=== PATIENT | male | born 1935 | race Caucasian/White ===

== ENCOUNTER 2016-11-11 18:49 | Emergency (ER) | payer MEDICARE ==
[~2016-11-11] VITALS: Ht 175.3 cm; Wt 97.0 kg
[~2016-11-11 18:49] MED LIST: CHOL100010 PO; CREON6 PO; CYAN100017 PO; DEXA4TAB PO; GABA300C3 PO; LEVO175T19; LORA-392 PO; OMEG600C2 PO; PROT40TA; RIVA15 PO
[2016-11-11 18:55] VITALS: BP 121/69; PULSE 97; RESP 16; TEMP 97.6; O2SAT 87
--- NOTE | 2016-11-11 19:42 | PD ---
HPI Chief Complaint: Respiratory Symptoms Time Seen by Provider: 19:20 Travel History International Travel<30 days: No Contact w/Intl Traveler<30days: No Traveled to known affect area: No History of Present Illness HPI 81-year-old male complains of shortness of breath. Patient started having shortness of breath when he had pneumonia in September 2016. Patient was treated for pneumonia however had persistent shortness of breath especially with exertion. Patient was seen by personal physician locally, Dr. Escoto and physician in [place]. Patient had CT scan of the chest and abdomen pelvis 4 days ago and was normal. Patient was advised to be on home O2. Patient was seen by personal physician today and was advised that home health agency will deliver home oxygen for the patient. Patient however has not received any home O2 and the O2 tank he has is empty. Patient is here requesting home O2. Patient does not want any blood work or x-ray done today. Patient has an appointment with Dr. Carlisle, compound specialist next week. 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, BONEMARROW TRANSPLANT, ESOPHAGEAL CX ) Cardiovascular Problems: Yes (XARELTO) Chemotherapy: Yes (11/08/16) Diabetes: No Diminished Hearing: Yes (HEARING AIDS) Diverticulitis: Yes Endocrine: No Genitourinary: No Hepatitis: No Hiatal Hernia: Yes Immune Disorder: No Musculoskeletal: No Neurologic: No Psychiatric: No Reproductive: No Respiratory: No Thyroid Disease: No Past Surgical History Abdominal Surgery: Yes (HERNIA SURGERY) AICD: No Cardiac Surgery: No Ear Surgery: No Eye Surgery: No Genitourinary Surgery: No Gynecologic Surgery: No Joint Replacement: No Oral Surgery: No Pacemaker: No Other Surgery: Yes (HERNIA REPAIR) Social History Alcohol Use: Yes (RARELY) Tobacco Use: No (QUIT 1977) Substance Use: No Allergies-Medications (Allergen,Severity, Reaction): Coded Allergies: No Known Allergies (Unverified , 11/11/16) VANCO ALLERGY WAS REMOVED PER DR. CHAMBERS ORDER, PT STATES, VANCO INFILTRATED, NO ALLERGIC REACTION. Reported Meds & Prescriptions Reported Meds & Active Scripts Active Reported Trazodone (Trazodone HCl) 50 Mg Tab 50 Mg PO HS Spiriva Handihaler (Tiotropium Inh) 18 Mcg Cap 18 Mcg INH HS 1 capsule = 18 mcg Fish Oil + D3 (Fish Oil-Cholecalciferol) 1,200-1,000 Mg-Unit Cap 1 Cap PO DAILY Multivitamin Adults (Multiple Vitamins W/ Minerals) 1 Tab 1 Tab PO DAILY Dexamethasone 4 Mg Tab 40 Mg PO DIRECTED Creon (Amylase/Lipase/Protease) 6,000-19,000-30,000 Units Cap 1 Cap PO DAILY Xarelto (Rivaroxaban) 15 Mg Tab 15 Mg PO HS Pantoprazole (Pantoprazole Sodium) 40 Mg Tab 40 Mg PO DAILY Lorazepam 1 Mg Tab 1 Mg PO HS PRN Levothyroxine (Levothyroxine Sodium) 200 Mcg Tab 200 Mcg PO DAILY B12 (Cyanocobalamin) 1,000 Mcg Tab 1,000 Mcg PO DAILY Gabapentin 300 Mg Cap 300 Mg PO TID D3 (Cholecalciferol) 1,000 Unit Tab 5,000 Units PO DAILY Review of Systems General / Constitutional: No: Fever Eyes: No: Visual changes HENT: No: Headaches Cardiovascular: No: Chest Pain or Discomfort Respiratory: Positive: Shortness of Breath Gastrointestinal: No: Abdominal Pain Genitourinary: No: Dysuria Musculoskeletal: No: Pain Skin: No Rash Neurologic: No: Weakness Psychiatric: No: Depression Endocrine: No: Polydipsia Hematologic/Lymphatic: No: Easy Bruising Physical Exam Narrative GENERAL: Well-nourished, well-developed patient. SKIN: Warm and dry. HEAD: Normocephalic. EYES: No scleral icterus. No injection or drainage. NECK: Supple, trachea midline. No JVD or lymphadenopathy. CARDIOVASCULAR: Regular rate and rhythm without murmurs, gallops, or rubs. RESPIRATORY: Breath sounds equal bilaterally. No accessory muscle use. Few rhonchi at the bases. No wheezes. GASTROINTESTINAL: Abdomen soft, non-tender, nondistended. MUSCULOSKELETAL: No cyanosis, or edema. BACK: Nontender without obvious deformity. No CVA tenderness. Neurologic exam normal. Data Data Last Documented VS Vital Signs Date Time Temp Pulse Resp B/P Pulse Ox O2 Delivery O2 Flow Rate FiO2 11/11/16 19:25 95 Nasal Cannula 3 11/11/16 18:55 97.6 97 16 121/69 MDM Medical Decision Making Medical Screen Exam Complete: Yes Emergency Medical Condition: Yes Differential Diagnosis Differential diagnosis including hypoxemia unknown etiology. Narrative Course 81-year-old male with shortness of breath. Patient's O2 dependent. Patient ran out of oxygen. I spoke with Dr. Escoto, unable to tell me which home health company that his office contact with the home O2 for the patient. Patient does not have any information on the home health company. We finally contacted [facility] health service. They will provide oxygen for the patient tonight. Diagnosis Primary Impression: Hypoxemia Patient Instructions: General Instructions Additional Instructions: backpackers manager will be consulted and home O2 be arranged tonight. Patient will follow-up with his personal physician for further home O2 supplement. Med/Other Pt SpecificInfo: No Change to Meds Disposition: 01 DISCHARGE HOME Condition: Stable Jermaine Ch MD Nov 11, 2016 19:42
[2016-11-11] MEDS ORDERED: SPIRCAP INH (20:15)
[2016-11-11] MEDS ORDERED: D31000TA PO (20:15)
[2016-11-11] MEDS ORDERED: LORA1TAB12 PO (20:15)
[2016-11-11] MEDS ORDERED: DEXA4TAB PO (20:15)
[2016-11-11] MEDS ORDERED: GABA300C5 PO (20:15)
[2016-11-11] MEDS ORDERED: XARE15TA PO (20:15)
[2016-11-11] MEDS ORDERED: CREON6 PO (20:15)
[2016-11-11] MEDS ORDERED: CYAN1TAB24 PO (20:15)
[2016-11-11] MEDS ORDERED: TRAZ50TA12 PO (20:15)
[2016-11-11] MEDS ORDERED: PANT40TA3 PO (20:15)
[2016-11-11] MEDS ORDERED: LEVO200T4 PO (20:15)
[2016-11-11] MEDS ORDERED: MULT1TAB84 PO (20:15)
[2016-11-11] MEDS ORDERED: FISHCAP4 PO (20:15)
[2016-11-11 21:51] VITALS: BP 140/71; PULSE 86; RESP 18; O2SAT 94
== END 2016-11-11 22:06 | disposition home or self-care (01) ==
LOC: PHED 18:49
DX: R09.02 Hypoxemia (principal); Z99.81 Dependence on supplemental oxygen
CPT/HCPCS: 99283

== ENCOUNTER → 2016-11-21 | Outpatient (CLI) | payer MEDICARE ==
[~2016-11-21] MED LIST changes: -CHOL100010 PO; -CYAN100017 PO; +CYAN1TAB24 PO; +D31000TA PO; +FISHCAP4 PO; -GABA300C3 PO; +GABA300C5 PO; -LEVO175T19; +LEVO200T4 PO; -LORA-392 PO; +LORA1TAB12 PO; +MULT1TAB84 PO; -OMEG600C2 PO; +PANT40TA3 PO; -PROT40TA; -RIVA15 PO; +SPIRCAP INH; +TRAZ50TA12 PO; +XARE15TA PO
== END ==
LOC: HRSP 13:09
PROVIDERS: ATTEND Internal Medicine Sleep Medicine
DX: J44.9 Chronic obstructive pulmonary disease, unspecified (principal)
CPT/HCPCS: 94620

== ENCOUNTER → 2016-11-23 | Day surgery (SDC) | payer MEDICARE ==
[~2016-11-23] VITALS: Ht 175.3 cm; Wt 94.4 kg
[~2016-11-23] MED LIST changes: +*RESP: ALBUTEROL 2.5 MG/3 ML NEB (PRN) PERIprocedural Use ONLY NEB ONE; +EPINEPHrine HCL (1:1000) 1 MG/ML VIAL ONE; +FAMOTIDINE 20 MG/2 ML VIAL ONE; +INSULIN HUMAN REGULAR 1,000 UNITS/10 ML VIAL SQ PRN; +LACTATED RINGER'S 1000 ML IV SCH; +LIDOCAINE HCL 2% PF SOLN 10 ML VIAL ONE; +METOPROLOL TARTRATE 25 MG TAB PO PRN; +MIDAZOLAM HCL 2 MG/2 ML VIAL ONE; +ONDANSETRON HCL 4 MG/2 ML VIAL IV PUSH ONE; +PROPOFOL 200 MG/20 ML AMP IV ONE; +SODIUM CHLORID 0.9% 500 ML IV SCH; +SODIUM CHLORIDE 0.9% 20 ML VIAL ONE
[2016-11-23 06:41] VITALS: BP 137/72; PULSE 88; RESP 18; TEMP 97; O2SAT 94
[2016-11-23 06:45] LABS: AUTOMATED NEUTROPHIL # 1.8 TH/MM3 (1.8-7.7); BASOPHIL % 1.1 % (0.0-2.0); EOSINOPHIL % 0.7 % (0.0-4.0); HEMATOCRIT 30.2 % (39.0-51.0); LYMPHOCYTE # 0.9 TH/MM3 (1.0-4.8); MEAN CELL VOLUME 96.9 FL (80.0-100.0); MEAN CORPUSCULAR HEMOGLOBIN 32.9 PG (27.0-34.0); MONO % 26.5 % (0.0-8.0); NEUT % 47.7 % (16.0-70.0); PLATELET COUNT 94 TH/MM3 (150-450); RED BLOOD COUNT 3.12 MIL/MM3 (4.50-5.90); RED CELL DISTRIBUTION WIDTH 18.9 % (11.6-17.2); WHITE BLOOD COUNT 3.9 TH/MM3 (4.0-11.0)
[2016-11-23 06:46] LABS: HEMO FLAGS AUTO DIFF
[2016-11-23 06:57] LABS: APTT (PATIENT) 29.8 SEC (24.3-30.1); PROTHROMBIN TIME - PATIENT 11.4 SEC (9.8-11.6)
[2016-11-23 07:43] LABS: PLATELET ESTIMATE SMEAR LOW (NORMAL); PLATELET MORPHOLOGY NORMAL (NORMAL); SCAN/DIFF AUTO DIFF CONFIRMED
[2016-11-23 07:44] LABS: KERATOCYTES OCC (NORMAL)
[2016-11-23 09:00] LABS: BLOOD GAS BASE EXCESS -1.3 mmol/L (-2-2); BLOOD GAS CARBOXYHEMOGLOBIN 1.9 % (0-4); BLOOD GAS HCO3 23 mmol/L (22-26); BLOOD GAS METHEMOGLOBIN 0.9 % (0-2); BLOOD GAS O2 HGB SATURATION 84 % (90-100); BLOOD GAS OXYGEN CONTENT 16.6 Vol % (12.0-20.0); BLOOD GAS PCO2 35 mmHg (38-42); BLOOD GAS PO2 58 mmHg (61-120); BLOOD GAS TOTAL HGB 14.1 G/DL (12.0-16.0); CRITICAL VALUE YES; DRAW SITE RT RADIAL; LITER FLOW 4 L/M; NUMBER OF ARTERIAL PUNCTURES 1; OXYGEN DEVICE NASAL CANNULA; STAT YES; TEMP CORR TO 98.6; ULNAR PULSE PRESENT
--- NOTE | 2016-11-23 09:06 | MR ---
cc: VIRGINIA COLEMAN M.D. DATE OF PROCEDURE 11/23/2016 PROCEDURE Fiberoptic bronchoscopy, flexible. REASON FOR BRONCHOSCOPY Left upper lobe lung density, rule out underlying malignancy, rule out chronic inflammatory process. PROCEDURE NOTE Fiberoptic bronchoscopy performed via LMA. Vocal cords intact. Trachea mildly hyperemic. Tiny sharp. Right mainstem bronchus, right upper, middle and lower lobe, left main bronchus, left upper and lower lobe inspected. No obstructive pathology or mass lesion seen. Washings obtained from both sides of the tracheobronchial tree for routine TB, fungal cultures as well as cytological exam. Cytological brushings left upper lobe obtained as well for cytological exam. The procedure well tolerated. The patient transferred to Recovery in stable condition. IMPRESSION 1. Mild moderate tracheobronchitis. 2. Excess mucoid secretion. 3. No endobronchial obstruction or mass lesion. 4. Samples obtained as above. 5. Procedure well tolerated. Patient transferred to Recovery in stable condition. MD IVAN Shepherd/MARIYA /8:54 AM /8:58 AM
[2016-11-23 09:42] VITALS: BP 107/68; PULSE 82; RESP 16; TEMP 97.5; O2SAT 98
--- NOTE | 2016-11-23 18:37 | EKG ---
Date Performed: 11/23/2016 Time Performed: 06:48:41 PTAGE: 81 years EKG: ATRIAL FIBRILLATION MODERATE INTRAVENTRICULAR CONDUCTION DELAY MINIMAL ST DEPRESSION ABNORM AL RHYTHM ECG NO PREVIOUS TRACING DOCTOR: Don Perez Interpretating Date/Time 11/23/2016 18:35:56
== END | disposition home or self-care (01) ==
LOC: HSDC 05:48
PROVIDERS: ATTEND Internal Medicine Sleep Medicine
DX: J18.9 Pneumonia, unspecified organism (principal); J40 Bronchitis, not specified as acute or chronic; C15.9 Malignant neoplasm of esophagus, unspecified; I48.91 Unspecified atrial fibrillation; Z79.01 Long term (current) use of anticoagulants
CPT/HCPCS: 00520; 31623; 36600; 82805; 85025; 85610; 85730; 86403; 87015; 87070; 87102; 87116; 87205; 87206; 88112; 88305; 93005; 94664; J2250; J2405; J7613; J0171

== ENCOUNTER 2017-09-28 09:53 | Emergency (ER) | payer MEDICARE ==
[~2017-09-28] VITALS: Ht 175.3 cm; Wt 93.9 kg
[~2017-09-28 09:53] MED LIST changes: -*RESP: ALBUTEROL 2.5 MG/3 ML NEB (PRN) PERIprocedural Use ONLY NEB ONE; -EPINEPHrine HCL (1:1000) 1 MG/ML VIAL ONE; -FAMOTIDINE 20 MG/2 ML VIAL ONE; -INSULIN HUMAN REGULAR 1,000 UNITS/10 ML VIAL SQ PRN; -LACTATED RINGER'S 1000 ML IV SCH; -LIDOCAINE HCL 2% PF SOLN 10 ML VIAL ONE; -METOPROLOL TARTRATE 25 MG TAB PO PRN; -MIDAZOLAM HCL 2 MG/2 ML VIAL ONE; -ONDANSETRON HCL 4 MG/2 ML VIAL IV PUSH ONE; -PROPOFOL 200 MG/20 ML AMP IV ONE; -SODIUM CHLORID 0.9% 500 ML IV SCH; -SODIUM CHLORIDE 0.9% 20 ML VIAL ONE
[2017-09-28 09:54] VITALS: BP 115/58; PULSE 87; RESP 20; TEMP 97.5; O2SAT 94
[2017-09-28] MEDS ORDERED: MULTCAP3 PO (10:19)
[2017-09-28] MEDS ORDERED: UMEC1AER INH (10:19)
[2017-09-28] MEDS ORDERED: FURO1TAB62 PO (10:20)
[2017-09-28] MEDS ORDERED: ACETAMINOPHEN 500 MG CPLT PO ONE (10:45)
[2017-09-28] MEDS ORDERED: CLINDAMYCIN 600 MG/DEX PREMIX 50 ML IV ONE (10:45)
--- NOTE | 2017-09-28 10:48 | PD ---
HPI Chief Complaint: Edema Time Seen by Provider: 10:18 Travel History International Travel<30 days: No Contact w/Intl Traveler<30days: No Traveled to known affect area: No History of Present Illness HPI 82yo M with PMH of AML s/p bone marrow transplant, esophageal CA on chemotherapy presents to the ED with c/o left leg pain and swelling. Pt said he has swelling in both legs but worst in the left leg for a while now. Said the redness is new for a few days. Pt trips on his oxygen and has frequent falls and last fell on his left knee 09/16 and had a negative xray in [place]. Pt 's oncologist is from [facility] and follows up every 3 weeks. Last chemo was in August. Denies any fever, chest pain, sob, n/v, abdominal pain, focal weakness or numbness. Pt is also on xarelto for what sounds like history of afib. He picked at his skin 2 days ago in left need and has a bandage over it because it was bleeding. 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, BONEMARROW TRANSPLANT, ESOPHAGEAL CX ) Cardiovascular Problems: Yes (AFIB) Chemotherapy: Yes (08/30/17) Diabetes: No Diminished Hearing: Yes (HEARING AIDS) Diverticulitis: Yes Endocrine: No Genitourinary: No Hepatitis: No Hiatal Hernia: Yes Hypertension: Yes (BOARDERLINE HIGH BLOOD PRESSURE) Immune Disorder: No Musculoskeletal: Yes (OSTEOPOROSIS) Neurologic: No Psychiatric: No Reproductive: No Respiratory: No Immunizations Current: Yes Thyroid Disease: No Past Surgical History Abdominal Surgery: Yes (HERNIA SURGERY X2) AICD: No Body Medical Devices: RIGHT CHEST PORT Cardiac Surgery: No Ear Surgery: No Eye Surgery: Yes (CATARACTS REMOVED BILATERALLY) Genitourinary Surgery: No Gynecologic Surgery: No Joint Replacement: No Oral Surgery: No Pacemaker: No Other Surgery: Yes (HERNIA REPAIR, GONSALEZ, PORT PLACEMENT) Social History Alcohol Use: Yes (RARELY) Tobacco Use: No (QUIT 1977) Substance Use: No Allergies-Medications (Allergen,Severity, Reaction): Coded Allergies: No Known Allergies (Unverified Adverse Reaction, Unknown, 09/28/17) VANCO ALLERGY WAS REMOVED PER DR. TRISH ORDER, PT STATES, VANCO INFILTRATED, NO ALLERGIC REACTION. Reported Meds & Prescriptions Reported Meds & Active Scripts Active Reported Lasix (Furosemide) 20 Mg Tab 20-40 Mg PO DAILY Anoro Ellipta Inh (Umeclidinium/Vilanterol) 62.5-25 Mcg/Act Aero 1 Puff INH DAILY Multivitamins (Multiple Vitamin) 1 Cap Cap 1 Cap PO DAILY Fish Oil + D3 (Fish Oil-Cholecalciferol) 1,200-1,000 Mg-Unit Cap 2 Cap PO HS Dexamethasone 4 Mg Tab 40 Mg PO DIRECTED Creon (Amylase/Lipase/Protease) 6,000-19,000-30,000 Units Cap 1 Cap PO DAILY Xarelto (Rivaroxaban) 15 Mg Tab 15 Mg PO HS Pantoprazole (Pantoprazole Sodium) 40 Mg Tab 40 Mg PO DAILY Lorazepam 1 Mg Tab 1 Mg PO HS PRN Levothyroxine (Levothyroxine Sodium) 200 Mcg Tab 200 Mcg PO DAILY B12 (Cyanocobalamin) 1,000 Mcg Tab 1,000 Mcg PO DAILY Gabapentin 300 Mg Cap 300 Mg PO TID PRN D3 (Cholecalciferol) 1,000 Unit Tab 2,000 Units PO DAILY Review of Systems Except as stated in HPI: all other systems reviewed are Neg Physical Exam Narrative GENERAL: 82yo M not in distress. SKIN: Focused skin assessment warm/dry. HEAD: Atraumatic. Normocephalic. EYES: Pupils equal and round. No scleral icterus. No injection or drainage. ENT: No nasal bleeding or discharge. Mucous membranes pink and moist. NECK: Trachea midline. No JVD. CARDIOVASCULAR: Regular rate and rhythm. No murmur appreciated. RESPIRATORY: No accessory muscle use. Clear to auscultation. Breath sounds equal bilaterally. On 2L NC which is his baseline. GASTROINTESTINAL: Abdomen soft, non-tender, nondistended. MUSCULOSKELETAL: LLE: + edema from left foot to knee. Mild erythema below left knee. FROM in left hip and knee. Sensation intact. DP 1+. There is a 0.2cm circular area under left knee where he picked at the skin, not actively bleeding now. NEUROLOGICAL: Awake and alert. No obvious cranial nerve deficits. Motor grossly within normal limits. Normal speech. PSYCHIATRIC: Appropriate mood and affect; insight and judgment normal. Data Data Last Documented VS Vital Signs Date Time Temp Pulse Resp B/P (MAP) Pulse Ox O2 Delivery O2 Flow Rate FiO2 09/28/17 11:20 78 17 116/62 (80) 97 Room Air 09/28/17 09:54 97.5 Orders Orders Complete Blood Count With Diff (09/28/17 10:38) Basic Metabolic Panel (Bmp) (09/28/17 10:38) Clindamycin 600 Mg/Dex Premix (Cleocin 6 (09/28/17 10:45) Us Leg Venous Doppler (09/28/17 ) Acetaminophen (Tylenol) (09/28/17 10:45) Potassium Chloride (Kcl) (09/28/17 12:00) Furosemide (Lasix) (09/28/17 12:00) Labs Laboratory Tests Test 09/28/17 10:50 White Blood Count 6.3 TH/MM3 Red Blood Count 2.90 MIL/MM3 Hemoglobin 9.1 GM/DL Hematocrit 28.6 % Mean Corpuscular Volume 98.9 FL Mean Corpuscular Hemoglobin 31.4 PG Mean Corpuscular Hemoglobin Concent 31.8 % Red Cell Distribution Width 20.8 % Platelet Count 145 TH/MM3 Mean Platelet Volume 6.7 FL Neutrophils (%) (Auto) 66.5 % Lymphocytes (%) (Auto) 12.5 % Monocytes (%) (Auto) 19.8 % Eosinophils (%) (Auto) 1.0 % Basophils (%) (Auto) 0.2 % Neutrophils # (Auto) 4.2 TH/MM3 Lymphocytes # (Auto) 0.8 TH/MM3 Monocytes # (Auto) 1.2 TH/MM3 Eosinophils # (Auto) 0.1 TH/MM3 Basophils # (Auto) 0.0 TH/MM3 CBC Comment DIFF FINAL Differential Comment Blood Urea Nitrogen 32 MG/DL Creatinine 1.40 MG/DL Random Glucose 97 MG/DL Calcium Level 8.3 MG/DL Sodium Level 140 MEQ/L Potassium Level 3.4 MEQ/L Chloride Level 103 MEQ/L Carbon Dioxide Level 26.9 MEQ/L Anion Gap 10 MEQ/L Estimat Glomerular Filtration Rate 49 ML/MIN [facility] Medical Decision Making Medical Screen Exam Complete: Yes Emergency Medical Condition: Yes Differential Diagnosis Cellulitis vs. DVT vs. Peripheral edema Narrative Course 82yo M here with left lower extremity edema and pain. Pt has bilateral lower extremity edema but left side is markedly more edematous. There are streaks of erythema in left tib/fib and is warm to touch. Good range of motion in left knee and hip. Pt has not taken his lasix 20mg PO today. Labs reviewed, no leukocytosis. H/H low at 9.1/28.6 which is pt's baseline. Thrombocytopenic at 145 which is better than baseline. Creatinine mildly elevated at 1.40. K: 3.4. Pt has not taken his normal dose of lasix 20mg PO today so gave pt his medication as well as 40mEq of KCl. Pt given acetaminophen with improvement of pain. Pt given 1 dose of clindamycin 600mg IV here. He is very well appearing and has not try outpatient antibiotic yet so will prescribe that. US left lower extremity showed no DVT. Return precautions given. Diagnosis Primary Impression: Cellulitis Qualified Codes: L03.116 - Cellulitis of left lower limb Patient Instructions: General Instructions Departure Forms: Tests/Procedures Additional Instructions: Please return to the ED if symptoms worsen. Please follow up with your primary care physician in 3-7 days. Med/Other Pt SpecificInfo: Prescription(s) given Scripts Acetaminophen (Tylenol) 325 Mg Tab 325 MG PO Q4H Y for PAIN SCALE 1 TO 4, #20 TAB 0 Refills Prov: Rozina Bone DO 09/28/17 Clindamycin (Clindamycin) 150 Mg Cap 300 MG PO Q6H for Infection for 7 Days, #56 CAP 0 Refills Prov: Rozina Bone DO 09/28/17 Disposition: 01 DISCHARGE HOME Condition: Stable Rozina Bone DO Sep 28, 2017 10:48
[2017-09-28 11:02] LABS: AUTOMATED NEUTROPHIL # 4.2 TH/MM3 (1.8-7.7); BASOPHIL % 0.2 % (0.0-2.0); EOSINOPHIL # 0.1 TH/MM3 (0-0.4); HEMATOCRIT 28.6 % (39.0-51.0); HEMO FLAGS DIFF FINAL; LYMPH % 12.5 % (9.0-44.0); LYMPHOCYTE # 0.8 TH/MM3 (1.0-4.8); MEAN CELL VOLUME 98.9 FL (80.0-100.0); MEAN CORPUSCULAR HEMOGLOBIN 31.4 PG (27.0-34.0); MEAN CORPUSCULAR HGB CONC 31.8 % (32.0-36.0); MONO % 19.8 % (0.0-8.0); NEUT % 66.5 % (16.0-70.0); PLATELET COUNT 145 TH/MM3 (150-450); RED CELL DISTRIBUTION WIDTH 20.8 % (11.6-17.2); WHITE BLOOD COUNT 6.3 TH/MM3 (4.0-11.0)
[2017-09-28 11:11] LABS: POTASSIUM 3.4 MEQ/L (3.5-5.1)
[2017-09-28 11:15] LABS: BICARBONATE 26.9 MEQ/L (21.0-32.0)
[2017-09-28 11:20] VITALS: BP 116/62; PULSE 78; RESP 17; O2SAT 97
--- NOTE | 2017-09-28 11:55 | RADRPT ---
EXAM DATE/TIME: 09/28/2017 11:17 [facility] COMPARISON: No previous studies available for comparison. INDICATIONS : Left leg pain and swelling. Patient fell on knee 09/16/2017. MEDICAL HISTORY : A.FIB. Anticoagulant therapy. Hypertesion. Diverticulitis. Hiatal hernia. Renal diesase. Arthritis. A ML. Chemotherapy. Esophageal cancer. SURGICAL HISTORY : Cataracts. Hernia surgery. Bone marrow transplant. Post placement. ENCOUNTER: Initial ACUITY: 1 week PAIN SCORE: 1/10 LOCATION: Left leg. TECHNIQUE: Venous ultrasound of the leg was performed from the inguinal ligament to the proximal calf. Real-manuel e, color Doppler and spectral tracing, compression and augmentation techniques were used. FINDINGS: There is normal compressibility of the deep venous system from the inguinal region to the proximal ca lf. No echogenic clot is seen in the lumen of the common femoral, femoral, popliteal, and posterior tibial veins. There is a normal response of the venous system to proximal and distal augmentation an d respiration. CONCLUSION: No evidence of DVT. Joshua Garcia MD on September 28, 2017 at 11:52 Board Certified Radiologist. This report was verified electronically.
[2017-09-28] MEDS ORDERED: FUROSEMIDE 20 MG TAB PO ONE (12:00)
[2017-09-28] MEDS ORDERED: POTASSIUM CHLORIDE 20 MEQ CONTROLLED RELEASE TAB PO ONE (12:00)
[2017-09-28] MEDS ORDERED: CLIN150C14 PO (12:12)
[2017-09-28] MEDS ORDERED: TYLE325T PO (12:12)
[2017-09-28 12:22] VITALS: BP 119/74
== END 2017-09-28 12:28 | disposition home or self-care (01) ==
LOC: PHED 09:53
DX: L03.116 Cellulitis of left lower limb (principal); C15.9 Malignant neoplasm of esophagus, unspecified; I48.91 Unspecified atrial fibrillation; Z94.81 Bone marrow transplant status; Z79.01 Long term (current) use of anticoagulants
CPT/HCPCS: 80048; 85025; 93971; 96365

== ENCOUNTER 2017-10-06 13:45 | Emergency (ER) | payer MEDICARE ==
[~2017-10-06] VITALS: Ht 175.3 cm; Wt 93.0 kg
[~2017-10-06 13:45] MED LIST changes: +CLIN150C14 PO; +FURO1TAB62 PO; -MULT1TAB84 PO; +MULTCAP3 PO; -SPIRCAP INH; -TRAZ50TA12 PO; +TYLE325T PO; +UMEC1AER INH
[2017-10-06 13:56] VITALS: BP 102/58; PULSE 90; RESP 20; TEMP 97.4
--- NOTE | 2017-10-06 14:12 | PD ---
HPI Chief Complaint: Skin Problem Time Seen by Provider: 14:01 Travel History International Travel<30 days: No Contact w/Intl Traveler<30days: No Traveled to known affect area: No History of Present Illness HPI 82 y/o male presents with the redness to his left leg improving but the swelling is still there and still worst the left versus the right. He states that he's not having any other concurrent complaints. He denies any other change since recently here. He states he is still taking his antibiotic. Quality is swollen. Severity is moderate. She denies specific modifying factors. 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, BONEMARROW TRANSPLANT, ESOPHAGEAL CX ) Cardiovascular Problems: Yes (AFIB) Chemotherapy: Yes (08/30/17) Diabetes: No Diminished Hearing: Yes (HEARING AIDS) Diverticulitis: Yes Endocrine: No Genitourinary: No Hepatitis: No Hiatal Hernia: Yes Hypertension: Yes (BOARDERLINE HIGH BLOOD PRESSURE) Immune Disorder: No Musculoskeletal: Yes (OSTEOPOROSIS) Neurologic: No Psychiatric: No Reproductive: No Respiratory: No Immunizations Current: Yes Thyroid Disease: No Past Surgical History Abdominal Surgery: Yes (HERNIA SURGERY X2) AICD: No Body Medical Devices: RIGHT CHEST PORT Cardiac Surgery: No Ear Surgery: No Eye Surgery: Yes (CATARACTS REMOVED BILATERALLY) Genitourinary Surgery: No Gynecologic Surgery: No Joint Replacement: No Oral Surgery: No Pacemaker: No Other Surgery: Yes (HERNIA REPAIR, GONSALEZ, PORT PLACEMENT) Social History Alcohol Use: Yes (RARELY) Tobacco Use: No (QUIT 1977) Substance Use: No Allergies-Medications (Allergen,Severity, Reaction): Coded Allergies: No Known Allergies (Unverified Adverse Reaction, Unknown, 10/06/17) VANCO ALLERGY WAS REMOVED PER DR. CHAMBERS ORDER, PT STATES, VANCO INFILTRATED, NO ALLERGIC REACTION. Reported Meds & Prescriptions Reported Meds & Active Scripts Active Tylenol (Acetaminophen) 325 Mg Tab 325 Mg PO Q4H PRN Clindamycin (Clindamycin HCl) 150 Mg Cap 300 Mg PO Q6H 7 Days Reported Lasix (Furosemide) 20 Mg Tab 20-40 Mg PO DAILY Anoro Ellipta Inh (Umeclidinium/Vilanterol) 62.5-25 Mcg/Act Aero 1 Puff INH DAILY Multivitamins (Multiple Vitamin) 1 Cap Cap 1 Cap PO DAILY Fish Oil + D3 (Fish Oil-Cholecalciferol) 1,200-1,000 Mg-Unit Cap 2 Cap PO HS Dexamethasone 4 Mg Tab 40 Mg PO DIRECTED Creon (Amylase/Lipase/Protease) 6,000-19,000-30,000 Units Cap 1 Cap PO DAILY Xarelto (Rivaroxaban) 15 Mg Tab 15 Mg PO HS Pantoprazole (Pantoprazole Sodium) 40 Mg Tab 40 Mg PO DAILY Lorazepam 1 Mg Tab 1 Mg PO HS PRN Levothyroxine (Levothyroxine Sodium) 200 Mcg Tab 200 Mcg PO DAILY B12 (Cyanocobalamin) 1,000 Mcg Tab 1,000 Mcg PO DAILY Gabapentin 300 Mg Cap 300 Mg PO TID PRN D3 (Cholecalciferol) 1,000 Unit Tab 2,000 Units PO DAILY Review of Systems Except as stated in HPI: all other systems reviewed are Neg Physical Exam Narrative GENERAL: Well-nourished, well-developed patient. SKIN: There is no warmth to left lower leg. There is a small area of maroon- colored skin noted to left mid lower leg which appears to be resolving cellulitis, no crepitus, no abscess HEAD: Normocephalic and atraumatic. EYES: No injection or drainage. ENT: No nasal drainage noted. NECK: Supple, trachea midline. CARDIOVASCULAR: Regular rate and rhythm RESPIRATORY: No increased effort. No accessory muscle use. EXTREMITIES: Patient has edema to bilateral lower extremities with left more than right, neurovascularly intact, no specific joint pain NEUROLOGICAL: Awake and alert. Moves all extremities and sensory grossly within normal limits. Normal speech. Data Data Last Documented VS Vital Signs Date Time Temp Pulse Resp B/P (MAP) Pulse Ox O2 Delivery O2 Flow Rate FiO2 10/06/17 15:47 81 16 121/68 (85) 95 Nasal Cannula 2.00 10/06/17 13:56 97.4 Orders Orders Us Leg Venous Doppler Bilat (10/06/17 14:05) Complete Blood Count With Diff (10/06/17 14:05) Basic Metabolic Panel (Bmp) (10/06/17 14:05) Act Partial Throm Time (Ptt) (10/06/17 14:05) Prothrombin Time / Inr (Pt) (10/06/17 14:05) Iv Access Insert/Monitor (10/06/17 14:05) Ed Discharge Order (10/06/17 16:06) Labs Laboratory Tests Test 10/06/17 14:40 10/06/17 15:20 White Blood Count 6.1 TH/MM3 Red Blood Count 2.83 MIL/MM3 Hemoglobin 8.9 GM/DL Hematocrit 28.2 % Mean Corpuscular Volume 99.7 FL Mean Corpuscular Hemoglobin 31.4 PG Mean Corpuscular Hemoglobin Concent 31.5 % Red Cell Distribution Width 20.4 % Platelet Count 145 TH/MM3 Mean Platelet Volume 7.3 FL Neutrophils (%) (Auto) 64.2 % Lymphocytes (%) (Auto) 16.2 % Monocytes (%) (Auto) 16.4 % Eosinophils (%) (Auto) 2.0 % Basophils (%) (Auto) 1.2 % Neutrophils # (Auto) 3.9 TH/MM3 Lymphocytes # (Auto) 1.0 TH/MM3 Monocytes # (Auto) 1.0 TH/MM3 Eosinophils # (Auto) 0.1 TH/MM3 Basophils # (Auto) 0.1 TH/MM3 CBC Comment AUTO DIFF Differential Comment AUTO DIFF CONFIRMED Blood Urea Nitrogen 28 MG/DL Creatinine 1.50 MG/DL Random Glucose 109 MG/DL Calcium Level 8.6 MG/DL Sodium Level 137 MEQ/L Potassium Level 3.3 MEQ/L Chloride Level 101 MEQ/L Carbon Dioxide Level 27.0 MEQ/L Anion Gap 9 MEQ/L Estimat Glomerular Filtration Rate 45 ML/MIN Prothrombin Time 14.3 SEC Prothromb Time International Ratio 1.4 RATIO Activated Partial Thromboplast Time 36.4 [facility] Medical Decision Making Medical Screen Exam Complete: Yes Emergency Medical Condition: Yes Medical Record Reviewed: Yes (past history confirmed) Interpretation(s) CBC & BMP Diagram 10/06/17 14:40 Calcium Level 8.6 Last 24 hours Impressions Lower Extremity Ultrasound 10/06/17 [id number] Signed Impressions: Service Date/Time: Friday, October 06, 2017 14:57 - CONCLUSION: 1. No sonographic evidence for lower extremity DVT. Alvaro Hidalgo MD Differential Diagnosis Cellulitis, DVT, venous stasis Narrative Course Recent records reviewed, patient has persistent edema Will repeat ultrasound to rule out DVT, recheck blood work to make sure patient has no significant change , on exam cellulitis appears to be improving. Labs at baseline, patient has no fever or leukocytosis, erythema is improving on exam. Vitals are stable. Patient agrees to continuing antibiotic and following closely with primary, given return instructions Diagnosis Primary Impression: Leg swelling Patient Instructions: General Instructions Additional Instructions: continue antibiotic, return as needed, elevate leg at rest, follow with primary monday Med/Other Pt SpecificInfo: No Change to Meds Disposition: 01 DISCHARGE HOME Condition: Stable Veronica Mora MD Oct 06, 2017 14:12
[2017-10-06 14:50] LABS: AUTOMATED NEUTROPHIL # 3.9 TH/MM3 (1.8-7.7); BASOPHIL # 0.1 TH/MM3 (0-0.2); BASOPHIL % 1.2 % (0.0-2.0); EOSINOPHIL # 0.1 TH/MM3 (0-0.4); HEMATOCRIT 28.2 % (39.0-51.0); HEMOGLOBIN 8.9 GM/DL (13.0-17.0); LYMPH % 16.2 % (9.0-44.0); MEAN CELL VOLUME 99.7 FL (80.0-100.0); MEAN CORPUSCULAR HEMOGLOBIN 31.4 PG (27.0-34.0); MEAN CORPUSCULAR HGB CONC 31.5 % (32.0-36.0); MEAN PLATELET VOLUME 7.3 FL (7.0-11.0); MONO % 16.4 % (0.0-8.0); NEUT % 64.2 % (16.0-70.0); PLATELET COUNT 145 TH/MM3 (150-450); RED BLOOD COUNT 2.83 MIL/MM3 (4.50-5.90); RED CELL DISTRIBUTION WIDTH 20.4 % (11.6-17.2); WHITE BLOOD COUNT 6.1 TH/MM3 (4.0-11.0)
[2017-10-06 15:03] LABS: CALCIUM 8.6 MG/DL (8.5-10.1)
[2017-10-06 15:07] LABS: CREATININE 1.5 MG/DL (0.60-1.30)
--- NOTE | 2017-10-06 15:40 | RADRPT ---
EXAM DATE/TIME: 10/06/2017 14:57 [facility] COMPARISON: No previous studies available for comparison. INDICATIONS : Bilateral leg swelling. MEDICAL HISTORY : Hypertension. Arthritis. Diverticulitis. A-fib. Hiatal hernia. Chemotherapy. Osteoporosis. SURGICAL HISTORY : Hiatal hernia repair. Bone marrow transplant. Port placement. ENCOUNTER: Initial ACUITY: 1 day PAIN SCORE: 0/10 LOCATION: Bilateral legs. TECHNIQUE: Venous ultrasound of the left and right leg was performed from the inguinal ligament to the proximal calf. Real-time, color Doppler and spectral tracing, compression and augmentation techniques were us ed. FINDINGS: RIGHT LEG: There is normal compressibility of the deep venous system from the inguinal region to the proximal ca lf. No echogenic clot is seen in the lumen of the common femoral, femoral, popliteal, and posterior tibial veins. There is a normal response of the venous system to proximal and distal augmentation an d respiration. LEFT LEG: There is normal compressibility of the deep venous system from the inguinal region to the proximal ca lf. No echogenic clot is seen in the lumen of the common femoral, femoral, popliteal, and posterior tibial veins. There is a normal response of the venous system to proximal and distal augmentation an d respiration. CONCLUSION: 1. No sonographic evidence for lower extremity DVT. Alvaro Hidalgo MD on October 06, 2017 at 15:37 Board Certified Radiologist. This report was verified electronically.
[2017-10-06 15:47] VITALS: BP 121/68; PULSE 81; RESP 16; O2SAT 95
[2017-10-06 15:47] LABS: INTERNATIONAL NORMALIZED RATIO 1.4 RATIO; PROTHROMBIN TIME - PATIENT 14.3 SEC (9.8-11.6)
== END 2017-10-06 16:30 | disposition home or self-care (01) ==
LOC: PHED 13:45
DX: M79.89 Other specified soft tissue disorders (principal); I48.91 Unspecified atrial fibrillation; I10 Essential (primary) hypertension; M81.0 Age-related osteoporosis without current pathological fracture; Z85.6 Personal history of leukemia; Z79.899 Other long term (current) drug therapy
CPT/HCPCS: 80048; 85025; 85610; 85730; 93970

== ENCOUNTER 2017-12-23 21:49 | Inpatient (IN) | payer MEDICARE ==
[~2017-12-23] VITALS: Ht 175.3 cm; Wt 92.8 kg
[2017-12-23 21:52] VITALS: BP 117/68; PULSE 103; RESP 22; TEMP 97.3; O2SAT 86
[2017-12-23 23:13] VITALS: BP 110/74; PULSE 90; RESP 18; TEMP 98.1; O2SAT 90
[2017-12-24] VITALS (27 sets, daily range): BP systolic 94–139; BP diastolic 49–116; PULSE 84–111; RESP 15–37; TEMP 98.6–98.8; O2SAT 86–100
[2017-12-24] MEDS ORDERED: TETANUS/DIPHTHERIA TOXOID ADULT 0.5 ML VIAL IM ONE
[2017-12-24] MEDS ORDERED: VANCOMYCIN INJ 1,000 MG in SODIUM CHLOR 0.9% 250 ML INJ 250 ML IV ONE ×2
[2017-12-24] MEDS ORDERED: CEFEPIME INJ 2,000 MG in SODIUM CHLORIDE 0.9% INJ 100 ML IV ONE ×2
--- NOTE | 2017-12-24 00:17 | RADRPT ---
EXAM DATE/TIME: 12/23/2017 23:52 [facility] COMPARISON: CHEST PA & LAT, November 02, 2014, 9:57. INDICATIONS : Shortness of breath. MEDICAL HISTORY : Osteoporosis. Hypertension. Arthritis. Diverticulitis. A-fib. Hiatal hernia. Chemotherapy SURGICAL HISTORY : Hiatal hernia repair. Bone marrow transplant. Port placement ENCOUNTER: Initial ACUITY: 1 day PAIN SCORE: 0/10 LOCATION: Bilateral chest FINDINGS: No acute infiltrate demonstrated. Mild, chronic basilar predominant interstitial opacities are again noted. No pleural effusion. No pneumothorax. Heart size stable, upper limits of normal. Right internal jugular Ysxmva-[id number]-Voya catheter with tip at the atriocaval junction again seen. CONCLUSION: No acute cardiopulmonary disease demonstrated. Kristian Caceres MD on December 24, 2017 at 0:14 Board Certified Radiologist. This report was verified electronically.
--- NOTE | 2017-12-24 00:28 | PD ---
HPI Chief Complaint: Fall Time Seen by Provider: 22:38 Travel History International Travel<30 days: No Contact w/Intl Traveler<30days: No Traveled to known affect area: No History of Present Illness HPI 82-year-old male presents to the emergency department by private transportation in the care of his family for complaint of increasing falls and weakness. According to the he is 10 days post chemotherapy which he receives 3 weeks for esophageal cancer which she has had monitored and managed to oncologist and Nora. Patient is seen every 3 weeks for chemotherapy. Patient's had no pleuritic chest pain no complain of shortness of breath no complaint of hemoptysis no new lower extremity pain or swelling. No prior history of DVT. Patient does take Xarelto for atrial fibrillation. Patient has had no known head injury and no identified abrasions soft tissue swelling ecchymosis or scalp laceration. reports just prior to arrival to the emergency department while using his walker he lost his balance and fell forward sustaining a skin tear to the dorsal aspect of the right hand. Because of the skin tear the patient was brought to the emergency room for evaluation of the skin tear. Family members put a dressing on the skin tear proximal to hours prior to arrival to the emergency department and noticed some swelling subsequently. Patient denies any hand pain or bone pain states nothing is broken but he does have a skin tear to his right hand. also reports that he fell 3 prior times earlier today so for false today which is atypical for him. also states that yesterday he had a fever of 101.3 days degrees Fahrenheit but she decided not to bring him to the emergency room as he responded to acetaminophen and evaporative cooling measures. also states he was wearing a heating pad at the time that he had a fever so she decided his temperature was not actually elevated due to fever but secondary to the heating pad. Patient also has history of COPD and is on continuous supplemental oxygen 2 L/min nasal cannula and also uses CPAP at night. also shares that she thinks that his mentation is a little bit worse than normal as he typically becomes weak and a little bit confused 10 days after his regular chemotherapy but she states that it seems worse today. The patient denies any pain denies any confusion denies shortness of breath. Patient is wearing supplemental oxygen. Patient was noted in triage to have O2 saturation of 87%. Family reports sometimes his O2 saturation is low the not sure if it is that low. Patient himself states that oftentimes his O2 saturation is 90-91%. Patient and family report if he had not sustained a large skin tear to his right hand they would have not brought him in for these complaints that they are now sharing as far as his generalized weakness is concerned and his increased frequency of falling. also reports that he has been seen here in the past for generalized weakness. Patient does report urinary frequency but states that is due to taking Lasix. PFSH Past Medical History Narrative Medical Atrial fibrillation arthritis esophageal cancer with chemotherapy COPD diminished hearing diverticulitis hypotension hypothyroidism sleep apnea inguinal herniorrhaphy [id number] occasional alcohol use; nursing notes reviewed Hx Anticoagulant Therapy: Yes Arthritis: Yes Atrial Fibrillation: Yes Autoimmune Disease: No Cancer: Yes (AML 03/1993 CHEMO, BONEMARROW TRANSPLANT, ESOPHAGEAL CX ) Cardiovascular Problems: Yes Chemotherapy: Yes (LAST DOSE: DEC 12, 2017) COPD: Yes Diabetes: No Diminished Hearing: Yes (HEARING AIDS) Diverticulitis: Yes Endocrine: No Genitourinary: No Hepatitis: No Hiatal Hernia: Yes Hypertension: Yes Immune Disorder: No Musculoskeletal: Yes (OSTEOPOROSIS) Neurologic: No Psychiatric: No Reproductive: No Respiratory: Yes (2L NC) Immunizations Current: Yes Pneumonia: Yes Thyroid Disease: Yes (HYPOTHYROIDISM) Tetanus Vaccination: Unknown Influenza Vaccination: Yes Past Surgical History Abdominal Surgery: Yes (INGUINAL HERNIA SURGERY X2) AICD: No Body Medical Devices: RIGHT CHEST PORT Cardiac Surgery: No Ear Surgery: No Eye Surgery: Yes (CATARACTS REMOVED BILATERALLY) Genitourinary Surgery: No Gynecologic Surgery: No Joint Replacement: No Oral Surgery: Yes (DENTAL IMPLANTS) Pacemaker: No Other Surgery: Yes (HERNIA REPAIR, GONSALEZ, PORT PLACEMENT) Social History Alcohol Use: Yes (RARELY) Tobacco Use: No (QUIT 1978) Substance Use: No Allergies-Medications (Allergen,Severity, Reaction): Coded Allergies: No Known Allergies (Unverified Adverse Reaction, Unknown, 12/23/17) VANCO ALLERGY WAS REMOVED PER DR. CHAMBERS ORDER, PT STATES, VANCO INFILTRATED, NO ALLERGIC REACTION. Reported Meds & Prescriptions Reported Meds & Active Scripts Active Tylenol (Acetaminophen) 325 Mg Tab 325 Mg PO Q4H PRN Reported Lasix (Furosemide) 20 Mg Tab 20-40 Mg PO DAILY Anoro Ellipta Inh (Umeclidinium/Vilanterol) 62.5-25 Mcg/Act Aero 1 Puff INH DAILY Multivitamins (Multiple Vitamin) 1 Cap Cap 1 Cap PO DAILY Fish Oil + D3 (Fish Oil-Cholecalciferol) 1,200-1,000 Mg-Unit Cap 2 Cap PO HS Dexamethasone 4 Mg Tab 40 Mg PO DIRECTED Creon (Amylase/Lipase/Protease) 6,000-19,000-30,000 Units Cap 1 Cap PO DAILY Xarelto (Rivaroxaban) 15 Mg Tab 15 Mg PO HS Pantoprazole (Pantoprazole Sodium) 40 Mg Tab 40 Mg PO DAILY Lorazepam 1 Mg Tab 1 Mg PO HS PRN Levothyroxine (Levothyroxine Sodium) 200 Mcg Tab 200 Mcg PO DAILY B12 (Cyanocobalamin) 1,000 Mcg Tab 1,000 Mcg PO DAILY Gabapentin 300 Mg Cap 300 Mg PO TID PRN D3 (Cholecalciferol) 1,000 Unit Tab 2,000 Units PO DAILY Review of Systems Except as stated in HPI: all other systems reviewed are Neg General / Constitutional: Positive: Fever, Chills HENT: Positive: Congestion Cardiovascular: No: Chest Pain or Discomfort Respiratory: No: Shortness of Breath Gastrointestinal: No: Nausea, Vomiting, Diarrhea, Abdominal Pain Genitourinary: Positive: Frequency, No: Urgency, Dysuria, Hematuria, Flank Pain Musculoskeletal: No: Myalgias, Arthralgias Skin: Positive Other (right hand skin tear) Neurologic: Positive: Weakness Psychiatric: No: Anxiety Hematologic/Lymphatic: No: Lymph Node Enlargement Physical Exam Narrative GENERAL: Well-developed well-nourished elderly male in no acute distress no respiratory distress; GCS 15 SKIN: Warm and dry. Large skin tear to the right hand 7 cm bleeding controlled HEAD: Atraumatic. Normocephalic. No scalp soft tissue swelling hematoma abrasion ecchymosis laceration or bony abnormality nontender to direct palpation. EYES: Pupils equal and round. Extraocular muscles intact no scleral icterus. No injection or drainage. No periorbital rim bony step-off or tenderness to palpation. ENT: No nasal bleeding or discharge. Mucous membranes pink and moist. Airway is patent. No hemotympanum. NECK: Trachea midline. No JVD. No midline tenderness to direct palpation along the cervical spine no bony step-off. CARDIOVASCULAR: Regular rate and rhythm. RESPIRATORY: No accessory muscle use. Clear to auscultation. Breath sounds equal bilaterally. GASTROINTESTINAL: Abdomen soft, non-tender, nondistended. Hepatic and splenic margins not palpable. MUSCULOSKELETAL: Extremities without clubbing, cyanosis, or edema. No obvious deformities. NEUROLOGICAL: Awake and alert. GCS 15 no obvious cranial nerve deficits. Motor grossly within normal limits. Five out of 5 muscle strength in the arms and legs. Normal speech. PSYCHIATRIC: Appropriate mood and affect; insight and judgment normal. Data Data Last Documented VS Vital Signs Date Time Temp Pulse Resp B/P (MAP) Pulse Ox O2 Delivery O2 Flow Rate FiO2 12/24/17 04:02 94 Non-Rebreather 14.00 12/24/17 03:56 110 94/49 (64) 12/24/17 01:40 22 12/23/17 23:13 98.1 Orders Orders Wound Care (12/23/17 22:59) Ice/Cold Pack (12/23/17 22:59) Sepsis Workup Initiated (12/23/17 ) Complete Blood Count With Diff (12/23/17 23:49) Comprehensive Metabolic Panel (12/23/17 23:49) Prothrombin Time / Inr (Pt) (12/23/17 23:49) Act Partial Throm Time (Ptt) (12/23/17 23:49) Lactic Acid Sepsis Protocol (12/23/17 23:49) Magnesium (Mg) (12/23/17 23:49) Lipase (12/23/17 23:49) Ckmb (Isoenzyme) Profile (12/23/17 23:49) Troponin I (12/23/17 23:49) Urinalysis - C+S If Indicated (12/23/17 23:49) Blood Culture (12/23/17 23:49) Chest, Single Ap (12/23/17 23:49) Ecg Monitoring (12/23/17 23:49) Iv Access Insert/Monitor (12/23/17 23:49) Oximetry (12/23/17 23:49) Oxygen Administration (12/23/17 23:49) Ct Brain W/O Iv Contrast(Rout) (12/23/17 23:49) Cefepime Inj (Maxipime Inj) (12/24/17 00:00) Ammonia (12/23/17 23:49) Vancomycin Inj (Vancomycin Inj) (12/24/17 00:00) Arterial Blood Gas (Abg) (12/23/17 ) Albuterol-Ipratropium Neb (Duoneb Neb) (12/24/17 00:00) Tetanus/Diphtheria Tox Adult (Tetanus/Di (12/24/17 00:00) Ct Pulmonary Angiogram (12/24/17 ) Resp Oxygen Venturi Mask (12/24/17 ) Arterial Blood Gas (Abg) (12/24/17 ) Albuterol-Ipratropium Neb (Duoneb Neb) (12/24/17 01:30) Iohexol 350 Inj (Omnipaque 350 Inj) (12/24/17 03:13) Electrocardiogram (12/24/17 ) Methylprednisolone So Succ Inj (Solumedr (12/24/17 04:15) Resp Bipap / Cpap Non Invas Vt (12/24/17 ) Albuterol-Ipratropium Neb (Duoneb Neb) (12/24/17 04:15) Sodium Chlorid 0.9% 500 Ml Inj (Ns 500 M (12/24/17 04:15) Sodium Chlor 0.9% 1000 Ml Inj (Ns 1000 M (12/24/17 04:15) Admit Order (Ed Use Only) (12/24/17 ) Hotel Room Attendant / Telemetry [id number] (12/24/17 04:11) Activity Bed Rest (12/24/17 04:11) Notify Dr: Other (12/24/17 04:11) Sodium Chlorid 0.9% 500 Ml Inj (Ns 500 M (12/24/17 04:15) Labs Laboratory Tests Test 12/23/17 00:25 12/23/17 00:30 12/24/17 00:38 12/24/17 03:45 Lactic Acid Level 1.8 mmol/L Ammonia 16 MCMOL/L White Blood Count 2.7 TH/MM3 Red Blood Count 3.25 MIL/MM3 Hemoglobin 10.2 GM/DL Hematocrit 30.2 % Mean Corpuscular Volume 92.7 FL Mean Corpuscular Hemoglobin 31.4 PG Mean Corpuscular Hemoglobin Concent 33.9 % Red Cell Distribution Width 18.7 % Platelet Count 76 TH/MM3 Mean Platelet Volume 8.0 FL CBC Comment AUTO DIFF Differential Total Cells Counted 100 Neutrophils % (Manual) 30 % Band Neutrophils % 3 % Lymphocytes % 41 % Monocytes % 26 % Neutrophils # (Manual) 0.9 TH/MM3 Differential Comment FINAL DIFF MANUAL Platelet Estimate LOW Platelet Morphology Comment NORMAL Red Cell Morphology Comment NORMAL Prothrombin Time 15.7 SEC Prothromb Time International Ratio 1.6 RATIO Activated Partial Thromboplast Time 46.7 SEC Blood Urea Nitrogen 25 MG/DL Creatinine 1.30 MG/DL Random Glucose 108 MG/DL Total Protein 6.1 GM/DL Albumin 2.6 GM/DL Calcium Level 8.2 MG/DL Magnesium Level 1.3 MG/DL Alkaline Phosphatase 98 U/L Aspartate Amino Transf (AST/SGOT) 27 U/L Alanine Aminotransferase (ALT/SGPT) 28 U/L Total Bilirubin 0.7 MG/DL Sodium Level 137 MEQ/L Potassium Level 3.6 MEQ/L Chloride Level 102 MEQ/L Carbon Dioxide Level 25.7 MEQ/L Anion Gap 9 MEQ/L Estimat Glomerular Filtration Rate 53 ML/MIN Total Creatine Kinase 53 U/L Troponin I 0.05 NG/ML Lipase 73 U/L Blood Gas Puncture Site RT BRACHIAL RT BRACHIAL Blood Gas Patient Temperature 98.6 98.6 Blood Gas HCO3 22 mmol/L 23 mmol/L Blood Gas Base Excess -0.4 mmol/L -0.2 mmol/L Blood Gas Oxygen Saturation 81 % 86 % Arterial Blood pH 7.51 7.49 Arterial Blood Partial Pressure CO2 28 mmHG 30 mmHG Arterial Blood Partial Pressure O2 49 mmHG 56 mmHG Arterial Blood Oxygen Content 13.0 Vol % 11.3 Vol % Arterial Blood Carboxyhemoglobin 2.2 % 2.3 % Arterial Blood Methemoglobin 1.2 % 1.0 % Blood Gas Hemoglobin 11.4 G/DL 9.3 G/DL Oxygen Delivery Device NASAL CANNULA VENTI MASK Blood Gas Liter Flow 3 L/M 6 L/M Blood Gas Inspired Oxygen 50 % MDM Medical Decision Making Medical Screen Exam Complete: Yes Emergency Medical Condition: Yes Medical Record Reviewed: Yes Interpretation(s) CBC & BMP Diagram 12/23/17 00:30 Total Protein 6.1 L, Albumin 2.6 L, Calcium Level 8.2 L, Magnesium Level 1.3 L, Alkaline Phosphatase 98, Aspartate Amino Transf (AST/SGOT) 27, Alanine Aminotransferase (ALT/SGPT) 28, Total Bilirubin 0.7 Vital Signs Date Time Temp Pulse Resp B/P (MAP) Pulse Ox O2 Delivery O2 Flow Rate FiO2 12/24/17 03:55 91 Venturi Mask 6.00 12/24/17 01:40 100 22 106/76 (86) 87 Nasal Cannula 2.00 12/24/17 00:24 92 Nasal Cannula 3.00 12/23/17 23:13 98.1 90 18 110/74 (86) 90 Nasal Cannula 3.00 12/23/17 21:52 97.3 103 22 117/68 (84) 86 EKG: Atrial fibrillation with RVR rate [address] elevation Differential Diagnosis Generalized weakness, sepsis, UTI, bacteremia, pneumonia, PE, exacerbation COPD Narrative Course Patient noted in triage to have room air O2 saturation of 87% on 3 L/min nasal cannula 90% Discussed in detail with patient recommendation for evaluation with blood work imaging studies and possible observation admission; family and patient states that this is really not necessary that the only brought him in because of his hand injury associated with the skin tear secondary to his fall. Upon observation and planning for discharge with plan for discharge AGAINST MEDICAL ADVICE is identified that his saturation actually dropped to 82% on 2 L/ min nasal cannula which is typically what he is on and will not go above 87% on 2 L/min nasal cannula and only goes up to 89-90% on 3 L/min nasal cannula. Therefore patient now is agreeable to evaluation in the emergency department and observation stay for exacerbation of COPD and further investigation as may need to have CT pulmonary angiogram to rule out PE due to his frequent flying up [place] for management of his esophageal cancer; fortunately patient is on Xarelto therapy for atrial fibrillation. Patient's case discussed with linecasting machine keyboard operator. Patient identified by CT pulmonary angiogram to have no PE but left lower lobe infiltrate and small effusion. Patient remains hypoxemic. Patient placed on nonrebreather mask with plan to transition to BiPAP upon chief technician arrival. Dr. Bosch graciously accepts patient for admission to his service. Physician Communication Physician Communication call placed to linecasting machine keyboard operator Dr Bosch Diagnosis Primary Impression: COPD (chronic obstructive pulmonary disease) Qualified Codes: J44.0 - Chronic obstructive pulmonary disease with acute lower respiratory infection Additional Impressions: Pneumonia Qualified Codes: J18.1 - Lobar pneumonia, unspecified organism Hypoxemia Esophageal cancer Qualified Codes: C15.9 - Malignant neoplasm of esophagus, unspecified Pleural effusion, left CAD (coronary artery disease) Pancytopenia Admitting Information Admitting Physician Requests: Admit Tootie Barrios MD Dec 24, 2017 00:28
--- NOTE | 2017-12-24 00:33 | RADRPT ---
EXAM DATE/TIME: 12/24/2017 00:03 [facility] COMPARISON: No previous studies available for comparison. INDICATIONS : Trauma, fall. RADIATION DOSE: 60.65 CTDIvol (mGy) MEDICAL HISTORY : Hypertension. Carcinoma, esophageal. SURGICAL HISTORY : None. ENCOUNTER: Initial ACUITY: 1 day PAIN SCALE: 2/10 LOCATION: cranial TECHNIQUE: Multiple contiguous axial images were obtained of the head. Using automated exposure control and adj ustment of the mA and/or kV according to patient size, radiation dose was kept as low as reasonably a chievable to obtain optimal diagnostic quality images. DICOM format image data is available electro nically for review and comparison. FINDINGS: CEREBRUM: The ventricles are normal for age. No evidence of midline shift, mass lesion, hemorrhage or acute in farction. No extra-axial fluid collections are seen. POSTERIOR FOSSA: The cerebellum and brainstem are intact. The 4th ventricle is midline. The cerebellopontine angle i s unremarkable. EXTRACRANIAL: The visualized portion of the orbits is intact. SKULL: The calvaria is intact. No evidence of skull fracture. CONCLUSION: No acute intracranial abnormality. Kristian Caceres MD on December 24, 2017 at 0:31 Board Certified Radiologist. This report was verified electronically.
[2017-12-24 00:46] LABS: HEMATOCRIT 30.2 % (39.0-51.0); HEMOGLOBIN 10.2 GM/DL (13.0-17.0); MEAN CELL VOLUME 92.7 FL (80.0-100.0); MEAN CORPUSCULAR HEMOGLOBIN 31.4 PG (27.0-34.0); MEAN CORPUSCULAR HGB CONC 33.9 % (32.0-36.0); PLATELET COUNT 76 TH/MM3 (150-450); RED BLOOD COUNT 3.25 MIL/MM3 (4.50-5.90); RED CELL DISTRIBUTION WIDTH 18.7 % (11.6-17.2); WHITE BLOOD COUNT 2.7 TH/MM3 (4.0-11.0)
[2017-12-24 00:56] LABS: CHLORIDE 102 MEQ/L (98-107); SODIUM (NA) 137 MEQ/L (136-145)
[2017-12-24 00:59] LABS: ALBUMIN 2.6 GM/DL (3.4-5.0); BICARBONATE 25.7 MEQ/L (21.0-32.0); CALCIUM 8.2 MG/DL (8.5-10.1); GLUCOSE,RANDOM 108 MG/DL (74-106); MAGNESIUM 1.3 MG/DL (1.5-2.5)
[2017-12-24 01:00] LABS: BLOOD UREA NITROGEN 25 MG/DL (7-18); INTERNATIONAL NORMALIZED RATIO 1.6 RATIO; PROTHROMBIN TIME - PATIENT 15.7 SEC (9.8-11.6)
[2017-12-24 01:02] LABS: ALT (GPT) 28 U/L (12-78); AST (GOT) 27 U/L (15-37); GLOMERULAR FILTRATION RATE 53 ML/MIN (>89)
[2017-12-24 01:04] LABS: TOTAL BILIRUBIN ADULT 0.7 MG/DL (0.2-1.0); TOTAL PROTEIN 6.1 GM/DL (6.4-8.2)
[2017-12-24 01:05] LABS: ALKALINE PHOSPHATASE 98 U/L (45-117)
[2017-12-24 01:08] LABS: TROPONIN I 0.05 NG/ML (0.02-0.05)
[2017-12-24 01:42] LABS: BANDS 3 % (0-6); LYMPHOCYTES 41 % (9-44); MONOCYTES 26 % (0-8); NEUTROPHIL # MANUAL DIFF 0.9 TH/MM3 (1.8-7.7); POLYS (SEG NEUTROPHILS) 30 % (16-70)
[2017-12-24] MEDS: RESP: ALBUTEROL 2.5 MG/IPRATROPIUM 0.5 MG NEB (SCH) INH ×6 (03:12→20:09)
[2017-12-24] MEDS ORDERED: IOHEXOL 350 MG/ML 10 ML VIAL (for RAD DIAG) IVCONTRAST ONE (03:13)
--- NOTE | 2017-12-24 03:24 | RADRPT ---
EXAM DATE/TIME: 12/24/2017 03:00 [facility] COMPARISON: No previous studies available for comparison. INDICATIONS : Hypoxemia. IV CONTRAST: 65 cc Omnipaque 350 (iohexol) IV RADIATION DOSE: 20.67 CTDIvol (mGy) MEDICAL HISTORY : Hypertension. Chronic obstructive pulmonary disease. Carcinoma, esophageal. SURGICAL HISTORY : None. ENCOUNTER: Initial ACUITY: 1 day PAIN SCALE: 0/10 LOCATION: chest TECHNIQUE: Volumetric scanning of the chest was performed using a pulmonary embolism protocol MIP images were re constructed. Using automated exposure control and adjustment of the mA and/or kV according to patien t size, radiation dose was kept as low as reasonably achievable to obtain optimal diagnostic quality images. DICOM format image data is available electronically for review and comparison. Follow-up recommendations for detected pulmonary nodules are based at a minimum on nodule size and pa tient risk factors according to Fleischner Society Guidelines. FINDINGS: There is no pulmonary embolus. Mild bibasilar atelectasis. Potential early or mild pneumonia in the left lower lobe.. There is an 8m m vague nodular opacity at the base of the lingular division of the left upper lobe, series 3 image 5 4. A small left pleural effusion is present. Mild panchamber enlargement of the heart. Focal coronary artery calcification seen near the junction of the left main/left anterior descending. There is also patchy right coronary artery calcification. No lymphadenopathy. CONCLUSION: 1. No pulmonary embolus. 2. Mild bibasilar atelectasis. Possible early/mild pneumonia left lower lobe. 3. Small left pleural effusion. 4. 8mm nodular opacity laterally at the left lung base and a followup noncontrast chest CT is recomme nded in approximately 3 months. 5. Mild cardiac enlargement. Coronary artery calcification. Kristian Caceres MD on December 24, 2017 at 3:19 Board Certified Radiologist. This report was verified electronically.
[2017-12-24] MEDS ORDERED: SODIUM CHLOR 0.9% 1000 ML INJ 1,000 ML IV SCH (04:15)
[2017-12-24] MEDS ORDERED: methylPREDNISolone SOD SUCC 125 MG/2 ML VIAL IV PUSH ONE (04:15)
[2017-12-24] MEDS ORDERED: SODIUM CHLORID 0.9% 500 ML INJ 500 ML IV ONE ×2 (04:15)
[2017-12-24] MEDS ORDERED: RESP: ALBUTEROL 2.5 MG/IPRATROPIUM 0.5 MG NEB (SCH) NEB ONE ×2 (04:15)
[2017-12-24 06:34] LABS: BILIRUBIN, URINE NEG (NEG); BLOOD, URINE NEG (NEG); GLUCOSE,URINE NEG (NEG); KETONE, URINE NEG (NEG); NITRITE,URINE NEG (NEG); PH, URINE 5.5 (5.0-8.5); URINE COLOR YELLOW (YELLW/STRAW); URINE LEUKOCYTE ESTERASE NEG (NEG)
[2017-12-24 06:58] LABS: AMORPHOUS SEDIMENT, URINE FEW; SQUAMOUS EPITHELIAL CELL URINE 0-5 /hpf (0-5)
[2017-12-24] MEDS: SODIUM CHLOR 0.9% 1000 ML INJ 1,000 ML IV SCH ×2 (07:39→17:38)
[2017-12-24] MEDS ORDERED: POTASSIUM PHOSPHATE MONOBASIC 500 MG TAB PO PRN (07:45)
[2017-12-24] MEDS ORDERED: SENNOSIDES 8.6 MG TAB PO PRN (07:45)
[2017-12-24] MEDS ORDERED: GLUCAGON 1 MG/ML VIAL OTHER PRN (07:45)
[2017-12-24] MEDS ORDERED: POTASSIUM CHLOR 20 MEQ PREMIX 100 ML IV PRN ×2 (07:45)
[2017-12-24] MEDS ORDERED: SODIUM PHOSPHATE INJ 30 MMOL in SODIUM CHLOR 0.9% 250 ML INJ 240 ML IV PRN (07:45)
[2017-12-24] MEDS ORDERED: BISACODYL 10 MG SUPP RECTAL PRN (07:45)
[2017-12-24] MEDS ORDERED: ACETAMINOPHEN 325 MG TAB PO PRN (07:45)
[2017-12-24] MEDS ORDERED: MISCELLANEOUS NURSING INFORMATION XX SCH (07:45)
[2017-12-24] MEDS ORDERED: MORPHINE SULFATE 4 MG/ML INJ IV PUSH PRN (07:45)
[2017-12-24] MEDS ORDERED: LACTULOSE SYRUP 20 GM/30 ML CUP PO PRN (07:45)
[2017-12-24] MEDS ORDERED: DEXTROSE 50% IN WATER 50 ML VIAL(D50) IV PUSH PRN (07:45)
[2017-12-24] MEDS ORDERED: MAGNESIUM OXIDE 400 MG TAB PO PRN (07:45)
[2017-12-24] MEDS ORDERED: SODIUM CHLORIDE 0.9% FLUSH 10 ML FLUSH IV FLUSH PRN (07:45)
[2017-12-24] MEDS ORDERED: CHLORHEXIDINE GLUCONATE 2 % 1 PACK (2 CLOTHS) TOP PRN (07:45)
[2017-12-24] MEDS ORDERED: POTASSIUM CHLORIDE 25 MEQ EFFERVESCENT TAB PO PRN (07:45)
[2017-12-24] MEDS ORDERED: ACETAMINOPHEN/HYDROcodone 325 MG/5 MG TAB PO PRN (07:45)
[2017-12-24] MEDS ORDERED: MAGNESIUM SULFATE INJ 2 GM in SODIUM CHLORIDE 0.9% INJ 96 ML IV PRN (07:45)
[2017-12-24] MEDS ORDERED: POTASSIUM CHLOR 40 MEQ PREMIX 100 ML IV PRN (07:45)
[2017-12-24] MEDS ORDERED: MAGNESIUM SULFATE INJ 4 GM in SODIUM CHLORIDE 0.9% INJ 92 ML IV PRN (07:45)
[2017-12-24] MEDS ORDERED: POTASSIUM PHOSPHATE MONOBASIC 500 MG TAB PO/TUBE PRN (07:45)
[2017-12-24] MEDS ORDERED: RESP: ALBUTEROL 2.5 MG/3 ML NEB (PRN) INH (07:45)
[2017-12-24] MEDS ORDERED: ONDANSETRON HCL 4 MG/2 ML VIAL IV PUSH PRN (07:45)
[2017-12-24] MEDS ORDERED: POTASSIUM PHOSPHATE INJ 30 MMOL in SODIUM CHLOR 0.9% 250 ML INJ 250 ML IV PRN (07:45)
[2017-12-24] MEDS ORDERED: MAGNESIUM HYDROXIDE SUSP 30 ML CUP PO PRN (07:45)
[2017-12-24] MEDS ORDERED: AZITHROMYCIN INJ 500 MG in SODIUM CHLOR 0.9% 250 ML INJ 250 ML IV SCH (08:00)
[2017-12-24] MEDS ORDERED: NOREPINEPHRINE INJ 4 MG in SODIUM CHLOR 0.9% 250 ML INJ 246 ML IV PRN (08:00)
[2017-12-24] MEDS ORDERED: LORazepam 1 MG TAB PO PRN (08:00)
[2017-12-24] MEDS ORDERED: TERBUTALINE INJ 1 MG/ML AMP SQ PRN (08:00)
[2017-12-24] MEDS ORDERED: CEFEPIME INJ 2,000 MG in SODIUM CHLORIDE 0.9% INJ 100 ML IV SCH (08:00)
--- NOTE | 2017-12-24 08:20 | HHI.HP ---
[facility] Service Critical Care Medicine Primary Care Physician Sasha Escoto MD Admission Diagnosis Pneumonia w/ hypoemia; copd pancytopenia; esophageal ca Diagnosis: (1) Frequent falls Diagnosis: Principal (2) Cataract Diagnosis: Secondary (3) Hypoalbuminemia Diagnosis: Secondary (4) Hypokalemia Diagnosis: Secondary (5) Hypomagnesemia Diagnosis: Principal (6) Elevated partial thromboplastin time (PTT) Diagnosis: Principal (7) Elevated INR Diagnosis: Principal (8) Gastroesophageal reflux disease Diagnosis: Secondary (9) Pancreatic insufficiency Diagnosis: Principal (10) Peripheral neuropathy Diagnosis: Secondary (11) Chronic prescription benzodiazepine use Diagnosis: Principal (12) Chronic anticoagulation Diagnosis: Secondary (13) COPD (chronic obstructive pulmonary disease) Diagnosis: Principal (14) CAD (coronary artery disease) Diagnosis: Secondary (15) Pancytopenia Diagnosis: Principal (16) Esophageal cancer Diagnosis: Secondary (17) Pleural effusion, left Diagnosis: Secondary (18) Pneumonia Diagnosis: Secondary (19) Chronic kidney disease, stage III (moderate) Diagnosis: Principal (20) Hypertension Diagnosis: Secondary (21) Hypothyroidism Diagnosis: Secondary (22) Hypoxemia Diagnosis: Secondary (23) Severe sepsis Diagnosis: Principal Travel History International Travel<30 Days: No Contact w/Intl Traveler <30 Da: No Traveled to Known Affected Are: No Sepsis Criteria SIRS Criteria (2 or more): RR > 20 or PaCO2 < 32, WBC > 72476, < 4000 or > 10 % bands Sepsis Criteria (SIRS+source): Infect source susp/known Severe Sepsis (+one): Hypotension History of Present Illness This is an 82-year-old male. Date of admission 12/24/2017. 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 History of AML treated in 1992. Patient has a right-sided Fowynv-v-Wxyx. Patient is a history of tobaccoism quit [id number] history in 1977. Patient presents to [facility] with a recent history of frequent falls. Patient has fallen 4 times in the past 24 hours. Denies head trauma. Usually around "10 days" after chemotherapy that he receives in [place] patient becomes increasingly weak. Patient is normally on 2 L nasal cannula which is bumped to 3 L. Patient came desaturated with CO2 retention. Patient was eventually transferred to the BiPAP currently satting 100%. CT brain revealed no acute intracranial findings. Chest x-ray revealed no acute cardiopulmonary findings. CT pulmonary revealed left lower lobe infiltrate/atelectasis, small pleural effusion with a coronary calcification of the left main/LAD area. Laboratories revealed pancytopenia, elevated INR PTT. Patient received 1 L normal saline, vancomycin, cefepime and methylprednisolone succinate 125 mg 1 in the ED. Review of Systems ROS Limitations: Clinical Condition, Altered Mental Status Past Family Social History Allergies: Coded Allergies: No Known Allergies (Unverified Adverse Reaction, Unknown, 12/23/17) VANCO ALLERGY WAS REMOVED PER DR. CHAMBERS ORDER, PT STATES, VANCO INFILTRATED, NO ALLERGIC REACTION. Past Medical History Chronic atrial fibrillation rate controlled Hypertension Dyslipidemia Hypothyroidism Diverticulosis Cataract COPD History of AML 1992 Chronic narcotic use Chronic rivaroxaban use Gastroesophageal reflux disease Peripheral neuropathy Chronic pancreatic insufficiency History of esophageal cancer T2 N2 M1 -adenocarcinoma treated by Dr. Gonzalez Past Surgical History Right Znralv-f-Xiqj Cataract Bone marrow transplant Vasectomy Lumpectomy Hernia repair EGD/colonoscopy Reported Medications Uniclidium/Vilanterol 62.5/25 1 inhalation daily Rivaroxaban 15 mg at night Fish oil/cholecalciferol 1200 mg/1000 units 2 tablets at night Gabapentin 300 mg p.o. 3 times daily Lorazepam 1 mg nightly Furosemide 20-40 mg as needed Pancreas 6000/70014/3000 units 1 tablet daily Pantoprazole 40 mg p.o. daily Dexamethasone 40 mg as needed Levothyroxine 200 units p.o. daily Cyanocobalamin 1000 units p.o. daily Cholecalciferol 2000 units p.o. daily Active Ordered Medications Reviewed in EMR Family History Father from prostate cancer age 95. Social History 40 year tobacco use. Quit 1977. One beer per month. Denies illicit drug use. Physical Exam Vital Signs Vital Signs Date Time Temp Pulse Resp B/P (MAP) Pulse Ox O2 Delivery O2 Flow Rate FiO2 12/24/17 07:48 99 80 12/24/17 07:46 90 17 139/73 (95) 100 BiPAP 12/24/17 07:21 100 BiPAP 12/24/17 07:15 100 17 95/55 (68) 100 BiPAP 12/24/17 05:39 111 18 111/61 (78) 100 BiPAP 100 12/24/17 04:40 100 100 12/24/17 04:02 94 Non-Rebreather 14.00 12/24/17 03:56 110 94/49 (64) 100 12/24/17 03:55 91 Venturi Mask 6.00 12/24/17 01:40 100 22 106/76 (86) 87 Nasal Cannula 2.00 12/24/17 00:24 92 Nasal Cannula 3.00 12/23/17 23:13 98.1 90 18 110/74 (86) 90 Nasal Cannula 3.00 12/23/17 22:25 Nasal Cannula 3.00 12/23/17 21:52 97.3 103 22 117/68 (84) 86 Physical Exam GENERAL: 82-year-old male currently on BiPAP in moderate respiratory distress SKIN: Warm and dry. No rash HEAD: Atraumatic. Normocephalic. EYES: Pupils equal and round around 3 mm bilaterally and reactive. No scleral icterus. No injection or drainage. ENT: No nasal bleeding or discharge. Mucous membranes pink and moist. NECK: Trachea midline. No JVD. CARDIOVASCULAR: IRR. S1, S2 no S4. Without murmur RESPIRATORY: Few positive crackles appreciated left lower lobe. No active wheezing. GASTROINTESTINAL: Abdomen soft, slightly protuberant. Hypoactive bowel sounds appreciated in all 4 quadrants. MUSCULOSKELETAL: Extremities without significant peripheral r edema. No obvious deformities. NEUROLOGICAL: Awake and alert. No obvious cranial nerve deficits. Motor grossly within normal limits. Five out of 5 muscle strength in the arms and legs. Normal speech. Laboratory Laboratory Tests Test 12/24/17 00:38 12/24/17 03:45 12/24/17 05:55 Blood Gas Puncture Site RT BRACHIAL RT BRACHIAL Blood Gas Patient Temperature 98.6 98.6 Blood Gas HCO3 22 23 Blood Gas Base Excess -0.4 -0.2 Blood Gas Oxygen Saturation 81 86 Arterial Blood pH 7.51 7.49 Arterial Blood Partial Pressure CO2 28 30 Arterial Blood Partial Pressure O2 49 56 Arterial Blood Oxygen Content 13.0 11.3 Arterial Blood Carboxyhemoglobin 2.2 2.3 Arterial Blood Methemoglobin 1.2 1.0 Blood Gas Hemoglobin 11.4 9.3 Oxygen Delivery Device NASAL CANNULA VENTI MASK Blood Gas Liter Flow 3 6 Blood Gas Inspired Oxygen 50 Urine Collection Type CLEAN CATCH Urine Color YELLOW Urine Turbidity CLEAR Urine pH 5.5 Urine Specific Ross LESS/EQUAL 1.005 Urine Protein NEG Urine Glucose (UA) NEG Urine Ketones NEG Urine Occult Blood NEG Urine Nitrite NEG Urine Bilirubin NEG Urine Urobilinogen 0.2 Urine Leukocyte Esterase NEG Urine Squamous Epithelial Cells 0-5 Urine Amorphous Sediment FEW Microscopic Urinalysis Comment CULT NOT INDICATED Urine Collection Time 0555 Date/Time Source Procedure Growth Status 12/23/17 00:30 Blood Peripheral Aerobic Blood Culture Pending Received 12/23/17 00:30 Blood Peripheral Anaerobic Blood Culture Pending Received Result Diagram: 12/23/172912/23/17 [address] Angiography 12/24/17 0000 Signed Impressions: Service Date/Time: Sunday, December 24, 2017 03:00 - CONCLUSION: 1. No pulmonary embolus. 2. Mild bibasilar atelectasis. Possible early/mild pneumonia left lower lobe. 3. Small left pleural effusion. 4. 8mm nodular opacity laterally at the left lung base and a followup noncontrast chest CT is recommended in approximately 3 months. 5. Mild cardiac enlargement. Coronary artery calcification. Kristian Caceres MD Head CT [id number]/[id number] Signed Impressions: Service Date/Time: Sunday, December 24, 2017 00:03 - CONCLUSION: No acute intracranial abnormality. Kristian Caceres MD Chest X-Ray [id number]/[id number] Signed Impressions: Service Date/Time: Saturday, December 23, 2017 23:52 - CONCLUSION: No acute cardiopulmonary disease demonstrated. Kristian Caceres MD Septic Shock Reassessment Septic shock perfusion: reassessment completed Caprini VTE Risk Assessment Caprini VTE Risk Assessment: Mod/High Risk (score >= 2) Caprini Risk Assessment Model Point Value = 1 Point Value = 2 Point Value = 3 Point Value = 5 Age 41-60 Minor surgery BMI > 25 kg/m2 Swollen legs Varicose veins or History of unexplained or recurrent spontaneous Oral contraceptives or hormone replacement Sepsis (< 1 month) Serious lung disease, including pneumonia (< 1 month) Abnormal pulmonary function Acute myocardial infarction Congestive heart failure (< 1 month) History of inflammatory bowel disease Medical patient at bed rest Age 61-74 Arthroscopic surgery Major open surgery (> 45 min) Laparoscopic surgery (> 45 min) Malignancy Confined to bed (> 72 hours) Immobilizing plaster cast Central venous access Age >= 75 History of VTE Family history of VTE Factor V Leiden Prothrombin [id number] Lupus anticoagulant Anticardiolipin antibodies Elevated serum homocysteine Heparin-induced thrombocytopenia Other congenital or acquired thrombophilia Stroke (< 1 month) Elective arthroplasty Hip, pelvis, or leg fracture Acute spinal cord injury (< 1 month) Prophylaxis Regimen Total Risk Factor Score Risk Level Prophylaxis Regimen 0-1 Low Early ambulation 2 Moderate Order ONE of the following: *Sequential Compression Device (SCD) *Heparin 5000 units SQ BID 3-4 Higher Order ONE of the following medications: *Heparin 5000 units SQ TID *Enoxaparin/Lovenox 40 mg SQ daily (WT < 150 kg, CrCl > 30 mL/min) *Enoxaparin/Lovenox 30 mg SQ daily (WT < 150 kg, CrCl > 10-29 mL/min) *Enoxaparin/Lovenox 30 mg SQ BID (WT < 150 kg, CrCl > 30 mL/min) AND/OR *Sequential Compression Device (SCD) 5 or more Highest Order ONE of the following medications: *Heparin 5000 units SQ TID (Preferred with Epidurals) *Enoxaparin/Lovenox 40 mg SQ daily (WT < 150 kg, CrCl > 30 mL/min) *Enoxaparin/Lovenox 30 mg SQ daily (WT < 150 kg, CrCl > 10-29 mL/min) *Enoxaparin/Lovenox 30 mg SQ BID (WT < 150 kg, CrCl > 30 mL/min) AND *Sequential Compression Device (SCD) Assessment and Plan Assessment and Plan Neuro/Psych: Chronic benzodiazepine use KALTAG Bilateral cataracts Peripheral neuropathy Frequent falls We will check MRI brain, carotid Dopplers ultrasound and 2D echocardiogram Neurochecks CT brain 12/24 revealed no acute intracranial findings Continue lorazepam 1 mg nightly/home medication Continue gabapentin 300 mg p.o. 3 times daily for peripheral neuropathy CV: Atrial fibrillation/rate controlled Hypertension by history Heart rate is currently rate controlled not requiring antihypertensives and/or vasopressors Received 1.5 L normal saline in ED Lactates within normal limits on admission EKG revealed a heart rate of 107. Moderate ST depression. No ST elevation. T fish oil/cholecalciferol 1200 mg/1000 units 2 tablets at bedtime Currently holding as needed furosemide 20-40 mg p.o. daily On normal saline at 84 cc an hour Resp: Acute respiratory failure History of COPD/past tobaccoism 8 mm left upper lobe pulmonary nodule -follow-up imaging 3 months versus PET scan outpatient BiPAP 10/5 at 100%. Wean FiO2 per protocol maintain saturations greater than equal to 92% Albuterol/ipratropium aerosols every 4 hours with albuterol aerosols every 2 hours as needed dyspnea Umeclidinium/Vilanterol 62.5/25 1 inhalation daily Methylprednisolone succinate 40 mg IV every [address] pulmonary revealed left lower lobe infiltrate versus atelectasis. 8 mm left upper lobe nodule follow-up CT scan in 6 months. Coronary calcifications left main/LAD GI: Hypoalbuminemia Chronic pancreatic insufficiency Sigmoid diverticulosis Heart healthy diet Continue Pancrease 6000/02569/11679 1 tablet daily Pantoprazole 40 mg p.o. daily/home medication Docusate sodium/senna 1 tablet twice daily for bowel regimen : Awad catheter if indicated for accurate I's and O's in a critically ill patient Endo: Hypothyroidism Sliding scale insulin with Novulin R moderate protocol to maintain euglycemia Continue levothyroxine 200 mcg p.o. daily. Check TSH in a.m. 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 Monitor CBC daily. Follow trends Continue rivaroxaban 15 mg p.o. daily ID: Pneumonia/severe sepsis Received vancomycin, cefepime and ED. Currently on cefepime and azithromycin Infectious disease consultation Blood cultures 2, UA, sputum all ordered. Results pending Urine Legionella pneumococcal antigens pending Influenza pending MSK: Osteoporosis/osteoarthritis Continue cholecalciferol 2000 units p.o. daily and cyanocobalamin 1000 mcg p.o. daily PT/OT evaluate and treat FEN: Hypomagnesia Hypopotassemia Replace electrolytes as clinically indicated per ICU likely protocol Access: -Utilize right [id number]. Have vascular access placed peripheral IV Prophylaxis -GI -pantoprazole -DVT -SCD/rivaroxaban will provide pharmacological prophylaxis Critical Care: The total critical care time was 35 minutes. Time to perform other separately billable procedures was not included in the critical care time. Code Status Full code Discussed Condition With Dr. Salter/ED physician. No family available. Care plan discussed and all questions answered. Problem Qualifiers (1) Cataract: Qualified Codes: H26.9 - Unspecified cataract (2) Gastroesophageal reflux disease: Qualified Codes: K21.9 - Gastro-esophageal reflux disease without esophagitis (3) Peripheral neuropathy: Qualified Codes: G62.9 - Polyneuropathy, unspecified (4) COPD (chronic obstructive pulmonary disease): Qualified Codes: J44.0 - Chronic obstructive pulmonary disease with acute lower respiratory infection (5) CAD (coronary artery disease): (6) Esophageal cancer: Qualified Codes: C15.9 - Malignant neoplasm of esophagus, unspecified (7) Pneumonia: Qualified Codes: J18.1 - Lobar pneumonia, unspecified organism (8) Hypertension: Qualified Codes: I10 - Essential (primary) hypertension (9) Hypothyroidism: Qualified Codes: E03.9 - Hypothyroidism, unspecified Madi Reardon MD Dec 24, 2017 08:20
[2017-12-24] MEDS: VALPROIC ACID SYRUP 250 MG/5 ML UDC PO SCH ×2 (09:00→11:17)
[2017-12-24] MEDS: ARTIFICIAL TEARS OPTH SOLN 15 ML BTL EACH EYE SCH ×3 (09:00→17:37)
[2017-12-24] MEDS ORDERED: NON-FORMULARY DRUG (Cyanocobalamin (B12) 1,000 MCG) PO SCH (09:00)
--- NOTE | 2017-12-24 10:02 | EKG ---
Date Performed: 12/24/2017 Time Performed: 04:10:51 PTAGE: 82 years EKG: Baseline artifact present ATRIAL FIBRILLATION WITH RAPID VENTRICULAR RESPONSE MODERATE ST D EPRESSION ABNORMAL ECG Compared to prior electrocardiogram, rate has increased PREVIOUS TRACING : 11/23/2016 06.48 DOCTOR: Tirso Cruz Interpretating Date/Time 12/24/2017 10:01:37
[2017-12-24] MEDS: CHOLECALCIFEROL (VIT D3) 1000 UNIT TAB PO SCH (11:16)
[2017-12-24] MEDS: DOCUSATE SODIUM 50 MG/SENNA 8.6 MG TAB PO SCH ×2 (11:16→21:02)
[2017-12-24] MEDS: MULTIVITAMIN TAB PO SCH (11:16)
[2017-12-24] MEDS: MAGNESIUM SULFATE 1 GM PREMIX 100 ML IV SCH ×2 (11:16→12:28)
[2017-12-24] MEDS: PANTOPRAZOLE SOD 40 MG DELAYED RELEASE TAB PO SCH (11:17)
[2017-12-24] MEDS: SODIUM CHLORIDE 0.9% FLUSH 10 ML FLUSH IV FLUSH SCH ×2 (11:17→21:03)
[2017-12-24] MEDS: CYANOCOBALAMIN 1,000 MCG TAB PO SCH (11:17)
[2017-12-24] MEDS: POTASSIUM CHLOR 10 MEQ PREMIX 100 ML IV SCH ×2 (11:18→12:44)
[2017-12-24] MEDS: INSULIN NovoLIN REGULAR SUPPLEMENTAL SCALE SQ SCH ×3 (11:22→23:34)
[2017-12-24] MEDS: LIPASE/PROTEASE/AMYLASE (6,000/19,000/30,000) CAP PO SCH (12:28)
[2017-12-24] MEDS: UMECLIDINIUM 62.5 MCG/VILANTEROL 25 MCG INHALER INH SCH (12:28)
[2017-12-24] MEDS: CEFEPIME INJ 2,000 MG in SODIUM CHLORIDE 0.9% INJ 100 ML IV SCH ×2 (12:39→21:03)
[2017-12-24] MEDS: AZITHROMYCIN INJ 500 MG in SODIUM CHLOR 0.9% 250 ML INJ 250 ML IV SCH (13:00)
--- NOTE | 2017-12-24 13:31 | RADRPT ---
EXAM DATE/TIME: 12/24/2017 12:40 [facility] COMPARISON: No previous studies available for comparison. INDICATIONS : Syncope. MEDICAL HISTORY : Hypothyroidism. Chronic obstructive pulmonary disease. Diverticulitis. Hypertension. A-fib. Pneumonia . Hiatal hernia. Arthritis. Osteoporosis. Esophageal cancer. SURGICAL HISTORY : Bone marrow transplant. Chemotherapy. ENCOUNTER: Initial ACUITY: 1 day PAIN SCORE: 1/10 LOCATION: Bilateral neck PEAK SYSTOLIC VELOCITIES (cm/sec): ICA/CCA RATIO: Right: 0.9 Left: 0.8 ICA: Right: 81 Left: 77 CCA: Right: 89 Left: 90 ECA: Right: 49 Left: 69 VERTEBRAL: Right: 59 antegrade Left: 56 antegrade Elevated flow velocities and ICA/CCA ratios have been found to correlate with increased degrees of vessel stenosis, calculated as percentage of diameter relative to a normal segment of distal ICA/CCA FINDINGS: Mild heterogeneous plaque is identified in both carotid bifurcations. RIGHT CAROTID: No significant stenosis is visualized. The waveforms are within normal limits. LEFT CAROTID: No significant stenosis is visualized. The waveforms are within normal limits. VERTEBRAL ARTERIES: Antegrade flow is seen in both vertebral arteries. MISCELLANEOUS: None. CONCLUSION: 1. Minimal bilateral carotid plaque. 2. No evidence of hemodynamically significant stenosis. 3. Antegrade flow in both vertebral arteries. Joshua Garcia MD on December 24, 2017 at 13:27 Board Certified Radiologist. This report was verified electronically.
[2017-12-24] MEDS: methylPREDNISolone SOD SUCC 40 MG/1 ML VIAL IV PUSH SCH ×2 (15:25→23:33)
[2017-12-24] MEDS ORDERED: GADODIAMIDE PF 287 MG/ML 20 ML VIAL (for RAD MRI) IVCONTRAST ONE (16:32)
--- NOTE | 2017-12-24 17:26 | RADRPT ---
EXAM DATE/TIME: 12/24/2017 16:22 [facility] COMPARISON: CT BRAIN W/O CONTRAST, December 24, 2017, 0:03. INDICATIONS : Frequent falls. CONTRAST: 18 cc Omniscan (gadodiamide) IV MEDICAL HISTORY : Diabetes mellitus type 2. Carcinoma, esophageal. Chronic obstructive pulmonary disease. SURGICAL HISTORY : None. ENCOUNTER: Initial ACUITY: 1 day PAIN SCORE: 0/10 LOCATION: cranial TECHNIQUE: Multiplanar, multisequence MRI of the brain was performed both prior to and following the administrat ion of paramagnetic contrast. FINDINGS: CEREBRUM: The ventricles, sulci, and basal cisterns are prominent characteristic of moderate severity central a nd cortical atrophy. There is a focal area of encephalomalacia involving the medial lobe convexity o ccipital lobe without restricted diffusion and without abnormal enhancement, of an old right BRAKE ADJUSTER infa rction. Susceptibility weighted images, there is a focal field distortion, punctate in appearance, l ocated in the white matter of the right parietal-occipital region; on T2, there is decreased signal m easuring 2 mm; the appearance is characteristic of old blood products. No evidence of acute hemorrha ge. No evidence of mass effect. The pituitary is normal in appearance. WHITE MATTER: No significant signal abnormalities are seen in the white matter. POSTERIOR FOSSA: The cerebellum and brainstem are intact. The 4th ventricle is midline. The cerebellopontine angle is unremarkable. The cerebellar tonsils are normal in position. DIFFUSION IMAGING: No focal areas of restricted diffusion are seen. No evidence of acute infarction. EXTRACRANIAL: The visualized portions of the orbits and paranasal sinuses are unremarkable. POST-CONTRAST: No abnormal areas of parenchymal or dural enhancement. No evidence of blood-brain barrier breakdown. CONCLUSION: 1. Moderate central and cortical atrophy and old right BRAKE ADJUSTER infarction. 2. 2 mm area of altered susceptibility in the right mid convexity parietal-occipital white matter, ch aracteristic of an old punctate hemorrhage. 3. No evidence of acute infarction. No enhancing mass is seen. Riki Trent MD on December 24, 2017 at 17:17 Board Certified Radiologist. This report was verified electronically.
[2017-12-24] MEDS ORDERED: FISH OIL CHOLECALCIFEROL PO SCH (21:00)
[2017-12-24] MEDS: RIVAROXABAN 15 MG TAB PO SCH (21:02)
[2017-12-25] VITALS (17 sets, daily range): BP systolic 108–151; BP diastolic 55–85; PULSE 87–112; RESP 16–47; TEMP 97.6–98.3; O2SAT 81–100
[2017-12-25] MEDS: SODIUM CHLOR 0.9% 1000 ML INJ 1,000 ML IV SCH ×2 (00:36→19:24)
[2017-12-25] MEDS: RESP: ALBUTEROL 2.5 MG/IPRATROPIUM 0.5 MG NEB (SCH) INH ×7 (04:00→23:58)
[2017-12-25] MEDS: CHLORHEXIDINE GLUCONATE 2 % 1 PACK (2 CLOTHS) TOP SCH (04:00)
[2017-12-25] MEDS: methylPREDNISolone SOD SUCC 40 MG/1 ML VIAL IV PUSH SCH ×3 (04:40→22:11)
[2017-12-25] MEDS: CEFEPIME INJ 2,000 MG in SODIUM CHLORIDE 0.9% INJ 100 ML IV SCH ×3 (04:40→22:19)
[2017-12-25 04:52] LABS: AUTOMATED NEUTROPHIL # 1.3 TH/MM3 (1.8-7.7); BASOPHIL % 0.3 % (0.0-2.0); HEMATOCRIT 25.8 % (39.0-51.0); HEMOGLOBIN 8.8 GM/DL (13.0-17.0); LYMPH % 11.7 % (9.0-44.0); LYMPHOCYTE # 0.3 TH/MM3 (1.0-4.8); MEAN CELL VOLUME 92.4 FL (80.0-100.0); MEAN CORPUSCULAR HEMOGLOBIN 31.7 PG (27.0-34.0); MEAN CORPUSCULAR HGB CONC 34.3 % (32.0-36.0); MEAN PLATELET VOLUME 8.2 FL (7.0-11.0); MONO % 31.6 % (0.0-8.0); MONOCYTE # 0.7 TH/MM3 (0-0.9); NEUT % 56.4 % (16.0-70.0); PLATELET COUNT 69 TH/MM3 (150-450); RED BLOOD COUNT 2.79 MIL/MM3 (4.50-5.90); WHITE BLOOD COUNT 2.4 TH/MM3 (4.0-11.0)
[2017-12-25 05:02] LABS: INTERNATIONAL NORMALIZED RATIO 1.5 RATIO; PROTHROMBIN TIME - PATIENT 14.7 SEC (9.8-11.6)
[2017-12-25 05:10] LABS: ALBUMIN 2.4 GM/DL (3.4-5.0); AST (GOT) 28 U/L (15-37); BICARBONATE 22.5 MEQ/L (21.0-32.0); BLOOD UREA NITROGEN 25 MG/DL (7-18); CHLORIDE 106 MEQ/L (98-107); CREATININE 1.25 MG/DL (0.60-1.30); GLOMERULAR FILTRATION RATE 55 ML/MIN (>89); GLUCOSE,RANDOM 133 MG/DL (74-106); MAGNESIUM 1.5 MG/DL (1.5-2.5); SODIUM (NA) 139 MEQ/L (136-145)
[2017-12-25 05:11] LABS: ALT (GPT) 30 U/L (12-78); PHOSPHORUS 1.5 MG/DL (2.5-4.9)
--- NOTE | 2017-12-25 05:17 | RADRPT ---
EXAM DATE/TIME: 12/25/2017 03:17 [facility] COMPARISON: CHEST SINGLE AP, December 23, 2017, 23:52. INDICATIONS : Shortness of breath, possible pulmonary disease. MEDICAL HISTORY : Osteoporosis. Hypertension Arthritis. Diverticulitis A-Fib SURGICAL HISTORY : Hernia repair Port placement ENCOUNTER: Subsequent ACUITY: 3 days PAIN SCORE: 0/10 LOCATION: Bilateral chest FINDINGS: A single portable frontal view of the chest shows cardiomegaly the pulmonary vasculature or trauma. N o infiltrates or effusions. Port-A-Cath overlies the right chest. CONCLUSION: Cardiomegaly with pulmonary vascular engorgement. Riki Pablo Jr., MD on December 25, 2017 at 5:15 Board Certified Radiologist. This report was verified electronically.
[2017-12-25 05:21] LABS: ALKALINE PHOSPHATASE 94 U/L (45-117); TOTAL BILIRUBIN ADULT 0.4 MG/DL (0.2-1.0); TOTAL PROTEIN 5.7 GM/DL (6.4-8.2); TROPONIN I 0.04 NG/ML (0.02-0.05)
[2017-12-25] MEDS: INSULIN NovoLIN REGULAR SUPPLEMENTAL SCALE SQ SCH (06:00)
[2017-12-25] MEDS: GABAPENTIN 300 MG CAP PO PRN ×2 (06:44→22:26)
--- NOTE | 2017-12-25 07:19 | HHI.PR ---
Subjective Remarks Pt care transferred to hospitalist. EMR reviewed. Pt is an 82 YOWM with O2 dependent COPD, esophageal adenocarcinoma undergoing chemo, HTN, and AFIB admitted on 12/24 for acute respiratory failure requiring BiPAP, severe sepsis, and PNA. Pt reports he is feeling much better and his breathing has improved. In good spirits. Denies CP, abdominal pain, nausea, vomiting, or palpitations. Appetite is good. States he was hospitalized for PNA four times last year. Lives in a condo with his . Objective Vital Signs Date Time Temp Pulse Resp B/P (MAP) Pulse Ox O2 Delivery O2 Flow Rate FiO2 12/25/17 05:00 96 16 130/60 (83) 90 12/25/17 04:00 98.3 92 22 124/61 (82) 88 12/25/17 04:00 92 12/25/17 03:00 95 21 122/66 (84) 89 12/25/17 02:00 93 22 116/58 (77) 89 12/25/17 01:00 93 23 127/65 (85) 91 12/25/17 00:00 97.8 105 31 126/67 (86) 87 12/25/17 00:00 105 12/24/17 23:00 100 32 129/60 (83) 88 12/24/17 22:00 101 12/24/17 22:00 101 23 122/61 (81) 86 12/24/17 21:00 105 37 121/61 (81) 92 12/24/17 20:09 94 Nasal Cannula 3.00 12/24/17 20:00 98.8 94 26 131/68 (89) 93 12/24/17 20:00 94 12/24/17 19:00 96 36 118/60 (79) 91 12/24/17 18:00 103 24 134/116 (122) 91 12/24/17 18:00 103 12/24/17 17:03 102 21 133/68 (89) 89 12/24/17 16:00 98.6 91 28 133/80 (97) 100 12/24/17 16:00 93 12/24/17 15:00 87 20 117/65 (82) 94 12/24/17 14:00 93 12/24/17 14:00 104 30 110/77 (88) 87 12/24/17 13:00 98 31 115/65 (82) 88 12/24/17 12:00 93 12/24/17 12:00 98.8 89 15 118/60 (79) 91 12/24/17 11:00 84 16 108/53 (71) 90 12/24/17 10:41 95 Venturi Mask 50 12/24/17 10:00 93 12/24/17 10:00 93 16 122/69 (86) 100 12/24/17 09:00 98.7 98 24 124/65 (84) 100 12/24/17 09:00 97 100 12/24/17 08:30 12/24/17 08:10 101 17 116/83 (94) 99 BiPAP 100 12/24/17 07:48 99 80 12/24/17 07:46 90 17 139/73 (95) 100 BiPAP 12/24/17 07:21 100 BiPAP 12/24/17 07:15 100 17 95/55 (68) 100 BiPAP I/O 12/24/17 12/24/17 12/24/17 12/25/17 12/25/17 12/25/17 07:00 15:00 23:00 07:00 15:00 23:00 Intake Total 850 ml 0 ml 1813 ml 487 ml Output Total 400 ml 0 ml 750 ml Balance 450 ml 0 ml 1063 ml 487 ml Intake Oral 0 ml 350 ml IV Total 850 ml 1463 ml 487 ml Output Urine Total 400 ml 0 ml 750 ml # Voids 1 # Bowel Movements 0 Result Diagram: 12/25/1743212/25/17432 Objective Remarks GENERAL: Pleasant WN, WD elderly male sitting up comfortably in bed in [facility]. SKIN: Warm and dry. HEENT: Pupils equal and round. MMM. NECK: Supple no tender LAD or JVD. HEART: IRR no m/r/g. LUNGS: Bibasilar crackles, L>R and scattered expiratory wheezes. ABDOMEN: Soft, NT, ND. EXTREMITIES: No LE edema or calf tenderness. NEURO: Awake and alert. PSYCH: Appropriate mood and affect. A/P Problem List: (1) Sepsis ICD Code: A41.9 - Sepsis, unspecified organism Status: Acute (2) Pneumonia ICD Code: J18.9 - Pneumonia, unspecified organism Status: Acute (3) Hypoxemia ICD Code: R09.02 - Hypoxemia Status: Acute (4) Respiratory failure ICD Code: J96.90 - Respiratory failure, unspecified, unspecified whether with hypoxia or hypercapnia Status: Resolved (5) Atrial fibrillation ICD Code: I48.91 - Unspecified atrial fibrillation Status: Chronic (6) Frequent falls ICD Code: R29.6 - Repeated falls Status: Chronic (7) Hypertension ICD Code: I10 - Hypertension Status: Chronic (8) Hypothyroidism ICD Code: E03.9 - Hypothyroidism Status: Chronic (9) Neutropenic ICD Code: D70.9 - Neutropenia, unspecified Status: Chronic Assessment and Plan 82 year old male with esophageal adenocarcinoma currently undergoing chemotherapy, COPD, atrial fibrillation, hypothyroidism, and HTN admitted for acute respiratory failure, severe sepsis, and pneumonia. Patient initially admitted to the ICU but now hospitalist service consulted to manage. 1. Pneumonia with severe sepsis and respiratory failure - Off of BiPAP and now on nasal cannula (on 2L continuous O2 at home) - Continue IV cefepime and Azithromycin - SoluMedrol 40 mg IV Q8H - Urine Legionella and strep Ag negative - Negative influenza - Blood cultures pending - ID consulted, will follow reccs 2. Frequent falls and weakness - MRI brain with no acute infarct or mass. 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 Pancytopenia - Secondary to chemotherapy from esophageal carcinoma - Monitor CBC daily 4. CHF - CXR with cardiomegaly and pulmonary vascular congestion - Check echo (none in EMR) - Check BNP - Lasix 40 meq daily with potassium supplement 5. COPD - DuoNeb - Supplemental O2 6. Atrial fibrillation - IRR with borderline tachycardia - I don't see any rate control medication on his home list - Will start Cardizem and see how his BP tolerates - Continue Xarelto but wonder if this is idea for him given his weakness and falls 7. Hypothyroidism - Continue home Levothyroxine DVT prophylaxis - On Xarelto Problem Qualifiers (1) Pneumonia: Qualified Codes: J18.1 - Lobar pneumonia, unspecified organism (2) Hypertension: Qualified Codes: I10 - Essential (primary) hypertension (3) Hypothyroidism: Qualified Codes: E03.9 - Hypothyroidism, unspecified Cara Ruiz MD Dec 25, 2017 07:19
[2017-12-25] MEDS: VALPROIC ACID SYRUP 250 MG/5 ML UDC PO SCH (09:00)
[2017-12-25] MEDS: DOCUSATE SODIUM 50 MG/SENNA 8.6 MG TAB PO SCH ×2 (09:00→22:11)
[2017-12-25] MEDS: ARTIFICIAL TEARS OPTH SOLN 15 ML BTL EACH EYE SCH ×3 (09:00→17:15)
[2017-12-25 09:07] LABS: BANDS 18 % (0-6); LYMPHOCYTES 12 % (9-44); MONOCYTES 24 % (0-8); MYELOCYTES 1 % (0-0); NEUTROPHIL # MANUAL DIFF 1.5 TH/MM3 (1.8-7.7); POLYS (SEG NEUTROPHILS) 45 % (16-70)
[2017-12-25] MEDS: UMECLIDINIUM 62.5 MCG/VILANTEROL 25 MCG INHALER INH SCH (09:30)
[2017-12-25] MEDS: SODIUM CHLORIDE 0.9% FLUSH 10 ML FLUSH IV FLUSH SCH ×2 (09:31→21:00)
[2017-12-25] MEDS: PANTOPRAZOLE SOD 40 MG DELAYED RELEASE TAB PO SCH (09:31)
[2017-12-25] MEDS: CHOLECALCIFEROL (VIT D3) 1000 UNIT TAB PO SCH (09:32)
[2017-12-25] MEDS: MULTIVITAMIN TAB PO SCH (09:32)
[2017-12-25] MEDS: CYANOCOBALAMIN 1,000 MCG TAB PO SCH (09:32)
[2017-12-25] MEDS: LIPASE/PROTEASE/AMYLASE (6,000/19,000/30,000) CAP PO SCH (09:32)
[2017-12-25] MEDS: POTASSIUM CHLORIDE 20 MEQ CONTROLLED RELEASE TAB PO SCH (11:24)
[2017-12-25] MEDS: FUROSEMIDE 40 MG TAB PO SCH (11:24)
[2017-12-25] MEDS: DILTIAZEM HCL 30 MG TAB PO SCH ×2 (11:36→22:11)
[2017-12-25] MEDS: AZITHROMYCIN INJ 500 MG in SODIUM CHLOR 0.9% 250 ML INJ 250 ML IV SCH (13:53)
--- NOTE | 2017-12-25 17:27 | ECHRPT ---
Indication: CHF CONCLUSIONS Normal left ventricular size and wall thickness. The left ventricular systolic function is normal wi th an estimated ejection fraction in the range of 60-65%. Left ventricular diastolic function parameters a re normal. BP: / HR: Rhythm: MEASUREMENTS (Male / Female) Normal Values Technical Quality:Good 2D ECHO LV Diastolic Diameter PLAX 4.4 cm 4.2 - 5.9 / 3.9 - 5.3 cm LV Systolic Diameter PLAX 3.0 cm IVS Diastolic Thickness 1.2 cm 0.6 - 1.0 / 0.6 - 0.9 cm LVPW Diastolic Thickness 1.1 cm 0.6 - 1.0 / 0.6 - 0.9 cm LV Relative Wall Thickness 0.5 RV Internal Dim ED PLAX 2.8 cm M-MODE Aortic Root Diameter MM 3.3 cm LA Systolic Diameter MM 5.3 cm LA Ao Ratio MM 1.6 AV Cusp Separation MM 2.0 cm FINDINGS LEFT VENTRICLE Normal left ventricular size and wall thickness. The left ventricular systolic function is normal wi th an estimated ejection fraction in the range of 60-65%. Left ventricular diastolic function parameters a re normal. RIGHT VENTRICLE Normal right ventricular size and systolic function. LEFT ATRIUM The left atrial size is moderately dilated. RIGHT ATRIUM The right atrial size is normal. ATRIAL SEPTUM Normal atrial septal thickness without atrial level shunting by limited color doppler interrogation. AORTA The aortic root and proximal ascending aorta are not well visualized. MITRAL VALVE Structurally normal mitral valve. Trace mitral valve regurgitation. AORTIC VALVE Trileaflet aortic valve. No aortic valve stenosis or regurgitation. Jose F Salvador MD, FACC (Electronically Signed) Final Date:25 December 2017 17:26
[2017-12-25 21:48] LABS: PHOSPHORUS 2.6 MG/DL (2.5-4.9)
[2017-12-25] MEDS: RIVAROXABAN 15 MG TAB PO SCH (22:12)
[2017-12-25] MEDS: POTASSIUM CHLOR 40 MEQ PREMIX 100 ML IV PRN (22:20)
[2017-12-26] VITALS (10 sets, daily range): BP systolic 106–149; BP diastolic 50–72; PULSE 82–112; RESP 16–44; TEMP 97.4–97.8; O2SAT 86–100
[2017-12-26] MEDS: RESP: ALBUTEROL 2.5 MG/IPRATROPIUM 0.5 MG NEB (SCH) INH ×6 (03:50→23:20)
[2017-12-26] MEDS: CEFEPIME INJ 2,000 MG in SODIUM CHLORIDE 0.9% INJ 100 ML IV SCH ×3 (04:00→20:04)
[2017-12-26] MEDS: CHLORHEXIDINE GLUCONATE 2 % 1 PACK (2 CLOTHS) TOP SCH (04:00)
[2017-12-26] MEDS: methylPREDNISolone SOD SUCC 40 MG/1 ML VIAL IV PUSH SCH ×3 (06:00→22:03)
[2017-12-26 07:21] LABS: AUTOMATED NEUTROPHIL # 4.8 TH/MM3 (1.8-7.7); BASOPHIL % 0.2 % (0.0-2.0); HEMATOCRIT 28.5 % (39.0-51.0); HEMOGLOBIN 9.7 GM/DL (13.0-17.0); LYMPHOCYTE # 0.3 TH/MM3 (1.0-4.8); MEAN CELL VOLUME 93.3 FL (80.0-100.0); MEAN CORPUSCULAR HEMOGLOBIN 31.6 PG (27.0-34.0); MEAN CORPUSCULAR HGB CONC 33.9 % (32.0-36.0); MEAN PLATELET VOLUME 8.1 FL (7.0-11.0); MONO % 21.4 % (0.0-8.0); MONOCYTE # 1.4 TH/MM3 (0-0.9); NEUT % 74.4 % (16.0-70.0); PLATELET COUNT 89 TH/MM3 (150-450); RED BLOOD COUNT 3.06 MIL/MM3 (4.50-5.90); RED CELL DISTRIBUTION WIDTH 19.6 % (11.6-17.2); WHITE BLOOD COUNT 6.5 TH/MM3 (4.0-11.0)
[2017-12-26 07:37] LABS: BICARBONATE 23.3 MEQ/L (21.0-32.0); CALCIUM 8.5 MG/DL (8.5-10.1); CREATININE 1.3 MG/DL (0.60-1.30)
[2017-12-26] MEDS: SODIUM CHLOR 0.9% 1000 ML INJ 1,000 ML IV SCH (07:49)
[2017-12-26] MEDS: GABAPENTIN 300 MG CAP PO PRN ×2 (07:51→22:12)
[2017-12-26] MEDS: MULTIVITAMIN TAB PO SCH (07:53)
[2017-12-26] MEDS: POTASSIUM CHLORIDE 20 MEQ CONTROLLED RELEASE TAB PO SCH (07:53)
[2017-12-26] MEDS: FUROSEMIDE 40 MG TAB PO SCH (07:53)
[2017-12-26] MEDS: CHOLECALCIFEROL (VIT D3) 1000 UNIT TAB PO SCH (07:53)
[2017-12-26] MEDS: CYANOCOBALAMIN 1,000 MCG TAB PO SCH (07:53)
[2017-12-26] MEDS: LIPASE/PROTEASE/AMYLASE (6,000/19,000/30,000) CAP PO SCH (07:59)
[2017-12-26] MEDS: DILTIAZEM HCL 30 MG TAB PO SCH ×2 (07:59→20:09)
[2017-12-26] MEDS: SODIUM CHLORIDE 0.9% FLUSH 10 ML FLUSH IV FLUSH SCH ×2 (08:00→20:04)
[2017-12-26] MEDS: ARTIFICIAL TEARS OPTH SOLN 15 ML BTL EACH EYE SCH ×3 (08:00→17:07)
[2017-12-26] MEDS: UMECLIDINIUM 62.5 MCG/VILANTEROL 25 MCG INHALER INH SCH (08:00)
[2017-12-26] MEDS: PANTOPRAZOLE SOD 40 MG DELAYED RELEASE TAB PO SCH (08:03)
[2017-12-26] MEDS: DOCUSATE SODIUM 50 MG/SENNA 8.6 MG TAB PO SCH ×2 (08:03→20:09)
[2017-12-26] MEDS: VALPROIC ACID SYRUP 250 MG/5 ML UDC PO SCH (08:04)
[2017-12-26 09:04] LABS: BANDS 22 % (0-6); CORRECTED NUCLEATED RBC 3 /100 WBC (0-0); LYMPHOCYTES 5 % (9-44); METAMYELOCYTES 1 % (0-1); MONOCYTES 15 % (0-8); NEUTROPHIL # MANUAL DIFF 5.2 TH/MM3 (1.8-7.7); NUCLEATED RED BLOOD CELL 3 (0-0); OVALOCYTES 1+ (NORMAL); POLYS (SEG NEUTROPHILS) 57 % (16-70); TOXIC GRANULATION 2+ (NORMAL)
[2017-12-26] MEDS: AZITHROMYCIN INJ 500 MG in SODIUM CHLOR 0.9% 250 ML INJ 250 ML IV SCH (12:14)
--- NOTE | 2017-12-26 14:32 | HHI.PR ---
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 Date of admission 12/24/2017. Past medical history includes esophageal carcinoma T2 N2 M1 receiving chemotherapy in [place], COPD, atrial fibrillation on chronic anticoagulation, hypertension, hypothyroidism, coronary artery disease, diverticulosis. History of AML treated in 1992. Patient has a right-sided [id number]. Patient is a history of tobaccoism quit [id number] history in 1977. Patient presents to [facility] with a recent history of frequent falls. Patient has fallen 4 times in the past 24 hours. Denies head trauma. Usually around "10 days" after chemotherapy that he receives in [place] patient becomes increasingly weak. Patient is normally on 2 L nasal cannula which is bumped to 3 L. Patient came desaturated with CO2 retention. Patient was eventually transferred to the [facility]. CT brain revealed no acute intracranial findings. Chest x-ray revealed no acute cardiopulmonary findings. CT pulmonary revealed left lower lobe infiltrate/atelectasis, small pleural effusion with a coronary calcification of the left main/LAD area. Laboratories revealed pancytopenia, elevated INR PTT. Patient received 1 L normal saline, vancomycin, cefepime and methylprednisolone succinate 125 mg 1 in the ED. Hospitalist Notes: 12/26: as we know he has Chronic Atrial Fibrillation, Hypertension, Hyperlipidemia, Hypothyroidism, Diverticulosis, Cataract surgery, COPD, History of AML 1992, Chronic Narcotic use, chronic Rivaroxaban use, GERD, Peripheral neuropathy, chronic pancreatic insufficiency, History of Esophageal cancer T2N2M1, Seen in his bedroom in the presence of nurse and his Mrs. Prudence, no complaint but continue with Edema 3+, continue diuresis, antibiotics, okay to transfer to medical floor. No nausea, vomit or diarrhea. Objective Vital Signs Date Time Temp Pulse Resp B/P (MAP) Pulse Ox O2 Delivery O2 Flow Rate FiO2 12/26/17 12:00 95 12/26/17 08:00 82 12/26/17 08:00 97.7 82 31 135/63 (87) 86 12/26/17 04:00 95 12/26/17 04:00 97.8 95 16 149/66 (93) 99 12/26/17 04:00 86 12/26/17 04:00 97.8 86 16 139/72 (94) 100 12/26/17 03:50 100 40 12/26/17 00:00 97.7 86 16 139/72 (94) 100 12/26/17 00:00 86 12/25/17 23:59 100 50 12/25/17 20:39 91 Nasal Cannula 2.00 12/25/17 20:00 87 12/25/17 20:00 97.8 87 23 151/69 (96) 87 12/25/17 19:00 89 23 133/63 (86) 88 12/25/17 16:00 89 12/25/17 15:00 97.6 104 35 124/61 (82) 87 I/O 12/25/17 12/25/17 12/25/17 12/26/17 12/26/17 12/26/17 07:00 15:00 23:00 07:00 15:00 23:00 Intake Total 1087 ml 610 ml 888 ml Output Total 630 ml 850 ml 750 ml Balance 457 ml 610 ml 38 ml -750 ml Intake Oral 500 ml 240 ml IV Total 587 ml 610 ml 648 ml Output Urine Total 630 ml 850 ml 750 ml # Bowel Movements 0 1 0 Result Diagram: 12/26/17 0635 12/26/17 0635 Imaging Last Impressions Chest X-Ray 12/25/17 0000 Signed Impressions: Service Date/Time: Monday, December 25, 2017 03:17 - CONCLUSION: Cardiomegaly with pulmonary vascular engorgement. Riki Pablo Jr., MD Brain MRI 12/24/17 1624 Signed Impressions: Service Date/Time: Sunday, December 24, 2017 16:22 - CONCLUSION: 1. Moderate central and cortical atrophy and old right [employer]IST infarction. 2. 2 mm area of altered susceptibility in the right mid convexity parietal-occipital white matter, characteristic of an old punctate hemorrhage. 3. No evidence of acute infarction. No enhancing mass is seen. Riki Trent MD Carotid Artery Ultrasound 12/24/17 0000 Signed Impressions: Service Date/Time: Sunday, December 24, 2017 12:40 - CONCLUSION: 1. Minimal bilateral carotid plaque. 2. No evidence of hemodynamically significant stenosis. 3. Antegrade flow in both vertebral arteries. Joshua Garcia MD CT Angiography 12/24/17 0000 Signed Impressions: Service Date/Time: Sunday, December 24, 2017 03:00 - CONCLUSION: 1. No pulmonary embolus. 2. Mild bibasilar atelectasis. Possible early/mild pneumonia left lower lobe. 3. Small left pleural effusion. 4. 8mm nodular opacity laterally at the left lung base and a followup noncontrast chest CT is recommended in approximately 3 months. 5. Mild cardiac enlargement. Coronary artery calcification. Kristian Caceres MD Head CT 12/23/17 4529 Signed Impressions: Service Date/Time: Sunday, December 24, 2017 00:03 - CONCLUSION: No acute intracranial abnormality. Kristian Caceres MD Procedures None Other Results Laboratory Tests Test 12/23/17 00:25 12/23/17 00:30 12/24/17 03:45 12/24/17 05:55 Ammonia 16 MCMOL/L Red Cell Morphology Comment NORMAL Lipase 73 U/L Blood Gas Puncture Site RT BRACHIAL Blood Gas Patient Temperature 98.6 Blood Gas HCO3 23 mmol/L Blood Gas Base Excess -0.2 mmol/L Blood Gas Oxygen Saturation 86 % Arterial Blood pH 7.49 Arterial Blood Partial Pressure CO2 30 mmHG Arterial Blood Partial Pressure O2 56 mmHG Arterial Blood Oxygen Content 11.3 Vol % Arterial Blood Carboxyhemoglobin 2.3 % Arterial Blood Methemoglobin 1.0 % Blood Gas Hemoglobin 9.3 G/DL Oxygen Delivery Device VENTI MASK Blood Gas Liter Flow 6 L/M Blood Gas Inspired Oxygen 50 % Urine Collection Type CLEAN CATCH Urine Color YELLOW Urine Turbidity CLEAR Urine pH 5.5 Urine Specific Thompson LESS/EQUAL 1.005 Urine Protein NEG mg/dL Urine Glucose (UA) NEG mg/dL Urine Ketones NEG mg/dL Urine Occult Blood NEG Urine Nitrite NEG Urine Bilirubin NEG Urine Urobilinogen 0.2 MG/DL Urine Leukocyte Esterase NEG Urine Squamous Epithelial Cells 0-5 /hpf Urine Amorphous Sediment FEW Microscopic Urinalysis Comment CULT NOT INDICATED Urine Collection Time 0555 Test 12/24/17 11:57 12/25/17 04:33 12/25/17 04:35 12/25/17 18:40 Nasal Screen MRSA (PCR) MRSA NOT DETECTED Myelocytes 1 % Prothrombin Time 14.7 SEC Prothromb Time International Ratio 1.5 RATIO Activated Partial Thromboplast Time 41.5 SEC Blood Urea Nitrogen 25 MG/DL Creatinine 1.25 MG/DL Random Glucose 133 MG/DL Total Protein 5.7 GM/DL Albumin 2.4 GM/DL Calcium Level 8.0 MG/DL Phosphorus Level 1.5 MG/DL 2.6 MG/DL Magnesium Level 1.5 MG/DL Alkaline Phosphatase 94 U/L Aspartate Amino Transf (AST/SGOT) 28 U/L Alanine Aminotransferase (ALT/SGPT) 30 U/L Total Bilirubin 0.4 MG/DL Sodium Level 139 MEQ/L Potassium Level 3.3 MEQ/L Chloride Level 106 MEQ/L Carbon Dioxide Level 22.5 MEQ/L Total Creatine Kinase 42 U/L Troponin I 0.04 NG/ML B-Type Natriuretic Peptide 757 PG/ML Thyroid Stimulating Hormone 3rd Gen 1.530 uIU/ML Lactic Acid Level 1.6 mmol/L Test 12/26/17 06:35 White Blood Count 6.5 TH/MM3 Red Blood Count 3.06 MIL/MM3 Hemoglobin 9.7 GM/DL Hematocrit 28.5 % Mean Corpuscular Volume 93.3 FL Mean Corpuscular Hemoglobin 31.6 PG Mean Corpuscular Hemoglobin Concent 33.9 % Red Cell Distribution Width 19.6 % Platelet Count 89 TH/MM3 Mean Platelet Volume 8.1 FL Neutrophils (%) (Auto) 74.4 % Lymphocytes (%) (Auto) 4.0 % Monocytes (%) (Auto) 21.4 % Eosinophils (%) (Auto) 0.0 % Basophils (%) (Auto) 0.2 % Neutrophils # (Auto) 4.8 TH/MM3 Lymphocytes # (Auto) 0.3 TH/MM3 Monocytes # (Auto) 1.4 TH/MM3 Eosinophils # (Auto) 0.0 TH/MM3 Basophils # (Auto) 0.0 TH/MM3 CBC Comment AUTO DIFF Differential Total Cells Counted 100 Neutrophils % (Manual) 57 % Band Neutrophils % 22 % Lymphocytes % 5 % Monocytes % 15 % Neutrophils # (Manual) 5.2 TH/MM3 Metamyelocytes 1 % Nucleated Red Blood Cells 3 /100 WBC Differential Comment FINAL DIFF MANUAL Toxic Granulation 2+ Platelet Estimate LOW Platelet Morphology Comment ENLARGED Ovalocytes 1+ Blood Urea Nitrogen 26 MG/DL Creatinine 1.30 MG/DL Random Glucose 146 MG/DL Calcium Level 8.5 MG/DL Sodium Level 141 MEQ/L Potassium Level 3.5 MEQ/L Chloride Level 105 MEQ/L Carbon Dioxide Level 23.3 MEQ/L Anion Gap 13 MEQ/L Estimat Glomerular Filtration Rate 53 ML/MIN Objective Remarks GENERAL: Well developed, in no acute distress. SKIN: Warm and dry. No rash HEAD: Atraumatic. Normocephalic. EYES: Pupils equal and round around 3 mm bilaterally and reactive. ENT: No nasal bleeding or discharge. Mucous membranes pink and moist. NECK: Trachea midline. No JVD. CARDIOVASCULAR: IRR. S1, S2 no S4. Without murmur RESPIRATORY: Decreased breath sounds bilateral, no wheezing or crackles. GASTROINTESTINAL: Abdomen soft, slightly protuberant. Hypoactive bowel sounds appreciated in all 4 quadrants. MUSCULOSKELETAL: No clubbing, cyanosis has Edema 3+ NEUROLOGICAL: Awake and alert. No obvious cranial nerve deficits. Medications and IVs Current Medications Medications (Trade) Dose Ordered Sig/William Route Start Time Stop Time Status Last Admin Sodium Chloride 1,000 ml @ 84 mls/hr [id number] IV 12/24/17 07:39 12/26/17 07:49 (NS Flush) 2 ml UNSCH PRN IV FLUSH 12/24/17 07:45 (NS Flush) 2 ml BID IV FLUSH 12/24/17 09:00 12/25/17 09:31 (Tylenol) 650 mg Q6H PRN PO 12/24/17 07:45 ([place] 5-325 Mg) 1 tab Q4H PRN PO 12/24/17 07:45 (Morphine Inj) 2 mg Q2H PRN IV PUSH 12/24/17 07:45 (Protonix) 40 mg DAILY PO 12/24/17 09:00 12/26/17 08:03 (Tears Naturale Opth Soln) 1 drop TID EACH EYE 12/24/17 09:00 (Zofran Inj) 4 mg Q6H PRN IV PUSH 12/24/17 07:45 (Duoneb Neb) 1 ampule Q4HR NEB INH 12/24/17 08:00 12/26/17 11:42 (Albuterol Neb) 2.5 mg Q2HR NEB PRN INH 12/24/17 07:45 Miscellaneous Information 1 Q361D XX 12/24/17 07:45 12/24/17 07:45 (Chlorhexidine 2% Cloth) 3 pack Taper DAILY@04 TOP 12/25/17 04:00 12/21/18 03:59 12/26/17 04:00 (Chlorhexidine 2% Cloth) 3 pack UNSCH PRN TOP 12/24/17 07:45 (Annie-Colace) 1 tab BID PO 12/24/17 09:00 12/25/17 22:11 (Milk Of Magnesia Liq) 30 ml Q12H PRN PO 12/24/17 07:45 (Senokot) 17.2 mg Q12H PRN PO 12/24/17 07:45 (Dulcolax Supp) 10 mg DAILY PRN RECTAL 12/24/17 07:45 (Lactulose Liq) 30 ml DAILY PRN PO 12/24/17 07:45 Potassium Chloride 100 ml @ 50 mls/hr Q2H PRN IV 12/24/17 07:45 12/25/17 22:20 Potassium Chloride 100 ml @ 50 mls/hr Q2H PRN IV 12/24/17 07:45 (K-Lyte Cl Eff) 50 meq UNSCH PRN PO 12/24/17 07:45 Potassium Chloride 100 ml @ 25 mls/hr UNSCH PRN IV 12/24/17 07:45 Potassium Chloride 100 ml @ 50 mls/hr Q2H PRN IV 12/24/17 07:45 Magnesium Sulfate 4 gm/Sodium Chloride 100 ml @ 50 mls/hr UNSCH PRN IV 12/24/17 07:45 (Mag-Ox) 800 mg UNSCH PRN PO 12/24/17 07:45 Magnesium Sulfate 2 gm/Sodium Chloride 100 ml @ 50 mls/hr UNSCH PRN IV 12/24/17 07:45 (K-Phos) 2,000 mg Q4H PRN PO 12/24/17 07:45 Sodium Phosphate 30 mmol/Sodium Chloride 250 ml @ 42 mls/hr UNSCH PRN IV 12/24/17 07:45 (K-Phos) 2,000 mg UNSCH PRN PO/TUBE 12/24/17 07:45 Potassium Phosphate 30 mmol/ Sodium Chloride 260 ml @ 42 mls/hr UNSCH PRN IV 12/24/17 07:45 12/25/17 07:49 (D50w (Vial) Inj) 50 ml UNSCH PRN IV PUSH 12/24/17 07:45 (Glucagon Inj) 1 mg UNSCH PRN OTHER 12/24/17 07:45 (SoluMEDROL INJ) 40 mg Q8HR IV PUSH 12/24/17 14:00 12/26/17 06:00 (Vitamin D3) 2,000 units DAILY PO 12/24/17 09:00 12/26/17 07:53 (Neurontin) 300 mg TID PRN PO 12/24/17 08:00 12/26/17 07:51 (Depakene Liq) 200 mg DAILY PO 12/24/17 09:00 (Ativan) 1 mg HS PRN PO 12/24/17 08:00 (Creon 6-19-30) 1 cap DAILY PO 12/24/17 09:00 12/26/17 07:59 (Xarelto) 15 mg HS PO 12/24/17 21:00 12/25/17 22:12 (Theragran) 1 tab DAILY PO 12/24/17 09:00 12/26/17 07:53 Norepinephrine Bitartrate 4 mg/ Sodium Chloride 250 ml @ 7.5 mls/hr TITRATE PRN IV 12/24/17 08:00 (Brethine Inj) 1 mg UNSCH PRN SQ 12/24/17 08:00 (Vitamin B12) 1,000 mcg DAILY PO 12/24/17 09:00 12/26/17 07:53 Cefepime HCl 2000 mg/Sodium Chloride 100 ml @ 200 mls/hr Q8H IV 12/24/17 12:00 12/26/17 12:14 Azithromycin 500 mg/Sodium Chloride 250 ml @ 250 mls/hr Q24H IV 12/24/17 13:00 12/26/17 12:14 (Lasix) 40 mg DAILY PO 12/25/17 09:45 12/26/17 07:53 (KCl) 20 meq DAILY PO 12/25/17 09:45 12/26/17 07:53 (Cardizem) 30 mg Q12HR PO 12/25/17 10:00 12/26/17 07:59 A/P Assessment and Plan 1. Chronic Benzodiazepine use/Peripheral Neuropathy/frequent falls, CT brain revealed no acute intracranial findings Continue lorazepam 1 mg nightly/home medication Continue gabapentin 300 mg p.o. 3 times daily for peripheral neuropathy, as per Physical Therapy okay to go home with [facility] for PT and skilled nurse. 2. Atrial Fibrillation/rate control/Hypertension rate controlled. lactate within normal limits on admission, EKG moderate ST depression Non ST elevation. continue Xarelto. 3. Acute respiratory failure/COPD/Tobacco dependence history/8 mm Left upper lobe pulmonary nodule follow up in three months needed versus PET scan outpatient, BiPAP as needed, Bronchodilator, Mucolytic, Incentive spirometry, BiPAP 10/5 at 100%. Wean FiO2 per protocol maintain saturations greater than equal to 92% Umeclidinium/Vilanterol 62.5/25 1 inhalation daily Methylprednisolone succinate 40 mg IV every [address] pulmonary revealed left lower lobe infiltrate versus atelectasis. 8 mm left upper lobe nodule follow-up CT scan in 6 months. Coronary calcifications left main/LAD 4. Chronic pancreatic insufficiency continue pancreatic enzymes, PPIs. 5. Hypothyroidism to continue Hormonal replacement 6. 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 chronic rivaroxaban use. 7. Pneumonia/Severe Sepsis to continue Cefepime and Azithromycin, ID specialist following. 8. Electrolyte derangement replaced and following. Access: -Utilize right [id number]. Have vascular access placed peripheral IV Prophylaxis -GI -pantoprazole -DVT -SCD/rivaroxaban will provide pharmacological prophylaxis Transfer to Medical floor Hussein Limon MD Dec 26, 2017 14:32
[2017-12-26] MEDS ORDERED: POTASSIUM CHLORIDE 20 MEQ CONTROLLED RELEASE TAB PO ONE (16:30)
[2017-12-26] MEDS: LEVOTHYROXINE SODIUM 200 MCG TAB PO SCH (17:18)
[2017-12-26] MEDS: RIVAROXABAN 15 MG TAB PO SCH (20:09)
[2017-12-27] VITALS (12 sets, daily range): BP systolic 133–145; BP diastolic 65–87; PULSE 76–99; RESP 19–20; TEMP 97.1–97.9; O2SAT 77–98
[2017-12-27] MEDS: RESP: ALBUTEROL 2.5 MG/IPRATROPIUM 0.5 MG NEB (SCH) INH ×5 (03:27→20:00)
[2017-12-27] MEDS: CHLORHEXIDINE GLUCONATE 2 % 1 PACK (2 CLOTHS) TOP SCH (03:28)
[2017-12-27] MEDS: CEFEPIME INJ 2,000 MG in SODIUM CHLORIDE 0.9% INJ 100 ML IV SCH (03:35)
[2017-12-27 05:13] LABS: AUTOMATED NEUTROPHIL # 7.8 TH/MM3 (1.8-7.7); BASOPHIL % 0.1 % (0.0-2.0); HEMATOCRIT 27.4 % (39.0-51.0); HEMOGLOBIN 9.3 GM/DL (13.0-17.0); LYMPH % 3.5 % (9.0-44.0); LYMPHOCYTE # 0.3 TH/MM3 (1.0-4.8); MEAN CELL VOLUME 92.2 FL (80.0-100.0); MEAN CORPUSCULAR HEMOGLOBIN 31.2 PG (27.0-34.0); MEAN CORPUSCULAR HGB CONC 33.8 % (32.0-36.0); MONO % 8.7 % (0.0-8.0); MONOCYTE # 0.8 TH/MM3 (0-0.9); NEUT % 87.7 % (16.0-70.0); PLATELET COUNT 86 TH/MM3 (150-450); RED BLOOD COUNT 2.97 MIL/MM3 (4.50-5.90); RED CELL DISTRIBUTION WIDTH 19.7 % (11.6-17.2); WHITE BLOOD COUNT 8.9 TH/MM3 (4.0-11.0)
[2017-12-27 05:17] LABS: BICARBONATE 23.6 MEQ/L (21.0-32.0); CALCIUM 8.4 MG/DL (8.5-10.1); CREATININE 1.3 MG/DL (0.60-1.30); MAGNESIUM 1.3 MG/DL (1.5-2.5); PHOSPHORUS 2.8 MG/DL (2.5-4.9)
[2017-12-27] MEDS: LEVOTHYROXINE SODIUM 200 MCG TAB PO SCH (06:01)
[2017-12-27] MEDS: methylPREDNISolone SOD SUCC 40 MG/1 ML VIAL IV PUSH SCH ×3 (06:01→21:55)
[2017-12-27 08:09] LABS: BANDS 31 % (0-6); CORRECTED NUCLEATED RBC 3 /100 WBC (0-0); METAMYELOCYTES 2 % (0-1); MONOCYTES 10 % (0-8); MYELOCYTES 1 % (0-0); NUCLEATED RED BLOOD CELL 3 (0-0); OVALOCYTES 1+ (NORMAL); POLYS (SEG NEUTROPHILS) 55 % (16-70); PROMYELOCYTES 1 % (0-0)
[2017-12-27] MEDS: UMECLIDINIUM 62.5 MCG/VILANTEROL 25 MCG INHALER INH SCH (08:28)
[2017-12-27] MEDS: ARTIFICIAL TEARS OPTH SOLN 15 ML BTL EACH EYE SCH ×3 (08:28→17:38)
[2017-12-27] MEDS: CHOLECALCIFEROL (VIT D3) 1000 UNIT TAB PO SCH (08:29)
[2017-12-27] MEDS: POTASSIUM CHLORIDE 20 MEQ CONTROLLED RELEASE TAB PO SCH (08:29)
[2017-12-27] MEDS: CYANOCOBALAMIN 1,000 MCG TAB PO SCH (08:29)
[2017-12-27] MEDS: LIPASE/PROTEASE/AMYLASE (6,000/19,000/30,000) CAP PO SCH (08:29)
[2017-12-27] MEDS: PANTOPRAZOLE SOD 40 MG DELAYED RELEASE TAB PO SCH (08:29)
[2017-12-27] MEDS: FUROSEMIDE 40 MG TAB PO SCH (08:29)
[2017-12-27] MEDS: VALPROIC ACID SYRUP 250 MG/5 ML UDC PO SCH (08:30)
[2017-12-27] MEDS: DILTIAZEM HCL 30 MG TAB PO SCH ×2 (08:30→21:54)
[2017-12-27] MEDS: DOCUSATE SODIUM 50 MG/SENNA 8.6 MG TAB PO SCH ×2 (08:30→21:54)
[2017-12-27] MEDS: MULTIVITAMIN TAB PO SCH (08:30)
[2017-12-27] MEDS: SODIUM CHLORIDE 0.9% FLUSH 10 ML FLUSH IV FLUSH SCH ×2 (08:37→21:58)
[2017-12-27] MEDS: GABAPENTIN 300 MG CAP PO PRN ×2 (08:41→19:03)
--- NOTE | 2017-12-27 13:30 | HHI.PR ---
Subjective Remarks Follow-up for acute respiratory failure secondary to CHF exacerbation questionable pneumonia Patient very anxious during the interview. He stated that he is urinating too much and is upset about this. His and nurse at the bedside during the interview. feels like patient symptoms are getting worse. Patient is a continues of shortness of breathing but did not said they worsen. He was more concentrated on urinating more frequently. Respiratory therapist also at the bedside during the interview. Patient require more oxygen and was put on a simple mass. Objective Vitals Vital Signs Date Time Temp Pulse Resp B/P (MAP) Pulse Ox O2 Delivery O2 Flow Rate FiO2 12/27/17 12:30 Nasal Cannula 4.00 12/27/17 09:02 96 Nasal Cannula 4.00 12/27/17 08:00 84 12/27/17 08:00 97.3 76 20 133/66 (88) 92 12/27/17 04:00 97.9 96 19 145/85 (105) 97 12/27/17 04:00 78 12/27/17 03:27 98 40 12/27/17 00:00 84 12/27/17 00:00 97.6 83 20 145/86 (105) 95 12/26/17 23:25 95 12/26/17 20:00 97.4 107 20 138/70 (92) 94 12/26/17 20:00 86 12/26/17 19:50 90 Nasal Cannula 4.00 12/26/17 18:15 97.5 92 20 137/67 (90) 90 12/26/17 16:00 97.4 112 33 122/60 (80) 12/26/17 16:00 112 I/O 12/26/17 12/26/17 12/26/17 12/27/17 12/27/17 12/27/17 07:00 15:00 23:00 07:00 15:00 23:00 Intake Total 350 ml 1280 ml 200 ml Output Total 750 ml 1300 ml 900 ml Balance -750 ml 350 ml -20 ml -700 ml Intake Oral 180 ml 200 ml IV Total 350 ml 1100 ml Output Urine Total 750 ml 1300 ml 900 ml # Bowel Movements 0 1 0 Result Diagram: 12/27/17 0440 12/27/17 0440 Imaging Last Impressions Chest X-Ray 12/27/17 0000 Signed Impressions: Service Date/Time: Wednesday, December 27, 2017 13:36 - CONCLUSION: 1. Mild cardiomegaly. 2. Chronic appearing interstitial changes. 3. Port in good position. 4. Stable compared to previous. Derian Mukherjee MD Brain MRI 12/24/17 1624 Signed Impressions: Service Date/Time: Sunday, December 24, 2017 16:22 - CONCLUSION: 1. 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 2. 2 mm area of altered susceptibility in the right mid convexity parietal-occipital white matter, characteristic of an old punctate hemorrhage. 3. No evidence of acute infarction. No enhancing mass is seen. Riki Trent MD Carotid Artery Ultrasound 12/24/17 0000 Signed Impressions: Service Date/Time: Sunday, December 24, 2017 12:40 - CONCLUSION: 1. Minimal bilateral carotid plaque. 2. No evidence of hemodynamically significant stenosis. 3. Antegrade flow in both vertebral arteries. Joshua Garcia MD CT Angiography 12/24/17 0000 Signed Impressions: Service Date/Time: Sunday, December 24, 2017 03:00 - CONCLUSION: 1. No pulmonary embolus. 2. Mild bibasilar atelectasis. Possible early/mild pneumonia left lower lobe. 3. Small left pleural effusion. 4. 8mm nodular opacity laterally at the left lung base and a followup noncontrast chest CT is recommended in approximately 3 months. 5. Mild cardiac enlargement. Coronary artery calcification. Kristian Caceres MD Head CT 12/23/17 2349 Signed Impressions: Service Date/Time: Sunday, December 24, 2017 00:03 - CONCLUSION: No acute intracranial abnormality. Kristian Caceres MD Objective Remarks GENERAL: in NAD CARDIOVASCULAR: Regular rate and rhythm without murmurs, gallops, or rubs. RESPIRATORY: B/L mid to lower crackles. No accessory muscle use. GASTROINTESTINAL: Abdomen soft, non-tender, nondistended. MUSCULOSKELETAL: No cyanosis, or edema. Medications and IVs Current Medications Cefepime HCl 2000 mg/Sodium Chloride 100 ml @ 200 mls/hr ONCE ONCE IV Last administered on 12/24/17at 01:25; Start 12/24/17 at 00:00; Stop 12/24/17 at 00:29 ; Status DC Vancomycin HCl 1000 mg/Sodium Chloride 250 ml @ 250 mls/hr ONCE ONCE IV Last administered on 12/24/17at 03:55; Start 12/24/17 at 00:00; Stop 12/24/17 at 00:59 ; Status DC Albuterol/ Ipratropium (Duoneb Neb) 1 ampule ONCE ONCE NEB Last administered on 12/24/17at 00:16; Start 12/24/17 at 00:00; Stop 12/24/17 at 00:01; Status DC Tetanus/ Diphtheria Toxoids (Tetanus/ Diphtheria Tox Adult) 0.5 ml ONCE ONCE IM Last administered on 12/24/17at 01:27; Start 12/24/17 at 00:00; Stop 12/24/17 at 00:01; Status DC Albuterol/ Ipratropium (Duoneb Neb) 1 ampule Q15M INH Last administered on 12/24at 03:20; Start 12/24/17 at 01:30; Stop 12/24/17 at 01:46; Status DC Iohexol (Omnipaque 350 Inj) 65 ml STK-MED ONCE IVCONTRAST Last administered on 12/24/17at 03:13; Start 12/24/17 at 03:13; Stop 12/24/17 at 03:14; Status DC Methylprednisolone Sodium Succinate (SoluMEDROL INJ) 125 mg ONCE ONCE IV PUSH Last administered on 12/24/17at 05:30; Start 12/24/17 at 04:15; Stop 12/24/17 at 04:16; Status DC Albuterol/ Ipratropium (Duoneb Neb) 1 ampule ONCE ONCE NEB Last administered on 12/24/17at 04:25; Start 12/24/17 at 04:15; Stop 12/24/17 at 04:16; Status DC Sodium Chloride 500 ml @ 500 mls/hr BOLUS ONCE IV Last administered on at 05:29; Start 12/24/17 at 04:15; Stop 12/24/17 at 05:14; Status DC Sodium Chloride 1,000 ml @ 100 mls/hr Q10H IV Last administered on 12/24/17at 05:29; Start 12/24/17 at 04:15; Stop 12/24/17 at 10:53; Status DC Sodium Chloride 500 ml @ 500 mls/hr BOLUS ONCE IV Last administered on at 07:17; Start 12/24/17 at 04:15; Stop 12/24/17 at 05:14; Status DC Magnesium Sulfate/ Dextrose 100 ml @ 100 mls/hr Q1H IV Last administered on 09/02at 12:28; Start 12/24/17 at 07:30; Stop 12/24/17 at 09:29; Status DC Potassium Chloride 100 ml @ 100 mls/hr Q1H IV Last administered on 12/24/17at 12:44; Start 12/24/17 at 07:30; Stop 12/24/17 at 10:29; Status DC Sodium Chloride 1,000 ml @ 84 mls/hr [id number] IV Last administered on at 07:49; Start 12/24/17 at 07:39; Stop 12/26/17 at 16:26; Status DC Sodium Chloride (NS Flush) 2 ml UNSCH PRN IV FLUSH FLUSH AFTER USING IV ACCESS ; Start 12/24/17 at 07:45 Sodium Chloride (NS Flush) 2 ml BID IV FLUSH Last administered on 12/27/17at 08: 37; Start 12/24/17 at 09:00 Acetaminophen (Tylenol) 650 mg Q6H PRN PO FEVER >100F; Start 12/24/17 at 07:45 Acetaminophen/ Hydrocodone Bitart ([place] 5-325 Mg) 1 tab Q4H PRN PO PAIN SCALE 1 TO 5; Start 12/24/17 at 07:45 Morphine Sulfate (Morphine Inj) 2 mg Q2H PRN IV PUSH PAIN SCALE 6 TO 10; Start 12/24/17 at 07:45 Pantoprazole Sodium (Protonix) 40 mg DAILY PO Last administered on 12/27/17at 08 :29; Start 12/24/17 at 09:00 Artificial Tears (Tears Naturale Opth Soln) 1 drop TID EACH EYE ; Start at 09:00 Ondansetron HCl (Zofran Inj) 4 mg Q6H PRN IV PUSH NAUSEA OR VOMITING; Start 09/02 at 07:45 Albuterol/ Ipratropium (Duoneb Neb) 1 ampule Q4HR NEB INH Last administered on 12/27/17at 11:57; Start 12/24/17 at 08:00 Albuterol Sulfate (Albuterol Neb) 2.5 mg Q2HR NEB PRN INH SOB/WHEEZING; Start 12/24/17 at 07:45 Miscellaneous Information 1 Q361D XX Last administered on 12/24/17at 07:45; Start 12/24/17 at 07:45 Chlorhexidine Gluconate (Chlorhexidine 2% Cloth) 3 pack Taper DAILY@04 TOP Last administered on 12/26/17at 04:00; Start 12/25/17 at 04:00; Stop 12/21/18 at 03:59 Chlorhexidine Gluconate (Chlorhexidine 2% Cloth) 3 pack UNSCH PRN TOP HYGIENIC CARE; Start 12/24/17 at 07:45 Senna/Docusate Sodium (Annie-Colace) 1 tab BID PO Last administered on at 08:30; Start 12/24/17 at 09:00 Magnesium Hydroxide (Milk Of Magnesia Liq) 30 ml Q12H PRN PO Mild constipation ; Start 12/24/17 at 07:45 Sennosides (Senokot) 17.2 mg Q12H PRN PO Moderate constipation; Start 12/24/17 at 07:45 Bisacodyl (Dulcolax Supp) 10 mg DAILY PRN RECTAL SEVERE CONSITIPATION; Start at 07:45 Lactulose (Lactulose Liq) 30 ml DAILY PRN PO SEVERE CONSITIPATION; Start at 07:45 Potassium Chloride 100 ml @ 50 mls/hr Q2H PRN IV For Potassium 2.8 - 3.2 mEq/ L Last administered on 12/25/17at 22:20; Start 12/24/17 at 07:45; Stop 12/26/17 at 16:26; Status DC Potassium Chloride 100 ml @ 50 mls/hr Q2H PRN IV For Potassium 2.8 - 3.2 mEq/L ; Start 12/24/17 at 07:45; Stop 12/26/17 at 16:26; Status DC Potassium Bicarb/ Potassium Chloride (K-Lyte Cl Eff) 50 meq UNSCH PRN PO For Potassium 3.3 - 3.5 mEq/L; Start 12/24/17 at 07:45; Stop 12/26/17 at 16:28; Status DC Potassium Chloride 100 ml @ 25 mls/hr UNSCH PRN IV For Potassium 3.3 - 3.5 mEq /L; Start 12/24/17 at 07:45; Stop 12/26/17 at 16:26; Status DC Potassium Chloride 100 ml @ 50 mls/hr Q2H PRN IV For Potassium 3.3 - 3.5 mEq/L ; Start 12/24/17 at 07:45; Stop 12/26/17 at 16:26; Status DC Magnesium Sulfate 4 gm/Sodium Chloride 100 ml @ 50 mls/hr UNSCH PRN IV For Magnesium 0.9 - 1.1 mg/dL; Start 12/24/17 at 07:45; Stop 12/26/17 at 16:26; Status DC Magnesium Oxide (Mag-Ox) 800 mg UNSCH PRN PO For Magnesium 1.2 - 1.6 mg/dL; Start 12/24/17 at 07:45 Magnesium Sulfate 2 gm/Sodium Chloride 100 ml @ 50 mls/hr UNSCH PRN IV For Magnesium 1.2 - 1.6 mg/dL; Start 12/24/17 at 07:45; Stop 12/26/17 at 16:26; Status DC Potassium Phosphate (K-Phos) 2,000 mg Q4H PRN PO For Phosphorus < 2.5 mg/dL; Start 12/24/17 at 07:45 Sodium Phosphate 30 mmol/Sodium Chloride 250 ml @ 42 mls/hr UNSCH PRN IV For Phosphorus < 2.5 mg/dL; Start 12/24/17 at 07:45; Stop 12/26/17 at 16:28; Status DC Potassium Phosphate (K-Phos) 2,000 mg UNSCH PRN PO/TUBE SEE LABEL COMMENTS; Start 12/24/17 at 07:45 Potassium Phosphate 30 mmol/ Sodium Chloride 260 ml @ 42 mls/hr UNSCH PRN IV SEE LABEL COMMENTS Last administered on 12/25/17at 07:49; Start 12/24/17 at 07:45 ; Stop 12/26/17 at 16:26; Status DC Dextrose (D50w (Vial) Inj) 50 ml UNSCH PRN IV PUSH HYPOGLYCEMIA-SEE COMMENTS; Start 12/24/17 at 07:45 Glucagon (Glucagon Inj) 1 mg UNSCH PRN OTHER HYPOGLYCEMIA-SEE COMMENTS; Start 12/24/17 at 07:45 Insulin Human Regular (NovoLIN R SUPPLEMENTAL SCALE) 1 Q6HR SQ Last administered on 12/24/17at 23:34; Start 12/24/17 at 12:00; Stop 12/25/17 at 10:00 ; Status DC Methylprednisolone Sodium Succinate (SoluMEDROL INJ) 40 mg Q8HR IV PUSH Last administered on 12/27/17at 13:53; Start 12/24/17 at 14:00 Cholecalciferol (Vitamin D3) 2,000 units DAILY PO Last administered on at 08:29; Start 12/24/17 at 09:00 Gabapentin (Neurontin) 300 mg TID PRN PO PAIN SCALE 1 TO 7 Last administered on 12/27/17at 08:41; Start 12/24/17 at 08:00 Valproic Acid (Depakene Liq) 200 mg DAILY PO Last administered on 12/27/17 08: 30; Start 12/24/17 at 09:00 Lorazepam (Ativan) 1 mg HS PRN PO RESTLESSNESS; Start 12/24/17 at 08:00 Amylase/Lipase/ Protease (Creon 6-19-30) 1 cap DAILY PO Last administered on at 08:29; Start 12/24/17 at 09:00 Rivaroxaban (Xarelto) 15 mg HS PO Last administered on 12/26/17at 20:09; Start 12/24/17 at 21:00 Non-Formulary Medication 1,000 mcg DAILY PO ; Start 12/24/17 at 09:00; Stop 09/02 at 09:00; Status DC Non-Formulary Medication 2 cap HS PO ; Start 12/24/17 at 21:00; Status UNV Multivitamins (Theragran) 1 tab DAILY PO Last administered on 12/27/17at 08:30; Start 12/24/17 at 09:00 Cefepime HCl 2000 mg/Sodium Chloride 100 ml @ 200 mls/hr Q8H IV ; Start at 08:00; Stop 12/24/17 at 11:29; Status DC Azithromycin 500 mg/Sodium Chloride 250 ml @ 250 mls/hr Q24H IV ; Start at 08:00; Stop 12/24/17 at 11:30; Status DC Norepinephrine Bitartrate 4 mg/ Sodium Chloride 250 ml @ 7.5 mls/hr TITRATE PRN IV Blood pressure management; Start 12/24/17 at 08:00; Stop 12/26/17 at 16: 27; Status DC Terbutaline Sulfate (Brethine Inj) 1 mg UNSCH PRN SQ For Extravasation; Start 12/24/17 at 08:00 Cyanocobalamin (Vitamin B12) 1,000 mcg DAILY PO Last administered on 12/27/17at 08:29; Start 12/24/17 at 09:00 Cefepime HCl 2000 mg/Sodium Chloride 100 ml @ 200 mls/hr Q8H IV Last administered on 12/27/17at 03:35; Start 12/24/17 at 12:00; Stop 12/27/17 at 07:40 ; Status DC Azithromycin 500 mg/Sodium Chloride 250 ml @ 250 mls/hr Q24H IV Last administered on 12/27/17at 13:53; Start 12/24/17 at 13:00 Gadodiamide (Omniscan Pf Inj) 20 ml STK-MED ONCE IVCONTRAST Last administered on 12/24/17at 16:32; Start 12/24/17 at 16:32; Stop 12/24/17 at 16:33; Status DC Furosemide (Lasix) 40 mg DAILY PO Last administered on 12/27/17at 08:29; Start 12/25/17 at 09:45; Stop 12/27/17 at 13:30; Status DC Potassium Chloride (KCl) 20 meq DAILY PO Last administered on 12/27/17at 08:29; Start 12/25/17 at 09:45 Diltiazem HCl (Cardizem) 30 mg Q12HR PO Last administered on 12/27/17at 08:30; Start 12/25/17 at 10:00 Levothyroxine Sodium (Synthroid) 200 mcg DAILY@0600 PO Last administered on at 06:01; Start 12/26/17 at 15:00 Potassium Chloride (KCl) 20 meq ONCE ONCE PO Last administered on 12/26/17at 17 :18; Start 12/26/17 at 16:30; Stop 12/26/17 at 16:31; Status DC Cefepime HCl 2000 mg/Sodium Chloride 100 ml @ 200 mls/hr Q12H IV ; Start at 16:00 Magnesium Sulfate/ Dextrose 100 ml @ 100 mls/hr Q1H IV Last administered on at 14:30; Start 12/27/17 at 14:00; Stop 12/27/17 at 15:59 Furosemide (Lasix Inj) 40 mg BID@09,18 IV PUSH ; Start 12/27/17 at 18:00 A/P Problem List: (1) Frequent falls ICD Code: R29.6 - Repeated falls Status: Chronic (2) Cataract ICD Code: H26.9 - Unspecified cataract (3) Hypoalbuminemia ICD Code: E88.09 - Other disorders of plasma-protein metabolism, not elsewhere classified (4) Hypokalemia ICD Code: E87.6 - Hypokalemia (5) Hypomagnesemia ICD Code: E83.42 - Hypomagnesemia (6) Elevated partial thromboplastin time (PTT) ICD Code: R79.1 - Abnormal coagulation profile (7) Elevated INR ICD Code: R79.1 - Abnormal coagulation profile (8) Gastroesophageal reflux disease ICD Code: K21.9 - Gastro-esophageal reflux disease without esophagitis (9) Pancreatic insufficiency ICD Code: K86.89 - Other specified diseases of pancreas (10) Peripheral neuropathy ICD Code: G62.9 - Polyneuropathy, unspecified (11) Chronic prescription benzodiazepine use ICD Code: Z79.899 - Other extermination supervisor (current) drug therapy (12) Chronic anticoagulation ICD Code: Z79.01 - intermodal customer service (current) use of anticoagulants (13) COPD (chronic obstructive pulmonary disease) ICD Code: J44.9 - Chronic obstructive pulmonary disease, unspecified Status: Acute (14) CAD (coronary artery disease) ICD Code: I25.10 - Atherosclerotic heart disease of enterprise coronary artery without angina pectoris Status: Acute (15) Pancytopenia ICD Code: D61.818 - Pancytopenia Status: Acute (16) Esophageal cancer ICD Code: C15.9 - Esophageal cancer Status: Acute (17) Pleural effusion, left ICD Code: J90 - Pleural effusion, not elsewhere classified Status: Acute (18) Pneumonia ICD Code: J18.9 - Pneumonia, unspecified organism Status: Acute (19) Chronic kidney disease, stage III (moderate) ICD Code: N18.3 - Chronic kidney disease, stage III (moderate) Status: Acute (20) Hypertension ICD Code: I10 - Hypertension Status: Chronic (21) Hypothyroidism ICD Code: E03.9 - Hypothyroidism Status: Chronic (22) Hypoxemia ICD Code: R09.02 - Hypoxemia Status: Acute (23) Severe sepsis ICD Code: A41.9 - Sepsis, unspecified organism; R65.20 - Severe sepsis without septic shock Assessment and Plan This is a 82-year-old male with chronic respiratory failure on 2 L oxygen at home and COPD who presented with shortness of breathing Acute on chronic respiratory failure -Most likely secondary to CHF exacerbation versus pneumonia or combination. Symptoms seem to worsen where he is requiring more oxygen. On physical exam patient has bilateral crackles. -Stat chest x-ray was done which shows chronic interstitial changes of mild cardiomegaly. Will increase Lasix to 40 mg IV twice daily. -I also order a V/Q scan in which patient declined despite the benefits of ruling out pulmonary embolism. avoiding CT scan of the pulmonary arteries due to GFR being 55. When I follow-up with patient's nurse she stated that respiratory status is improving. I suspect this is more due to fluid overloaded since he does have bilateral crackles and symptoms seems to worsen when he lays down. Patient is also on Xarelto. -Continue to monitor. Patient is full code. If he get worse needs to go to [facility] [place] but at the moment per nurse he is improving. Questionable pneumonia -Patient is on cefepime and azithromycin. Infectious disease consulted. Management per infectious disease. Chronic Benzodiazepine use/Peripheral Neuropathy/frequent falls, CT brain 12/24 revealed no acute intracranial findings -Continue lorazepam 1 mg nightly/home medication - Continue gabapentin 300 mg p.o. 3 times daily for peripheral neuropathy, as per Physical Therapy okay to go home with [facility] for PT and skilled nurse. Atrial Fibrillation/rate control/Hypertension rate controlled -Continue home medication. Patient on Xarelto. Chronic respiratory failure/COPD -See treatment as above. Patient was put on Solu-Medrol. In terms of his COPD seems to be improving. Will consider decreasing Solu-Medrol tomorrow. - CT pulmonary revealed left lower lobe infiltrate versus atelectasis. 8 mm left upper lobe nodule follow-up CT scan in 6 months. Coronary calcifications left main/LAD Chronic pancreatic insufficiency -continue pancreatic enzymes, PPIs. 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 chronic rivaroxaban use. Hypomagnesia -Magnesium 1.3 today. Will give IV magnesium. Replenish as needed. Prophylaxis -GI -pantoprazole -DVT -SCD/rivaroxaban will provide pharmacological prophylaxis Discharge Planning Discussed case with patient's nurse, respiratory therapist, and his who is at the bedside. Problem Qualifiers (1) Cataract: Qualified Codes: H26.9 - Unspecified cataract (2) Gastroesophageal reflux disease: Qualified Codes: K21.9 - Gastro-esophageal reflux disease without esophagitis (3) Peripheral neuropathy: Qualified Codes: G62.9 - Polyneuropathy, unspecified (4) COPD (chronic obstructive pulmonary disease): Qualified Codes: J44.0 - Chronic obstructive pulmonary disease with acute lower respiratory infection (5) CAD (coronary artery disease): (6) Esophageal cancer: Qualified Codes: C15.9 - Malignant neoplasm of esophagus, unspecified (7) Pneumonia: Qualified Codes: J18.1 - Lobar pneumonia, unspecified organism (8) Hypertension: Qualified Codes: I10 - Essential (primary) hypertension (9) Hypothyroidism: Qualified Codes: E03.9 - Hypothyroidism, unspecified Marianne Romero MD Dec 27, 2017 13:29
[2017-12-27] MEDS: AZITHROMYCIN INJ 500 MG in SODIUM CHLOR 0.9% 250 ML INJ 250 ML IV SCH (13:53)
--- NOTE | 2017-12-27 14:16 | RADRPT ---
EXAM DATE/TIME: 12/27/2017 13:36 [facility] COMPARISON: CHEST SINGLE AP, December 25, 2017, 3:17. INDICATIONS : Short of breath. MEDICAL HISTORY : Hypertension. Carcinoma, esophageal. SURGICAL HISTORY : None. ENCOUNTER: Subsequent ACUITY: 4 - 6 days PAIN SCORE: 0/10 LOCATION: Bilateral chest FINDINGS: The heart is mildly enlarged the [id number] in good position. There chronic interstitial changes w ithin the forefoot. This is similar to the prior exam. CONCLUSION: 1. Mild cardiomegaly. 2. Chronic appearing interstitial changes. 3. Port in good position. 4. Stable compared to previous. Derian Mukherjee MD on December 27, 2017 at 13:53 Board Certified Radiologist. This report was verified electronically.
[2017-12-27] MEDS: MAGNESIUM SULFATE 1 GM PREMIX 100 ML IV SCH ×2 (14:30→17:19)
[2017-12-27] MEDS ORDERED: CEFEPIME INJ 2,000 MG in SODIUM CHLORIDE 0.9% INJ 100 ML IV SCH (16:00)
--- NOTE | 2017-12-27 16:11 | PD.ID.CON ---
History of Present Illness Service ID Consult Requested By Reason for Consult Evaluation and Mment of Pneumonia in an Immune compromised patient. 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 Last session of chemotherapy was few days prior to admission. His PMHx is also significant for smoking (40 pack per history) in past with COPD, afib on chronic anticoagulation, CAD. Patient has a right-sided [id number]. Patient presents to [facility] with a recent history of frequent falls. Patient has fallen 4 times in the past 24 hours. Denies head trauma. Patients reports that usually around "10 days " after chemotherapy that he receives in [place] patient becomes increasingly weak. Patient was admitted on 12/24/2017. Patient was being treated for CHF exacerbation as well as possible early pneumonia. Laboratories on admission revealed pancytopenia. Patient received 1 L normal saline, vancomycin, cefepime and methylprednisolone succinate 125 mg 1 in the ED. During hospitalization patient became desaturated with CO2 retention and needed placement on BiPAP. CT brain revealed no acute intracranial findings. Chest x-ray revealed no acute cardiopulmonary findings. CT pulmonary revealed left lower lobe infiltrate/atelectasis, small pleural effusion with a coronary calcification of the left main/LAD area. ID was consulted for evaluation and Mment of Pneumonia. At the time of my evaluation, patient is on floor. Talking in complete sentences , oriented x 3, and provided most of the history. thinks he gets confused off and on. UO good. No cough. No diarrhea. No rash. Past Family Social History Allergies: Coded Allergies: No Known Allergies (Unverified Adverse Reaction, Unknown, 12/23/17) VANCO ALLERGY WAS REMOVED PER DR. CHAMBERS ORDER, PT STATES, VANCO INFILTRATED, NO ALLERGIC REACTION. Past Medical History Chronic atrial fibrillation rate controlled Hypertension Dyslipidemia Hypothyroidism Diverticulosis Cataract COPD History of AML 1992 Chronic narcotic use Chronic rivaroxaban use Gastroesophageal reflux disease Peripheral neuropathy Chronic pancreatic insufficiency History of esophageal cancer T2 N2 M1 -adenocarcinoma treated by Dr. Gonzalez Past Surgical History Right [id number] Cataract Bone marrow transplant Vasectomy Lumpectomy Hernia repair EGD/colonoscopy Reported Medications Reported Meds & Active Scripts Active Tylenol (Acetaminophen) 325 Mg Tab 325 Mg PO Q4H PRN Reported Lasix (Furosemide) 20 Mg Tab 20-40 Mg PO DAILY Anoro Ellipta Inh (Umeclidinium/Vilanterol) 62.5-25 Mcg/Act Aero 1 Puff INH DAILY Multivitamins (Multiple Vitamin) 1 Cap Cap 1 Cap PO DAILY Fish Oil + D3 (Fish Oil-Cholecalciferol) 1,200-1,000 Mg-Unit Cap 2 Cap PO HS Dexamethasone 4 Mg Tab 40 Mg PO DIRECTED Creon (Amylase/Lipase/Protease) 6,000-19,000-30,000 Units Cap 1 Cap PO DAILY Xarelto (Rivaroxaban) 15 Mg Tab 15 Mg PO HS Pantoprazole (Pantoprazole Sodium) 40 Mg Tab 40 Mg PO DAILY Lorazepam 1 Mg Tab 1 Mg PO HS PRN Levothyroxine (Levothyroxine Sodium) 200 Mcg Tab 200 Mcg PO DAILY B12 (Cyanocobalamin) 1,000 Mcg Tab 1,000 Mcg PO DAILY Gabapentin 300 Mg Cap 300 Mg PO TID PRN D3 (Cholecalciferol) 1,000 Unit Tab 2,000 Units PO DAILY Active Ordered Medications Current Medications Medications (Trade) Dose Ordered Sig/William Route Start Time Stop Time Status Last Admin (NS Flush) 2 ml UNSCH PRN IV FLUSH 12/24/17 07:45 (NS Flush) 2 ml BID IV FLUSH 12/24/17 09:00 12/27/17 08:37 (Tylenol) 650 mg Q6H PRN PO 12/24/17 07:45 ([place]erton 5-325 Mg) 1 tab Q4H PRN PO 12/24/17 07:45 (Morphine Inj) 2 mg Q2H PRN IV PUSH 12/24/17 07:45 (Protonix) 40 mg DAILY PO 12/24/17 09:00 12/27/17 08:29 (Tears Naturale Opth Soln) 1 drop TID EACH EYE 12/24/17 09:00 (Zofran Inj) 4 mg Q6H PRN IV PUSH 12/24/17 07:45 (Duoneb Neb) 1 ampule Q4HR NEB INH 12/24/17 08:00 12/27/17 17:09 (Albuterol Neb) 2.5 mg Q2HR NEB PRN INH 12/24/17 07:45 Miscellaneous Information 1 Q361D XX 12/24/17 07:45 12/24/17 07:45 (Chlorhexidine 2% Cloth) 3 pack Taper DAILY@04 TOP 12/25/17 04:00 12/21/18 03:59 12/26/17 04:00 (Chlorhexidine 2% Cloth) 3 pack UNSCH PRN TOP 12/24/17 07:45 (Annie-Colace) 1 tab BID PO 12/24/17 09:00 12/27/17 08:30 (Milk Of Magnesia Liq) 30 ml Q12H PRN PO 12/24/17 07:45 (Senokot) 17.2 mg Q12H PRN PO 12/24/17 07:45 (Dulcolax Supp) 10 mg DAILY PRN RECTAL 12/24/17 07:45 (Lactulose Liq) 30 ml DAILY PRN PO 12/24/17 07:45 (Mag-Ox) 800 mg UNSCH PRN PO 12/24/17 07:45 (K-Phos) 2,000 mg Q4H PRN PO 12/24/17 07:45 (K-Phos) 2,000 mg UNSCH PRN PO/TUBE 12/24/17 07:45 (D50w (Vial) Inj) 50 ml UNSCH PRN IV PUSH 12/24/17 07:45 (Glucagon Inj) 1 mg UNSCH PRN OTHER 12/24/17 07:45 (SoluMEDROL INJ) 40 mg Q8HR IV PUSH 12/24/17 14:00 12/27/17 13:53 (Vitamin D3) 2,000 units DAILY PO 12/24/17 09:00 12/27/17 08:29 (Neurontin) 300 mg TID PRN PO 12/24/17 08:00 12/27/17 19:03 (Depakene Liq) 200 mg DAILY PO 12/24/17 09:00 12/27/17 08:30 (Ativan) 1 mg HS PRN PO 12/24/17 08:00 (Creon 6-19-30) 1 cap DAILY PO 12/24/17 09:00 12/27/17 08:29 (Xarelto) 15 mg HS PO 12/24/17 21:00 12/26/17 20:09 (Theragran) 1 tab DAILY PO 12/24/17 09:00 12/27/17 08:30 (Brethine Inj) 1 mg UNSCH PRN SQ 12/24/17 08:00 (Vitamin B12) 1,000 mcg DAILY PO 12/24/17 09:00 12/27/17 08:29 (KCl) 20 meq DAILY PO 12/25/17 09:45 12/27/17 08:29 (Cardizem) 30 mg Q12HR PO 12/25/17 10:00 12/27/17 08:30 (Synthroid) 200 mcg DAILY@0600 PO 12/26/17 15:00 12/27/17 06:01 (Lasix Inj) 40 mg BID@18 IV PUSH 12/27/17 18:00 12/27/17 18:49 (Levaquin) 500 mg ONCE ONCE PO 12/28/17 09:00 12/28/17 09:01 (Levaquin) 250 mg Q24H PO 12/29/17 09:00 Family History Father from prostate cancer age 95. Social History 40 year tobacco use. Quit 1977. One beer per month. Denies illicit drug use. Physical Exam Vital Signs Vital Signs Date Time Temp Pulse Resp B/P (MAP) Pulse Ox O2 Delivery O2 Flow Rate FiO2 12/27/17 15:59 92 Simple Mask 6.00 40 12/27/17 14:32 Simple Mask 7.00 12/27/17 14:01 Simple Mask 8.00 12/27/17 13:33 96 Simple Mask 8.00 12/27/17 13:30 Simple Mask 8.00 12/27/17 12:30 Nasal Cannula 4.00 12/27/17 12:00 97.9 88 20 144/67 (92) 77 12/27/17 09:02 96 Nasal Cannula 4.00 12/27/17 08:00 84 12/27/17 08:00 97.3 76 20 133/66 (88) 92 12/27/17 04:00 97.9 96 19 145/85 (105) 97 12/27/17 04:00 78 12/27/17 03:27 98 40 12/27/17 00:00 84 12/27/17 00:00 97.6 83 20 145/86 (105) 95 12/26/17 23:25 95 12/26/17 20:00 97.4 107 20 138/70 (92) 94 12/26/17 20:00 86 12/26/17 19:50 90 Nasal Cannula 4.00 12/26/17 18:15 97.5 92 20 137/67 (90) 90 Physical Exam GENERAL: This is a well-nourished, well-developed patient, in mild resp distress. SKIN: Areas of ecchymoses noted. Cool and dry. HEAD: Atraumatic. Normocephalic. No temporal or scalp tenderness. EYES: Pupils equal round and reactive. Extraocular motions intact. No scleral icterus. No injection or drainage. ENT NAD NECK: Trachea midline. Supple, nontender, no meningeal signs. CARDIOVASCULAR: HS audible. RESPIRATORY: Basilar crackles noted. Breath sounds decreased in bases. GASTROINTESTINAL: Abdomen soft, non-tender, nondistended. MUSCULOSKELETAL: Extremities without clubbing, cyanosis. Pedal edema. NEUROLOGICAL: Awake and alert. Non focal exam. Psych cooperative IV line sites with no e.o infection Laboratory Laboratory Tests Test 12/26/17 16:40 12/27/17 04:40 Magnesium Level 1.3 1.3 White Blood Count 8.9 Red Blood Count 2.97 Hemoglobin 9.3 Hematocrit 27.4 Mean Corpuscular Volume 92.2 Mean Corpuscular Hemoglobin 31.2 Mean Corpuscular Hemoglobin Concent 33.8 Red Cell Distribution Width 19.7 Platelet Count 86 Mean Platelet Volume 8.0 Neutrophils (%) (Auto) 87.7 Lymphocytes (%) (Auto) 3.5 Monocytes (%) (Auto) 8.7 Eosinophils (%) (Auto) 0.0 Basophils (%) (Auto) 0.1 Neutrophils # (Auto) 7.8 Lymphocytes # (Auto) 0.3 Monocytes # (Auto) 0.8 Eosinophils # (Auto) 0.0 Basophils # (Auto) 0.0 CBC Comment AUTO DIFF Differential Total Cells Counted 100 Neutrophils % (Manual) 55 Band Neutrophils % 31 Monocytes % 10 Neutrophils # (Manual) 8.0 Metamyelocytes 2 Myelocytes 1 Promyelocytes 1 Nucleated Red Blood Cells 3 Differential Comment FINAL DIFF MANUAL Platelet Estimate LOW Platelet Morphology Comment NORMAL Ovalocytes 1+ Blood Urea Nitrogen 31 Creatinine 1.30 Random Glucose 153 Calcium Level 8.4 Phosphorus Level 2.8 Sodium Level 138 Potassium Level 3.5 Chloride Level 103 Carbon Dioxide Level 23.6 Anion Gap 11 Estimat Glomerular Filtration Rate 53 B-Type Natriuretic Peptide 664 Date/Time Source Procedure Growth Status 12/23/17 00:30 Blood Peripheral Aerobic Blood Culture - Preliminary NO GROWTH IN 3 DAYS Resulted 12/23/17 00:30 Blood Peripheral Anaerobic Blood Culture - Preliminary NO GROWTH IN 3 DAYS Resulted 12/24/17 09:50 Nasal Washing Influenza Types A,B Antigen (HERMAN) - Final NEGATIVE FOR FLU A AND B ANTIGEN.... Complete 12/24/17 05:55 Urine Catheterized Urine Legionella Antigen - Final PRESUMPTIVE NEGATIVE FOR LEGIONELLA P... Complete 12/24/17 05:55 Urine Catheterized Urine Streptococcus pneumoniae Antigen (M - Final PRESUMPTIVE NEGATIVE FOR STREPTOCOCCU... Complete Result Diagram: 12/27/17 0440 12/27/17 0440 Imaging Last Impressions Chest X-Ray 12/27/17 0000 Signed Impressions: Service Date/Time: Wednesday, December 27, 2017 13:36 - CONCLUSION: 1. Mild cardiomegaly. 2. Chronic appearing interstitial changes. 3. Port in good position. 4. Stable compared to previous. Derian Mukherjee MD Brain MRI 12/24/17 1624 Signed Impressions: Service Date/Time: Sunday, December 24, 2017 16:22 - CONCLUSION: 1. Moderate central and cortical atrophy and old right [employer] infarction. 2. 2 mm area of altered susceptibility in the right mid convexity parietal-occipital white matter, characteristic of an old punctate hemorrhage. 3. No evidence of acute infarction. No enhancing mass is seen. Riki Trent MD Carotid Artery Ultrasound 12/24/17 0000 Signed Impressions: Service Date/Time: Sunday, December 24, 2017 12:40 - CONCLUSION: 1. Minimal bilateral carotid plaque. 2. No evidence of hemodynamically significant stenosis. 3. Antegrade flow in both vertebral arteries. Joshua Chambers MD CT Angiography 12/24/17 0000 Signed Impressions: Service Date/Time: Sunday, December 24, 2017 03:00 - CONCLUSION: 1. No pulmonary embolus. 2. Mild bibasilar atelectasis. Possible early/mild pneumonia left lower lobe. 3. Small left pleural effusion. 4. 8mm nodular opacity laterally at the left lung base and a followup noncontrast chest CT is recommended in approximately 3 months. 5. Mild cardiac enlargement. Coronary artery calcification. Kristian Caceres MD Head CT 12/23/17 9845 Signed Impressions: Service Date/Time: Sunday, December 24, 2017 00:03 - CONCLUSION: No acute intracranial abnormality. Kristian Caceres MD Assessment and Plan Assessment and Plan Possible Pneumonia Acute Congestive heart failure with pulm edema. Dilated LA and ? mild MR. EF 60- 65% Esophageal cancer s/p chemo approx week back. Last time port was accessed. AML in remission. s/p autologous bone marrow transplant. Immune compromised host. Recs: DC Cefepime IV DC Azithro IV Start Levaquin oral. Procalcitonin may falsely be high in cancer setting. Clinically fits into fluid excess state. No cough, no fever, WBC normal range. BNP elevated. CXR with KB lines. Reviewed with ECHO findings, Elevated BNP, CXR comparisons. CT Chest findings. Patient had Bronch on prior admissions with negative cultures for regular, AFB and fungus. Check Immune globulins in view of recurrent infections and h/o Leukemia. earl Velazquez minimize fluid bags try changing meds to oral. Agree with Pulm consult Cardio consult patient known to re:CHF. Follow cultures Follow clinically. Aiyana Bosch MD Dec 27, 2017 16:10
[2017-12-27] MEDS ORDERED: FUROSEMIDE 40 MG/4 ML VIAL IV PUSH SCH (18:00)
--- NOTE | 2017-12-27 20:07 | MB ---
cc: Jasmin Guo MD DATE OF CONSULT: HISTORY OF PRESENT ILLNESS: Mr. Brownlee is an 82-year-old black male with a history of multiple medical problems. He has developed progressive weakness and frequent falls. He was found to be hypoxemic, his oxygen had to be increased and he was changed to BiPAP. His CT of the brain shows no acute changes. His pulmonary CT showed left lower lobe infiltrate/atelectasis, small pleural effusion and coronary calcifications. The patient denies any chest pain. He denies shortness of breath. He has had increased lower extremity edema. PAST MEDICAL HISTORY: Positive for esophageal carcinoma, T2N2M1, receiving chemotherapy in [place], history of COPD, atrial fibrillation, on chronic anticoagulation, hypertension, hypothyroidism, coronary artery disease, diverticulosis, history of AML treated in 1992, history of port placement, gastroesophageal reflux disease, peripheral neuropathy, chronic pancreatic insufficiency, cataract surgery, bone marrow transplant, lumpectomy, hernia repair, EGD/colonoscopy. MEDICATIONS AT HOME: Include cholecalciferol, cyanocobalamin, levothyroxine, dexamethasone, pantoprazole, pancreas enzymes, furosemide, lorazepam, gabapentin, fish oil, rivaroxaban, and umeclidinium/vilanterol. ALLERGIES: NONE. SOCIAL HISTORY: Patient does not smoke. He quit smoking in 1977. He drinks beer infrequently. FAMILY HISTORY: Negative for heart disease. REVIEW OF SYSTEMS: Otherwise negative. PHYSICAL EXAMINATION: VITAL SIGNS: Blood pressure 139/87, pulse 78 and regular. HEENT: Negative, 2+ carotid upstrokes. No bruits. LUNGS: With bibasilar crackles. HEART: Regular with I/ systolic murmur at the apex, gallop. ABDOMEN: Soft, no bruits. EXTREMITIES: With 1-2+ pitting pretibial edema, 1+ distal pulses. NEUROLOGIC: Grossly nonfocal. DIAGNOSTIC DATA: EKG was reviewed and showed atrial fibrillation with controlled ventricular response and nonspecific ST changes. LABORATORY DATA: Hemoglobin 9.3. Potassium 3.5, creatinine 1.3. BNP 664. Troponin 0.04, 0.06 and 0.05. DIAGNOSES: 1. Frequent falls. 2. Pneumonia. 3. Severe sepsis. 4. Hypertension. 5. Esophageal cancer. 6. Pancytopenia. 7. Coronary artery disease. 8. Chronic obstructive pulmonary disease. 9. Chronic atrial fibrillation. DISPOSITION: Mr. Brownlee appears to be fluid overloaded. I recommend to continue diuresis with IV Lasix, closely monitoring his renal function and potassium. I recommend to continue anticoagulation for his atrial fibrillation. We will obtain echocardiogram to reevaluate his left ventricular function and his mitral regurgitation. He will be treated for his pneumonia with antibiotics. He will also be treated for his chronic respiratory failure and COPD. I will follow him for cardiology during his hospitalization. I will also see him back for followup in our office after discharge. The plan was discussed with the patient and his . MD ALAN Yoder/RO , 05:47 PM , 08:06 PM [email or web address]
[2017-12-27] MEDS: RIVAROXABAN 15 MG TAB PO SCH (21:54)
[2017-12-28] VITALS (11 sets, daily range): BP systolic 128–158; BP diastolic 60–91; PULSE 72–99; RESP 18–22; TEMP 97.3–98.2; O2SAT 92–98
[2017-12-28] MEDS: RESP: ALBUTEROL 2.5 MG/IPRATROPIUM 0.5 MG NEB (SCH) INH ×2 (00:04→04:19)
[2017-12-28 01:21] LABS: IMMUNOGLOBULIN A 102 MG/DL (107-591); IMMUNOGLOBULIN G 482 MG/DL (690-1690); IMMUNOGLOBULIN M 38 MG/DL (37-225)
[2017-12-28] MEDS: CHLORHEXIDINE GLUCONATE 2 % 1 PACK (2 CLOTHS) TOP SCH (04:00)
[2017-12-28] MEDS: GABAPENTIN 300 MG CAP PO PRN ×2 (05:28→15:32)
[2017-12-28] MEDS: methylPREDNISolone SOD SUCC 40 MG/1 ML VIAL IV PUSH SCH ×2 (05:29→21:51)
[2017-12-28] MEDS: LEVOTHYROXINE SODIUM 200 MCG TAB PO SCH (05:29)
[2017-12-28 06:18] LABS: HEMATOCRIT 29.2 % (39.0-51.0); HEMOGLOBIN 9.8 GM/DL (13.0-17.0); MEAN CELL VOLUME 90.7 FL (80.0-100.0); MEAN CORPUSCULAR HEMOGLOBIN 30.5 PG (27.0-34.0); MEAN CORPUSCULAR HGB CONC 33.6 % (32.0-36.0); PLATELET COUNT 108 TH/MM3 (150-450); RED BLOOD COUNT 3.22 MIL/MM3 (4.50-5.90); RED CELL DISTRIBUTION WIDTH 20.1 % (11.6-17.2); WHITE BLOOD COUNT 12.4 TH/MM3 (4.0-11.0)
[2017-12-28 07:15] LABS: CALCIUM 8.6 MG/DL (8.5-10.1); CREATININE 1.75 MG/DL (0.60-1.30); MAGNESIUM 1.9 MG/DL (1.5-2.5)
[2017-12-28] MEDS ORDERED: POTASSIUM CHLORIDE 20 MEQ CONTROLLED RELEASE TAB PO ONE (08:00)
[2017-12-28] MEDS ORDERED: LEVOFLOXACIN 500 MG TAB PO ONE (09:00)
[2017-12-28] MEDS: ARTIFICIAL TEARS OPTH SOLN 15 ML BTL EACH EYE SCH ×3 (09:00→18:00)
[2017-12-28] MEDS: MULTIVITAMIN TAB PO SCH (09:51)
[2017-12-28] MEDS: POTASSIUM CHLORIDE 20 MEQ CONTROLLED RELEASE TAB PO SCH (09:51)
[2017-12-28] MEDS: PANTOPRAZOLE SOD 40 MG DELAYED RELEASE TAB PO SCH (09:52)
[2017-12-28] MEDS: DOCUSATE SODIUM 50 MG/SENNA 8.6 MG TAB PO SCH ×2 (09:52→21:51)
[2017-12-28] MEDS: CYANOCOBALAMIN 1,000 MCG TAB PO SCH (09:52)
[2017-12-28] MEDS: DILTIAZEM HCL 30 MG TAB PO SCH ×2 (09:52→21:51)
[2017-12-28] MEDS: LIPASE/PROTEASE/AMYLASE (6,000/19,000/30,000) CAP PO SCH (09:52)
[2017-12-28] MEDS: CHOLECALCIFEROL (VIT D3) 1000 UNIT TAB PO SCH (09:52)
[2017-12-28] MEDS: VALPROIC ACID SYRUP 250 MG/5 ML UDC PO SCH (09:52)
[2017-12-28] MEDS: SODIUM CHLORIDE 0.9% FLUSH 10 ML FLUSH IV FLUSH SCH ×2 (09:56→21:51)
[2017-12-28] MEDS: UMECLIDINIUM 62.5 MCG/VILANTEROL 25 MCG INHALER INH SCH (09:56)
--- NOTE | 2017-12-28 12:10 | HHI.PR ---
Subjective Remarks Follow-up for respiratory failure Patient found sleeping on nasal cannula 3 L. He stated that he felt like he is a different man. He cannot tell me why. He stated that he feels like he God pushed a switch on him. He denied any shortness of breathing. I asked him if he can expand on this statement but he said that he could not. Patient able to tell me his name and that he was in the hospital. He did answer questions appropriately. He had no complaints with me. Objective Vitals Vital Signs Date Time Temp Pulse Resp B/P (MAP) Pulse Ox O2 Delivery O2 Flow Rate FiO2 12/28/17 10:28 94 Nasal Cannula 5.00 12/28/17 08:00 97.9 84 18 135/84 (101) 98 12/28/17 04:20 97 40 12/28/17 04:00 90 12/28/17 04:00 98.2 94 20 145/74 (97) 97 12/28/17 00:05 97 40 12/28/17 00:00 91 12/28/17 00:00 97.9 99 19 158/91 (113) 95 12/27/17 22:04 92 40 12/27/17 21:55 Nasal Cannula 4.00 12/27/17 21:12 93 Nasal Cannula 5.00 12/27/17 20:00 77 12/27/17 20:00 97.2 99 19 142/65 (90) 93 12/27/17 18:12 95 Nasal Cannula 5.00 12/27/17 16:00 87 12/27/17 16:00 97.1 78 19 139/87 (104) 95 12/27/17 15:59 92 Simple Mask 6.00 40 12/27/17 14:32 Simple Mask 7.00 12/27/17 14:01 Simple Mask 8.00 12/27/17 13:33 96 Simple Mask 8.00 12/27/17 13:30 Simple Mask 8.00 12/27/17 12:30 Nasal Cannula 4.00 I/O 12/27/17 12/27/17 12/27/17 12/28/17 12/28/17 12/28/17 07:00 15:00 23:00 07:00 15:00 23:00 Intake Total 200 ml 480 ml Output Total 900 ml 100 ml Balance -700 ml 380 ml Intake Oral 200 ml 480 ml Output Urine Total 900 ml 100 ml # Bowel Movements 0 0 Result Diagram: 12/28/17 0600 12/28/17 0600 Objective Remarks GENERAL: in NAD CARDIOVASCULAR: Regular rate and rhythm without murmurs, gallops, or rubs. RESPIRATORY: B/L mild mid to lower crackles that has improved. No accessory muscle use. GASTROINTESTINAL: Abdomen soft, non-tender, nondistended. MUSCULOSKELETAL: No cyanosis, or edema. Medications and IVs Current Medications Cefepime HCl 2000 mg/Sodium Chloride 100 ml @ 200 mls/hr ONCE ONCE IV Last administered on 12/24/17at 01:25; Start 12/24/17 at 00:00; Stop 12/24/17 at 00:29 ; Status DC Vancomycin HCl 1000 mg/Sodium Chloride 250 ml @ 250 mls/hr ONCE ONCE IV Last administered on 12/24/17at 03:55; Start 12/24/17 at 00:00; Stop 12/24/17 at 00:59 ; Status DC Albuterol/ Ipratropium (Duoneb Neb) 1 ampule ONCE ONCE NEB Last administered on 12/24/17at 00:16; Start 12/24/17 at 00:00; Stop 12/24/17 at 00:01; Status DC Tetanus/ Diphtheria Toxoids (Tetanus/ Diphtheria Tox Adult) 0.5 ml ONCE ONCE IM Last administered on 12/24/17at 01:27; Start 12/24/17 at 00:00; Stop 12/24/17 at 00:01; Status DC Albuterol/ Ipratropium (Duoneb Neb) 1 ampule Q15M INH Last administered on 12/24at 03:20; Start 12/24/17 at 01:30; Stop 12/24/17 at 01:46; Status DC Iohexol (Omnipaque 350 Inj) 65 ml STK-MED ONCE IVCONTRAST Last administered on 12/24/17at 03:13; Start 12/24/17 at 03:13; Stop 12/24/17 at 03:14; Status DC Methylprednisolone Sodium Succinate (SoluMEDROL INJ) 125 mg ONCE ONCE IV PUSH Last administered on 12/24/17at 05:30; Start 12/24/17 at 04:15; Stop 12/24/17 at 04:16; Status DC Albuterol/ Ipratropium (Duoneb Neb) 1 ampule ONCE ONCE NEB Last administered on 12/24/17at 04:25; Start 12/24/17 at 04:15; Stop 12/24/17 at 04:16; Status DC Sodium Chloride 500 ml @ 500 mls/hr BOLUS ONCE IV Last administered on at 05:29; Start 12/24/17 at 04:15; Stop 12/24/17 at 05:14; Status DC Sodium Chloride 1,000 ml @ 100 mls/hr Q10H IV Last administered on 12/24/17at 05:29; Start 12/24/17 at 04:15; Stop 12/24/17 at 10:53; Status DC Sodium Chloride 500 ml @ 500 mls/hr BOLUS ONCE IV Last administered on at 07:17; Start 12/24/17 at 04:15; Stop 12/24/17 at 05:14; Status DC Magnesium Sulfate/ Dextrose 100 ml @ 100 mls/hr Q1H IV Last administered on 09/02at 12:28; Start 12/24/17 at 07:30; Stop 12/24/17 at 09:29; Status DC Potassium Chloride 100 ml @ 100 mls/hr Q1H IV Last administered on 12/24/17at 12:44; Start 12/24/17 at 07:30; Stop 12/24/17 at 10:29; Status DC Sodium Chloride 1,000 ml @ 84 mls/hr [id number] IV Last administered on at 07:49; Start 12/24/17 at 07:39; Stop 12/26/17 at 16:26; Status DC Sodium Chloride (NS Flush) 2 ml UNSCH PRN IV FLUSH FLUSH AFTER USING IV ACCESS ; Start 12/24/17 at 07:45 Sodium Chloride (NS Flush) 2 ml BID IV FLUSH Last administered on 12/28/17at 09: 56; Start 12/24/17 at 09:00 Acetaminophen (Tylenol) 650 mg Q6H PRN PO FEVER >100F; Start 12/24/17 at 07:45 Acetaminophen/ Hydrocodone Bitart ([place] 5-325 Mg) 1 tab Q4H PRN PO PAIN SCALE 1 TO 5; Start 12/24/17 at 07:45 Morphine Sulfate (Morphine Inj) 2 mg Q2H PRN IV PUSH PAIN SCALE 6 TO 10; Start 12/24/17 at 07:45 Pantoprazole Sodium (Protonix) 40 mg DAILY PO Last administered on 12/28/17at 09 :52; Start 12/24/17 at 09:00 Artificial Tears (Tears Naturale Opth Soln) 1 drop TID EACH EYE ; Start at 09:00 Ondansetron HCl (Zofran Inj) 4 mg Q6H PRN IV PUSH NAUSEA OR VOMITING; Start 09/02 at 07:45 Albuterol/ Ipratropium (Duoneb Neb) 1 ampule Q4HR NEB INH Last administered on 12/28/17at 04:19; Start 12/24/17 at 08:00; Stop 12/28/17 at 07:59; Status DC Albuterol Sulfate (Albuterol Neb) 2.5 mg Q2HR NEB PRN INH SOB/WHEEZING; Start 12/24/17 at 07:45 Miscellaneous Information 1 [id number] XX Last administered on 12/24/17at 07:45; Start 12/24/17 at 07:45 Chlorhexidine Gluconate (Chlorhexidine 2% Cloth) 3 pack Taper DAILY@04 TOP Last administered on 12/26/17at 04:00; Start 12/25/17 at 04:00; Stop 12/21/18 at 03:59 Chlorhexidine Gluconate (Chlorhexidine 2% Cloth) 3 pack UNSCH PRN TOP HYGIENIC CARE; Start 12/24/17 at 07:45 Senna/Docusate Sodium (Annie-Colace) 1 tab BID PO Last administered on at 09:52; Start 12/24/17 at 09:00 Magnesium Hydroxide (Milk Of Magnesia Liq) 30 ml Q12H PRN PO Mild constipation ; Start 12/24/17 at 07:45 Sennosides (Senokot) 17.2 mg Q12H PRN PO Moderate constipation; Start 12/24/17 at 07:45 Bisacodyl (Dulcolax Supp) 10 mg DAILY PRN RECTAL SEVERE CONSITIPATION; Start at 07:45 Lactulose (Lactulose Liq) 30 ml DAILY PRN PO SEVERE CONSITIPATION; Start at 07:45 Potassium Chloride 100 ml @ 50 mls/hr Q2H PRN IV For Potassium 2.8 - 3.2 mEq/ L Last administered on 12/25/17at 22:20; Start 12/24/17 at 07:45; Stop 12/26/17 at 16:26; Status DC Potassium Chloride 100 ml @ 50 mls/hr Q2H PRN IV For Potassium 2.8 - 3.2 mEq/L ; Start 12/24/17 at 07:45; Stop 12/26/17 at 16:26; Status DC Potassium Bicarb/ Potassium Chloride (K-Lyte Cl Eff) 50 meq UNSCH PRN PO For Potassium 3.3 - 3.5 mEq/L; Start 12/24/17 at 07:45; Stop 12/26/17 at 16:28; Status DC Potassium Chloride 100 ml @ 25 mls/hr UNSCH PRN IV For Potassium 3.3 - 3.5 mEq /L; Start 12/24/17 at 07:45; Stop 12/26/17 at 16:26; Status DC Potassium Chloride 100 ml @ 50 mls/hr Q2H PRN IV For Potassium 3.3 - 3.5 mEq/L ; Start 12/24/17 at 07:45; Stop 12/26/17 at 16:26; Status DC Magnesium Sulfate 4 gm/Sodium Chloride 100 ml @ 50 mls/hr UNSCH PRN IV For Magnesium 0.9 - 1.1 mg/dL; Start 12/24/17 at 07:45; Stop 12/26/17 at 16:26; Status DC Magnesium Oxide (Mag-Ox) 800 mg UNSCH PRN PO For Magnesium 1.2 - 1.6 mg/dL; Start 12/24/17 at 07:45 Magnesium Sulfate 2 gm/Sodium Chloride 100 ml @ 50 mls/hr UNSCH PRN IV For Magnesium 1.2 - 1.6 mg/dL; Start 12/24/17 at 07:45; Stop 12/26/17 at 16:26; Status DC Potassium Phosphate (K-Phos) 2,000 mg Q4H PRN PO For Phosphorus < 2.5 mg/dL; Start 12/24/17 at 07:45 Sodium Phosphate 30 mmol/Sodium Chloride 250 ml @ 42 mls/hr UNSCH PRN IV For Phosphorus < 2.5 mg/dL; Start 12/24/17 at 07:45; Stop 12/26/17 at 16:28; Status DC Potassium Phosphate (K-Phos) 2,000 mg UNSCH PRN PO/TUBE SEE LABEL COMMENTS; Start 12/24/17 at 07:45 Potassium Phosphate 30 mmol/ Sodium Chloride 260 ml @ 42 mls/hr UNSCH PRN IV SEE LABEL COMMENTS Last administered on 12/25/17at 07:49; Start 12/24/17 at 07:45 ; Stop 12/26/17 at 16:26; Status DC Dextrose (D50w (Vial) Inj) 50 ml UNSCH PRN IV PUSH HYPOGLYCEMIA-SEE COMMENTS; Start 12/24/17 at 07:45 Glucagon (Glucagon Inj) 1 mg UNSCH PRN OTHER HYPOGLYCEMIA-SEE COMMENTS; Start 12/24/17 at 07:45 Insulin Human Regular (NovoLIN R SUPPLEMENTAL SCALE) 1 Q6HR SQ Last administered on 12/24/17at 23:34; Start 12/24/17 at 12:00; Stop 12/25/17 at 10:00 ; Status DC Methylprednisolone Sodium Succinate (SoluMEDROL INJ) 40 mg Q8HR IV PUSH Last administered on 12/28/17at 05:29; Start 12/24/17 at 14:00 Cholecalciferol (Vitamin D3) 2,000 units DAILY PO Last administered on at 09:52; Start 12/24/17 at 09:00 Gabapentin (Neurontin) 300 mg TID PRN PO PAIN SCALE 1 TO 7 Last administered on 12/28/17at 05:28; Start 12/24/17 at 08:00 Valproic Acid (Depakene Liq) 200 mg DAILY PO Last administered on 12/28/17at 09: 52; Start 12/24/17 at 09:00 Lorazepam (Ativan) 1 mg HS PRN PO RESTLESSNESS; Start 12/24/17 at 08:00 Amylase/Lipase/ Protease (Creon 6-19-30) 1 cap DAILY PO Last administered on at 09:52; Start 12/24/17 at 09:00 Rivaroxaban (Xarelto) 15 mg HS PO Last administered on 12/27/17at 21:54; Start 12/24/17 at 21:00 Non-Formulary Medication 1,000 mcg DAILY PO ; Start 12/24/17 at 09:00; Stop 09/02 at 09:00; Status DC Non-Formulary Medication 2 cap HS PO ; Start 12/24/17 at 21:00; Status UNV Multivitamins (Theragran) 1 tab DAILY PO Last administered on 12/28/17at 09:51; Start 12/24/17 at 09:00 Cefepime HCl 2000 mg/Sodium Chloride 100 ml @ 200 mls/hr Q8H IV ; Start at 08:00; Stop 12/24/17 at 11:29; Status DC Azithromycin 500 mg/Sodium Chloride 250 ml @ 250 mls/hr Q24H IV ; Start at 08:00; Stop 12/24/17 at 11:30; Status DC Norepinephrine Bitartrate 4 mg/ Sodium Chloride 250 ml @ 7.5 mls/hr TITRATE PRN IV Blood pressure management; Start 12/24/17 at 08:00; Stop 12/26/17 at 16: 27; Status DC Terbutaline Sulfate (Brethine Inj) 1 mg UNSCH PRN SQ For Extravasation; Start 12/24/17 at 08:00 Cyanocobalamin (Vitamin B12) 1,000 mcg DAILY PO Last administered on 12/28/17at 09:52; Start 12/24/17 at 09:00 Cefepime HCl 2000 mg/Sodium Chloride 100 ml @ 200 mls/hr Q8H IV Last administered on 12/27/17at 03:35; Start 12/24/17 at 12:00; Stop 12/27/17 at 07:40 ; Status DC Azithromycin 500 mg/Sodium Chloride 250 ml @ 250 mls/hr Q24H IV Last administered on 12/27/17at 13:53; Start 12/24/17 at 13:00; Stop 12/27/17 at 16:12 ; Status DC Gadodiamide (Omniscan Pf Inj) 20 ml STK-MED ONCE IVCONTRAST Last administered on 12/24/17at 16:32; Start 12/24/17 at 16:32; Stop 12/24/17 at 16:33; Status DC Furosemide (Lasix) 40 mg DAILY PO Last administered on 12/27/17at 08:29; Start 12/25/17 at 09:45; Stop 12/27/17 at 13:30; Status DC Potassium Chloride (KCl) 20 meq DAILY PO Last administered on 12/28/17at 09:51; Start 12/25/17 at 09:45 Diltiazem HCl (Cardizem) 30 mg Q12HR PO Last administered on 12/28/17at 09:52; Start 12/25/17 at 10:00 Levothyroxine Sodium (Synthroid) 200 mcg DAILY@0600 PO Last administered on at 05:29; Start 12/26/17 at 15:00 Potassium Chloride (KCl) 20 meq ONCE ONCE PO Last administered on 12/26/17at 17 :18; Start 12/26/17 at 16:30; Stop 12/26/17 at 16:31; Status DC Cefepime HCl 2000 mg/Sodium Chloride 100 ml @ 200 mls/hr Q12H IV ; Start at 16:00; Stop 12/27/17 at 16:13; Status DC Magnesium Sulfate/ Dextrose 100 ml @ 100 mls/hr Q1H IV Last administered on at 17:19; Start 12/27/17 at 14:00; Stop 12/27/17 at 15:59; Status DC Furosemide (Lasix Inj) 40 mg BID@18 IV PUSH Last administered on 12/27/17at 18:49; Start 12/27/17 at 18:00; Stop 12/28/17 at 09:13; Status DC Levofloxacin (Levaquin) 500 mg ONCE ONCE PO Last administered on 12/28/17at 09: 52; Start 12/28/17 at 09:00; Stop 12/28/17 at 09:01; Status DC Levofloxacin (Levaquin) 250 mg Q24H PO ; Start 12/29/17 at 09:00 Potassium Chloride (KCl) 40 meq ONCE ONCE PO Last administered on 12/28/17at 09 :51; Start 12/28/17 at 08:00; Stop 12/28/17 at 08:01; Status DC Furosemide (Lasix Inj) 20 mg BID@,18 IV PUSH ; Start 12/28/17 at 18:00 A/P Problem List: (1) Frequent falls ICD Code: R29.6 - Repeated falls Status: Chronic (2) Cataract ICD Code: H26.9 - Unspecified cataract (3) Hypoalbuminemia ICD Code: E88.09 - Other disorders of plasma-protein metabolism, not elsewhere classified (4) Hypokalemia ICD Code: E87.6 - Hypokalemia (5) Hypomagnesemia ICD Code: E83.42 - Hypomagnesemia (6) Elevated partial thromboplastin time (PTT) ICD Code: R79.1 - Abnormal coagulation profile (7) Elevated INR ICD Code: R79.1 - Abnormal coagulation profile (8) Gastroesophageal reflux disease ICD Code: K21.9 - Gastro-esophageal reflux disease without esophagitis (9) Pancreatic insufficiency ICD Code: K86.89 - Other specified diseases of pancreas (10) Peripheral neuropathy ICD Code: G62.9 - Polyneuropathy, unspecified (11) Chronic prescription benzodiazepine use ICD Code: Z79.899 - Other terminal gauger supervisor (current) drug therapy (12) Chronic anticoagulation ICD Code: Z79.01 - extermination inspector (current) use of anticoagulants (13) COPD (chronic obstructive pulmonary disease) ICD Code: J44.9 - Chronic obstructive pulmonary disease, unspecified Status: Acute (14) CAD (coronary artery disease) ICD Code: I25.10 - Atherosclerotic heart disease of [place] coronary artery without angina pectoris Status: Acute (15) Pancytopenia ICD Code: D61.818 - Pancytopenia Status: Acute (16) Esophageal cancer ICD Code: C15.9 - Esophageal cancer Status: Acute (17) Pleural effusion, left ICD Code: J90 - Pleural effusion, not elsewhere classified Status: Acute (18) Pneumonia ICD Code: J18.9 - Pneumonia, unspecified organism Status: Acute (19) Chronic kidney disease, stage III (moderate) ICD Code: N18.3 - Chronic kidney disease, stage III (moderate) Status: Acute (20) Hypertension ICD Code: I10 - Hypertension Status: Chronic (21) Hypothyroidism ICD Code: E03.9 - Hypothyroidism Status: Chronic (22) Hypoxemia ICD Code: R09.02 - Hypoxemia Status: Acute (23) Severe sepsis ICD Code: A41.9 - Sepsis, unspecified organism; R65.20 - Severe sepsis without septic shock Assessment and Plan This is a 82-year-old male with chronic respiratory failure on 2 L oxygen at home and COPD who presented with shortness of breathing Acute on chronic respiratory failure -Most likely secondary to CHF exacerbation versus pneumonia or combination. Repeat chest x-ray on 12/27 shows chronic interstitial changes of mild cardiomegaly. -Symptoms are improving. See treatment as below. Acute on chronic diastolic CHF -Patient required BiPAP last night but respiratory status has improved drastically. He is now on 3 L of nasal cannula. Due to improvement in respiratory status and increasing creatinine will decrease Lasix from 40 mg IV twice daily to 20 mg IV twice daily. His baseline is he is on Lasix 40 mg p.o. daily. -We will try to wean oxygen off as tolerated. -Strict ins and out. Continue to monitor creatinine. -Hair Mixer consulted Dr. Diana who stated to continue with IV Lasix. Questionable pneumonia -Cefepime and azithromycin. Infectious disease consulted and patient's on oral Levaquin now. Clinically continue to improve. Chronic Benzodiazepine use/Peripheral Neuropathy/frequent falls, CT brain 12/24 revealed no acute intracranial findings -Continue lorazepam 1 mg nightly/home medication - Continue gabapentin 300 mg p.o. 3 times daily for peripheral neuropathy, as per Physical Therapy okay to go home with [facility] for PT and skilled nurse. Atrial Fibrillation/rate control/Hypertension rate controlled -Continue home medication. Patient on Xarelto. Chronic respiratory failure/COPD -See treatment as above. Symptoms are improving. We will continue to wean off Solu-Medrol. - CT pulmonary revealed left lower lobe infiltrate versus atelectasis. 8 mm left upper lobe nodule follow-up CT scan in 6 months. Coronary calcifications left main/LAD Chronic pancreatic insufficiency -continue pancreatic enzymes, PPIs. 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 chronic rivaroxaban use. Hypomagnesia -Magnesium 1.9 . Hypokalemia -Secondary to Lasix use. Will replenish as needed. Renal insufficiency -Creatinine has increased secondary to aggressive diuresis due to acute respiratory failure that worsened. Since respiratory failure has improved we will decrease Lasix. Continue to monitor creatinine. Strict ins and outs. Avoid nephrotoxins. Prophylaxis -GI -pantoprazole -DVT -SCD/rivaroxaban will provide pharmacological prophylaxis Problem Qualifiers (1) Cataract: Qualified Codes: H26.9 - Unspecified cataract (2) Gastroesophageal reflux disease: Qualified Codes: K21.9 - Gastro-esophageal reflux disease without esophagitis (3) Peripheral neuropathy: Qualified Codes: G62.9 - Polyneuropathy, unspecified (4) COPD (chronic obstructive pulmonary disease): Qualified Codes: J44.0 - Chronic obstructive pulmonary disease with acute lower respiratory infection (5) CAD (coronary artery disease): (6) Esophageal cancer: Qualified Codes: C15.9 - Malignant neoplasm of esophagus, unspecified (7) Pneumonia: Qualified Codes: J18.1 - Lobar pneumonia, unspecified organism (8) Hypertension: Qualified Codes: I10 - Essential (primary) hypertension (9) Hypothyroidism: Qualified Codes: E03.9 - Hypothyroidism, unspecified Marianne Romero MD Dec 28, 2017 12:10
--- NOTE | 2017-12-28 13:06 | HHI.IDPN ---
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 Last session of chemotherapy was few days prior to admission. His PMHx is also significant for smoking (40 pack per history) in past with COPD, afib on chronic anticoagulation, CAD. Patient has a right-sided [id number]. Patient presents to [facility] with a recent history of frequent falls. Patient has fallen 4 times in the past 24 hours. Denies head trauma. Patients reports that usually around "10 days " after chemotherapy that he receives in [place] patient becomes increasingly weak. Patient was admitted on 12/24/2017. Patient was being treated for CHF exacerbation as well as possible early pneumonia. Laboratories on admission revealed pancytopenia. Patient received 1 L normal saline, vancomycin, cefepime and methylprednisolone succinate 125 mg 1 in the ED. During hospitalization patient became desaturated with CO2 retention and needed placement on BiPAP. CT brain revealed no acute intracranial findings. Chest x-ray revealed no acute cardiopulmonary findings. CT pulmonary revealed left lower lobe infiltrate/atelectasis, small pleural effusion with a coronary calcification of the left main/LAD area. ID was consulted for evaluation and Mment of Pneumonia. At the time of my evaluation, patient is on floor. Talking in complete sentences , oriented x 3, and provided most of the history. thinks he gets confused off and on. UO good. No cough. No diarrhea. No rash. Overnight events reviewed Due to concern for fluid overload patients IVF were cut down in form of antibiotics. No fever. No rash. No diarrhea. WBC increased to 12 but also on steroids. Complains of urge to defecate. No abd pain or tenderness. reports he is confused. Antibiotics Levaquin oral Lines Line sites with no e.o infection Past Medical History reviewed Allergies: Coded Allergies: No Known Allergies (Unverified Adverse Reaction, Unknown, 12/23/17) VANCO ALLERGY WAS REMOVED PER DR. CHAMBERS ORDER, PT STATES, VANCO INFILTRATED, NO ALLERGIC REACTION. Objective . Vital Signs Date Time Temp Pulse Resp B/P (MAP) Pulse Ox O2 Delivery O2 Flow Rate FiO2 12/28/17 10:28 94 Nasal Cannula 5.00 12/28/17 08:00 97.9 84 18 135/84 (101) 98 12/28/17 04:20 97 40 12/28/17 04:00 90 12/28/17 04:00 98.2 94 20 145/74 (97) 97 12/28/17 00:05 97 40 12/28/17 00:00 91 12/28/17 00:00 97.9 99 19 158/91 (113) 95 12/27/17 22:04 92 40 12/27/17 21:55 Nasal Cannula 4.00 12/27/17 21:12 93 Nasal Cannula 5.00 12/27/17 20:00 77 12/27/17 20:00 97.2 99 19 142/65 (90) 93 12/27/17 18:12 95 Nasal Cannula 5.00 12/27/17 16:00 87 12/27/17 16:00 97.1 78 19 139/87 (104) 95 12/27/17 15:59 92 Simple Mask 6.00 40 12/27/17 14:32 Simple Mask 7.00 12/27/17 14:01 Simple Mask 8.00 12/27/17 13:33 96 Simple Mask 8.00 12/27/17 13:30 Simple Mask 8.00 . Laboratory Tests Test 12/27/17 04:40 12/28/17 06:00 White Blood Count 8.9 TH/MM3 12.4 TH/MM3 Red Blood Count 2.97 MIL/MM3 3.22 MIL/MM3 Hemoglobin 9.3 GM/DL 9.8 GM/DL Hematocrit 27.4 % 29.2 % Mean Corpuscular Volume 92.2 FL 90.7 FL Mean Corpuscular Hemoglobin 31.2 PG 30.5 PG Mean Corpuscular Hemoglobin Concent 33.8 % 33.6 % Red Cell Distribution Width 19.7 % 20.1 % Platelet Count 86 TH/MM3 108 TH/MM3 Mean Platelet Volume 8.0 FL 8.0 FL Neutrophils (%) (Auto) 87.7 % Lymphocytes (%) (Auto) 3.5 % Monocytes (%) (Auto) 8.7 % Eosinophils (%) (Auto) 0.0 % Basophils (%) (Auto) 0.1 % Neutrophils # (Auto) 7.8 TH/MM3 Lymphocytes # (Auto) 0.3 TH/MM3 Monocytes # (Auto) 0.8 TH/MM3 Eosinophils # (Auto) 0.0 TH/MM3 Basophils # (Auto) 0.0 TH/MM3 CBC Comment AUTO DIFF Differential Total Cells Counted 100 Neutrophils % (Manual) 55 % Band Neutrophils % 31 % Monocytes % 10 % Neutrophils # (Manual) 8.0 TH/MM3 Metamyelocytes 2 % Myelocytes 1 % Promyelocytes 1 % Nucleated Red Blood Cells 3 /100 WBC Differential Comment FINAL DIFF MANUAL Platelet Estimate LOW Platelet Morphology Comment NORMAL Ovalocytes 1+ Laboratory Tests Test 12/26/17 16:40 12/27/17 04:40 12/28/17 06:00 Magnesium Level 1.3 MG/DL 1.3 MG/DL 1.9 MG/DL Blood Urea Nitrogen 31 MG/DL 45 MG/DL Creatinine 1.30 MG/DL 1.75 MG/DL Random Glucose 153 MG/DL 146 MG/DL Calcium Level 8.4 MG/DL 8.6 MG/DL Phosphorus Level 2.8 MG/DL Sodium Level 138 MEQ/L 138 MEQ/L Potassium Level 3.5 MEQ/L 2.8 MEQ/L Chloride Level 103 MEQ/L 100 MEQ/L Carbon Dioxide Level 23.6 MEQ/L 25.0 MEQ/L Anion Gap 11 MEQ/L 13 MEQ/L Estimat Glomerular Filtration Rate 53 ML/MIN 38 ML/MIN B-Type Natriuretic Peptide 664 PG/ML Imaging Last Impressions Chest X-Ray 12/27/17 0000 Signed Impressions: Service Date/Time: Wednesday, December 27, 2017 13:36 - CONCLUSION: 1. Mild cardiomegaly. 2. Chronic appearing interstitial changes. 3. Port in good position. 4. Stable compared to previous. Derian Mukherjee MD Brain MRI 12/24/17 1624 Signed Impressions: Service Date/Time: Sunday, December 24, 2017 16:22 - CONCLUSION: 1. Moderate central and cortical atrophy and old right FITNESS ASSISTANT infarction. 2. 2 mm area of altered susceptibility in the right mid convexity parietal-occipital white matter, characteristic of an old punctate hemorrhage. 3. No evidence of acute infarction. No enhancing mass is seen. Riki Trent MD Carotid Artery Ultrasound 12/24/17 0000 Signed Impressions: Service Date/Time: Sunday, December 24, 2017 12:40 - CONCLUSION: 1. Minimal bilateral carotid plaque. 2. No evidence of hemodynamically significant stenosis. 3. Antegrade flow in both vertebral arteries. Joshua Chambers MD CT Angiography 12/24/17 0000 Signed Impressions: Service Date/Time: Sunday, December 24, 2017 03:00 - CONCLUSION: 1. No pulmonary embolus. 2. Mild bibasilar atelectasis. Possible early/mild pneumonia left lower lobe. 3. Small left pleural effusion. 4. 8mm nodular opacity laterally at the left lung base and a followup noncontrast chest CT is recommended in approximately 3 months. 5. Mild cardiac enlargement. Coronary artery calcification. Kristian Caceres MD Head CT 12/23/17 2349 Signed Impressions: Service Date/Time: Sunday, December 24, 2017 00:03 - CONCLUSION: No acute intracranial abnormality. Kristian Caceres MD Physical Exam GENERAL: This is a well-nourished, well-developed patient, in mild resp distress. SKIN: Areas of ecchymoses noted. Cool and dry. HEAD: Atraumatic. Normocephalic. No temporal or scalp tenderness. EYES: Pupils equal round and reactive. Extraocular motions intact. No scleral icterus. No injection or drainage. ENT: BiPAP mask on. NECK: Trachea midline. Supple, nontender, no meningeal signs. CARDIOVASCULAR: HS audible. RESPIRATORY: Basilar crackles noted. Breath sounds decreased in bases. GASTROINTESTINAL: Abdomen soft, non-tender, nondistended. MUSCULOSKELETAL: Extremities without clubbing, cyanosis. Pedal edema. NEUROLOGICAL: Awake and alert. Non focal exam. Psych cooperative IV line sites with no e.o infection Assessment & Plan Remarks Possible Pneumonia Acute Congestive heart failure with pulm edema. Dilated LA and ? mild MR. EF 60- 65% Esophageal cancer s/p chemo approx week back. Last time port was accessed. AML in remission. s/p autologous bone marrow transplant. Immune compromised host. Recs: Continue Levaquin oral. Clinically fits into fluid excess state. No cough, no fever, WBC still in normal range. STAT CXR. STAT ABG: concern for CO2 retention and hypoxemia related confusion. Dw.patients , RN and . BNP elevated. Follow immune globulins. Appreciate Cardiology input. Follow cultures Follow clinically. I will be OOT from 12/29/2017 to 01/07/2018. Other ID MDs covering for me. Aiyana Bosch MD 15, 2018 13:06
--- NOTE | 2017-12-28 14:44 | RADRPT ---
EXAM DATE/TIME: 12/28/2017 13:46 [facility] COMPARISON: No previous studies available for comparison. INDICATIONS : Abdominal distension. MEDICAL HISTORY : Hypertension. Carcinoma, esophageal. SURGICAL HISTORY : Hernia repair. Port placement ENCOUNTER: Subsequent ACUITY: 4 - 6 days PAIN SCORE: 6/10 LOCATION: Bilateral Abdomen FINDINGS: Multiple loops of slightly distended air-filled small bowel loops in the upper abdomen. Stool and air is seen throughout the proximal and transverse colon with no air noted in the rectum. No gross pneum atosis or free air. No abnormal calcifications. Degenerative changes of the lower lumbar spine. CONCLUSION: 1. Bowel gas pattern most consistent with adynamic ileus versus less likely developing partial small bowel obstruction. Alvaro Hidalgo MD on December 28, 2017 at 14:40 Board Certified Radiologist. This report was verified electronically.
--- NOTE | 2017-12-28 14:44 | RADRPT ---
EXAM DATE/TIME: 12/28/2017 13:28 [facility] COMPARISON: CHEST SINGLE AP, December 27, 2017, 13:36. INDICATIONS : Pulmonary edema MEDICAL HISTORY : Carcinoma, esophageal. Osteoporosis. Hypertension Arthritis. Diverticulitis A-Fib, leukemia. SURGICAL HISTORY : Hernia repair port placement. ENCOUNTER: Subsequent ACUITY: 4 - 6 days PAIN SCORE: 0/10 LOCATION: Bilateral chest FINDINGS: The Pjjdyp-j-Tcje in good position. There diffuse chronic interstitial changes throughout the pulmona ry parenchyma. These are similar to the previous exam dated 12/27/17. The heart is mildly enlarged. Th ere is no pleural effusion. The visualized bony structures are grossly intact. CONCLUSION: 1. Chronic appearing interstitial changes. Exam is similar to previous dated 12/27/17. Derian Mukherjee MD on December 28, 2017 at 14:41 Board Certified Radiologist. This report was verified electronically.
[2017-12-28] MEDS ORDERED: FUROSEMIDE 20 MG/2 ML VIAL IV PUSH SCH (18:00)
--- NOTE | 2017-12-28 19:06 | PD.CARD.PN ---
Subjective Subjective Remarks Still hypoxemic, no CP, mild SOB, abd pain earlier, constipated Objective Medications Current Medications Medications (Trade) Dose Ordered Sig/William Route Start Time Stop Time Status Last Admin (NS Flush) 2 ml UNSCH PRN IV FLUSH 12/24/17 07:45 (NS Flush) 2 ml BID IV FLUSH 12/24/17 09:00 12/28/17 09:56 (Tylenol) 650 mg Q6H PRN PO 12/24/17 07:45 (Aurora 5-325 Mg) 1 tab Q4H PRN PO 12/24/17 07:45 (Morphine Inj) 2 mg Q2H PRN IV PUSH 12/24/17 07:45 (Protonix) 40 mg DAILY PO 12/24/17 09:00 12/28/17 09:52 (Tears Naturale Opth Soln) 1 drop TID EACH EYE 12/24/17 09:00 (Zofran Inj) 4 mg Q6H PRN IV PUSH 12/24/17 07:45 (Albuterol Neb) 2.5 mg Q2HR NEB PRN INH 12/24/17 07:45 Miscellaneous Information 1 Q361D XX 12/24/17 07:45 12/24/17 07:45 (Chlorhexidine 2% Cloth) 3 pack Taper DAILY@04 TOP 12/25/17 04:00 12/21/18 03:59 12/26/17 04:00 (Chlorhexidine 2% Cloth) 3 pack UNSCH PRN TOP 12/24/17 07:45 (Annie-Colace) 1 tab BID PO 12/24/17 09:00 12/28/17 09:52 (Milk Of Magnesia Liq) 30 ml Q12H PRN PO 12/24/17 07:45 (Senokot) 17.2 mg Q12H PRN PO 12/24/17 07:45 (Dulcolax Supp) 10 mg DAILY PRN RECTAL 12/24/17 07:45 (Lactulose Liq) 30 ml DAILY PRN PO 12/24/17 07:45 (Mag-Ox) 800 mg UNSCH PRN PO 12/24/17 07:45 (K-Phos) 2,000 mg Q4H PRN PO 12/24/17 07:45 (K-Phos) 2,000 mg UNSCH PRN PO/TUBE 12/24/17 07:45 (D50w (Vial) Inj) 50 ml UNSCH PRN IV PUSH 12/24/17 07:45 (Glucagon Inj) 1 mg UNSCH PRN OTHER 12/24/17 07:45 (Vitamin D3) 2,000 units DAILY PO 12/24/17 09:00 12/28/17 09:52 (Neurontin) 300 mg TID PRN PO 12/24/17 08:00 12/28/17 15:32 (Depakene Liq) 200 mg DAILY PO 12/24/17 09:00 12/28/17 09:52 (Ativan) 1 mg HS PRN PO 12/24/17 08:00 (Creon 6-19-30) 1 cap DAILY PO 12/24/17 09:00 12/28/17 09:52 (Xarelto) 15 mg HS PO 12/24/17 21:00 12/27/17 21:54 (Theragran) 1 tab DAILY PO 12/24/17 09:00 12/28/17 09:51 (Brethine Inj) 1 mg UNSCH PRN SQ 12/24/17 08:00 (Vitamin B12) 1,000 mcg DAILY PO 12/24/17 09:00 12/28/17 09:52 (KCl) 20 meq DAILY PO 12/25/17 09:45 12/28/17 09:51 (Cardizem) 30 mg Q12HR PO 12/25/17 10:00 12/28/17 09:52 (Synthroid) 200 mcg DAILY@0600 PO 12/26/17 15:00 12/28/17 05:29 (Levaquin) 250 mg Q24H PO 12/29/17 09:00 (Lasix Inj) 20 mg BID@,18 IV PUSH 12/28/17 18:00 12/28/17 18:34 (SoluMEDROL INJ) 40 mg Q12HR IV PUSH 12/28/17 21:00 Vital Signs / I&O Vital Signs Date Time Temp Pulse Resp B/P (MAP) Pulse Ox O2 Delivery O2 Flow Rate FiO2 12/28/17 16:00 94 Simple Mask 10.00 12/28/17 10:28 94 Nasal Cannula 5.00 12/28/17 08:00 97.9 84 18 135/84 (101) 98 12/28/17 04:20 97 40 12/28/17 04:00 90 12/28/17 04:00 98.2 94 20 145/74 (97) 97 12/28/17 00:05 97 40 12/28/17 00:00 91 12/28/17 00:00 97.9 99 19 158/91 (113) 95 12/27/17 22:04 92 40 12/27/17 21:55 Nasal Cannula 4.00 12/27/17 21:12 93 Nasal Cannula 5.00 12/27/17 20:00 77 12/27/17 20:00 97.2 99 19 142/65 (90) 93 I/O 12/27/17 12/27/17 12/27/17 12/28/17 12/28/17 12/28/17 07:00 15:00 23:00 07:00 15:00 23:00 Intake Total 200 ml 480 ml Output Total 900 ml 100 ml Balance -700 ml 380 ml Intake Oral 200 ml 480 ml Output Urine Total 900 ml 100 ml # Bowel Movements 0 0 Physical Exam GENERAL: In mild distress. SKIN: Warm and dry. HEAD: Normocephalic. EYES: No scleral icterus. No injection or drainage. NECK: Supple, trachea midline. No JVD or lymphadenopathy. CARDIOVASCULAR: Irregular rate and rhythm, without murmurs, gallops, or rubs. RESPIRATORY: Breath sounds equal bilaterally. No accessory muscle use. GASTROINTESTINAL: Abdomen soft, non-tender, nondistended. MUSCULOSKELETAL: No cyanosis, LE edema. Laboratory Laboratory Tests Test 12/28/17 00:30 12/28/17 06:00 12/28/17 13:20 12/28/17 13:56 Immunoglobulin G Total 482 MG/DL Immunoglobulin A 102 MG/DL Immunoglobulin M 38 MG/DL White Blood Count 12.4 TH/MM3 Red Blood Count 3.22 MIL/MM3 Hemoglobin 9.8 GM/DL Hematocrit 29.2 % Mean Corpuscular Volume 90.7 FL Mean Corpuscular Hemoglobin 30.5 PG Mean Corpuscular Hemoglobin Concent 33.6 % Red Cell Distribution Width 20.1 % Platelet Count 108 TH/MM3 Mean Platelet Volume 8.0 FL Blood Urea Nitrogen 45 MG/DL Creatinine 1.75 MG/DL Random Glucose 146 MG/DL Calcium Level 8.6 MG/DL Magnesium Level 1.9 MG/DL Sodium Level 138 MEQ/L Potassium Level 2.8 MEQ/L 3.1 MEQ/L Chloride Level 100 MEQ/L Carbon Dioxide Level 25.0 MEQ/L Anion Gap 13 MEQ/L Estimat Glomerular Filtration Rate 38 ML/MIN Blood Gas Puncture Site LT RADIAL Blood Gas Patient Temperature 98.6 Blood Gas HCO3 22 mmol/L Blood Gas Base Excess -1.3 mmol/L Blood Gas Oxygen Saturation 89 % Arterial Blood pH 7.49 Arterial Blood Partial Pressure CO2 29 mmHg Arterial Blood Partial Pressure O2 64 mmHg Arterial Blood Oxygen Content 15.0 Vol % Arterial Blood Carboxyhemoglobin 1.6 % Arterial Blood Methemoglobin 0.8 % Blood Gas Hemoglobin 12.0 G/DL Oxygen Delivery Device NASAL CANNULA Blood Gas Liter Flow 6 L/M Imaging Last 24 hours Impressions Chest X-Ray 12/28/17 0000 Signed Impressions: Service Date/Time: December 13:28 - CONCLUSION: 1. Chronic appearing interstitial changes. Exam is similar to previous dated 12/27/17. Derian Mukherjee MD Abdomen X-Ray 12/28/17 0000 Signed Impressions: Service Date/Time: December 13:46 - CONCLUSION: 1. Bowel gas pattern most consistent with adynamic ileus versus less likely developing partial small bowel obstruction. Alvaro Hidalgo MD Assessment and Plan Problem List: (1) Frequent falls ICD Codes: R29.6 - Repeated falls Status: Chronic (2) Pneumonia ICD Codes: J18.9 - Pneumonia, unspecified organism Status: Acute (3) Severe sepsis ICD Codes: A41.9 - Sepsis, unspecified organism; R65.20 - Severe sepsis without septic shock (4) Hypertension ICD Codes: I10 - Hypertension Status: Chronic (5) Esophageal cancer ICD Codes: C15.9 - Esophageal cancer Status: Acute (6) CAD (coronary artery disease) ICD Codes: I25.10 - Atherosclerotic heart disease of [place] coronary artery without angina pectoris Status: Acute (7) Neutropenic ICD Codes: D70.9 - Neutropenia, unspecified Status: Chronic (8) COPD (chronic obstructive pulmonary disease) ICD Codes: J44.9 - Chronic obstructive pulmonary disease, unspecified Status: Acute (9) Atrial fibrillation ICD Codes: I48.91 - Unspecified atrial fibrillation Status: Chronic Assessment and Plan Still hypoxemic. No angina. Minimal dyspnea. Abd pain, constipated. AF rate controlled. Recommend pulmonary eval (seen by Dr. Carlisle in the past). Increase activity, PT. D/w pt and . Problem Qualifiers (1) Pneumonia: Qualified Codes: J18.1 - Lobar pneumonia, unspecified organism (2) Hypertension: Qualified Codes: I10 - Essential (primary) hypertension (3) Esophageal cancer: Qualified Codes: C15.9 - Malignant neoplasm of esophagus, unspecified (4) CAD (coronary artery disease): (5) COPD (chronic obstructive pulmonary disease): Qualified Codes: J44.0 - Chronic obstructive pulmonary disease with acute lower respiratory infection Jasmin Guo MD Dec 28, 2017 19:06
[2017-12-28] MEDS ORDERED: POTASSIUM CHLORIDE 25 MEQ EFFERVESCENT TAB PO ONE (20:00)
[2017-12-28] MEDS: RIVAROXABAN 15 MG TAB PO SCH (21:51)
[2017-12-29] VITALS (11 sets, daily range): BP systolic 103–143; BP diastolic 57–95; PULSE 64–90; RESP 18–24; TEMP 95.8–97.4; O2SAT 94–99
[2017-12-29] MEDS: CHLORHEXIDINE GLUCONATE 2 % 1 PACK (2 CLOTHS) TOP SCH (04:00)
[2017-12-29] MEDS: LEVOTHYROXINE SODIUM 200 MCG TAB PO SCH (06:00)
[2017-12-29 07:03] LABS: HEMATOCRIT 29.3 % (39.0-51.0); HEMOGLOBIN 9.6 GM/DL (13.0-17.0); MEAN CELL VOLUME 92.7 FL (80.0-100.0); MEAN CORPUSCULAR HEMOGLOBIN 30.5 PG (27.0-34.0); MEAN CORPUSCULAR HGB CONC 32.9 % (32.0-36.0); PLATELET COUNT 107 TH/MM3 (150-450); RED BLOOD COUNT 3.16 MIL/MM3 (4.50-5.90); RED CELL DISTRIBUTION WIDTH 19.4 % (11.6-17.2); WHITE BLOOD COUNT 11.8 TH/MM3 (4.0-11.0)
[2017-12-29 07:34] LABS: BICARBONATE 25.4 MEQ/L (21.0-32.0); CALCIUM 8.5 MG/DL (8.5-10.1); CREATININE 2.09 MG/DL (0.60-1.30)
[2017-12-29] MEDS: ARTIFICIAL TEARS OPTH SOLN 15 ML BTL EACH EYE SCH ×3 (09:00→18:00)
[2017-12-29] MEDS: methylPREDNISolone SOD SUCC 40 MG/1 ML VIAL IV PUSH SCH ×2 (10:29→21:19)
[2017-12-29] MEDS: MULTIVITAMIN TAB PO SCH (10:30)
[2017-12-29] MEDS: DOCUSATE SODIUM 50 MG/SENNA 8.6 MG TAB PO SCH ×2 (10:30→21:20)
[2017-12-29] MEDS: POTASSIUM CHLORIDE 20 MEQ CONTROLLED RELEASE TAB PO SCH (10:30)
[2017-12-29] MEDS: LEVOFLOXACIN 250 MG TAB PO SCH (10:30)
[2017-12-29] MEDS: CYANOCOBALAMIN 1,000 MCG TAB PO SCH (10:30)
[2017-12-29] MEDS: PANTOPRAZOLE SOD 40 MG DELAYED RELEASE TAB PO SCH (10:30)
[2017-12-29] MEDS: DILTIAZEM HCL 30 MG TAB PO SCH ×2 (10:31→21:20)
[2017-12-29] MEDS: LIPASE/PROTEASE/AMYLASE (6,000/19,000/30,000) CAP PO SCH (10:31)
[2017-12-29] MEDS: CHOLECALCIFEROL (VIT D3) 1000 UNIT TAB PO SCH (10:31)
[2017-12-29] MEDS: SODIUM CHLORIDE 0.9% FLUSH 10 ML FLUSH IV FLUSH SCH ×2 (10:33→21:20)
[2017-12-29] MEDS: UMECLIDINIUM 62.5 MCG/VILANTEROL 25 MCG INHALER INH SCH (10:33)
[2017-12-29] MEDS: VALPROIC ACID SYRUP 250 MG/5 ML UDC PO SCH (10:34)
--- NOTE | 2017-12-29 15:54 | MB ---
cc: Orestes Carlisle MD DATE OF CONSULT: REASON FOR CONSULTATION: COPD and respiratory failure. HISTORY OF PRESENT ILLNESS: Mr. Woo is an 82-year-old male who was admitted with generalized weakness with evidence of significant hypoxemia, reportedly has been falling frequently while at home. The patient was placed on oxygen therapy with subsequent BiPAP therapy to improve his oxygenation. CT of the chest had revealed evidence of left lower lobe infiltrate and/or atelectatic change and a small effusion. The patient has no cough, no expectoration, no fever, no chills, no hemoptysis; however, he does complain of increasing ankle edema. PAST MEDICAL HISTORY: That of esophageal cancer T2 N2 M1, COPD, atrial fibrillation, on anticoagulant therapy, hypothyroidism, coronary artery disease, hypertension, AML in remission, treated in the , acid reflux disease, chronic pancreatic insufficiency, had a bone marrow transplant in the past. MEDICATIONS AT HOME: Include thyroid replacement, B12, cholecalciferol, pancreatic replacement, Lasix, lorazepam, gabapentin, fish oil, rivaroxaban and umeclidinium vilanterol. ALLERGIES: NONE KNOWN TO MEDICATION. FAMILY HISTORY: Positive for malignancy. SOCIAL HISTORY: Does not smoke, used to smoke until 1977. Drinks alcohol socially. No TB, no industrial exposure. SYSTEMS REVIEW: Twelve-point review of systems as per HPI and past history, otherwise negative. On exam, patient is alert. Temperature , respirations 18, blood pressure 140/78. HEENT: Unremarkable. Eyes without icterus. NECK: Without adenopathy thyroid enlargement. Central trachea. CHEST: Few rhonchi left base. CARDIAC: PMI distant. S1, S2 audible. PMI not appreciated, irregularity noted. ABDOMEN: Lax. Bowel sounds audible. EXTREMITIES: No clubbing, cyanosis or edema. SKIN: Normal. No lymphadenopathy. LABORATORIES: White count 11,000, hemoglobin 9.6, hematocrit 29, platelets at 107,000. Sodium 140, potassium 3.4, BUN 66, creatinine 2.0. Arterial blood gas, pH 7.49, pCO2 29, pO2 of 64. INR 1.5. CT angiogram of the chest done on 12/24 is without pulmonary emboli, atelectatic change and/or infiltrate left lower lung, associated effusion. Chest x-ray done 12/28/2016 with chronic interstitial change, has not changed significantly from previous. IMPRESSION: 1. Hypoxic respiratory failure. 2. Probable pneumonia. 3. Atrial fibrillation. 4. Coronary artery disease. 5. Hypothyroidism. 6. Acid reflux disease. 7. Pancreatic insufficiency. PLAN: The patient is to continue antibiotic therapy for his probable underlying pneumonia, which has been started, as well as bronchodilator therapy including steroid therapy. He seems to be slowly improving. We will follow his course closely. Followup chest x-ray in a few days. Supplemental oxygen therapy as needed and depending on progress, proceed further. I do thank you for asking me to partake in Mr. Brownlee's care. MD IVAN Shepherd/NIXON , 03:25 PM , 03:52 PM
--- NOTE | 2017-12-29 16:14 | HHI.PR ---
Subjective Remarks Follow-up first for failure Patient states shortness of breathing has improved. He said that he is feeling better. Patient able to tell me his name and date. He also is able to recall what happened during his hospitalization. Patient also stated that Dr. Burrows was on this morning. Patient stated that his humidifier on his CPAP is not working. I later returned to patient's room due to request from his and she was asking for a consult for another ct technician. Otherwise no other acute events. Patient is requiring BiPAP at night since he is on CPAP at home. Objective Vitals Vital Signs Date Time Temp Pulse Resp B/P (MAP) Pulse Ox O2 Delivery O2 Flow Rate FiO2 12/29/17 12:00 97.1 79 18 103/57 (72) 97 12/29/17 08:48 97 40 12/29/17 08:00 97.1 72 18 112/69 (83) 98 12/29/17 04:20 99 40 12/29/17 04:09 Bi-Pap 12/29/17 04:09 95.8 64 20 132/72 (92) 94 12/29/17 03:50 72 12/29/17 00:30 99 40 12/29/17 00:09 96.0 79 24 138/95 (109) 95 12/29/17 00:09 Bi-Pap 40 12/28/17 23:42 91 12/28/17 20:08 72 12/28/17 20:00 Nasal Cannula 6.00 Humidified 12/28/17 20:00 97.6 77 22 140/68 (92) 96 I/O 12/28/17 12/28/17 12/28/17 12/29/17 12/29/17 12/29/17 07:00 15:00 23:00 07:00 15:00 23:00 Intake Total 240 ml 670 ml Balance 240 ml 670 ml Intake Oral 240 ml 670 ml # Voids 6 1 4 # Bowel Movements 2 1 Result Diagram: 12/29/1761312/29/17613 Objective Remarks GENERAL: in NAD CARDIOVASCULAR: Regular rate and rhythm without murmurs, gallops, or rubs. RESPIRATORY: B/L mild mid to lower crackles that has improved. No accessory muscle use. GASTROINTESTINAL: Abdomen soft, non-tender, nondistended. MUSCULOSKELETAL: No cyanosis, or edema. Medications and IVs Current Medications Cefepime HCl 2000 mg/Sodium Chloride 100 ml @ 200 mls/hr ONCE ONCE IV Last administered on 12/24/17at 01:25; Start 12/24/17 at 00:00; Stop 12/24/17 at 00:29 ; Status DC Vancomycin HCl 1000 mg/Sodium Chloride 250 ml @ 250 mls/hr ONCE ONCE IV Last administered on 12/24/17at 03:55; Start 12/24/17 at 00:00; Stop 12/24/17 at 00:59 ; Status DC Albuterol/ Ipratropium (Duoneb Neb) 1 ampule ONCE ONCE NEB Last administered on 12/24/17at 00:16; Start 12/24/17 at 00:00; Stop 12/24/17 at 00:01; Status DC Tetanus/ Diphtheria Toxoids (Tetanus/ Diphtheria Tox Adult) 0.5 ml ONCE ONCE IM Last administered on 12/24/17at 01:27; Start 12/24/17 at 00:00; Stop 12/24/17 at 00:01; Status DC Albuterol/ Ipratropium (Duoneb Neb) 1 ampule Q15M INH Last administered on 12/24at 03:20; Start 12/24/17 at 01:30; Stop 12/24/17 at 01:46; Status DC Iohexol (Omnipaque 350 Inj) 65 ml STK-MED ONCE IVCONTRAST Last administered on 12/24/17at 03:13; Start 12/24/17 at 03:13; Stop 12/24/17 at 03:14; Status DC Methylprednisolone Sodium Succinate (SoluMEDROL INJ) 125 mg ONCE ONCE IV PUSH Last administered on 12/24/17at 05:30; Start 12/24/17 at 04:15; Stop 12/24/17 at 04:16; Status DC Albuterol/ Ipratropium (Duoneb Neb) 1 ampule ONCE ONCE NEB Last administered on 12/24/17at 04:25; Start 12/24/17 at 04:15; Stop 12/24/17 at 04:16; Status DC Sodium Chloride 500 ml @ 500 mls/hr BOLUS ONCE IV Last administered on at 05:29; Start 12/24/17 at 04:15; Stop 12/24/17 at 05:14; Status DC Sodium Chloride 1,000 ml @ 100 mls/hr Q10H IV Last administered on 12/24/17at 05:29; Start 12/24/17 at 04:15; Stop 12/24/17 at 10:53; Status DC Sodium Chloride 500 ml @ 500 mls/hr BOLUS ONCE IV Last administered on at 07:17; Start 12/24/17 at 04:15; Stop 12/24/17 at 05:14; Status DC Magnesium Sulfate/ Dextrose 100 ml @ 100 mls/hr Q1H IV Last administered on 09/02at 12:28; Start 12/24/17 at 07:30; Stop 12/24/17 at 09:29; Status DC Potassium Chloride 100 ml @ 100 mls/hr Q1H IV Last administered on 12/24/17at 12:44; Start 12/24/17 at 07:30; Stop 12/24/17 at 10:29; Status DC Sodium Chloride 1,000 ml @ 84 mls/hr [id number] IV Last administered on at 07:49; Start 12/24/17 at 07:39; Stop 12/26/17 at 16:26; Status DC Sodium Chloride (NS Flush) 2 ml UNSCH PRN IV FLUSH FLUSH AFTER USING IV ACCESS ; Start 12/24/17 at 07:45 Sodium Chloride (NS Flush) 2 ml BID IV FLUSH Last administered on 12/29/17at 10: 33; Start 12/24/17 at 09:00 Acetaminophen (Tylenol) 650 mg Q6H PRN PO FEVER >100F; Start 12/24/17 at 07:45 Acetaminophen/ Hydrocodone Bitart ([place] 5-325 Mg) 1 tab Q4H PRN PO PAIN SCALE 1 TO 5 Last administered on 12/28/17at 21:51; Start 12/24/17 at 07:45 Morphine Sulfate (Morphine Inj) 2 mg Q2H PRN IV PUSH PAIN SCALE 6 TO 10; Start 12/24/17 at 07:45 Pantoprazole Sodium (Protonix) 40 mg DAILY PO Last administered on 12/29/17at 10 :30; Start 12/24/17 at 09:00 Artificial Tears (Tears Naturale Opth Soln) 1 drop TID EACH EYE ; Start at 09:00 Ondansetron HCl (Zofran Inj) 4 mg Q6H PRN IV PUSH NAUSEA OR VOMITING; Start 09/02 at 07:45 Albuterol/ Ipratropium (Duoneb Neb) 1 ampule Q4HR NEB INH Last administered on 12/28/17at 04:19; Start 12/24/17 at 08:00; Stop 12/28/17 at 07:59; Status DC Albuterol Sulfate (Albuterol Neb) 2.5 mg Q2HR NEB PRN INH SOB/WHEEZING; Start 12/24/17 at 07:45 Miscellaneous Information 1 Q361D XX Last administered on 12/24/17at 07:45; Start 12/24/17 at 07:45 Chlorhexidine Gluconate (Chlorhexidine 2% Cloth) 3 pack Taper DAILY@04 TOP Last administered on 12/26/17at 04:00; Start 12/25/17 at 04:00; Stop 12/21/18 at 03:59 Chlorhexidine Gluconate (Chlorhexidine 2% Cloth) 3 pack UNSCH PRN TOP HYGIENIC CARE; Start 12/24/17 at 07:45 Senna/Docusate Sodium (Annie-Colace) 1 tab BID PO Last administered on at 10:30; Start 12/24/17 at 09:00 Magnesium Hydroxide (Milk Of Magnesia Liq) 30 ml Q12H PRN PO Mild constipation ; Start 12/24/17 at 07:45 Sennosides (Senokot) 17.2 mg Q12H PRN PO Moderate constipation; Start 12/24/17 at 07:45 Bisacodyl (Dulcolax Supp) 10 mg DAILY PRN RECTAL SEVERE CONSITIPATION; Start at 07:45 Lactulose (Lactulose Liq) 30 ml DAILY PRN PO SEVERE CONSITIPATION; Start at 07:45 Potassium Chloride 100 ml @ 50 mls/hr Q2H PRN IV For Potassium 2.8 - 3.2 mEq/ L Last administered on 12/25/17at 22:20; Start 12/24/17 at 07:45; Stop 12/26/17 at 16:26; Status DC Potassium Chloride 100 ml @ 50 mls/hr Q2H PRN IV For Potassium 2.8 - 3.2 mEq/L ; Start 12/24/17 at 07:45; Stop 12/26/17 at 16:26; Status DC Potassium Bicarb/ Potassium Chloride (K-Lyte Cl Eff) 50 meq UNSCH PRN PO For Potassium 3.3 - 3.5 mEq/L; Start 12/24/17 at 07:45; Stop 12/26/17 at 16:28; Status DC Potassium Chloride 100 ml @ 25 mls/hr UNSCH PRN IV For Potassium 3.3 - 3.5 mEq /L; Start 12/24/17 at 07:45; Stop 12/26/17 at 16:26; Status DC Potassium Chloride 100 ml @ 50 mls/hr Q2H PRN IV For Potassium 3.3 - 3.5 mEq/L ; Start 12/24/17 at 07:45; Stop 12/26/17 at 16:26; Status DC Magnesium Sulfate 4 gm/Sodium Chloride 100 ml @ 50 mls/hr UNSCH PRN IV For Magnesium 0.9 - 1.1 mg/dL; Start 12/24/17 at 07:45; Stop 12/26/17 at 16:26; Status DC Magnesium Oxide (Mag-Ox) 800 mg UNSCH PRN PO For Magnesium 1.2 - 1.6 mg/dL; Start 12/24/17 at 07:45 Magnesium Sulfate 2 gm/Sodium Chloride 100 ml @ 50 mls/hr UNSCH PRN IV For Magnesium 1.2 - 1.6 mg/dL; Start 12/24/17 at 07:45; Stop 12/26/17 at 16:26; Status DC Potassium Phosphate (K-Phos) 2,000 mg Q4H PRN PO For Phosphorus < 2.5 mg/dL; Start 12/24/17 at 07:45 Sodium Phosphate 30 mmol/Sodium Chloride 250 ml @ 42 mls/hr UNSCH PRN IV For Phosphorus < 2.5 mg/dL; Start 12/24/17 at 07:45; Stop 12/26/17 at 16:28; Status DC Potassium Phosphate (K-Phos) 2,000 mg UNSCH PRN PO/TUBE SEE LABEL COMMENTS; Start 12/24/17 at 07:45 Potassium Phosphate 30 mmol/ Sodium Chloride 260 ml @ 42 mls/hr UNSCH PRN IV SEE LABEL COMMENTS Last administered on 12/25/17at 07:49; Start 12/24/17 at 07:45 ; Stop 12/26/17 at 16:26; Status DC Dextrose (D50w (Vial) Inj) 50 ml UNSCH PRN IV PUSH HYPOGLYCEMIA-SEE COMMENTS; Start 12/24/17 at 07:45 Glucagon (Glucagon Inj) 1 mg UNSCH PRN OTHER HYPOGLYCEMIA-SEE COMMENTS; Start 12/24/17 at 07:45 Insulin Human Regular (NovoLIN R SUPPLEMENTAL SCALE) 1 Q6HR SQ Last administered on 12/24/17at 23:34; Start 12/24/17 at 12:00; Stop 12/25/17 at 10:00 ; Status DC Methylprednisolone Sodium Succinate (SoluMEDROL INJ) 40 mg Q8HR IV PUSH Last administered on 12/28/17at 05:29; Start 12/24/17 at 14:00; Stop 12/28/17 at 12:25 ; Status DC Cholecalciferol (Vitamin D3) 2,000 units DAILY PO Last administered on at 10:31; Start 12/24/17 at 09:00 Gabapentin (Neurontin) 300 mg TID PRN PO PAIN SCALE 1 TO 7 Last administered on 12/28/17at 15:32; Start 12/24/17 at 08:00 Valproic Acid (Depakene Liq) 200 mg DAILY PO Last administered on 12/29/17at 10: 34; Start 12/24/17 at 09:00 Lorazepam (Ativan) 1 mg HS PRN PO RESTLESSNESS; Start 12/24/17 at 08:00 Amylase/Lipase/ Protease ([place]on 6-19-30) 1 cap DAILY PO Last administered on at 10:31; Start 12/24/17 at 09:00 Rivaroxaban (Xarelto) 15 mg HS PO Last administered on 12/28/17at 21:51; Start 12/24/17 at 21:00 Non-Formulary Medication 1,000 mcg DAILY PO ; Start 12/24/17 at 09:00; Stop 09/02 at 09:00; Status DC Non-Formulary Medication 2 cap HS PO ; Start 12/24/17 at 21:00; Status UNV Multivitamins (Theragran) 1 tab DAILY PO Last administered on 12/29/17at 10:30; Start 12/24/17 at 09:00 Cefepime HCl 2000 mg/Sodium Chloride 100 ml @ 200 mls/hr Q8H IV ; Start at 08:00; Stop 12/24/17 at 11:29; Status DC Azithromycin 500 mg/Sodium Chloride 250 ml @ 250 mls/hr Q24H IV ; Start at 08:00; Stop 12/24/17 at 11:30; Status DC Norepinephrine Bitartrate 4 mg/ Sodium Chloride 250 ml @ 7.5 mls/hr TITRATE PRN IV Blood pressure management; Start 12/24/17 at 08:00; Stop 12/26/17 at 16: 27; Status DC Terbutaline Sulfate (Brethine Inj) 1 mg UNSCH PRN SQ For Extravasation; Start 12/24/17 at 08:00 Cyanocobalamin (Vitamin B12) 1,000 mcg DAILY PO Last administered on 12/29/17at 10:30; Start 12/24/17 at 09:00 Cefepime HCl 2000 mg/Sodium Chloride 100 ml @ 200 mls/hr Q8H IV Last administered on 12/27/17at 03:35; Start 12/24/17 at 12:00; Stop 12/27/17 at 07:40 ; Status DC Azithromycin 500 mg/Sodium Chloride 250 ml @ 250 mls/hr Q24H IV Last administered on 12/27/17at 13:53; Start 12/24/17 at 13:00; Stop 12/27/17 at 16:12 ; Status DC Gadodiamide (Omniscan Pf Inj) 20 ml STK-MED ONCE IVCONTRAST Last administered on 12/24/17at 16:32; Start 12/24/17 at 16:32; Stop 12/24/17 at 16:33; Status DC Furosemide (Lasix) 40 mg DAILY PO Last administered on 12/27/17at 08:29; Start 12/25/17 at 09:45; Stop 12/27/17 at 13:30; Status DC Potassium Chloride (KCl) 20 meq DAILY PO Last administered on 12/29/17at 10:30; Start 12/25/17 at 09:45 Diltiazem HCl (Cardizem) 30 mg Q12HR PO Last administered on 12/29/17at 10:31; Start 12/25/17 at 10:00 Levothyroxine Sodium (Synthroid) 200 mcg DAILY@0600 PO Last administered on at 06:00; Start 12/26/17 at 15:00 Potassium Chloride (KCl) 20 meq ONCE ONCE PO Last administered on 12/26/17at 17 :18; Start 12/26/17 at 16:30; Stop 12/26/17 at 16:31; Status DC Cefepime HCl 2000 mg/Sodium Chloride 100 ml @ 200 mls/hr Q12H IV ; Start at 16:00; Stop 12/27/17 at 16:13; Status DC Magnesium Sulfate/ Dextrose 100 ml @ 100 mls/hr Q1H IV Last administered on at 17:19; Start 12/27/17 at 14:00; Stop 12/27/17 at 15:59; Status DC Furosemide (Lasix Inj) 40 mg BID@,18 IV PUSH Last administered on 12/27/17at 18:49; Start 12/27/17 at 18:00; Stop 12/28/17 at 09:13; Status DC Levofloxacin (Levaquin) 500 mg ONCE ONCE PO Last administered on 12/28/17at 09: 52; Start 12/28/17 at 09:00; Stop 12/28/17 at 09:01; Status DC Levofloxacin (Levaquin) 250 mg Q24H PO Last administered on 12/29/17at 10:30; Start 12/29/17 at 09:00 Potassium Chloride (KCl) 40 meq ONCE ONCE PO Last administered on 12/28/17at 09 :51; Start 12/28/17 at 08:00; Stop 12/28/17 at 08:01; Status DC Furosemide (Lasix Inj) 20 mg BID@,18 IV PUSH Last administered on 12/28/17at 18:34; Start 12/28/17 at 18:00; Stop 12/29/17 at 16:04; Status DC Methylprednisolone Sodium Succinate (SoluMEDROL INJ) 40 mg Q12HR IV PUSH Last administered on 12/29/17at 10:29; Start 12/28/17 at 21:00 Potassium Bicarb/ Potassium Chloride (K-Lyte Cl Eff) 50 meq ONCE ONCE PO Last administered on 3/15/18at 21:51; Start 12/28/17 at 20:00; Stop 12/28/17 at 20:01; Status DC Furosemide (Lasix Inj) 20 mg BID@,18 IV PUSH ; Start 12/29/17 at 18:00 Albumin Human 100 ml @ 60 mls/hr BID IV ; Start 12/29/17 at 21:00; Stop at 10:39 A/P Problem List: (1) Frequent falls ICD Code: R29.6 - Repeated falls Status: Chronic (2) Cataract ICD Code: H26.9 - Unspecified cataract (3) Hypoalbuminemia ICD Code: E88.09 - Other disorders of plasma-protein metabolism, not elsewhere classified (4) Hypokalemia ICD Code: E87.6 - Hypokalemia (5) Hypomagnesemia ICD Code: E83.42 - Hypomagnesemia (6) Elevated partial thromboplastin time (PTT) ICD Code: R79.1 - Abnormal coagulation profile (7) Elevated INR ICD Code: R79.1 - Abnormal coagulation profile (8) Gastroesophageal reflux disease ICD Code: K21.9 - Gastro-esophageal reflux disease without esophagitis (9) Pancreatic insufficiency ICD Code: K86.89 - Other specified diseases of pancreas (10) Peripheral neuropathy ICD Code: G62.9 - Polyneuropathy, unspecified (11) Chronic prescription benzodiazepine use ICD Code: Z79.899 - Other electric motorman (current) drug therapy (12) Chronic anticoagulation ICD Code: Z79.01 - director of curriculum and instruction (current) use of anticoagulants (13) COPD (chronic obstructive pulmonary disease) ICD Code: J44.9 - Chronic obstructive pulmonary disease, unspecified Status: Acute (14) CAD (coronary artery disease) ICD Code: I25.10 - Atherosclerotic heart disease of [place] coronary artery without angina pectoris Status: Acute (15) Pancytopenia ICD Code: D61.818 - Pancytopenia Status: Acute (16) Esophageal cancer ICD Code: C15.9 - Esophageal cancer Status: Acute (17) Pleural effusion, left ICD Code: J90 - Pleural effusion, not elsewhere classified Status: Acute (18) Pneumonia ICD Code: J18.9 - Pneumonia, unspecified organism Status: Acute (19) Chronic kidney disease, stage III (moderate) ICD Code: N18.3 - Chronic kidney disease, stage III (moderate) Status: Acute (20) Hypertension ICD Code: I10 - Hypertension Status: Chronic (21) Hypothyroidism ICD Code: E03.9 - Hypothyroidism Status: Chronic (22) Hypoxemia ICD Code: R09.02 - Hypoxemia Status: Acute (23) Severe sepsis ICD Code: A41.9 - Sepsis, unspecified organism; R65.20 - Severe sepsis without septic shock Assessment and Plan This is a 82-year-old male with chronic respiratory failure on 2 L oxygen at home and COPD who presented with shortness of breathing Acute on chronic respiratory failure -Most likely secondary to CHF exacerbation versus pneumonia or combination. Repeat chest x-ray on 12/27 shows chronic interstitial changes of mild cardiomegaly. Chest x-ray was repeated on 12/28 was stable. ABG reviewed with improvement. -Symptoms are improving. See treatment as below. Acute on chronic diastolic CHF -Patient required BiPAP last night but respiratory status has improved drastically. Patient at home is on CPAP. -Patient on Lasix 20 mg IV twice daily. Creatinine continues to increase. Will hold Lasix at the moment since respiratory status has improved and creatinine is worsening. -Strict ins and out. Continue to monitor creatinine. -Office Services Representative consulted Dr. Diana. Questionable pneumonia -Cefepime and azithromycin. Infectious disease consulted and patient's on oral Levaquin now. Clinically continue to improve. Chronic Benzodiazepine use/Peripheral Neuropathy/frequent falls, CT brain 12/24 revealed no acute intracranial findings -Continue lorazepam 1 mg nightly/home medication - Continue gabapentin 300 mg p.o. 3 times daily for peripheral neuropathy, as per Physical Therapy okay to go home with [facility] for PT and skilled nurse. Atrial Fibrillation/rate control/Hypertension rate controlled -Continue home medication. Patient on Xarelto. Chronic respiratory failure/COPD -See treatment as above. Symptoms are improving. We will continue to wean off Solu-Medrol. - CT pulmonary revealed left lower lobe infiltrate versus atelectasis. 8 mm left upper lobe nodule follow-up CT scan in 6 months. Coronary calcifications left main/LAD Chronic pancreatic insufficiency -continue pancreatic enzymes, PPIs. 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 chronic rivaroxaban use. Hypomagnesia -Magnesium 1.9 . Hypokalemia -Secondary to Lasix use. Will replenish as needed. Renal insufficiency -Creatinine continues to increase. Most likely secondary to aggressive diuresis due to respiratory failure. Since respiratory status has improved we will hold Lasix at the moment. Will consult shoe treer for further recommendation. Avoid nephrotoxins. Strict ins and outs. Continue to trend creatinine. Prophylaxis -GI -pantoprazole -DVT -SCD/rivaroxaban will provide pharmacological prophylaxis Problem Qualifiers (1) Cataract: Qualified Codes: H26.9 - Unspecified cataract (2) Gastroesophageal reflux disease: Qualified Codes: K21.9 - Gastro-esophageal reflux disease without esophagitis (3) Peripheral neuropathy: Qualified Codes: G62.9 - Polyneuropathy, unspecified (4) COPD (chronic obstructive pulmonary disease): Qualified Codes: J44.0 - Chronic obstructive pulmonary disease with acute lower respiratory infection (5) CAD (coronary artery disease): (6) Esophageal cancer: Qualified Codes: C15.9 - Malignant neoplasm of esophagus, unspecified (7) Pneumonia: Qualified Codes: J18.1 - Lobar pneumonia, unspecified organism (8) Hypertension: Qualified Codes: I10 - Essential (primary) hypertension (9) Hypothyroidism: Qualified Codes: E03.9 - Hypothyroidism, unspecified Marianne Romero MD Dec 29, 2017 16:14
--- NOTE | 2017-12-29 16:32 | MB ---
cc: Raymundo Zelaya MD DATE OF CONSULT: 12/29/2017 REASON FOR CONSULTATION: Elevated BUN and creatinine and edema. HISTORY OF PRESENT ILLNESS: This is an 82-year-old male with a past medical history of ischemic heart disease with diastolic dysfunction, history of hypertension, hypothyroidism, gastroesophageal reflux disease, chronic obstructive pulmonary disease, history of chronic pancreatitis, history of esophageal cancer, atrial fibrillation, who came to the hospital with complaint of worsening shortness of breath and swelling of the legs. I was called to see the patient because of elevated BUN and creatinine. The patient has creatinine of 1.2-1.3 on admission and it has gone up to 2.0. The potassium is on the lower side. The patient was diagnosed with pneumonia and has been getting antibiotics and also has COPD with exacerbation and getting methylprednisolone. Patient has edema of the legs. Cardiology is following and he has been getting furosemide, which was on hold yesterday because of increased creatinine. Potassium was low and the patient has been getting intermittent potassium. He denies any dysuria or hematuria, but he has some urinary incontinence, especially after he was given Lasix. He noticed that he has worsening swelling of his legs, which has been going on for some time. He denies any known previous history of renal disease. There is no nausea, vomiting. His appetite is normal. There is no history of diarrhea. He noticed that he has increased distention of his abdomen for the last few days. PAST MEDICAL HISTORY: Hypertension, ischemic heart disease, atrial fibrillation, hypothyroidism, hyperlipidemia, chronic obstructive pulmonary disease, gastroesophageal reflux disease, possibility of mild chronic kidney disease, chronic pancreatic insufficiency, esophageal cancer. PAST SURGICAL HISTORY: Cataract surgery, bone marrow transplant, vasectomy, lumpectomy, hernia repair surgery, Infusaport placement. REVIEW OF SYSTEMS: Patient has generalized weakness, feeling tired, has worsening shortness of breath, especially on exertion. He has been using oxygen and occasionally has blood coming from his nose. He has urinary incontinence. There is no dysuria, hematuria or difficulty in passing urine. No history of diarrhea. Noticed that he has increased swelling of his legs. SOCIAL HISTORY: There is history of smoking. He stopped in 1977. Occasionally drinks beer. FAMILY HISTORY: Noncontributory. ALLERGIES: NO KNOWN DRUG ALLERGIES. MEDICATIONS: Currently on the following medications: Protonix 40 mg once a day. Vitamin D3 2000 units once a day. Valproic acid 200 mg daily. Theragran 1 tablet daily. Vitamin B12 1000 mcg daily. Potassium chloride 20 mEq daily. Synthroid 200 mcg daily. Xarelto 15 mg at bedtime. Diltiazem mg q. 12 hours. Solu-Medrol 40 mg q.12 hours. Annie-Colace 1 tablet b.i.d. PHYSICAL EXAMINATION: GENERAL: The patient is awake, alert. He is sitting in the chair, not in acute distress. VITAL SIGNS: His last blood pressure was 103/57. He does not have any significant hypotensive episode in the last 48 hours. Temperature is 97.1, oxygen saturation 97% on 40% FiO2. HEENT: Pupils are mid-constricted. Nonicteric sclerae. Conjunctivae pale. NECK: Supple. JVD is slightly elevated. LUNGS: The patient has bilaterally decreased air entry with occasional wheezing. HEART: S1, S2. Irregular rhythm. ABDOMEN: Distended, soft, lax. There is no tenderness. Bowel sounds positive. EXTREMITIES: He has bilateral 2+ edema. INVESTIGATIONS: WBC count is 11.8, hemoglobin 9.6, platelet count of 107, neutrophils 87.7. Sodium 140, potassium 3.5, chloride 101, bicarbonate 25.4, BUN 66, creatinine 2.0, glucose 135. INR is 1.5. Urinalysis showing there is no protein. IMAGING STUDY: The patient has abdominal x-ray done yesterday, which shows a bowel gas pattern consistent with ileus versus small bowel obstruction. Chest x-ray was done which shows interstitial changes, chronic. ASSESSMENT AND PLAN: 1. Acute kidney injury with possibility of some chronic kidney disease. 2. Chronic obstructive pulmonary disease exacerbation and possible pneumonia. 3. Possible diastolic dysfunction. 4. Edema and anasarca. 5. Hypertension. 6. Hypokalemia. The patient has edema in the legs and developed acute increase in the creatinine, most likely related to diuretics, but he still has edema and discussed with the patient about restricting his fluid, I will put him on some fluid restriction and restricting the salt. His albumin was low at 2.4. I will give him some IV albumin and give him Lasix along with albumin with close watch to his urine output and BUN and creatinine. Get ultrasound of the kidneys. Avoid any nephrotoxins and follow the urine output and the BUN and creatinine. Thank you for the consultation and over the weekend the patient will be followed by Dr. Derian Goodwin. MD GAUTAM Valdez/RO , 03:58 PM , 04:31 PM
--- NOTE | 2017-12-29 18:24 | PD.CARD.PN ---
Subjective Subjective Remarks Mild CHAVEZ and hypoxemia with exertion, no CP, mild abd discomfort Objective Medications Current Medications Medications (Trade) Dose Ordered Sig/William Route Start Time Stop Time Status Last Admin (NS Flush) 2 ml UNSCH PRN IV FLUSH 12/24/17 07:45 (NS Flush) 2 ml BID IV FLUSH 12/24/17 09:00 12/29/17 10:33 (Tylenol) 650 mg Q6H PRN PO 12/24/17 07:45 ([place] 5-325 Mg) 1 tab Q4H PRN PO 12/24/17 07:45 12/28/17 21:51 (Morphine Inj) 2 mg Q2H PRN IV PUSH 12/24/17 07:45 (Protonix) 40 mg DAILY PO 12/24/17 09:00 12/29/17 10:30 (Tears Naturale Opth Soln) 1 drop TID EACH EYE 12/24/17 09:00 (Zofran Inj) 4 mg Q6H PRN IV PUSH 12/24/17 07:45 (Albuterol Neb) 2.5 mg Q2HR NEB PRN INH 12/24/17 07:45 Miscellaneous Information 1 Q361D XX 12/24/17 07:45 12/24/17 07:45 (Chlorhexidine 2% Cloth) 3 pack Taper DAILY@04 TOP 12/25/17 04:00 12/21/18 03:59 12/26/17 04:00 (Chlorhexidine 2% Cloth) 3 pack UNSCH PRN TOP 12/24/17 07:45 (Annie-Colace) 1 tab BID PO 12/24/17 09:00 12/29/17 10:30 (Milk Of Magnesia Liq) 30 ml Q12H PRN PO 12/24/17 07:45 (Senokot) 17.2 mg Q12H PRN PO 12/24/17 07:45 (Dulcolax Supp) 10 mg DAILY PRN RECTAL 12/24/17 07:45 (Lactulose Liq) 30 ml DAILY PRN PO 12/24/17 07:45 (Mag-Ox) 800 mg UNSCH PRN PO 12/24/17 07:45 (K-Phos) 2,000 mg Q4H PRN PO 12/24/17 07:45 (K-Phos) 2,000 mg UNSCH PRN PO/TUBE 12/24/17 07:45 (D50w (Vial) Inj) 50 ml UNSCH PRN IV PUSH 12/24/17 07:45 (Glucagon Inj) 1 mg UNSCH PRN OTHER 12/24/17 07:45 (Vitamin D3) 2,000 units DAILY PO 12/24/17 09:00 12/29/17 10:31 (Neurontin) 300 mg TID PRN PO 12/24/17 08:00 12/28/17 15:32 (Depakene Liq) 200 mg DAILY PO 12/24/17 09:00 12/29/17 10:34 (Ativan) 1 mg HS PRN PO 12/24/17 08:00 (Creon 6-19-30) 1 cap DAILY PO 12/24/17 09:00 12/29/17 10:31 (Xarelto) 15 mg HS PO 12/24/17 21:00 12/28/17 21:51 (Theragran) 1 tab DAILY PO 12/24/17 09:00 12/29/17 10:30 (Brethine Inj) 1 mg UNSCH PRN SQ 12/24/17 08:00 (Vitamin B12) 1,000 mcg DAILY PO 12/24/17 09:00 12/29/17 10:30 (KCl) 20 meq DAILY PO 12/25/17 09:45 12/29/17 10:30 (Cardizem) 30 mg Q12HR PO 12/25/17 10:00 12/29/17 10:31 (Synthroid) 200 mcg DAILY@0600 PO 12/26/17 15:00 12/29/17 06:00 (Levaquin) 250 mg Q24H PO 12/29/17 09:00 12/29/17 10:30 (SoluMEDROL INJ) 40 mg Q12HR IV PUSH 12/28/17 21:00 12/29/17 10:29 (Lasix Inj) 20 mg BID@,18 IV PUSH 12/29/17 18:00 Albumin Human 100 ml @ 60 mls/hr BID IV 12/29/17 21:00 12/31/17 10:39 Vital Signs / I&O Vital Signs Date Time Temp Pulse Resp B/P (MAP) Pulse Ox O2 Delivery O2 Flow Rate FiO2 12/29/17 17:28 97 Nasal Cannula 6.00 12/29/17 12:00 97.1 79 18 103/57 (72) 97 12/29/17 08:48 97 40 12/29/17 08:00 Nasal Cannula 6.00 12/29/17 08:00 97.1 72 18 112/69 (83) 98 12/29/17 04:20 99 40 12/29/17 04:09 Bi-Pap 12/29/17 04:09 95.8 64 20 132/72 (92) 94 12/29/17 03:50 72 12/29/17 00:30 99 40 12/29/17 00:09 96.0 79 24 138/95 (109) 95 12/29/17 00:09 Bi-Pap 40 12/28/17 23:42 91 12/28/17 20:08 72 12/28/17 20:00 Nasal Cannula 6.00 Humidified 12/28/17 20:00 97.6 77 22 140/68 (92) 96 I/O 12/28/17 12/28/17 12/28/17 12/29/17 12/29/17 12/29/17 07:00 15:00 23:00 07:00 15:00 23:00 Intake Total 240 ml 670 ml Balance 240 ml 670 ml Intake Oral 240 ml 670 ml # Voids 6 1 4 # Bowel Movements 2 1 Physical Exam GENERAL: In no distress. SKIN: Warm and dry. HEAD: Normocephalic. EYES: No scleral icterus. No injection or drainage. NECK: Supple, trachea midline. No JVD or lymphadenopathy. CARDIOVASCULAR: Irregular rate and rhythm, without murmurs, gallops, or rubs. RESPIRATORY: Breath sounds equal bilaterally. No accessory muscle use. GASTROINTESTINAL: Abdomen soft, non-tender, nondistended. MUSCULOSKELETAL: No cyanosis, 1+ LE edema. Laboratory Laboratory Tests Test 12/29/17 06:14 White Blood Count 11.8 TH/MM3 Red Blood Count 3.16 MIL/MM3 Hemoglobin 9.6 GM/DL Hematocrit 29.3 % Mean Corpuscular Volume 92.7 FL Mean Corpuscular Hemoglobin 30.5 PG Mean Corpuscular Hemoglobin Concent 32.9 % Red Cell Distribution Width 19.4 % Platelet Count 107 TH/MM3 Mean Platelet Volume 8.0 FL Blood Urea Nitrogen 66 MG/DL Creatinine 2.09 MG/DL Random Glucose 135 MG/DL Calcium Level 8.5 MG/DL Sodium Level 140 MEQ/L Potassium Level 3.5 MEQ/L Chloride Level 101 MEQ/L Carbon Dioxide Level 25.4 MEQ/L Anion Gap 14 MEQ/L Estimat Glomerular Filtration Rate 31 ML/MIN Assessment and Plan Problem List: (1) Frequent falls ICD Codes: R29.6 - Repeated falls Status: Chronic (2) Pneumonia ICD Codes: J18.9 - Pneumonia, unspecified organism Status: Acute (3) Severe sepsis ICD Codes: A41.9 - Sepsis, unspecified organism; R65.20 - Severe sepsis without septic shock (4) Hypertension ICD Codes: I10 - Hypertension Status: Chronic (5) Esophageal cancer ICD Codes: C15.9 - Esophageal cancer Status: Acute (6) CAD (coronary artery disease) ICD Codes: I25.10 - Atherosclerotic heart disease of [place] coronary artery without angina pectoris Status: Acute (7) Neutropenic ICD Codes: D70.9 - Neutropenia, unspecified Status: Chronic (8) COPD (chronic obstructive pulmonary disease) ICD Codes: J44.9 - Chronic obstructive pulmonary disease, unspecified Status: Acute (9) Atrial fibrillation ICD Codes: I48.91 - Unspecified atrial fibrillation Status: Chronic Assessment and Plan Slow progress. No angina. AF rate controlled. Pulm eval w Dr. Carlisle. Increase activity, continue PT. D/w pt and . Problem Qualifiers (1) Pneumonia: Qualified Codes: J18.1 - Lobar pneumonia, unspecified organism (2) Hypertension: Qualified Codes: I10 - Essential (primary) hypertension (3) Esophageal cancer: Qualified Codes: C15.9 - Malignant neoplasm of esophagus, unspecified (4) CAD (coronary artery disease): (5) COPD (chronic obstructive pulmonary disease): Qualified Codes: J44.0 - Chronic obstructive pulmonary disease with acute lower respiratory infection Jasmin Guo MD Dec 29, 2017 18:24
[2017-12-29] MEDS: FUROSEMIDE 20 MG/2 ML VIAL IV PUSH SCH (18:34)
[2017-12-29] MEDS: GABAPENTIN 300 MG CAP PO PRN (21:20)
[2017-12-29] MEDS: RIVAROXABAN 15 MG TAB PO SCH (21:20)
[2017-12-29] MEDS: ALBUMIN 25% INJ 100 ML IV SCH (21:21)
[2017-12-30] VITALS (10 sets, daily range): BP systolic 96–148; BP diastolic 51–76; PULSE 65–98; RESP 17–22; TEMP 97.4–98.3; O2SAT 91–99
--- NOTE | 2017-12-30 01:41 | RADRPT ---
EXAM DATE/TIME: 12/29/2017 22:37 [facility] COMPARISON: No previous studies available for comparison. INDICATIONS : Increased BUN/Creatnine. MEDICAL HISTORY : Hypothyroidism. Chronic obstructive pulmonary disease. Glasses. Hearing aids. Anticoagulant therapy . Atrial fibrillation. Diverticulitis. Hiatal hernia. Renal disease. Arthritis. Esophageal cancer. Ch emotherapy. SURGICAL HISTORY : Bilateral cataract surgery. Dental implants. [place] transplant. ENCOUNTER: Initial ACUITY: 1 day PAIN SCORE: 4/10 LOCATION: Bilateral flank MEASUREMENTS: RIGHT KIDNEY: 9.6 x 5.8 x 6.1 cm LEFT KIDNEY: 11.6 x 4.4 x 6.2 cm FINDINGS: RIGHT KIDNEY: Renal cortex is normal in thickness with some increased echogenicity. With some increased echogenicit y. 2 small cortical cysts in the upper pole both measure approximately 1 cm. No hydronephrosis, stone , or mass. LEFT KIDNEY: Renal cortex is normal in thickness . No hydronephrosis, stone, or mass. BLADDER: Urinary bladder is distended with an estimated volume of 1854 cc. Patient was unable to void post pro cedure. CONCLUSION: 1. Increased cortical echogenicity bilaterally characteristic of acute medical renal disease. 2. Benign-appearing cortical cyst in the upper pole of the left kidney. No hydronephrosis or nephroli thiasis, however. 3. Urinary retention with an estimated volume of 1854 cc. Mateus Tovar MD on December 30, 2017 at 1:36 Board Certified Radiologist. This report was verified electronically.
[2017-12-30] MEDS: CHLORHEXIDINE GLUCONATE 2 % 1 PACK (2 CLOTHS) TOP SCH (04:00)
[2017-12-30] MEDS: LEVOTHYROXINE SODIUM 200 MCG TAB PO SCH (05:18)
[2017-12-30] MEDS: ARTIFICIAL TEARS OPTH SOLN 15 ML BTL EACH EYE SCH ×3 (09:00→17:09)
[2017-12-30] MEDS: DILTIAZEM HCL 30 MG TAB PO SCH ×2 (10:00→21:08)
[2017-12-30] MEDS: LIPASE/PROTEASE/AMYLASE (6,000/19,000/30,000) CAP PO SCH (10:00)
[2017-12-30] MEDS: MULTIVITAMIN TAB PO SCH (10:01)
[2017-12-30] MEDS: LEVOFLOXACIN 250 MG TAB PO SCH (10:01)
[2017-12-30] MEDS: PANTOPRAZOLE SOD 40 MG DELAYED RELEASE TAB PO SCH (10:01)
[2017-12-30] MEDS: DOCUSATE SODIUM 50 MG/SENNA 8.6 MG TAB PO SCH ×2 (10:01→21:00)
[2017-12-30] MEDS: VALPROIC ACID SYRUP 250 MG/5 ML UDC PO SCH (10:02)
[2017-12-30] MEDS: SODIUM CHLORIDE 0.9% FLUSH 10 ML FLUSH IV FLUSH SCH ×2 (10:03→21:00)
[2017-12-30] MEDS: CYANOCOBALAMIN 1,000 MCG TAB PO SCH (10:03)
[2017-12-30] MEDS: FUROSEMIDE 20 MG/2 ML VIAL IV PUSH SCH ×2 (10:03→17:09)
[2017-12-30] MEDS: CHOLECALCIFEROL (VIT D3) 1000 UNIT TAB PO SCH (10:03)
[2017-12-30] MEDS: methylPREDNISolone SOD SUCC 40 MG/1 ML VIAL IV PUSH SCH (10:03)
[2017-12-30] MEDS: POTASSIUM CHLORIDE 20 MEQ CONTROLLED RELEASE TAB PO SCH (10:04)
[2017-12-30] MEDS: ALBUMIN 25% INJ 100 ML IV SCH ×2 (10:05→21:07)
[2017-12-30] MEDS: UMECLIDINIUM 62.5 MCG/VILANTEROL 25 MCG INHALER INH SCH (10:10)
[2017-12-30 10:21] LABS: BICARBONATE 25.4 MEQ/L (21.0-32.0); CALCIUM 8.5 MG/DL (8.5-10.1); CREATININE 2.26 MG/DL (0.60-1.30)
--- NOTE | 2017-12-30 12:40 | HHI.PR ---
Subjective Remarks Follow-up for acute respiratory failure Patient stated his breathing has improved drastically. He stated he had a straight cath done last night in which now his abdomen is less distended and feels a lot better. He has no complaints. He feels like he is going in the right direction. Patient said that he feels so great that he feels like he can run across the hallway. I later returned to the room because his wanted to speak to me. All questions were answered for her. No other events. Patient currently on 4 L of oxygen nasal cannula. He requires BiPAP at night because patient does have a CPAP machine at home. Objective Vitals Vital Signs Date Time Temp Pulse Resp B/P (MAP) Pulse Ox O2 Delivery O2 Flow Rate FiO2 12/30/17 09:59 97.6 74 22 148/65 (92) 94 12/30/17 08:15 77 12/30/17 04:00 97.7 70 20 144/71 (95) 99 12/30/17 04:00 65 12/30/17 04:00 Bi-Pap 12/30/17 00:47 97 BiPAP 12/30/17 00:47 97 40 12/30/17 00:00 98 12/30/17 00:00 Bi-Pap 12/30/17 00:00 97.4 73 20 148/75 (99) 98 12/29/17 21:20 Nasal Cannula 4.00 12/29/17 20:00 97.4 79 20 143/76 (98) 94 12/29/17 20:00 90 12/29/17 17:28 97 Nasal Cannula 6.00 12/29/17 16:00 66 12/29/17 16:00 97.2 77 18 129/68 (88) 97 12/29/17 16:00 Nasal Cannula 4.00 I/O 12/29/17 12/29/17 12/29/17 12/30/17 12/30/17 12/30/17 06:59 14:59 22:59 06:59 14:59 22:59 Intake Total 670 ml 840 ml 120 ml Output Total 125 ml 2850 ml Balance 670 ml 715 ml -2730 ml Intake Oral 670 ml 840 ml 120 ml Output Urine Total 125 ml 2850 ml # Voids 4 # Bowel Movements 1 0 1 Result Diagram: 12/29/17 0614 12/30/17 0945 Objective Remarks GENERAL: in NAD CARDIOVASCULAR: Regular rate and rhythm without murmurs, gallops, or rubs. RESPIRATORY: B/L mild mid to lower crackles that has improved. No accessory muscle use. GASTROINTESTINAL: Abdomen soft, non-tender, nondistended. MUSCULOSKELETAL: Positive to pitting edema lower extremity. Medications and IVs Current Medications Cefepime HCl 2000 mg/Sodium Chloride 100 ml @ 200 mls/hr ONCE ONCE IV Last administered on 12/24/17at 01:25; Start 12/24/17 at 00:00; Stop 12/24/17 at 00:29 ; Status DC Vancomycin HCl 1000 mg/Sodium Chloride 250 ml @ 250 mls/hr ONCE ONCE IV Last administered on 12/24/17at 03:55; Start 12/24/17 at 00:00; Stop 12/24/17 at 00:59 ; Status DC Albuterol/ Ipratropium (Duoneb Neb) 1 ampule ONCE ONCE NEB Last administered on 12/24/17at 00:16; Start 12/24/17 at 00:00; Stop 12/24/17 at 00:01; Status DC Tetanus/ Diphtheria Toxoids (Tetanus/ Diphtheria Tox Adult) 0.5 ml ONCE ONCE IM Last administered on 12/24/17at 01:27; Start 12/24/17 at 00:00; Stop 12/24/17 at 00:01; Status DC Albuterol/ Ipratropium (Duoneb Neb) 1 ampule Q15M INH Last administered on 12/24at 03:20; Start 12/24/17 at 01:30; Stop 12/24/17 at 01:46; Status DC Iohexol (Omnipaque 350 Inj) 65 ml STK-MED ONCE IVCONTRAST Last administered on 12/24/17at 03:13; Start 12/24/17 at 03:13; Stop 12/24/17 at 03:14; Status DC Methylprednisolone Sodium Succinate (SoluMEDROL INJ) 125 mg ONCE ONCE IV PUSH Last administered on 12/24/17at 05:30; Start 12/24/17 at 04:15; Stop 12/24/17 at 04:16; Status DC Albuterol/ Ipratropium (Duoneb Neb) 1 ampule ONCE ONCE NEB Last administered on 12/24/17at 04:25; Start 12/24/17 at 04:15; Stop 12/24/17 at 04:16; Status DC Sodium Chloride 500 ml @ 500 mls/hr BOLUS ONCE IV Last administered on at 05:29; Start 12/24/17 at 04:15; Stop 12/24/17 at 05:14; Status DC Sodium Chloride 1,000 ml @ 100 mls/hr Q10H IV Last administered on 12/24/17at 05:29; Start 12/24/17 at 04:15; Stop 12/24/17 at 10:53; Status DC Sodium Chloride 500 ml @ 500 mls/hr BOLUS ONCE IV Last administered on at 07:17; Start 12/24/17 at 04:15; Stop 12/24/17 at 05:14; Status DC Magnesium Sulfate/ Dextrose 100 ml @ 100 mls/hr Q1H IV Last administered on 09/02at 12:28; Start 12/24/17 at 07:30; Stop 12/24/17 at 09:29; Status DC Potassium Chloride 100 ml @ 100 mls/hr Q1H IV Last administered on 12/24/17at 12:44; Start 12/24/17 at 07:30; Stop 12/24/17 at 10:29; Status DC Sodium Chloride 1,000 ml @ 84 mls/hr [id number] IV Last administered on at 07:49; Start 12/24/17 at 07:39; Stop 12/26/17 at 16:26; Status DC Sodium Chloride (NS Flush) 2 ml UNSCH PRN IV FLUSH FLUSH AFTER USING IV ACCESS ; Start 12/24/17 at 07:45 Sodium Chloride (NS Flush) 2 ml BID IV FLUSH Last administered on 12/30/17at 10: 03; Start 12/24/17 at 09:00 Acetaminophen (Tylenol) 650 mg Q6H PRN PO FEVER >100F; Start 12/24/17 at 07:45 Acetaminophen/ Hydrocodone Bitart (Carlton 5-325 Mg) 1 tab Q4H PRN PO PAIN SCALE 1 TO 5 Last administered on 12/28/17at 21:51; Start 12/24/17 at 07:45 Morphine Sulfate (Morphine Inj) 2 mg Q2H PRN IV PUSH PAIN SCALE 6 TO 10; Start 12/24/17 at 07:45 Pantoprazole Sodium (Protonix) 40 mg DAILY PO Last administered on 12/30/17at 10 :01; Start 12/24/17 at 09:00 Artificial Tears (Tears Naturale Opth Soln) 1 drop TID EACH EYE ; Start at 09:00 Ondansetron HCl (Zofran Inj) 4 mg Q6H PRN IV PUSH NAUSEA OR VOMITING; Start 09/02 at 07:45 Albuterol/ Ipratropium (Duoneb Neb) 1 ampule Q4HR NEB INH Last administered on 12/28/17at 04:19; Start 12/24/17 at 08:00; Stop 12/28/17 at 07:59; Status DC Albuterol Sulfate (Albuterol Neb) 2.5 mg Q2HR NEB PRN INH SOB/WHEEZING; Start 12/24/17 at 07:45 Miscellaneous Information 1 [id number] XX Last administered on 12/24/17at 07:45; Start 12/24/17 at 07:45 Chlorhexidine Gluconate (Chlorhexidine 2% Cloth) Taper DAILY@04 TOP Last administered on 12/26/17at 04:00; Start 12/25/17 at 04:00; Stop 12/21/18 at 03:59 Chlorhexidine Gluconate (Chlorhexidine 2% Cloth) 3 pack UNSCH PRN TOP HYGIENIC CARE; Start 12/24/17 at 07:45 Senna/Docusate Sodium (Annie-Colace) 1 tab BID PO Last administered on at 10:01; Start 12/24/17 at 09:00 Magnesium Hydroxide (Milk Of Magnesia Liq) 30 ml Q12H PRN PO Mild constipation ; Start 12/24/17 at 07:45 Sennosides (Senokot) 17.2 mg Q12H PRN PO Moderate constipation; Start 12/24/17 at 07:45 Bisacodyl (Dulcolax Supp) 10 mg DAILY PRN RECTAL SEVERE CONSITIPATION; Start at 07:45 Lactulose (Lactulose Liq) 30 ml DAILY PRN PO SEVERE CONSITIPATION; Start at 07:45 Potassium Chloride 100 ml @ 50 mls/hr Q2H PRN IV For Potassium 2.8 - 3.2 mEq/ L Last administered on 12/25/17at 22:20; Start 12/24/17 at 07:45; Stop 12/26/17 at 16:26; Status DC Potassium Chloride 100 ml @ 50 mls/hr Q2H PRN IV For Potassium 2.8 - 3.2 mEq/L ; Start 12/24/17 at 07:45; Stop 12/26/17 at 16:26; Status DC Potassium Bicarb/ Potassium Chloride (K-Lyte Cl Eff) 50 meq UNSCH PRN PO For Potassium 3.3 - 3.5 mEq/L; Start 12/24/17 at 07:45; Stop 12/26/17 at 16:28; Status DC Potassium Chloride 100 ml @ 25 mls/hr UNSCH PRN IV For Potassium 3.3 - 3.5 mEq /L; Start 12/24/17 at 07:45; Stop 12/26/17 at 16:26; Status DC Potassium Chloride 100 ml @ 50 mls/hr Q2H PRN IV For Potassium 3.3 - 3.5 mEq/L ; Start 12/24/17 at 07:45; Stop 12/26/17 at 16:26; Status DC Magnesium Sulfate 4 gm/Sodium Chloride 100 ml @ 50 mls/hr UNSCH PRN IV For Magnesium 0.9 - 1.1 mg/dL; Start 12/24/17 at 07:45; Stop 12/26/17 at 16:26; Status DC Magnesium Oxide (Mag-Ox) 800 mg UNSCH PRN PO For Magnesium 1.2 - 1.6 mg/dL; Start 12/24/17 at 07:45 Magnesium Sulfate 2 gm/Sodium Chloride 100 ml @ 50 mls/hr UNSCH PRN IV For Magnesium 1.2 - 1.6 mg/dL; Start 12/24/17 at 07:45; Stop 12/26/17 at 16:26; Status DC Potassium Phosphate (K-Phos) 2,000 mg Q4H PRN PO For Phosphorus < 2.5 mg/dL; Start 12/24/17 at 07:45 Sodium Phosphate 30 mmol/Sodium Chloride 250 ml @ 42 mls/hr UNSCH PRN IV For Phosphorus < 2.5 mg/dL; Start 12/24/17 at 07:45; Stop 12/26/17 at 16:28; Status DC Potassium Phosphate (K-Phos) 2,000 mg UNSCH PRN PO/TUBE SEE LABEL COMMENTS; Start 12/24/17 at 07:45 Potassium Phosphate 30 mmol/ Sodium Chloride 260 ml @ 42 mls/hr UNSCH PRN IV SEE LABEL COMMENTS Last administered on 12/25/17at 07:49; Start 12/24/17 at 07:45 ; Stop 12/26/17 at 16:26; Status DC Dextrose (D50w (Vial) Inj) 50 ml UNSCH PRN IV PUSH HYPOGLYCEMIA-SEE COMMENTS; Start 12/24/17 at 07:45 Glucagon (Glucagon Inj) 1 mg UNSCH PRN OTHER HYPOGLYCEMIA-SEE COMMENTS; Start 12/24/17 at 07:45 Insulin Human Regular (NovoLIN R SUPPLEMENTAL SCALE) 1 Q6HR SQ Last administered on 12/24/17at 23:34; Start 12/24/17 at 12:00; Stop 12/25/17 at 10:00 ; Status DC Methylprednisolone Sodium Succinate (SoluMEDROL INJ) 40 mg Q8HR IV PUSH Last administered on 12/28/17at 05:29; Start 12/24/17 at 14:00; Stop 12/28/17 at 12:25 ; Status DC Cholecalciferol (Vitamin D3) 2,000 units DAILY PO Last administered on at 10:03; Start 12/24/17 at 09:00 Gabapentin (Neurontin) 300 mg TID PRN PO PAIN SCALE 1 TO 7 Last administered on 12/29/17at 21:20; Start 12/24/17 at 08:00 Valproic Acid (Depakene Liq) 200 mg DAILY PO Last administered on 12/30/17at 10: 02; Start 12/24/17 at 09:00 Lorazepam (Ativan) 1 mg HS PRN PO RESTLESSNESS; Start 12/24/17 at 08:00 Amylase/Lipase/ Protease (Creon 6-19-30) 1 cap DAILY PO Last administered on at 10:00; Start 12/24/17 at 09:00 Rivaroxaban (Xarelto) 15 mg HS PO Last administered on 12/29/17at 21:20; Start 12/24/17 at 21:00 Non-Formulary Medication 1,000 mcg DAILY PO ; Start 12/24/17 at 09:00; Stop 09/02 at 09:00; Status DC Non-Formulary Medication 2 cap HS PO ; Start 12/24/17 at 21:00; Status UNV Multivitamins (Theragran) 1 tab DAILY PO Last administered on 12/30/17at 10:01; Start 12/24/17 at 09:00 Cefepime HCl 2000 mg/Sodium Chloride 100 ml @ 200 mls/hr Q8H IV ; Start at 08:00; Stop 12/24/17 at 11:29; Status DC Azithromycin 500 mg/Sodium Chloride 250 ml @ 250 mls/hr Q24H IV ; Start at 08:00; Stop 12/24/17 at 11:30; Status DC Norepinephrine Bitartrate 4 mg/ Sodium Chloride 250 ml @ 7.5 mls/hr TITRATE PRN IV Blood pressure management; Start 12/24/17 at 08:00; Stop 12/26/17 at 16: 27; Status DC Terbutaline Sulfate (Brethine Inj) 1 mg UNSCH PRN SQ For Extravasation; Start 12/24/17 at 08:00 Cyanocobalamin (Vitamin B12) 1,000 mcg DAILY PO Last administered on 12/30/17at 10:03; Start 12/24/17 at 09:00 Cefepime HCl 2000 mg/Sodium Chloride 100 ml @ 200 mls/hr Q8H IV Last administered on 12/27/17at 03:35; Start 12/24/17 at 12:00; Stop 12/27/17 at 07:40 ; Status DC Azithromycin 500 mg/Sodium Chloride 250 ml @ 250 mls/hr Q24H IV Last administered on 12/27/17at 13:53; Start 12/24/17 at 13:00; Stop 12/27/17 at 16:12 ; Status DC Gadodiamide (Omniscan Pf Inj) 20 ml STK-MED ONCE IVCONTRAST Last administered on 12/24/17at 16:32; Start 12/24/17 at 16:32; Stop 12/24/17 at 16:33; Status DC Furosemide (Lasix) 40 mg DAILY PO Last administered on 12/27/17at 08:29; Start 12/25/17 at 09:45; Stop 12/27/17 at 13:30; Status DC Potassium Chloride (KCl) 20 meq DAILY PO Last administered on 12/30/17at 10:04; Start 12/25/17 at 09:45 Diltiazem HCl (Cardizem) 30 mg Q12HR PO Last administered on 12/30/17at 10:00; Start 12/25/17 at 10:00 Levothyroxine Sodium (Synthroid) 200 mcg DAILY@0600 PO Last administered on at 05:18; Start 12/26/17 at 15:00 Potassium Chloride (KCl) 20 meq ONCE ONCE PO Last administered on 12/26/17at 17 :18; Start 12/26/17 at 16:30; Stop 12/26/17 at 16:31; Status DC Cefepime HCl 2000 mg/Sodium Chloride 100 ml @ 200 mls/hr Q12H IV ; Start at 16:00; Stop 12/27/17 at 16:13; Status DC Magnesium Sulfate/ Dextrose 100 ml @ 100 mls/hr Q1H IV Last administered on at 17:19; Start 12/27/17 at 14:00; Stop 12/27/17 at 15:59; Status DC Furosemide (Lasix Inj) 40 mg BID@,18 IV PUSH Last administered on 12/27/17at 18:49; Start 12/27/17 at 18:00; Stop 12/28/17 at 09:13; Status DC Levofloxacin (Levaquin) 500 mg ONCE ONCE PO Last administered on 12/28/17at 09: 52; Start 12/28/17 at 09:00; Stop 12/28/17 at 09:01; Status DC Levofloxacin (Levaquin) 250 mg Q24H PO Last administered on 12/30/17at 10:01; Start 12/29/17 at 09:00 Potassium Chloride (KCl) 40 meq ONCE ONCE PO Last administered on 12/28/17at 09 :51; Start 12/28/17 at 08:00; Stop 12/28/17 at 08:01; Status DC Furosemide (Lasix Inj) 20 mg BID@,18 IV PUSH Last administered on 12/28/17at 18:34; Start 12/28/17 at 18:00; Stop 12/29/17 at 16:04; Status DC Methylprednisolone Sodium Succinate (SoluMEDROL INJ) 40 mg Q12HR IV PUSH Last administered on 12/30/17at 10:03; Start 12/28/17 at 21:00 Potassium Bicarb/ Potassium Chloride (K-Lyte Cl Eff) 50 meq ONCE ONCE PO Last administered on 12/28/17at 21:51; Start 12/28/17 at 20:00; Stop 12/28/17 at 20:01; Status DC Furosemide (Lasix Inj) 20 mg BID@09,18 IV PUSH Last administered on 12/30/17at 10:03; Start 12/29/17 at 18:00 Albumin Human 100 ml @ 60 mls/hr BID IV Last administered on 12/30/17at 10:05; Start 12/29/17 at 21:00; Stop 12/31/17 at 10:39 A/P Problem List: (1) Frequent falls ICD Code: R29.6 - Repeated falls Status: Chronic (2) Cataract ICD Code: H26.9 - Unspecified cataract (3) Hypoalbuminemia ICD Code: E88.09 - Other disorders of plasma-protein metabolism, not elsewhere classified (4) Hypokalemia ICD Code: E87.6 - Hypokalemia (5) Hypomagnesemia ICD Code: E83.42 - Hypomagnesemia (6) Elevated partial thromboplastin time (PTT) ICD Code: R79.1 - Abnormal coagulation profile (7) Elevated INR ICD Code: R79.1 - Abnormal coagulation profile (8) Gastroesophageal reflux disease ICD Code: K21.9 - Gastro-esophageal reflux disease without esophagitis (9) Pancreatic insufficiency ICD Code: K86.89 - Other specified diseases of pancreas (10) Peripheral neuropathy ICD Code: G62.9 - Polyneuropathy, unspecified (11) Chronic prescription benzodiazepine use ICD Code: Z79.899 - Other care home (current) drug therapy (12) Chronic anticoagulation ICD Code: Z79.01 - group home (current) use of anticoagulants (13) COPD (chronic obstructive pulmonary disease) ICD Code: J44.9 - Chronic obstructive pulmonary disease, unspecified Status: Acute (14) CAD (coronary artery disease) ICD Code: I25.10 - Atherosclerotic heart disease of [place] coronary artery without angina pectoris Status: Acute (15) Pancytopenia ICD Code: D61.818 - Pancytopenia Status: Acute (16) Esophageal cancer ICD Code: C15.9 - Esophageal cancer Status: Acute (17) Pleural effusion, left ICD Code: J90 - Pleural effusion, not elsewhere classified Status: Acute (18) Pneumonia ICD Code: J18.9 - Pneumonia, unspecified organism Status: Acute (19) Chronic kidney disease, stage III (moderate) ICD Code: N18.3 - Chronic kidney disease, stage III (moderate) Status: Acute (20) Hypertension ICD Code: I10 - Hypertension Status: Chronic (21) Hypothyroidism ICD Code: E03.9 - Hypothyroidism Status: Chronic (22) Hypoxemia ICD Code: R09.02 - Hypoxemia Status: Acute (23) Severe sepsis ICD Code: A41.9 - Sepsis, unspecified organism; R65.20 - Severe sepsis without septic shock Assessment and Plan This is a 82-year-old male with chronic respiratory failure on 2 L oxygen at home and COPD who presented with shortness of breathing Acute on chronic respiratory failure -Most likely secondary to CHF exacerbation versus pneumonia or combination. Repeat chest x-ray on 12/27 shows chronic interstitial changes of mild cardiomegaly. Chest x-ray was repeated on 12/28 was stable. ABG reviewed with improvement. -Symptoms are improving. See treatment as below. Continue to remain oxygen as tolerated. Acute on chronic diastolic CHF -Patient required BiPAP last night but respiratory status has improved drastically. Patient at home is on CPAP. -Patient on Lasix 20 mg IV twice daily. Creatinine continues to increase. Nephrology is consulted. Patient also given a dose of albumin. Good urine output. Continues to improve clinically. Questionable pneumonia -Cefepime and azithromycin. Infectious disease consulted and patient's on oral Levaquin now. Clinically continue to improve. Chronic Benzodiazepine use/Peripheral Neuropathy/frequent falls, CT brain 12/24 revealed no acute intracranial findings -Continue lorazepam 1 mg nightly/home medication - Continue gabapentin 300 mg p.o. 3 times daily for peripheral neuropathy, as per Physical Therapy okay to go home with [facility] for PT and skilled nurse. Atrial Fibrillation/rate control/Hypertension rate controlled -Continue home medication. Patient on Xarelto. Chronic respiratory failure/COPD -See treatment as above. Symptoms are improving. We will continue to wean off Solu-Medrol. - CT pulmonary revealed left lower lobe infiltrate versus atelectasis. 8 mm left upper lobe nodule follow-up CT scan in 6 months. Coronary calcifications left main/LAD Chronic pancreatic insufficiency -continue pancreatic enzymes, PPIs. 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 chronic rivaroxaban use. Hypomagnesia -Magnesium 1.9 . Hypokalemia -Secondary to Lasix use. Will replenish as needed. Renal insufficiency -Creatinine continues to increase. Most likely secondary to aggressive diuresis due to respiratory failure. -Continue management per sole dyer. Creatinine did increase a little today. He does have good urine output. Avoid nephrotoxins. Strict ins and out. Continue to monitor creatinine. -Renal ultrasound just shows medically renal disease. He did have a lot of urinary retention without any hydronephrosis in which he had a straight cath done. This may be secondary to BPH. Prophylaxis -GI -pantoprazole -DVT -SCD/rivaroxaban will provide pharmacological prophylaxis Problem Qualifiers (1) Cataract: Qualified Codes: H26.9 - Unspecified cataract (2) Gastroesophageal reflux disease: Qualified Codes: K21.9 - Gastro-esophageal reflux disease without esophagitis (3) Peripheral neuropathy: Qualified Codes: G62.9 - Polyneuropathy, unspecified (4) COPD (chronic obstructive pulmonary disease): Qualified Codes: J44.0 - Chronic obstructive pulmonary disease with acute lower respiratory infection (5) CAD (coronary artery disease): (6) Esophageal cancer: Qualified Codes: C15.9 - Malignant neoplasm of esophagus, unspecified (7) Pneumonia: Qualified Codes: J18.1 - Lobar pneumonia, unspecified organism (8) Hypertension: Qualified Codes: I10 - Essential (primary) hypertension (9) Hypothyroidism: Qualified Codes: E03.9 - Hypothyroidism, unspecified Marianne Romero MD Dec 30, 2017 12:40
--- NOTE | 2017-12-30 16:26 | HHI.NPPN ---
Subjective Additional Remarks Feeling better today, had straight cath last night and reportedly good UOP Objective Data Data Vital Signs Date Time Temp Pulse Resp B/P (MAP) Pulse Ox O2 Delivery O2 Flow Rate FiO2 12/30/17 12:00 75 12/30/17 10:00 94 Bi-Pap 4.00 40 12/30/17 09:59 97.6 74 22 148/65 (92) 94 12/30/17 08:15 77 12/30/17 04:00 97.7 70 20 144/71 (95) 99 12/30/17 04:00 65 12/30/17 04:00 Bi-Pap 12/30/17 00:47 97 BiPAP 12/30/17 00:47 97 40 12/30/17 00:00 98 12/30/17 00:00 Bi-Pap 12/30/17 00:00 97.4 73 20 148/75 (99) 98 12/29/17 21:20 Nasal Cannula 4.00 12/29/17 20:00 97.4 79 20 143/76 (98) 94 12/29/17 20:00 90 12/29/17 17:28 97 Nasal Cannula 6.00 -: 12/29/17 0614 12/30/17 0945 Physical Exam General Appearance: Well Developed, Well Nourished, No Acute Distress Eyes Eye Exam: Pupils Equal Throat Throat Exam: Oral Mucosa [place] & Moist Neck Neck Exam: Neck Supple Pulmonary Resp Exam: Diminished Breath Sounds Cardiology CV Exam: Regular, Normal Sinus Rhythm Integumentary Skin Exam: Warm, Dry, Intact Extremeties Extremities Exam: Moderate Edema Neurologic Neuro Exam: Alert, Awake, Oriented Assessment/Plan Problem List: (1) HOLLIE (acute kidney injury) ICD Codes: N17.9 - Acute kidney failure, unspecified Status: Acute Plan: Creatinine 1.3 -> 1.7 -> 2.0 -> 2.2 Started on albumin and Lasix yesterday Possible cardio-renal component of HOLLIE, with urinary retention as well. Continue diuresis with albumin and lasix 20mg IV BID Apparently breathing improved after straight catheterization yesterday. Renal USX showed urinary retention with 1.8L urine in bladder Voided on his own earlier today - will check bladder scans with every nursing shift. If ongoing retention or continued elevation in creatinine tomorrow, will order for indwelling herrera. Will start Flomax (2) COPD (chronic obstructive pulmonary disease) ICD Codes: J44.9 - Chronic obstructive pulmonary disease, unspecified Status: Acute Plan: continues on prednisone, continue diuresis (3) CHF (congestive heart failure) ICD Codes: I50.9 - Heart failure, unspecified Plan: continue diuresis (4) Hypertension ICD Codes: I10 - Hypertension Status: Chronic Plan: BP stable. Problem Qualifiers (1) COPD (chronic obstructive pulmonary disease): Qualified Codes: J44.0 - Chronic obstructive pulmonary disease with acute lower respiratory infection (2) Hypertension: Qualified Codes: I10 - Essential (primary) hypertension Derian Goodwin MD Dec 30, 2017 16:26
[2017-12-30] MEDS: TAMSULOSIN HCL 0.4 MG CAP PO SCH (17:08)
[2017-12-30] MEDS: RIVAROXABAN 15 MG TAB PO SCH (21:00)
[2017-12-30] MEDS ORDERED: predniSONE 20 MG TAB PO SCH (21:00)
[2017-12-30] MEDS: GABAPENTIN 300 MG CAP PO PRN (21:09)
[2017-12-31] VITALS (12 sets, daily range): BP systolic 116–146; BP diastolic 61–76; PULSE 22–91; RESP 17–22; TEMP 97.2–98.5; O2SAT 92–98
[2017-12-31] MEDS: CHLORHEXIDINE GLUCONATE 2 % 1 PACK (2 CLOTHS) TOP SCH (02:34)
[2017-12-31] MEDS: LEVOTHYROXINE SODIUM 200 MCG TAB PO SCH (06:00)
[2017-12-31 07:30] LABS: BICARBONATE 25.9 MEQ/L (21.0-32.0); CALCIUM 8.2 MG/DL (8.5-10.1); CREATININE 2.27 MG/DL (0.60-1.30)
[2017-12-31 07:32] LABS: HEMATOCRIT 24.8 % (39.0-51.0); HEMOGLOBIN 8.4 GM/DL (13.0-17.0); MEAN CELL VOLUME 91.1 FL (80.0-100.0); MEAN CORPUSCULAR HEMOGLOBIN 30.8 PG (27.0-34.0); MEAN CORPUSCULAR HGB CONC 33.9 % (32.0-36.0); MEAN PLATELET VOLUME 7.7 FL (7.0-11.0); PLATELET COUNT 95 TH/MM3 (150-450); RED BLOOD COUNT 2.73 MIL/MM3 (4.50-5.90); RED CELL DISTRIBUTION WIDTH 19.5 % (11.6-17.2); WHITE BLOOD COUNT 11.7 TH/MM3 (4.0-11.0)
[2017-12-31] MEDS: ARTIFICIAL TEARS OPTH SOLN 15 ML BTL EACH EYE SCH ×3 (09:00→18:00)
[2017-12-31] MEDS: UMECLIDINIUM 62.5 MCG/VILANTEROL 25 MCG INHALER INH SCH (09:01)
[2017-12-31] MEDS: ALBUMIN 25% INJ 100 ML IV SCH (09:01)
[2017-12-31] MEDS: CYANOCOBALAMIN 1,000 MCG TAB PO SCH (09:02)
[2017-12-31] MEDS: PANTOPRAZOLE SOD 40 MG DELAYED RELEASE TAB PO SCH (09:02)
[2017-12-31] MEDS: DOCUSATE SODIUM 50 MG/SENNA 8.6 MG TAB PO SCH ×2 (09:02→22:07)
[2017-12-31] MEDS: LEVOFLOXACIN 250 MG TAB PO SCH (09:02)
[2017-12-31] MEDS: predniSONE 20 MG TAB PO SCH (09:02)
[2017-12-31] MEDS: CHOLECALCIFEROL (VIT D3) 1000 UNIT TAB PO SCH (09:02)
[2017-12-31] MEDS: DILTIAZEM HCL 30 MG TAB PO SCH ×2 (09:02→22:07)
[2017-12-31] MEDS: POTASSIUM CHLORIDE 20 MEQ CONTROLLED RELEASE TAB PO SCH (09:02)
[2017-12-31] MEDS: LIPASE/PROTEASE/AMYLASE (6,000/19,000/30,000) CAP PO SCH (09:02)
[2017-12-31] MEDS: MULTIVITAMIN TAB PO SCH (09:02)
[2017-12-31] MEDS: TAMSULOSIN HCL 0.4 MG CAP PO SCH (09:02)
[2017-12-31] MEDS: VALPROIC ACID SYRUP 250 MG/5 ML UDC PO SCH (09:03)
[2017-12-31] MEDS: SODIUM CHLORIDE 0.9% FLUSH 10 ML FLUSH IV FLUSH SCH ×2 (09:04→22:07)
[2017-12-31] MEDS: FUROSEMIDE 20 MG/2 ML VIAL IV PUSH SCH ×2 (09:04→18:05)
--- NOTE | 2017-12-31 13:42 | HHI.PR ---
Subjective Remarks Follow-up for acute respiratory failure secondary to CHF exacerbation Patient states he feels a lot better. Shortness of breathing has improved. He is on 2 L of oxygen at home. Today he is on 4 L of oxygen. Patient was ambulating with physical therapist and which with ambulation his oxygenation did drop to 80%. Patient stated that once he stopped them because breath he did not have any shortness of breathing. I also spoke to patient's at the bedside. Objective Vitals Vital Signs Date Time Temp Pulse Resp B/P (MAP) Pulse Ox O2 Delivery O2 Flow Rate FiO2 12/31/17 09:00 94 Nasal Cannula 4.00 12/31/17 08:09 97.6 22 22 116/67 (83) 94 12/31/17 08:00 78 12/31/17 04:00 78 12/31/17 04:00 97.2 78 17 146/74 (98) 98 12/31/17 00:45 98 40 12/31/17 00:35 97.5 85 17 138/72 (94) 92 12/31/17 00:00 Bi-Pap 4.00 12/31/17 00:00 78 12/30/17 21:00 Nasal Cannula 4.00 12/30/17 20:00 80 12/30/17 20:00 97.9 81 17 116/76 (89) 91 12/30/17 16:43 92 12/30/17 16:09 98.3 76 20 96/51 (66) 98 I/O 12/30/17 12/30/17 12/30/17 12/31/17 12/31/17 12/31/17 07:00 15:00 23:00 07:00 15:00 23:00 Intake Total 120 ml 480 ml 480 ml Output Total 2850 ml 1000 ml Balance -2730 ml 480 ml -520 ml Intake Oral 120 ml 380 ml 480 ml IV Total 100 ml Output Urine Total 2850 ml 1000 ml # Voids 4 # Bowel Movements 1 1 Result Diagram: 12/31/17 0615 12/31/17 0615 Objective Remarks GENERAL: in NAD CARDIOVASCULAR: Regular rate and rhythm without murmurs, gallops, or rubs. RESPIRATORY: B/L mild mid to lower crackles that has improved. No accessory muscle use. GASTROINTESTINAL: Abdomen soft, non-tender, nondistended. MUSCULOSKELETAL: Positive to pitting edema lower extremity. Medications and IVs Current Medications Cefepime HCl 2000 mg/Sodium Chloride 100 ml @ 200 mls/hr ONCE ONCE IV Last administered on 12/24/17at 01:25; Start 12/24/17 at 00:00; Stop 12/24/17 at 00:29 ; Status DC Vancomycin HCl 1000 mg/Sodium Chloride 250 ml @ 250 mls/hr ONCE ONCE IV Last administered on 12/24/17at 03:55; Start 12/24/17 at 00:00; Stop 12/24/17 at 00:59 ; Status DC Albuterol/ Ipratropium (Duoneb Neb) 1 ampule ONCE ONCE NEB Last administered on 12/24/17at 00:16; Start 12/24/17 at 00:00; Stop 12/24/17 at 00:01; Status DC Tetanus/ Diphtheria Toxoids (Tetanus/ Diphtheria Tox Adult) 0.5 ml ONCE ONCE IM Last administered on 12/24/17at 01:27; Start 12/24/17 at 00:00; Stop 12/24/17 at 00:01; Status DC Albuterol/ Ipratropium (Duoneb Neb) 1 ampule Q15M INH Last administered on 12/24at 03:20; Start 12/24/17 at 01:30; Stop 12/24/17 at 01:46; Status DC Iohexol (Omnipaque 350 Inj) 65 ml STK-MED ONCE IVCONTRAST Last administered on 12/24/17at 03:13; Start 12/24/17 at 03:13; Stop 12/24/17 at 03:14; Status DC Methylprednisolone Sodium Succinate (SoluMEDROL INJ) 125 mg ONCE ONCE IV PUSH Last administered on 12/24/17at 05:30; Start 12/24/17 at 04:15; Stop 12/24/17 at 04:16; Status DC Albuterol/ Ipratropium (Duoneb Neb) 1 ampule ONCE ONCE NEB Last administered on 12/24/17at 04:25; Start 12/24/17 at 04:15; Stop 12/24/17 at 04:16; Status DC Sodium Chloride 500 ml @ 500 mls/hr BOLUS ONCE IV Last administered on at 05:29; Start 12/24/17 at 04:15; Stop 12/24/17 at 05:14; Status DC Sodium Chloride 1,000 ml @ 100 mls/hr Q10H IV Last administered on 12/24/17at 05:29; Start 12/24/17 at 04:15; Stop 12/24/17 at 10:53; Status DC Sodium Chloride 500 ml @ 500 mls/hr BOLUS ONCE IV Last administered on at 07:17; Start 12/24/17 at 04:15; Stop 12/24/17 at 05:14; Status DC Magnesium Sulfate/ Dextrose 100 ml @ 100 mls/hr Q1H IV Last administered on 09/02at 12:28; Start 12/24/17 at 07:30; Stop 12/24/17 at 09:29; Status DC Potassium Chloride 100 ml @ 100 mls/hr Q1H IV Last administered on 12/24/17at 12:44; Start 12/24/17 at 07:30; Stop 12/24/17 at 10:29; Status DC Sodium Chloride 1,000 ml @ 84 mls/hr [id number] IV Last administered on at 07:49; Start 12/24/17 at 07:39; Stop 12/26/17 at 16:26; Status DC Sodium Chloride (NS Flush) 2 ml UNSCH PRN IV FLUSH FLUSH AFTER USING IV ACCESS ; Start 12/24/17 at 07:45 Sodium Chloride (NS Flush) 2 ml BID IV FLUSH Last administered on 12/31/17at 09: 04; Start 12/24/17 at 09:00 Acetaminophen (Tylenol) 650 mg Q6H PRN PO FEVER >100F; Start 12/24/17 at 07:45 Acetaminophen/ Hydrocodone Bitart ([place] 5-325 Mg) 1 tab Q4H PRN PO PAIN SCALE 1 TO 5 Last administered on 12/28/17at 21:51; Start 12/24/17 at 07:45 Morphine Sulfate (Morphine Inj) 2 mg Q2H PRN IV PUSH PAIN SCALE 6 TO 10; Start 12/24/17 at 07:45 Pantoprazole Sodium (Protonix) 40 mg DAILY PO Last administered on 12/31/17at 09 :02; Start 12/24/17 at 09:00 Artificial Tears (Tears Naturale Opth Soln) 1 drop TID EACH EYE ; Start at 09:00 Ondansetron HCl (Zofran Inj) 4 mg Q6H PRN IV PUSH NAUSEA OR VOMITING; Start 09/02 at 07:45 Albuterol/ Ipratropium (Duoneb Neb) 1 ampule Q4HR NEB INH Last administered on 12/28/17at 04:19; Start 12/24/17 at 08:00; Stop 12/28/17 at 07:59; Status DC Albuterol Sulfate (Albuterol Neb) 2.5 mg Q2HR NEB PRN INH SOB/WHEEZING; Start 12/24/17 at 07:45 Miscellaneous Information 1 [id number] XX Last administered on 12/24/17at 07:45; Start 12/24/17 at 07:45 Chlorhexidine Gluconate (Chlorhexidine 2% Cloth) Taper DAILY@04 TOP Last administered on 12/26/17at 04:00; Start 12/25/17 at 04:00; Stop 12/21/18 at 03:59 Chlorhexidine Gluconate (Chlorhexidine 2% Cloth) 3 pack UNSCH PRN TOP HYGIENIC CARE; Start 12/24/17 at 07:45 Senna/Docusate Sodium (Annie-Colace) 1 tab BID PO Last administered on at 09:02; Start 12/24/17 at 09:00 Magnesium Hydroxide (Milk Of Magnesia Liq) 30 ml Q12H PRN PO Mild constipation ; Start 12/24/17 at 07:45 Sennosides (Senokot) 17.2 mg Q12H PRN PO Moderate constipation; Start 12/24/17 at 07:45 Bisacodyl (Dulcolax Supp) 10 mg DAILY PRN RECTAL SEVERE CONSITIPATION; Start at 07:45 Lactulose (Lactulose Liq) 30 ml DAILY PRN PO SEVERE CONSITIPATION; Start at 07:45 Potassium Chloride 100 ml @ 50 mls/hr Q2H PRN IV For Potassium 2.8 - 3.2 mEq/ L Last administered on 12/25/17at 22:20; Start 12/24/17 at 07:45; Stop 12/26/17 at 16:26; Status DC Potassium Chloride 100 ml @ 50 mls/hr Q2H PRN IV For Potassium 2.8 - 3.2 mEq/L ; Start 12/24/17 at 07:45; Stop 12/26/17 at 16:26; Status DC Potassium Bicarb/ Potassium Chloride (K-Lyte Cl Eff) 50 meq UNSCH PRN PO For Potassium 3.3 - 3.5 mEq/L; Start 12/24/17 at 07:45; Stop 12/26/17 at 16:28; Status DC Potassium Chloride 100 ml @ 25 mls/hr UNSCH PRN IV For Potassium 3.3 - 3.5 mEq /L; Start 12/24/17 at 07:45; Stop 12/26/17 at 16:26; Status DC Potassium Chloride 100 ml @ 50 mls/hr Q2H PRN IV For Potassium 3.3 - 3.5 mEq/L ; Start 12/24/17 at 07:45; Stop 12/26/17 at 16:26; Status DC Magnesium Sulfate 4 gm/Sodium Chloride 100 ml @ 50 mls/hr UNSCH PRN IV For Magnesium 0.9 - 1.1 mg/dL; Start 12/24/17 at 07:45; Stop 12/26/17 at 16:26; Status DC Magnesium Oxide (Mag-Ox) 800 mg UNSCH PRN PO For Magnesium 1.2 - 1.6 mg/dL; Start 12/24/17 at 07:45 Magnesium Sulfate 2 gm/Sodium Chloride 100 ml @ 50 mls/hr UNSCH PRN IV For Magnesium 1.2 - 1.6 mg/dL; Start 12/24/17 at 07:45; Stop 12/26/17 at 16:26; Status DC Potassium Phosphate (K-Phos) 2,000 mg Q4H PRN PO For Phosphorus < 2.5 mg/dL; Start 12/24/17 at 07:45 Sodium Phosphate 30 mmol/Sodium Chloride 250 ml @ 42 mls/hr UNSCH PRN IV For Phosphorus < 2.5 mg/dL; Start 12/24/17 at 07:45; Stop 12/26/17 at 16:28; Status DC Potassium Phosphate (K-Phos) 2,000 mg UNSCH PRN PO/TUBE SEE LABEL COMMENTS; Start 12/24/17 at 07:45 Potassium Phosphate 30 mmol/ Sodium Chloride 260 ml @ 42 mls/hr UNSCH PRN IV SEE LABEL COMMENTS Last administered on 12/25/17at 07:49; Start 12/24/17 at 07:45 ; Stop 12/26/17 at 16:26; Status DC Dextrose (D50w (Vial) Inj) 50 ml UNSCH PRN IV PUSH HYPOGLYCEMIA-SEE COMMENTS; Start 12/24/17 at 07:45 Glucagon (Glucagon Inj) 1 mg UNSCH PRN OTHER HYPOGLYCEMIA-SEE COMMENTS; Start 12/24/17 at 07:45 Insulin Human Regular (NovoLIN R SUPPLEMENTAL SCALE) 1 Q6HR SQ Last administered on 12/24/17at 23:34; Start 12/24/17 at 12:00; Stop 12/25/17 at 10:00 ; Status DC Methylprednisolone Sodium Succinate (SoluMEDROL INJ) 40 mg Q8HR IV PUSH Last administered on 12/28/17at 05:29; Start 12/24/17 at 14:00; Stop 12/28/17 at 12:25 ; Status DC Cholecalciferol (Vitamin D3) 2,000 units DAILY PO Last administered on at 09:02; Start 12/24/17 at 09:00 Gabapentin (Neurontin) 300 mg TID PRN PO PAIN SCALE 1 TO 7 Last administered on 12/31/17at 15:12; Start 12/24/17 at 08:00 Valproic Acid (Depakene Liq) 200 mg DAILY PO Last administered on 12/31/17at 09: 03; Start 12/24/17 at 09:00 Lorazepam (Ativan) 1 mg HS PRN PO RESTLESSNESS; Start 12/24/17 at 08:00 Amylase/Lipase/ Protease (Creon 6-19-30) 1 cap DAILY PO Last administered on at 09:02; Start 12/24/17 at 09:00 Rivaroxaban (Xarelto) 15 mg HS PO Last administered on 12/30/17at 21:00; Start 12/24/17 at 21:00 Non-Formulary Medication 1,000 mcg DAILY PO ; Start 12/24/17 at 09:00; Stop 09/02 at 09:00; Status DC Non-Formulary Medication 2 cap HS PO ; Start 12/24/17 at 21:00; Status UNV Multivitamins (Theragran) 1 tab DAILY PO Last administered on 12/31/17at 09:02; Start 12/24/17 at 09:00 Cefepime HCl 2000 mg/Sodium Chloride 100 ml @ 200 mls/hr Q8H IV ; Start at 08:00; Stop 12/24/17 at 11:29; Status DC Azithromycin 500 mg/Sodium Chloride 250 ml @ 250 mls/hr Q24H IV ; Start at 08:00; Stop 12/24/17 at 11:30; Status DC Norepinephrine Bitartrate 4 mg/ Sodium Chloride 250 ml @ 7.5 mls/hr TITRATE PRN IV Blood pressure management; Start 12/24/17 at 08:00; Stop 12/26/17 at 16: 27; Status DC Terbutaline Sulfate (Brethine Inj) 1 mg UNSCH PRN SQ For Extravasation; Start 12/24/17 at 08:00 Cyanocobalamin (Vitamin B12) 1,000 mcg DAILY PO Last administered on 12/31/17at 09:02; Start 12/24/17 at 09:00 Cefepime HCl 2000 mg/Sodium Chloride 100 ml @ 200 mls/hr Q8H IV Last administered on 12/27/17at 03:35; Start 12/24/17 at 12:00; Stop 12/27/17 at 07:40 ; Status DC Azithromycin 500 mg/Sodium Chloride 250 ml @ 250 mls/hr Q24H IV Last administered on 12/27/17at 13:53; Start 12/24/17 at 13:00; Stop 12/27/17 at 16:12 ; Status DC Gadodiamide (Omniscan Pf Inj) 20 ml STK-MED ONCE IVCONTRAST Last administered on 12/24/17at 16:32; Start 12/24/17 at 16:32; Stop 12/24/17 at 16:33; Status DC Furosemide (Lasix) 40 mg DAILY PO Last administered on 12/27/17at 08:29; Start 12/25/17 at 09:45; Stop 12/27/17 at 13:30; Status DC Potassium Chloride (KCl) 20 meq DAILY PO Last administered on 12/31/17at 09:02; Start 12/25/17 at 09:45 Diltiazem HCl (Cardizem) 30 mg Q12HR PO Last administered on 12/31/17at 09:02; Start 12/25/17 at 10:00 Levothyroxine Sodium (Synthroid) 200 mcg DAILY@0600 PO Last administered on at 05:18; Start 12/26/17 at 15:00 Potassium Chloride (KCl) 20 meq ONCE ONCE PO Last administered on 12/26/17at 17 :18; Start 12/26/17 at 16:30; Stop 12/26/17 at 16:31; Status DC Cefepime HCl 2000 mg/Sodium Chloride 100 ml @ 200 mls/hr Q12H IV ; Start at 16:00; Stop 12/27/17 at 16:13; Status DC Magnesium Sulfate/ Dextrose 100 ml @ 100 mls/hr Q1H IV Last administered on at 17:19; Start 12/27/17 at 14:00; Stop 12/27/17 at 15:59; Status DC Furosemide (Lasix Inj) 40 mg BID@ IV PUSH Last administered on 12/27/17at 18:49; Start 12/27/17 at 18:00; Stop 12/28/17 at 09:13; Status DC Levofloxacin (Levaquin) 500 mg ONCE ONCE PO Last administered on 12/28/17at 09: 52; Start 12/28/17 at 09:00; Stop 12/28/17 at 09:01; Status DC Levofloxacin (Levaquin) 250 mg Q24H PO Last administered on 12/31/17at 09:02; Start 12/29/17 at 09:00 Potassium Chloride (KCl) 40 meq ONCE ONCE PO Last administered on 12/28/17at 09 :51; Start 12/28/17 at 08:00; Stop 12/28/17 at 08:01; Status DC Furosemide (Lasix Inj) 20 mg BID@18 IV PUSH Last administered on 12/28/17at 18:34; Start 12/28/17 at 18:00; Stop 12/29/17 at 16:04; Status DC Methylprednisolone Sodium Succinate (SoluMEDROL INJ) 40 mg Q12HR IV PUSH Last administered on 12/30/17at 10:03; Start 12/28/17 at 21:00; Stop 12/30/17 at 12:45 ; Status DC Potassium Bicarb/ Potassium Chloride (K-Lyte Cl Eff) 50 meq ONCE ONCE PO Last administered on 12/28/17at 21:51; Start 12/28/17 at 20:00; Stop 12/28/17 at 20:01; Status DC Furosemide (Lasix Inj) 20 mg BID@09,18 IV PUSH Last administered on 12/31/17at 09:04; Start 12/29/17 at 18:00 Albumin Human 100 ml @ 60 mls/hr BID IV Last administered on 12/31/17at 09:01; Start 12/29/17 at 21:00; Stop 12/31/17 at 10:39; Status DC Prednisone (Deltasone) 20 mg BID PO ; Start 12/30/17 at 21:00; Stop 12/30/17 at 21:00; Status DC Prednisone (Deltasone) 20 mg DAILY PO Last administered on 12/31/17at 09:02; Start 12/31/17 at 09:00 Tamsulosin HCl (Flomax) 0.4 mg DAILY PO Last administered on 12/31/17at 09:02; Start 12/30/17 at 16:30 Potassium Chloride (KCl) 20 meq ONCE ONCE PO Last administered on 12/31/17at 15 :08; Start 12/31/17 at 13:45; Stop 12/31/17 at 13:46; Status DC A/P Problem List: (1) Frequent falls ICD Code: R29.6 - Repeated falls Status: Chronic (2) Cataract ICD Code: H26.9 - Unspecified cataract (3) Hypoalbuminemia ICD Code: E88.09 - Other disorders of plasma-protein metabolism, not elsewhere classified (4) Hypokalemia ICD Code: E87.6 - Hypokalemia (5) Hypomagnesemia ICD Code: E83.42 - Hypomagnesemia (6) Elevated partial thromboplastin time (PTT) ICD Code: R79.1 - Abnormal coagulation profile (7) Elevated INR ICD Code: R79.1 - Abnormal coagulation profile (8) Gastroesophageal reflux disease ICD Code: K21.9 - Gastro-esophageal reflux disease without esophagitis (9) Pancreatic insufficiency ICD Code: K86.89 - Other specified diseases of pancreas (10) Peripheral neuropathy ICD Code: G62.9 - Polyneuropathy, unspecified (11) Chronic prescription benzodiazepine use ICD Code: Z79.899 - Other mcfp (current) drug therapy (12) Chronic anticoagulation ICD Code: Z79.01 - 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 anticoagulants (13) COPD (chronic obstructive pulmonary disease) ICD Code: J44.9 - Chronic obstructive pulmonary disease, unspecified Status: Acute (14) CAD (coronary artery disease) ICD Code: I25.10 - Atherosclerotic heart disease of [place] coronary artery without angina pectoris Status: Acute (15) Pancytopenia ICD Code: D61.818 - Pancytopenia Status: Acute (16) Esophageal cancer ICD Code: C15.9 - Esophageal cancer Status: Acute (17) Pleural effusion, left ICD Code: J90 - Pleural effusion, not elsewhere classified Status: Acute (18) Pneumonia ICD Code: J18.9 - Pneumonia, unspecified organism Status: Acute (19) Chronic kidney disease, stage III (moderate) ICD Code: N18.3 - Chronic kidney disease, stage III (moderate) Status: Acute (20) Hypertension ICD Code: I10 - Hypertension Status: Chronic (21) Hypothyroidism ICD Code: E03.9 - Hypothyroidism Status: Chronic (22) Hypoxemia ICD Code: R09.02 - Hypoxemia Status: Acute (23) Severe sepsis ICD Code: A41.9 - Sepsis, unspecified organism; R65.20 - Severe sepsis without septic shock Assessment and Plan This is a 82-year-old male with chronic respiratory failure on 2 L oxygen at home and COPD who presented with shortness of breathing Acute on chronic respiratory failure -Most likely secondary to CHF exacerbation versus pneumonia or combination. Repeat chest x-ray on 12/27 shows chronic interstitial changes of mild cardiomegaly. Chest x-ray was repeated on 12/28 was stable. ABG reviewed with improvement. -Symptoms are improving. See treatment as below. Continue to remain oxygen as tolerated. Acute on chronic diastolic CHF -Patient required BiPAP last night but respiratory status has improved drastically. Patient at home is on CPAP. -Patient on Lasix 20 mg IV twice daily. Creatinine continues to increase. Nephrology is consulted. Patient also given a dose of albumin. Good urine output. Continues to improve clinically. Urinary retention -Patient started on Flomax. Questionable pneumonia -Cefepime and azithromycin. Infectious disease consulted and patient's on oral Levaquin now. Clinically continue to improve. Chronic Benzodiazepine use/Peripheral Neuropathy/frequent falls, CT brain 12/24 revealed no acute intracranial findings -Continue lorazepam 1 mg nightly/home medication - Continue gabapentin 300 mg p.o. 3 times daily for peripheral neuropathy, as per Physical Therapy okay to go home with [facility] for PT and skilled nurse. Atrial Fibrillation/rate control/Hypertension rate controlled -Continue home medication. Patient on Xarelto. Chronic respiratory failure/COPD -See treatment as above. Symptoms are improving. We will continue to wean off Solu-Medrol. - CT pulmonary revealed left lower lobe infiltrate versus atelectasis. 8 mm left upper lobe nodule follow-up CT scan in 6 months. Coronary calcifications left main/LAD Chronic pancreatic insufficiency -continue pancreatic enzymes, PPIs. 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 chronic rivaroxaban use. Hypomagnesia -Magnesium 1.9 . Hypokalemia -Secondary to Lasix use. Will replenish as needed. Renal insufficiency -Creatinine continues to increase. Most likely secondary to aggressive diuresis due to respiratory failure. 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 Creatinine did increase a little today. He does have good urine output. Avoid nephrotoxins. Strict ins and out. Continue to monitor creatinine. -Renal ultrasound just shows medically renal disease. He did have a lot of urinary retention without any hydronephrosis in which he had a straight cath done. This may be secondary to BPH he was started on Flomax. Prophylaxis -GI -pantoprazole -DVT -SCD/rivaroxaban will provide pharmacological prophylaxis Problem Qualifiers (1) Cataract: Qualified Codes: H26.9 - Unspecified cataract (2) Gastroesophageal reflux disease: Qualified Codes: K21.9 - Gastro-esophageal reflux disease without esophagitis (3) Peripheral neuropathy: Qualified Codes: G62.9 - Polyneuropathy, unspecified (4) COPD (chronic obstructive pulmonary disease): Qualified Codes: J44.0 - Chronic obstructive pulmonary disease with acute lower respiratory infection (5) CAD (coronary artery disease): (6) Esophageal cancer: Qualified Codes: C15.9 - Malignant neoplasm of esophagus, unspecified (7) Pneumonia: Qualified Codes: J18.1 - Lobar pneumonia, unspecified organism (8) Hypertension: Qualified Codes: I10 - Essential (primary) hypertension (9) Hypothyroidism: Qualified Codes: E03.9 - Hypothyroidism, unspecified Marianne Romero MD Dec 31, 2017 13:42
[2017-12-31] MEDS ORDERED: POTASSIUM CHLORIDE 20 MEQ CONTROLLED RELEASE TAB PO ONE (13:45)
[2017-12-31] MEDS: GABAPENTIN 300 MG CAP PO PRN ×2 (15:12→23:02)
--- NOTE | 2017-12-31 16:28 | PD.CARD.PN ---
Subjective Subjective Remarks SOB improving, no CP, mild abdominal bloating, feels much better Objective Medications Current Medications Medications (Trade) Dose Ordered Sig/William Route Start Time Stop Time Status Last Admin (NS Flush) 2 ml UNSCH PRN IV FLUSH 12/24/17 07:45 (NS Flush) 2 ml BID IV FLUSH 12/24/17 09:00 12/31/17 09:04 (Tylenol) 650 mg Q6H PRN PO 12/24/17 07:45 ([place] 5-325 Mg) 1 tab Q4H PRN PO 12/24/17 07:45 12/28/17 21:51 (Morphine Inj) 2 mg Q2H PRN IV PUSH 12/24/17 07:45 (Protonix) 40 mg DAILY PO 12/24/17 09:00 12/31/17 09:02 (Tears Naturale Opth Soln) 1 drop TID EACH EYE 12/24/17 09:00 (Zofran Inj) 4 mg Q6H PRN IV PUSH 12/24/17 07:45 (Albuterol Neb) 2.5 mg Q2HR NEB PRN INH 12/24/17 07:45 Miscellaneous Information 1 Q361D XX 12/24/17 07:45 12/24/17 07:45 (Chlorhexidine 2% Cloth) Taper DAILY@04 TOP 12/25/17 04:00 12/21/18 03:59 12/26/17 04:00 (Chlorhexidine 2% Cloth) 3 pack UNSCH PRN TOP 12/24/17 07:45 (Annie-Colace) 1 tab BID PO 12/24/17 09:00 12/31/17 09:02 (Milk Of Magnesia Liq) 30 ml Q12H PRN PO 12/24/17 07:45 (Senokot) 17.2 mg Q12H PRN PO 12/24/17 07:45 (Dulcolax Supp) 10 mg DAILY PRN RECTAL 12/24/17 07:45 (Lactulose Liq) 30 ml DAILY PRN PO 12/24/17 07:45 (Mag-Ox) 800 mg UNSCH PRN PO 12/24/17 07:45 (K-Phos) 2,000 mg Q4H PRN PO 12/24/17 07:45 (K-Phos) 2,000 mg UNSCH PRN PO/TUBE 12/24/17 07:45 (D50w (Vial) Inj) 50 ml UNSCH PRN IV PUSH 12/24/17 07:45 (Glucagon Inj) 1 mg UNSCH PRN OTHER 12/24/17 07:45 (Vitamin D3) 2,000 units DAILY PO 12/24/17 09:00 12/31/17 09:02 (Neurontin) 300 mg TID PRN PO 12/24/17 08:00 12/31/17 15:12 (Depakene Liq) 200 mg DAILY PO 12/24/17 09:00 12/31/17 09:03 (Ativan) 1 mg HS PRN PO 12/24/17 08:00 (Creon 6-19-30) 1 cap DAILY PO 12/24/17 09:00 12/31/17 09:02 (Xarelto) 15 mg HS PO 12/24/17 21:00 12/30/17 21:00 (Theragran) 1 tab DAILY PO 12/24/17 09:00 12/31/17 09:02 (Brethine Inj) 1 mg UNSCH PRN SQ 12/24/17 08:00 (Vitamin B12) 1,000 mcg DAILY PO 12/24/17 09:00 12/31/17 09:02 (KCl) 20 meq DAILY PO 12/25/17 09:45 12/31/17 09:02 (Cardizem) 30 mg Q12HR PO 12/25/17 10:00 12/31/17 09:02 (Synthroid) 200 mcg DAILY@0600 PO 12/26/17 15:00 12/30/17 05:18 (Levaquin) 250 mg Q24H PO 12/29/17 09:00 12/31/17 09:02 (Lasix Inj) 20 mg BID@,18 IV PUSH 12/29/17 18:00 12/31/17 09:04 (Deltasone) 20 mg DAILY PO 12/31/17 09:00 12/31/17 09:02 (Flomax) 0.4 mg DAILY PO 12/30/17 16:30 12/31/17 09:02 Vital Signs / I&O Vital Signs Date Time Temp Pulse Resp B/P (MAP) Pulse Ox O2 Delivery O2 Flow Rate FiO2 12/31/17 12:09 97.4 86 22 125/61 (82) 95 12/31/17 12:00 80 12/31/17 09:00 94 Nasal Cannula 4.00 12/31/17 08:09 97.6 22 22 116/67 (83) 94 12/31/17 08:00 78 12/31/17 04:00 78 12/31/17 04:00 97.2 78 17 146/74 (98) 98 12/31/17 00:45 98 40 12/31/17 00:35 97.5 85 17 138/72 (94) 92 12/31/17 00:00 Bi-Pap 4.00 12/31/17 00:00 78 12/30/17 21:00 Nasal Cannula 4.00 12/30/17 20:00 80 12/30/17 20:00 97.9 81 17 116/76 (89) 91 12/30/17 16:43 92 I/O 12/30/17 12/30/17 12/30/17 12/31/17 12/31/17 12/31/17 07:00 15:00 23:00 07:00 15:00 23:00 Intake Total 120 ml 480 ml 480 ml 100 ml Output Total 2850 ml 1000 ml Balance -2730 ml 480 ml -520 ml 100 ml Intake Oral 120 ml 380 ml 480 ml IV Total 100 ml 100 ml Output Urine Total 2850 ml 1000 ml # Voids 4 # Bowel Movements 1 1 Physical Exam GENERAL: In NAD. SKIN: Warm and dry. HEAD: Normocephalic. EYES: No scleral icterus. No injection or drainage. NECK: Supple, trachea midline. No JVD or lymphadenopathy. CARDIOVASCULAR: Irregular rate and rhythm, without murmurs, gallops, or rubs. RESPIRATORY: Breath sounds equal bilaterally. No accessory muscle use. GASTROINTESTINAL: Abdomen soft, non-tender, nondistended. MUSCULOSKELETAL: No cyanosis, mild LE edema. Laboratory Laboratory Tests Test 12/31/17 06:15 White Blood Count 11.7 TH/MM3 Red Blood Count 2.73 MIL/MM3 Hemoglobin 8.4 GM/DL Hematocrit 24.8 % Mean Corpuscular Volume 91.1 FL Mean Corpuscular Hemoglobin 30.8 PG Mean Corpuscular Hemoglobin Concent 33.9 % Red Cell Distribution Width 19.5 % Platelet Count 95 TH/MM3 Mean Platelet Volume 7.7 FL Blood Urea Nitrogen 89 MG/DL Creatinine 2.27 MG/DL Random Glucose 116 MG/DL Calcium Level 8.2 MG/DL Sodium Level 136 MEQ/L Potassium Level 3.2 MEQ/L Chloride Level 100 MEQ/L Carbon Dioxide Level 25.9 MEQ/L Anion Gap 10 MEQ/L Estimat Glomerular Filtration Rate 28 ML/MIN Assessment and Plan Problem List: (1) Frequent falls ICD Codes: R29.6 - Repeated falls Status: Chronic (2) Pneumonia ICD Codes: J18.9 - Pneumonia, unspecified organism Status: Acute (3) Severe sepsis ICD Codes: A41.9 - Sepsis, unspecified organism; R65.20 - Severe sepsis without septic shock (4) Hypertension ICD Codes: I10 - Hypertension Status: Chronic (5) Esophageal cancer ICD Codes: C15.9 - Esophageal cancer Status: Acute (6) CAD (coronary artery disease) ICD Codes: I25.10 - Atherosclerotic heart disease of [place] coronary artery without angina pectoris Status: Acute (7) Neutropenic ICD Codes: D70.9 - Neutropenia, unspecified Status: Chronic (8) COPD (chronic obstructive pulmonary disease) ICD Codes: J44.9 - Chronic obstructive pulmonary disease, unspecified Status: Acute (9) Atrial fibrillation ICD Codes: I48.91 - Unspecified atrial fibrillation Status: Chronic Assessment and Plan Overall improvement. Less O2 requirement. No angina. AF rate well controlled, continue anticoagulation with Xarelto. Pulm eval w Dr. Carlisle. Continue tx for diastolic CHF. Increase activity, continue PT. D/w pt and . Problem Qualifiers (1) Pneumonia: Qualified Codes: J18.1 - Lobar pneumonia, unspecified organism (2) Hypertension: Qualified Codes: I10 - Essential (primary) hypertension (3) Esophageal cancer: Qualified Codes: C15.9 - Malignant neoplasm of esophagus, unspecified (4) CAD (coronary artery disease): (5) COPD (chronic obstructive pulmonary disease): Qualified Codes: J44.0 - Chronic obstructive pulmonary disease with acute lower respiratory infection Jasmin Guo MD Dec 31, 2017 16:28
--- NOTE | 2017-12-31 17:28 | HHI.NPPN ---
Subjective Additional Remarks feeling better today Objective Data Data 12/31/17 01/01/18 18:59 06:59 Intake Total 100 ml Balance 100 ml IV Total 100 ml Vital Signs Date Time Temp Pulse Resp B/P (MAP) Pulse Ox O2 Delivery O2 Flow Rate FiO2 12/31/17 12:09 97.4 86 22 125/61 (82) 95 12/31/17 12:00 80 12/31/17 09:00 94 Nasal Cannula 4.00 12/31/17 08:09 97.6 22 22 116/67 (83) 94 12/31/17 08:00 78 12/31/17 04:00 78 12/31/17 04:00 97.2 78 17 146/74 (98) 98 12/31/17 00:45 98 40 12/31/17 00:35 97.5 85 17 138/72 (94) 92 12/31/17 00:00 Bi-Pap 4.00 12/31/17 00:00 78 12/30/17 21:00 Nasal Cannula 4.00 12/30/17 20:00 80 12/30/17 20:00 97.9 81 17 116/76 (89) 91 -: 12/31/17 0615 12/31/17 0615 Physical Exam General Appearance: Well Developed, Well Nourished, No Acute Distress Eyes Eye Exam: Pupils Equal Throat Throat Exam: Oral Mucosa [place] & Moist Neck Neck Exam: Neck Supple Pulmonary Resp Exam: Diminished Breath Sounds Cardiology CV Exam: Regular, Normal Sinus Rhythm Integumentary Skin Exam: Warm, Dry, Intact Extremeties Extremities Exam: Moderate Edema Neurologic Neuro Exam: Alert, Awake, Oriented Assessment/Plan Problem List: (1) HOLLIE (acute kidney injury) ICD Codes: N17.9 - Acute kidney failure, unspecified Status: Acute Plan: Creatinine 1.3 -> 1.7 -> 2.0 -> 2.2 -> 2.2 Started on albumin and Lasix 12/29 Possible cardio-renal component of HOLLIE, with urinary retention as well. Continue diuresis with albumin and lasix 20mg IV BID Potassium replaced today Apparently breathing improved after straight urine catheterization 12/29. Renal USX showed urinary retention with 1.8L urine in bladder Voided on his own now, continue to check bladder scans with every nursing shift. Flomax started. If ongoing retention or continued elevation in creatinine may consider indwelling herrera. (2) COPD (chronic obstructive pulmonary disease) ICD Codes: J44.9 - Chronic obstructive pulmonary disease, unspecified Status: Acute Plan: continues on prednisone, continue diuresis (3) CHF (congestive heart failure) ICD Codes: I50.9 - Heart failure, unspecified Plan: continue diuresis (4) Hypertension ICD Codes: I10 - Hypertension Status: Chronic Plan: BP stable. Problem Qualifiers (1) COPD (chronic obstructive pulmonary disease): Qualified Codes: J44.0 - Chronic obstructive pulmonary disease with acute lower respiratory infection (2) Hypertension: Qualified Codes: I10 - Essential (primary) hypertension Derian Goodwin MD Dec 31, 2017 17:28
[2017-12-31] MEDS: RIVAROXABAN 15 MG TAB PO SCH (22:07)
[2018-01-01] VITALS (8 sets, daily range): BP systolic 104–128; BP diastolic 56–70; PULSE 69–93; RESP 16–21; TEMP 97.4–98; O2SAT 93–98
[2018-01-01] MEDS: CHLORHEXIDINE GLUCONATE 2 % 1 PACK (2 CLOTHS) TOP SCH (03:00)
[2018-01-01] MEDS: LEVOTHYROXINE SODIUM 200 MCG TAB PO SCH (06:00)
[2018-01-01 07:00] LABS: BICARBONATE 25.8 MEQ/L (21.0-32.0); CALCIUM 8.3 MG/DL (8.5-10.1); CREATININE 2.28 MG/DL (0.60-1.30)
[2018-01-01] MEDS: ARTIFICIAL TEARS OPTH SOLN 15 ML BTL EACH EYE SCH ×3 (09:00→17:20)
[2018-01-01] MEDS: DILTIAZEM HCL 30 MG TAB PO SCH ×2 (09:04→20:39)
[2018-01-01] MEDS: FUROSEMIDE 20 MG/2 ML VIAL IV PUSH SCH ×2 (09:10→17:20)
[2018-01-01] MEDS: CYANOCOBALAMIN 1,000 MCG TAB PO SCH (09:10)
[2018-01-01] MEDS: DOCUSATE SODIUM 50 MG/SENNA 8.6 MG TAB PO SCH ×2 (09:10→20:39)
[2018-01-01] MEDS: predniSONE 20 MG TAB PO SCH (09:10)
[2018-01-01] MEDS: PANTOPRAZOLE SOD 40 MG DELAYED RELEASE TAB PO SCH (09:11)
[2018-01-01] MEDS: CHOLECALCIFEROL (VIT D3) 1000 UNIT TAB PO SCH (09:11)
[2018-01-01] MEDS: POTASSIUM CHLORIDE 20 MEQ CONTROLLED RELEASE TAB PO SCH (09:11)
[2018-01-01] MEDS: LEVOFLOXACIN 250 MG TAB PO SCH (09:11)
[2018-01-01] MEDS: TAMSULOSIN HCL 0.4 MG CAP PO SCH (09:12)
[2018-01-01] MEDS: MULTIVITAMIN TAB PO SCH (09:12)
[2018-01-01] MEDS: SODIUM CHLORIDE 0.9% FLUSH 10 ML FLUSH IV FLUSH SCH ×2 (09:13→20:39)
[2018-01-01] MEDS: VALPROIC ACID SYRUP 250 MG/5 ML UDC PO SCH (09:13)
[2018-01-01] MEDS: UMECLIDINIUM 62.5 MCG/VILANTEROL 25 MCG INHALER INH SCH (09:17)
--- NOTE | 2018-01-01 10:17 | HHI.NPPN ---
Subjective General Problems: Anemia, Edema Renal Failure: Acute History of Present Illness This is an 82-year-old male with a past medical history of ischemic heart disease with diastolic dysfunction, history of hypertension, hypothyroidism, gastroesophageal reflux disease, chronic obstructive pulmonary disease, history of chronic pancreatitis, history of esophageal cancer, atrial fibrillation, who came to the hospital with complaint of worsening shortness of breath and swelling of the legs.Nephrology was consulted because of elevated BUN and creatinine. The patient has creatinine of 1.2-1.3 on admission and ithas gone up to 2.0. The potassium is on the lower side. The patient was diagnosed with pneumonia and has been getting antibiotics and also has COPD with exacerbation and getting methylprednisolone. Patient has edema of the legs. Cardiology is following and he has been getting furosemide, which was on hold yesterday because of increased creatinine. Potassium was low and the patient has been getting intermittent potassium. He denies any dysuria or hematuria, but he has some urinary incontinence, especially after he was given Lasix. He noticed that he has worsening swelling of his legs, which has been going on for some time. He denies any known previous history of renal disease. There is no nausea, vomiting. His appetite is normal. There is no history of diarrhea. He noticed that he has increased distention of his abdomen for the last few days. Additional Remarks Alert and oriented. Reports that he did not sleep well secondary to urinary spilling on him during the night. Lower extremity edema. No SOB (Adelaide Espino) Review of Systems Respiratory Respiratory Remarks Denies SOB (Adelaide Espino) Cardiovascular Cardiac: Edema Cardiac Remarks Denies CP (Adelaide Espino) Gastrointestinal GI Remarks Denies abdominal pain (Adelaide Espino) Objective Data Data Vital Signs Date Time Temp Pulse Resp B/P (MAP) Pulse Ox O2 Delivery O2 Flow Rate FiO2 01/01/18 08:00 Nasal Cannula 4.00 01/01/18 04:43 Bi-Pap 01/01/18 04:00 75 01/01/18 04:00 98.0 80 16 128/69 (88) 98 01/01/18 01:33 95 40 01/01/18 00:53 97.8 90 21 123/70 (87) 93 01/01/18 00:00 82 12/31/17 22:00 Nasal Cannula 4.00 12/31/17 20:00 97.8 91 21 124/76 (92) 98 12/31/17 20:00 88 12/31/17 18:02 84 12/31/17 16:09 98.5 83 20 121/67 (85) 93 12/31/17 15:40 95 Nasal Cannula 4.00 12/31/17 12:09 97.4 86 22 125/61 (82) 95 12/31/17 12:00 80 (Adelaide Espino) -: 12/31/17 0615 01/01/18 0610 Physical Exam General Appearance: Well Developed, Well Nourished, No Acute Distress (Adelaide EspinoP) Eyes Eye Exam: Pupils Equal (Adelaide EspinoP) Throat Throat Exam: Oral Mucosa [place] & Moist (Adelaide EspinoP) Neck Neck Exam: Neck Supple (Adelaide EspinoP) Pulmonary Resp Exam: Diminished Breath Sounds (Adelaide EspinoP) Cardiology CV Exam: Regular, Normal Sinus Rhythm (Adelaide EspinoP) Gastrointestinal/Abdomen GI Exam: Soft, Non-Tender (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 Renal US: showed urinary retention with 1.8L urine in bladder. Voiding on his own now, continue to check bladder scans with every nursing shift. Plan Continue diuresis with lasix 20mg IV BID Continue flomax. If ongoing retention or continue elevated in creatinine may consider indwelling Awad Continue to monitor BMP and UOP Avoid nephrotoxins. (2) COPD (chronic obstructive pulmonary disease) ICD Codes: J44.9 - Chronic obstructive pulmonary disease, unspecified Status: Acute Plan: continues on prednisone, continue diuresis (3) CHF (congestive heart failure) ICD Codes: I50.9 - Heart failure, unspecified Plan: continue diuresis (4) Hypertension ICD Codes: I10 - Hypertension Status: Chronic Plan: BP stable. (Adelaide Espino) Problem List: (1) HOLLIE (acute kidney injury) ICD Codes: N17.9 - Acute kidney failure, unspecified Status: Acute Plan: Creatinine 1.3 -> 1.7 -> 2.0 -> 2.2 -> 2.2 today creatinine has remained stable at 2.2 Possible cardio-renal component of HOLLIE, with urinary retention as well. Renal US: showed urinary retention with 1.8L urine in bladder. Voiding on his own now, continue to check bladder scans with every nursing shift. Plan Continue diuresis with lasix 20mg IV BID Continue flomax. If ongoing retention or continue elevated in creatinine may consider indwelling Awad Continue to monitor BMP and UOP Avoid nephrotoxins. Patient seen and examined, agree with above. Creatinine is stable at 2.2. (2) COPD (chronic obstructive pulmonary disease) ICD Codes: J44.9 - Chronic obstructive pulmonary disease, unspecified Status: Acute Plan: continues on prednisone, continue diuresis (3) CHF (congestive heart failure) ICD Codes: I50.9 - Heart failure, unspecified Plan: continue diuresis (4) Hypertension ICD Codes: I10 - Hypertension Status: Chronic Plan: BP stable. (Jocelin Zelaya MD) Problem Qualifiers (1) COPD (chronic obstructive pulmonary disease): Qualified Codes: J44.0 - Chronic obstructive pulmonary disease with acute lower respiratory infection (2) Hypertension: Qualified Codes: I10 - Essential (primary) hypertension Adelaide Espino Jan 01, 2018 10:17 Jocelin Zelaya MD Jan 01, 2018 19:03
[2018-01-01] MEDS: LIPASE/PROTEASE/AMYLASE (6,000/19,000/30,000) CAP PO SCH (10:27)
--- NOTE | 2018-01-01 11:04 | HHI.PR ---
Subjective Remarks f/u for respiratory failure and ARF patient stated he feels better and breathing has improved. now on 4L of NC. he has no other complaints. No acute events overnight. Objective Vitals Vital Signs Date Time Temp Pulse Resp B/P (MAP) Pulse Ox O2 Delivery O2 Flow Rate FiO2 01/01/18 08:00 69 01/01/18 08:00 Nasal Cannula 4.00 01/01/18 04:43 Bi-Pap 01/01/18 04:00 75 01/01/18 04:00 98.0 80 16 128/69 (88) 98 01/01/18 01:33 95 40 01/01/18 00:53 97.8 90 21 123/70 (87) 93 01/01/18 00:00 82 12/31/17 22:00 Nasal Cannula 4.00 12/31/17 20:00 97.8 91 21 124/76 (92) 98 12/31/17 20:00 88 12/31/17 18:02 84 12/31/17 16:09 98.5 83 20 121/67 (85) 93 12/31/17 15:40 95 Nasal Cannula 4.00 12/31/17 12:09 97.4 86 22 125/61 (82) 95 12/31/17 12:00 80 I/O 12/31/17 12/31/17 12/31/17 01/01/18 01/01/18 01/01/18 07:00 15:00 23:00 07:00 15:00 23:00 Intake Total 480 ml 100 ml 520 ml 480 ml Output Total 1000 ml 1200 ml 600 ml Balance -520 ml 100 ml -680 ml -120 ml Intake Oral 480 ml 520 ml 480 ml IV Total 100 ml Output Urine Total 1000 ml 1200 ml 600 ml # Bowel Movements 2 Result Diagram: 12/31/17 0615 01/01/18 0610 Objective Remarks GENERAL: in NAD CARDIOVASCULAR: Regular rate and rhythm without murmurs, gallops, or rubs. RESPIRATORY: B/L CTA. No accessory muscle use. GASTROINTESTINAL: Abdomen soft, non-tender, nondistended. MUSCULOSKELETAL: Positive to pitting edema lower extremity. Medications and IVs Current Medications Cefepime HCl 2000 mg/Sodium Chloride 100 ml @ 200 mls/hr ONCE ONCE IV Last administered on 12/24/17at 01:25; Start 12/24/17 at 00:00; Stop 12/24/17 at 00:29 ; Status DC Vancomycin HCl 1000 mg/Sodium Chloride 250 ml @ 250 mls/hr ONCE ONCE IV Last administered on 12/24/17at 03:55; Start 12/24/17 at 00:00; Stop 12/24/17 at 00:59 ; Status DC Albuterol/ Ipratropium (Duoneb Neb) 1 ampule ONCE ONCE NEB Last administered on 12/24/17at 00:16; Start 12/24/17 at 00:00; Stop 12/24/17 at 00:01; Status DC Tetanus/ Diphtheria Toxoids (Tetanus/ Diphtheria Tox Adult) 0.5 ml ONCE ONCE IM Last administered on 12/24/17at 01:27; Start 12/24/17 at 00:00; Stop 12/24/17 at 00:01; Status DC Albuterol/ Ipratropium (Duoneb Neb) 1 ampule Q15M INH Last administered on 12/24at 03:20; Start 12/24/17 at 01:30; Stop 12/24/17 at 01:46; Status DC Iohexol (Omnipaque 350 Inj) 65 ml STK-MED ONCE IVCONTRAST Last administered on 12/24/17at 03:13; Start 12/24/17 at 03:13; Stop 12/24/17 at 03:14; Status DC Methylprednisolone Sodium Succinate (SoluMEDROL INJ) 125 mg ONCE ONCE IV PUSH Last administered on 12/24/17at 05:30; Start 12/24/17 at 04:15; Stop 12/24/17 at 04:16; Status DC Albuterol/ Ipratropium (Duoneb Neb) 1 ampule ONCE ONCE NEB Last administered on 12/24/17at 04:25; Start 12/24/17 at 04:15; Stop 12/24/17 at 04:16; Status DC Sodium Chloride 500 ml @ 500 mls/hr BOLUS ONCE IV Last administered on at 05:29; Start 12/24/17 at 04:15; Stop 12/24/17 at 05:14; Status DC Sodium Chloride 1,000 ml @ 100 mls/hr Q10H IV Last administered on 12/24/17at 05:29; Start 12/24/17 at 04:15; Stop 12/24/17 at 10:53; Status DC Sodium Chloride 500 ml @ 500 mls/hr BOLUS ONCE IV Last administered on at 07:17; Start 12/24/17 at 04:15; Stop 12/24/17 at 05:14; Status DC Magnesium Sulfate/ Dextrose 100 ml @ 100 mls/hr Q1H IV Last administered on 09/02at 12:28; Start 12/24/17 at 07:30; Stop 12/24/17 at 09:29; Status DC Potassium Chloride 100 ml @ 100 mls/hr Q1H IV Last administered on 12/24/17at 12:44; Start 12/24/17 at 07:30; Stop 12/24/17 at 10:29; Status DC Sodium Chloride 1,000 ml @ 84 mls/hr [id number] IV Last administered on at 07:49; Start 12/24/17 at 07:39; Stop 12/26/17 at 16:26; Status DC Sodium Chloride (NS Flush) 2 ml UNSCH PRN IV FLUSH FLUSH AFTER USING IV ACCESS ; Start 12/24/17 at 07:45 Sodium Chloride (NS Flush) 2 ml BID IV FLUSH Last administered on 01/01/18at 09: 13; Start 12/24/17 at 09:00 Acetaminophen (Tylenol) 650 mg Q6H PRN PO FEVER >100F; Start 12/24/17 at 07:45 Acetaminophen/ Hydrocodone Bitart ([place]well 5-325 Mg) 1 tab Q4H PRN PO PAIN SCALE 1 TO 5 Last administered on 12/28/17at 21:51; Start 12/24/17 at 07:45 Morphine Sulfate (Morphine Inj) 2 mg Q2H PRN IV PUSH PAIN SCALE 6 TO 10; Start 12/24/17 at 07:45 Pantoprazole Sodium (Protonix) 40 mg DAILY PO Last administered on 01/01/18at 09 :11; Start 12/24/17 at 09:00 Artificial Tears (Tears Naturale Opth Soln) 1 drop TID EACH EYE ; Start at 09:00 Ondansetron HCl (Zofran Inj) 4 mg Q6H PRN IV PUSH NAUSEA OR VOMITING; Start 09/02 at 07:45 Albuterol/ Ipratropium (Duoneb Neb) 1 ampule Q4HR NEB INH Last administered on 12/28/17at 04:19; Start 12/24/17 at 08:00; Stop 12/28/17 at 07:59; Status DC Albuterol Sulfate (Albuterol Neb) 2.5 mg Q2HR NEB PRN INH SOB/WHEEZING; Start 12/24/17 at 07:45 Miscellaneous Information 1 [id number] XX Last administered on 12/24/17at 07:45; Start 12/24/17 at 07:45 Chlorhexidine Gluconate (Chlorhexidine 2% Cloth) Taper DAILY@04 TOP Last administered on 12/26/17at 04:00; Start 12/25/17 at 04:00; Stop 12/21/18 at 03:59 Chlorhexidine Gluconate (Chlorhexidine 2% Cloth) 3 pack UNSCH PRN TOP HYGIENIC CARE; Start 12/24/17 at 07:45 Senna/Docusate Sodium (Annie-Colace) 1 tab BID PO Last administered on at 09:10; Start 12/24/17 at 09:00 Magnesium Hydroxide (Milk Of Magnesia Liq) 30 ml Q12H PRN PO Mild constipation ; Start 12/24/17 at 07:45 Sennosides (Senokot) 17.2 mg Q12H PRN PO Moderate constipation; Start 12/24/17 at 07:45 Bisacodyl (Dulcolax Supp) 10 mg DAILY PRN RECTAL SEVERE CONSITIPATION; Start at 07:45 Lactulose (Lactulose Liq) 30 ml DAILY PRN PO SEVERE CONSITIPATION; Start at 07:45 Potassium Chloride 100 ml @ 50 mls/hr Q2H PRN IV For Potassium 2.8 - 3.2 mEq/ L Last administered on 12/25/17at 22:20; Start 12/24/17 at 07:45; Stop 12/26/17 at 16:26; Status DC Potassium Chloride 100 ml @ 50 mls/hr Q2H PRN IV For Potassium 2.8 - 3.2 mEq/L ; Start 12/24/17 at 07:45; Stop 12/26/17 at 16:26; Status DC Potassium Bicarb/ Potassium Chloride (K-Lyte Cl Eff) 50 meq UNSCH PRN PO For Potassium 3.3 - 3.5 mEq/L; Start 12/24/17 at 07:45; Stop 12/26/17 at 16:28; Status DC Potassium Chloride 100 ml @ 25 mls/hr UNSCH PRN IV For Potassium 3.3 - 3.5 mEq /L; Start 12/24/17 at 07:45; Stop 12/26/17 at 16:26; Status DC Potassium Chloride 100 ml @ 50 mls/hr Q2H PRN IV For Potassium 3.3 - 3.5 mEq/L ; Start 12/24/17 at 07:45; Stop 12/26/17 at 16:26; Status DC Magnesium Sulfate 4 gm/Sodium Chloride 100 ml @ 50 mls/hr UNSCH PRN IV For Magnesium 0.9 - 1.1 mg/dL; Start 12/24/17 at 07:45; Stop 12/26/17 at 16:26; Status DC Magnesium Oxide (Mag-Ox) 800 mg UNSCH PRN PO For Magnesium 1.2 - 1.6 mg/dL; Start 12/24/17 at 07:45 Magnesium Sulfate 2 gm/Sodium Chloride 100 ml @ 50 mls/hr UNSCH PRN IV For Magnesium 1.2 - 1.6 mg/dL; Start 12/24/17 at 07:45; Stop 12/26/17 at 16:26; Status DC Potassium Phosphate (K-Phos) 2,000 mg Q4H PRN PO For Phosphorus < 2.5 mg/dL; Start 12/24/17 at 07:45 Sodium Phosphate 30 mmol/Sodium Chloride 250 ml @ 42 mls/hr UNSCH PRN IV For Phosphorus < 2.5 mg/dL; Start 12/24/17 at 07:45; Stop 12/26/17 at 16:28; Status DC Potassium Phosphate (K-Phos) 2,000 mg UNSCH PRN PO/TUBE SEE LABEL COMMENTS; Start 12/24/17 at 07:45 Potassium Phosphate 30 mmol/ Sodium Chloride 260 ml @ 42 mls/hr UNSCH PRN IV SEE LABEL COMMENTS Last administered on 12/25/17at 07:49; Start 12/24/17 at 07:45 ; Stop 12/26/17 at 16:26; Status DC Dextrose (D50w (Vial) Inj) 50 ml UNSCH PRN IV PUSH HYPOGLYCEMIA-SEE COMMENTS; Start 12/24/17 at 07:45 Glucagon (Glucagon Inj) 1 mg UNSCH PRN OTHER HYPOGLYCEMIA-SEE COMMENTS; Start 12/24/17 at 07:45 Insulin Human Regular (NovoLIN R SUPPLEMENTAL SCALE) 1 Q6HR SQ Last administered on 12/24/17at 23:34; Start 12/24/17 at 12:00; Stop 12/25/17 at 10:00 ; Status DC Methylprednisolone Sodium Succinate (SoluMEDROL INJ) 40 mg Q8HR IV PUSH Last administered on 12/28/17at 05:29; Start 12/24/17 at 14:00; Stop 12/28/17 at 12:25 ; Status DC Cholecalciferol (Vitamin D3) 2,000 units DAILY PO Last administered on at 09:11; Start 12/24/17 at 09:00 Gabapentin (Neurontin) 300 mg TID PRN PO PAIN SCALE 1 TO 7 Last administered on 12/31/17at 23:02; Start 12/24/17 at 08:00 Valproic Acid (Depakene Liq) 200 mg DAILY PO Last administered on 01/01/18at 09: 13; Start 12/24/17 at 09:00 Lorazepam (Ativan) 1 mg HS PRN PO RESTLESSNESS; Start 12/24/17 at 08:00 Amylase/Lipase/ Protease (Creon 6-19-30) 1 cap DAILY PO Last administered on at 10:27; Start 12/24/17 at 09:00 Rivaroxaban (Xarelto) 15 mg HS PO Last administered on 12/31/17at 22:07; Start 12/24/17 at 21:00 Non-Formulary Medication 1,000 mcg DAILY PO ; Start 12/24/17 at 09:00; Stop 09/02 at 09:00; Status DC Non-Formulary Medication 2 cap HS PO ; Start 12/24/17 at 21:00; Status UNV Multivitamins (Theragran) 1 tab DAILY PO Last administered on 01/01/18at 09:12; Start 12/24/17 at 09:00 Cefepime HCl 2000 mg/Sodium Chloride 100 ml @ 200 mls/hr Q8H IV ; Start at 08:00; Stop 12/24/17 at 11:29; Status DC Azithromycin 500 mg/Sodium Chloride 250 ml @ 250 mls/hr Q24H IV ; Start at 08:00; Stop 12/24/17 at 11:30; Status DC Norepinephrine Bitartrate 4 mg/ Sodium Chloride 250 ml @ 7.5 mls/hr TITRATE PRN IV Blood pressure management; Start 12/24/17 at 08:00; Stop 12/26/17 at 16: 27; Status DC Terbutaline Sulfate (Brethine Inj) 1 mg UNSCH PRN SQ For Extravasation; Start 12/24/17 at 08:00 Cyanocobalamin (Vitamin B12) 1,000 mcg DAILY PO Last administered on 01/01/18at 09:10; Start 12/24/17 at 09:00 Cefepime HCl 2000 mg/Sodium Chloride 100 ml @ 200 mls/hr Q8H IV Last administered on 12/27/17at 03:35; Start 12/24/17 at 12:00; Stop 12/27/17 at 07:40 ; Status DC Azithromycin 500 mg/Sodium Chloride 250 ml @ 250 mls/hr Q24H IV Last administered on 12/27/17at 13:53; Start 12/24/17 at 13:00; Stop 12/27/17 at 16:12 ; Status DC Gadodiamide (Omniscan Pf Inj) 20 ml STK-MED ONCE IVCONTRAST Last administered on 12/24/17at 16:32; Start 12/24/17 at 16:32; Stop 12/24/17 at 16:33; Status DC Furosemide (Lasix) 40 mg DAILY PO Last administered on 12/27/17at 08:29; Start 12/25/17 at 09:45; Stop 12/27/17 at 13:30; Status DC Potassium Chloride (KCl) 20 meq DAILY PO Last administered on 01/01/18at 09:11; Start 12/25/17 at 09:45 Diltiazem HCl (Cardizem) 30 mg Q12HR PO Last administered on 01/01/18at 09:04; Start 12/25/17 at 10:00 Levothyroxine Sodium (Synthroid) 200 mcg DAILY@0600 PO Last administered on at 06:00; Start 12/26/17 at 15:00 Potassium Chloride (KCl) 20 meq ONCE ONCE PO Last administered on 12/26/17at 17 :18; Start 12/26/17 at 16:30; Stop 12/26/17 at 16:31; Status DC Cefepime HCl 2000 mg/Sodium Chloride 100 ml @ 200 mls/hr Q12H IV ; Start at 16:00; Stop 12/27/17 at 16:13; Status DC Magnesium Sulfate/ Dextrose 100 ml @ 100 mls/hr Q1H IV Last administered on at 17:19; Start 12/27/17 at 14:00; Stop 12/27/17 at 15:59; Status DC Furosemide (Lasix Inj) 40 mg BID@,18 IV PUSH Last administered on 12/27/17at 18:49; Start 12/27/17 at 18:00; Stop 12/28/17 at 09:13; Status DC Levofloxacin (Levaquin) 500 mg ONCE ONCE PO Last administered on 12/28/17at 09: 52; Start 12/28/17 at 09:00; Stop 12/28/17 at 09:01; Status DC Levofloxacin (Levaquin) 250 mg Q24H PO Last administered on 01/01/18at 09:11; Start 12/29/17 at 09:00 Potassium Chloride (KCl) 40 meq ONCE ONCE PO Last administered on 12/28/17at 09 :51; Start 12/28/17 at 08:00; Stop 12/28/17 at 08:01; Status DC Furosemide (Lasix Inj) 20 mg BID@18 IV PUSH Last administered on 12/28/17at 18:34; Start 12/28/17 at 18:00; Stop 12/29/17 at 16:04; Status DC Methylprednisolone Sodium Succinate (SoluMEDROL INJ) 40 mg Q12HR IV PUSH Last administered on 12/30/17at 10:03; Start 12/28/17 at 21:00; Stop 12/30/17 at 12:45 ; Status DC Potassium Bicarb/ Potassium Chloride (K-Lyte Cl Eff) 50 meq ONCE ONCE PO Last administered on 12/28/17at 21:51; Start 12/28/17 at 20:00; Stop 12/28/17 at 20:01; Status DC Furosemide (Lasix Inj) 20 mg BID@,18 IV PUSH Last administered on 01/01/18at 09:10; Start 12/29/17 at 18:00 Albumin Human 100 ml @ 60 mls/hr BID IV Last administered on 12/31/17at 09:01; Start 12/29/17 at 21:00; Stop 12/31/17 at 10:39; Status DC Prednisone (Deltasone) 20 mg BID PO ; Start 12/30/17 at 21:00; Stop 12/30/17 at 21:00; Status DC Prednisone (Deltasone) 20 mg DAILY PO Last administered on 01/01/18at 09:10; Start 12/31/17 at 09:00 Tamsulosin HCl (Flomax) 0.4 mg DAILY PO Last administered on 01/01/18at 09:12; Start 12/30/17 at 16:30 Potassium Chloride (KCl) 20 meq ONCE ONCE PO Last administered on 12/31/17at 15 :08; Start 12/31/17 at 13:45; Stop 12/31/17 at 13:46; Status DC A/P Problem List: (1) Frequent falls ICD Code: R29.6 - Repeated falls Status: Chronic (2) Cataract ICD Code: H26.9 - Unspecified cataract (3) Hypoalbuminemia ICD Code: E88.09 - Other disorders of plasma-protein metabolism, not elsewhere classified (4) Hypokalemia ICD Code: E87.6 - Hypokalemia (5) Hypomagnesemia ICD Code: E83.42 - Hypomagnesemia (6) Elevated partial thromboplastin time (PTT) ICD Code: R79.1 - Abnormal coagulation profile (7) Elevated INR ICD Code: R79.1 - Abnormal coagulation profile (8) Gastroesophageal reflux disease ICD Code: K21.9 - Gastro-esophageal reflux disease without esophagitis (9) Pancreatic insufficiency ICD Code: K86.89 - Other specified diseases of pancreas (10) Peripheral neuropathy ICD Code: G62.9 - Polyneuropathy, unspecified (11) Chronic prescription benzodiazepine use ICD Code: Z79.899 - Other retirement (current) drug therapy (12) Chronic anticoagulation ICD Code: Z79.01 - terminal 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 supervisor (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) use of anticoagulants (13) COPD (chronic obstructive pulmonary disease) ICD Code: J44.9 - Chronic obstructive pulmonary disease, unspecified Status: Acute (14) CAD (coronary artery disease) ICD Code: I25.10 - Atherosclerotic heart disease of [place] coronary artery without angina pectoris Status: Acute (15) Pancytopenia ICD Code: D61.818 - Pancytopenia Status: Acute (16) Esophageal cancer ICD Code: C15.9 - Esophageal cancer Status: Acute (17) Pleural effusion, left ICD Code: J90 - Pleural effusion, not elsewhere classified Status: Acute (18) Pneumonia ICD Code: J18.9 - Pneumonia, unspecified organism Status: Acute (19) Chronic kidney disease, stage III (moderate) ICD Code: N18.3 - Chronic kidney disease, stage III (moderate) Status: Acute (20) Hypertension ICD Code: I10 - Hypertension Status: Chronic (21) Hypothyroidism ICD Code: E03.9 - Hypothyroidism Status: Chronic (22) Hypoxemia ICD Code: R09.02 - Hypoxemia Status: Acute (23) Severe sepsis ICD Code: A41.9 - Sepsis, unspecified organism; R65.20 - Severe sepsis without septic shock Assessment and Plan This is a 82-year-old male with chronic respiratory failure on 2 L oxygen at home and COPD who presented with shortness of breathing Acute on chronic respiratory failure -Most likely secondary to CHF exacerbation versus pneumonia or combination. Repeat chest x-ray on 12/27 shows chronic interstitial changes of mild cardiomegaly. Chest x-ray was repeated on 12/28 was stable. ABG reviewed with improvement. -Symptoms are improving. See treatment as below. wean oxygen as tolerated. baseline on 2L of oxygen. Acute on chronic diastolic CHF -Patient required BiPAP last night due to YUE but respiratory status has improved drastically. Patient at home is on CPAP. -Patient on Lasix 20 mg IV twice daily and albumin. Finisher Machine is managing. Renal insufficiency -Creatinine increased now stable at 2.28. ? cardiorenal. -Renal ultrasound just shows medically renal disease. He did have a lot of urinary retention without any hydronephrosis in which he had a straight cath done. This may be secondary to BPH on Flomax. -Continue management per inserting machine operator. good urine output. Avoid nephrotoxins. Strict ins and out. Continue to monitor creatinine. Urinary retention -Patient started on Flomax. Questionable pneumonia -Cefepime and azithromycin. Infectious disease consulted and patient's on oral Levaquin now. Clinically continue to improve. Chronic Benzodiazepine use/Peripheral Neuropathy/frequent falls, CT brain 12/24 revealed no acute intracranial findings -Continue lorazepam 1 mg nightly/home medication - Continue gabapentin 300 mg p.o. 3 times daily for peripheral neuropathy, as per Physical Therapy okay to go home with [facility] for PT and skilled nurse. Atrial Fibrillation/rate control/Hypertension rate controlled -Continue home medication. Patient on Xarelto. Chronic respiratory failure/COPD -See treatment as above. Symptoms are improving. We will continue to wean off Solu-Medrol. - CT pulmonary revealed left lower lobe infiltrate versus atelectasis. 8 mm left upper lobe nodule follow-up CT scan in 6 months. Coronary calcifications left main/LAD Chronic pancreatic insufficiency -continue pancreatic enzymes, PPIs. 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 chronic rivaroxaban use. Hypomagnesia -Magnesium 1.9 . Hypokalemia -Secondary to Lasix use. Will replenish as needed. YUE -on CPAP at home -on prednisone. -Pulm ff. Prophylaxis -GI -pantoprazole -DVT -SCD/rivaroxaban will provide pharmacological prophylaxis Discharge Planning once medically cleared will go home with home health. Problem Qualifiers (1) Cataract: Qualified Codes: H26.9 - Unspecified cataract (2) Gastroesophageal reflux disease: Qualified Codes: K21.9 - Gastro-esophageal reflux disease without esophagitis (3) Peripheral neuropathy: Qualified Codes: G62.9 - Polyneuropathy, unspecified (4) COPD (chronic obstructive pulmonary disease): Qualified Codes: J44.0 - Chronic obstructive pulmonary disease with acute lower respiratory infection (5) CAD (coronary artery disease): (6) Esophageal cancer: Qualified Codes: C15.9 - Malignant neoplasm of esophagus, unspecified (7) Pneumonia: Qualified Codes: J18.1 - Lobar pneumonia, unspecified organism (8) Hypertension: Qualified Codes: I10 - Essential (primary) hypertension (9) Hypothyroidism: Qualified Codes: E03.9 - Hypothyroidism, unspecified Marianne Romero MD Jan 01, 2018 11:04
--- NOTE | 2018-01-01 14:20 | HHI.IDPN ---
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 Last session of chemotherapy was few days prior to admission. His PMHx is also significant for smoking (40 pack per history) in past with COPD, afib on chronic anticoagulation, CAD. Patient has a right-sided [id number]. Patient presents to [facility] with a recent history of frequent falls. Patient has fallen 4 times in the past 24 hours. Denies head trauma. Patients reports that usually around "10 days " after chemotherapy that he receives in [place] patient becomes increasingly weak. Patient was admitted on 12/24/2017. Patient was being treated for CHF exacerbation as well as possible early pneumonia. Laboratories on admission revealed pancytopenia. Patient received 1 L normal saline, vancomycin, cefepime and methylprednisolone succinate 125 mg 1 in the ED. During hospitalization patient became desaturated with CO2 retention and needed placement on BiPAP. CT brain revealed no acute intracranial findings. Chest x-ray revealed no acute cardiopulmonary findings. CT pulmonary revealed left lower lobe infiltrate/atelectasis, small pleural effusion with a coronary calcification of the left main/LAD area. ID was consulted for evaluation and Mment of Pneumonia. At the time of my evaluation, patient is on floor. Talking in complete sentences , oriented x 3, and provided most of the history. thinks he gets confused off and on. UO good. No cough. No diarrhea. No rash. Overnight events reviewed No fever. No rash. No diarrhea. WBC minimally increased to 11 K but also on steroids. Antibiotics Levaquin oral Lines Line sites with no e.o infection Past Medical History reviewed Allergies: Coded Allergies: No Known Allergies (Unverified Adverse Reaction, Unknown, 12/23/17) VANCO ALLERGY WAS REMOVED PER DR. CHAMBERS ORDER, PT STATES, VANCO INFILTRATED, NO ALLERGIC REACTION. Objective . Vital Signs Date Time Temp Pulse Resp B/P (MAP) Pulse Ox O2 Delivery O2 Flow Rate FiO2 01/01/18 08:00 69 01/01/18 08:00 Nasal Cannula 4.00 01/01/18 04:43 Bi-Pap 01/01/18 04:00 75 01/01/18 04:00 98.0 80 16 128/69 (88) 98 01/01/18 01:33 95 40 01/01/18 00:53 97.8 90 21 123/70 (87) 93 01/01/18 00:00 82 12/31/17 22:00 Nasal Cannula 4.00 12/31/17 20:00 97.8 91 21 124/76 (92) 98 12/31/17 20:00 88 12/31/17 18:02 84 12/31/17 16:09 98.5 83 20 121/67 (85) 93 12/31/17 15:40 95 Nasal Cannula 4.00 . Laboratory Tests Test 12/31/17 06:15 White Blood Count 11.7 TH/MM3 Red Blood Count 2.73 MIL/MM3 Hemoglobin 8.4 GM/DL Hematocrit 24.8 % Mean Corpuscular Volume 91.1 FL Mean Corpuscular Hemoglobin 30.8 PG Mean Corpuscular Hemoglobin Concent 33.9 % Red Cell Distribution Width 19.5 % Platelet Count 95 TH/MM3 Mean Platelet Volume 7.7 FL Laboratory Tests Test 12/31/17 06:15 01/01/18 06:10 Blood Urea Nitrogen 89 MG/DL 96 MG/DL Creatinine 2.27 MG/DL 2.28 MG/DL Random Glucose 116 MG/DL 88 MG/DL Calcium Level 8.2 MG/DL 8.3 MG/DL Sodium Level 136 MEQ/L 138 MEQ/L Potassium Level 3.2 MEQ/L 3.5 MEQ/L Chloride Level 100 MEQ/L 99 MEQ/L Carbon Dioxide Level 25.9 MEQ/L 25.8 MEQ/L Anion Gap 10 MEQ/L 13 MEQ/L Estimat Glomerular Filtration Rate 28 ML/MIN 28 ML/MIN Magnesium Level 2.0 MG/DL Imaging Last Impressions Renal Ultrasound 12/29/17 0000 Signed Impressions: Service Date/Time: Friday, December 29, 2017 22:37 - CONCLUSION: 1. Increased cortical echogenicity bilaterally characteristic of acute medical renal disease. 2. Benign-appearing cortical cyst in the upper pole of the left kidney. No hydronephrosis or nephrolithiasis, however. 3. Urinary retention with an estimated volume of 1854 cc. Mateus Tovar MD Chest X-Ray 12/28/17 0000 Signed Impressions: Service Date/Time: December 13:28 - CONCLUSION: 1. Chronic appearing interstitial changes. Exam is similar to previous dated 12/27/17. Derian Mukherjee MD Abdomen X-Ray 12/28/17 0000 Signed Impressions: Service Date/Time: December 13:46 - CONCLUSION: 1. Bowel gas pattern most consistent with adynamic ileus versus less likely developing partial small bowel obstruction. Alvaro Hidalgo MD Brain MRI 12/24/17 1624 Signed Impressions: Service Date/Time: Sunday, December 24, 2017 16:22 - CONCLUSION: 1. Moderate central and cortical atrophy and old right [employer] infarction. 2. 2 mm area of altered susceptibility in the right mid convexity parietal-occipital white matter, characteristic of an old punctate hemorrhage. 3. No evidence of acute infarction. No enhancing mass is seen. Riki Trent MD Carotid Artery Ultrasound 12/24/17 0000 Signed Impressions: Service Date/Time: Sunday, December 24, 2017 12:40 - CONCLUSION: 1. Minimal bilateral carotid plaque. 2. No evidence of hemodynamically significant stenosis. 3. Antegrade flow in both vertebral arteries. Joshua Chambers MD CT Angiography 12/24/17 0000 Signed Impressions: Service Date/Time: Sunday, December 24, 2017 03:00 - CONCLUSION: 1. No pulmonary embolus. 2. Mild bibasilar atelectasis. Possible early/mild pneumonia left lower lobe. 3. Small left pleural effusion. 4. 8mm nodular opacity laterally at the left lung base and a followup noncontrast chest CT is recommended in approximately 3 months. 5. Mild cardiac enlargement. Coronary artery calcification. Kristian Caceres MD Head CT 12/23/17 2349 Signed Impressions: Service Date/Time: Sunday, December 24, 2017 00:03 - CONCLUSION: No acute intracranial abnormality. Kristian Caceres MD Physical Exam GENERAL: This is a well-nourished, well-developed patient, in no resp distress. On NC O2 TUBEs/LINES: PORT in place R chest wo e/o infx SKIN: Areas of ecchymoses noted. Cool and dry. HEAD: Atraumatic. Normocephalic. No temporal or scalp tenderness. EYES: Pupils equal round and reactive. Extraocular motions intact. No scleral icterus. No injection or drainage. NECK: Trachea midline. Supple, nontender, no meningeal signs. CARDIOVASCULAR: HS audible. RESPIRATORY: R base crackles noted. Breath sounds decreased in bases. GASTROINTESTINAL: Abdomen soft, non-tender, nondistended. MUSCULOSKELETAL: Extremities without clubbing, cyanosis. Pedal edema 2+ NEUROLOGICAL: Awake and alert. Non focal exam. Psych cooperative IV line sites with no e.o infection Assessment & Plan Remarks Doubt Pneumonia clincial and radiological picture more in favour of CHF exacerbation Acute Congestive heart failure with pulm edema. Dilated LA and ? mild MR. EF 60- 65% Esophageal cancer s/p chemo approx week back. Last time port was accessed. AML in remission. s/p autologous bone marrow transplant. Immune compromised host. Recs: dc Levaquin fu CBC BNP Follow cultures Follow clinically. Bev Stone MD Jan 01, 2018 14:20
--- NOTE | 2018-01-01 16:33 | HHI.PR ---
Subjective Remarks ALERT AMBULATING NO SOB AT REST Objective Vital Signs Date Time Temp Pulse Resp B/P (MAP) Pulse Ox O2 Delivery O2 Flow Rate FiO2 01/01/18 08:00 69 01/01/18 08:00 Nasal Cannula 4.00 01/01/18 04:43 Bi-Pap 01/01/18 04:00 75 01/01/18 04:00 98.0 80 16 128/69 (88) 98 01/01/18 01:33 95 40 01/01/18 00:53 97.8 90 21 123/70 (87) 93 01/01/18 00:00 82 12/31/17 22:00 Nasal Cannula 4.00 12/31/17 20:00 97.8 91 21 124/76 (92) 98 12/31/17 20:00 88 12/31/17 18:02 84 I/O 12/31/17 12/31/17 12/31/17 01/01/18 01/01/18 01/01/18 07:00 15:00 23:00 07:00 15:00 23:00 Intake Total 480 ml 100 ml 520 ml 480 ml Output Total 1000 ml 1200 ml 600 ml Balance -520 ml 100 ml -680 ml -120 ml Intake Oral 480 ml 520 ml 480 ml IV Total 100 ml Output Urine Total 1000 ml 1200 ml 600 ml # Bowel Movements 2 Result Diagram: 12/31/17 0615 01/01/18 0610 Procedures None Objective Remarks GENERAL: SKIN: Warm and dry. HEAD: Atraumatic. Normocephalic. EYES: Pupils equal and round. No scleral icterus. No injection or drainage. ENT: No nasal bleeding or discharge. Mucous membranes pink and moist. NECK: Trachea midline. No JVD. CARDIOVASCULAR: Regular rate and rhythm. RESPIRATORY: No accessory muscle use. Clear to auscultation. Breath sounds equal bilaterally. GASTROINTESTINAL: Abdomen soft, non-tender, nondistended. Hepatic and splenic margins not palpable. MUSCULOSKELETAL: Extremities without clubbing, cyanosis, or edema. No obvious deformities. NEUROLOGICAL: Awake and alert. No obvious cranial nerve deficits. Motor grossly within normal limits. Five out of 5 muscle strength in the arms and legs. Normal speech. PSYCHIATRIC: Appropriate mood and affect; insight and judgment normal. Assessment and Plan Assessment and Plan IMPRESSION RESPIRATORY FAILURE PNA , RESOLVING ? CHR O2 INCREASE ACTIVITY ANTIBX PULM. TOILET CARDIOLOGY FOLLOWING Orestes,Orestes Wadie MD Jan 01, 2018 16:33
--- NOTE | 2018-01-01 19:16 | PD.CARD.PN ---
Subjective Subjective Remarks Feels better, denies CP or SOB Objective Medications Current Medications Medications (Trade) Dose Ordered Sig/William Route Start Time Stop Time Status Last Admin (NS Flush) 2 ml UNSCH PRN IV FLUSH 12/24/17 07:45 (NS Flush) 2 ml BID IV FLUSH 12/24/17 09:00 01/01/18 09:13 (Tylenol) 650 mg Q6H PRN PO 12/24/17 07:45 ([place] 5-325 Mg) 1 tab Q4H PRN PO 12/24/17 07:45 12/28/17 21:51 (Morphine Inj) 2 mg Q2H PRN IV PUSH 12/24/17 07:45 (Protonix) 40 mg DAILY PO 12/24/17 09:00 01/01/18 09:11 (Tears Naturale Opth Soln) 1 drop TID EACH EYE 12/24/17 09:00 (Zofran Inj) 4 mg Q6H PRN IV PUSH 12/24/17 07:45 (Albuterol Neb) 2.5 mg Q2HR NEB PRN INH 12/24/17 07:45 Miscellaneous Information 1 Q361D XX 12/24/17 07:45 12/24/17 07:45 (Chlorhexidine 2% Cloth) Taper DAILY@04 TOP 12/25/17 04:00 12/21/18 03:59 12/26/17 04:00 (Chlorhexidine 2% Cloth) 3 pack UNSCH PRN TOP 12/24/17 07:45 (Annie-Colace) 1 tab BID PO 12/24/17 09:00 01/01/18 09:10 (Milk Of Magnesia Liq) 30 ml Q12H PRN PO 12/24/17 07:45 (Senokot) 17.2 mg Q12H PRN PO 12/24/17 07:45 (Dulcolax Supp) 10 mg DAILY PRN RECTAL 12/24/17 07:45 (Lactulose Liq) 30 ml DAILY PRN PO 12/24/17 07:45 (Mag-Ox) 800 mg UNSCH PRN PO 12/24/17 07:45 (K-Phos) 2,000 mg Q4H PRN PO 12/24/17 07:45 (K-Phos) 2,000 mg UNSCH PRN PO/TUBE 12/24/17 07:45 (D50w (Vial) Inj) 50 ml UNSCH PRN IV PUSH 12/24/17 07:45 (Glucagon Inj) 1 mg UNSCH PRN OTHER 12/24/17 07:45 (Vitamin D3) 2,000 units DAILY PO 12/24/17 09:00 01/01/18 09:11 (Neurontin) 300 mg TID PRN PO 12/24/17 08:00 12/31/17 23:02 (Depakene Liq) 200 mg DAILY PO 12/24/17 09:00 01/01/18 09:13 (Ativan) 1 mg HS PRN PO 12/24/17 08:00 (Creon 6-19-30) 1 cap DAILY PO 12/24/17 09:00 01/01/18 10:27 (Xarelto) 15 mg HS PO 12/24/17 21:00 12/31/17 22:07 (Theragran) 1 tab DAILY PO 12/24/17 09:00 01/01/18 09:12 (Brethine Inj) 1 mg UNSCH PRN SQ 12/24/17 08:00 (Vitamin B12) 1,000 mcg DAILY PO 12/24/17 09:00 01/01/18 09:10 (KCl) 20 meq DAILY PO 12/25/17 09:45 01/01/18 09:11 (Cardizem) 30 mg Q12HR PO 12/25/17 10:00 01/01/18 09:04 (Synthroid) 200 mcg DAILY@0600 PO 12/26/17 15:00 01/01/18 06:00 (Lasix Inj) 20 mg BID@18 IV PUSH 12/29/17 18:00 01/01/18 17:20 (Deltasone) 20 mg DAILY PO 12/31/17 09:00 01/01/18 09:10 (Flomax) 0.4 mg DAILY PO 12/30/17 16:30 01/01/18 09:12 Vital Signs / I&O Vital Signs Date Time Temp Pulse Resp B/P (MAP) Pulse Ox O2 Delivery O2 Flow Rate FiO2 01/01/18 16:00 76 01/01/18 16:00 97.6 76 18 113/56 (75) 94 01/01/18 12:00 97.4 84 16 104/57 (73) 95 01/01/18 08:00 69 01/01/18 08:00 97.7 78 18 110/57 (74) 95 01/01/18 08:00 Nasal Cannula 4.00 01/01/18 04:43 Bi-Pap 01/01/18 04:00 75 01/01/18 04:00 98.0 80 16 128/69 (88) 98 01/01/18 01:33 95 40 01/01/18 00:53 97.8 90 21 123/70 (87) 93 01/01/18 00:00 82 12/31/17 22:00 Nasal Cannula 4.00 12/31/17 20:00 97.8 91 21 124/76 (92) 98 12/31/17 20:00 88 I/O 12/31/17 12/31/17 12/31/17 01/01/18 01/01/18 01/01/18 07:00 15:00 23:00 07:00 15:00 23:00 Intake Total 480 ml 100 ml 520 ml 480 ml 600 ml Output Total 1000 ml 1200 ml 600 ml 550 ml Balance -520 ml 100 ml -680 ml -120 ml 50 ml Intake Oral 480 ml 520 ml 480 ml 600 ml IV Total 100 ml Output Urine Total 1000 ml 1200 ml 600 ml 550 ml # Bowel Movements 2 1 Physical Exam GENERAL: In NAD. SKIN: Warm and dry. HEAD: Normocephalic. EYES: No scleral icterus. No injection or drainage. NECK: Supple, trachea midline. No JVD or lymphadenopathy. CARDIOVASCULAR: Irregular rate and rhythm, without murmurs, gallops, or rubs. RESPIRATORY: Breath sounds equal bilaterally. No accessory muscle use. GASTROINTESTINAL: Abdomen soft, non-tender, nondistended. MUSCULOSKELETAL: No cyanosis, mild LE edema. Laboratory Laboratory Tests Test 01/01/18 06:10 Blood Urea Nitrogen 96 MG/DL Creatinine 2.28 MG/DL Random Glucose 88 MG/DL Calcium Level 8.3 MG/DL Magnesium Level 2.0 MG/DL Sodium Level 138 MEQ/L Potassium Level 3.5 MEQ/L Chloride Level 99 MEQ/L Carbon Dioxide Level 25.8 MEQ/L Anion Gap 13 MEQ/L Estimat Glomerular Filtration Rate 28 ML/MIN Assessment and Plan Problem List: (1) Frequent falls ICD Codes: R29.6 - Repeated falls Status: Chronic (2) Pneumonia ICD Codes: J18.9 - Pneumonia, unspecified organism Status: Acute (3) Severe sepsis ICD Codes: A41.9 - Sepsis, unspecified organism; R65.20 - Severe sepsis without septic shock (4) Hypertension ICD Codes: I10 - Hypertension Status: Chronic (5) Esophageal cancer ICD Codes: C15.9 - Esophageal cancer Status: Acute (6) CAD (coronary artery disease) ICD Codes: I25.10 - Atherosclerotic heart disease of [place] coronary artery without angina pectoris Status: Acute (7) Neutropenic ICD Codes: D70.9 - Neutropenia, unspecified Status: Chronic (8) COPD (chronic obstructive pulmonary disease) ICD Codes: J44.9 - Chronic obstructive pulmonary disease, unspecified Status: Acute (9) Atrial fibrillation ICD Codes: I48.91 - Unspecified atrial fibrillation Status: Chronic Assessment and Plan Overall continuing improvement. No angina. AF rate well controlled, continue anticoagulation with Xarelto. Pulmonary and ID evaluation. Continue tx for diastolic CHF including diuresis. Increase activity, PT. D/w pt and . Problem Qualifiers (1) Pneumonia: Qualified Codes: J18.1 - Lobar pneumonia, unspecified organism (2) Hypertension: Qualified Codes: I10 - Essential (primary) hypertension (3) Esophageal cancer: Qualified Codes: C15.9 - Malignant neoplasm of esophagus, unspecified (4) CAD (coronary artery disease): (5) COPD (chronic obstructive pulmonary disease): Qualified Codes: J44.0 - Chronic obstructive pulmonary disease with acute lower respiratory infection Jasmin Guo MD Jan 01, 2018 19:16
[2018-01-01] MEDS: RIVAROXABAN 15 MG TAB PO SCH (20:39)
[2018-01-01] MEDS: GABAPENTIN 300 MG CAP PO PRN (20:45)
[2018-01-02] VITALS (10 sets, daily range): BP systolic 99–142; BP diastolic 55–82; PULSE 68–89; RESP 17–22; TEMP 97.1–98.1; O2SAT 89–99
[2018-01-02] MEDS: CHLORHEXIDINE GLUCONATE 2 % 1 PACK (2 CLOTHS) TOP SCH (04:00)
[2018-01-02] MEDS: LEVOTHYROXINE SODIUM 200 MCG TAB PO SCH (06:18)
[2018-01-02 07:16] LABS: AUTOMATED NEUTROPHIL # 12.2 TH/MM3 (1.8-7.7); BASOPHIL % 0.1 % (0.0-2.0); EOSINOPHIL % 0.1 % (0.0-4.0); HEMATOCRIT 28.4 % (39.0-51.0); HEMOGLOBIN 9.4 GM/DL (13.0-17.0); LYMPH % 6.4 % (9.0-44.0); LYMPHOCYTE # 0.9 TH/MM3 (1.0-4.8); MEAN CELL VOLUME 91.6 FL (80.0-100.0); MEAN CORPUSCULAR HEMOGLOBIN 30.4 PG (27.0-34.0); MEAN CORPUSCULAR HGB CONC 33.1 % (32.0-36.0); MONO % 8.2 % (0.0-8.0); MONOCYTE # 1.2 TH/MM3 (0-0.9); NEUT % 85.2 % (16.0-70.0); PLATELET COUNT 106 TH/MM3 (150-450); RED CELL DISTRIBUTION WIDTH 19.7 % (11.6-17.2); WHITE BLOOD COUNT 14.4 TH/MM3 (4.0-11.0)
[2018-01-02 07:47] LABS: BICARBONATE 25.8 MEQ/L (21.0-32.0); CALCIUM 8.7 MG/DL (8.5-10.1); CREATININE 2.28 MG/DL (0.60-1.30)
[2018-01-02 08:07] LABS: BANDS 6 % (0-6); CORRECTED NUCLEATED RBC 1 /100 WBC (0-0); LYMPHOCYTES 9 % (9-44); METAMYELOCYTES 4 % (0-1); MONOCYTES 4 % (0-8); MYELOCYTES 5 % (0-0); NEUTROPHIL # MANUAL DIFF 12.5 TH/MM3 (1.8-7.7); NUCLEATED RED BLOOD CELL 1 (0-0); POLYS (SEG NEUTROPHILS) 72 % (16-70)
[2018-01-02 08:08] LABS: OVALOCYTES 1+ (NORMAL); TOXIC GRANULATION 1+ (NORMAL)
[2018-01-02 08:09] LABS: TEARDROP RBCS 1+ (NORMAL)
[2018-01-02 08:10] LABS: HELMET CELLS OCC (NORMAL); KERATOCYTES OCC (NORMAL)
[2018-01-02] MEDS: PANTOPRAZOLE SOD 40 MG DELAYED RELEASE TAB PO SCH (08:36)
[2018-01-02] MEDS: TAMSULOSIN HCL 0.4 MG CAP PO SCH (08:36)
[2018-01-02] MEDS: DOCUSATE SODIUM 50 MG/SENNA 8.6 MG TAB PO SCH ×2 (08:36→21:24)
[2018-01-02] MEDS: MULTIVITAMIN TAB PO SCH (08:36)
[2018-01-02] MEDS: CYANOCOBALAMIN 1,000 MCG TAB PO SCH (08:36)
[2018-01-02] MEDS: CHOLECALCIFEROL (VIT D3) 1000 UNIT TAB PO SCH (08:36)
[2018-01-02] MEDS: predniSONE 20 MG TAB PO SCH (08:36)
[2018-01-02] MEDS: POTASSIUM CHLORIDE 20 MEQ CONTROLLED RELEASE TAB PO SCH (08:37)
[2018-01-02] MEDS: LIPASE/PROTEASE/AMYLASE (6,000/19,000/30,000) CAP PO SCH (08:37)
[2018-01-02] MEDS: DILTIAZEM HCL 30 MG TAB PO SCH ×2 (08:37→21:24)
[2018-01-02] MEDS: VALPROIC ACID SYRUP 250 MG/5 ML UDC PO SCH (08:37)
[2018-01-02] MEDS: FUROSEMIDE 20 MG/2 ML VIAL IV PUSH SCH (08:38)
[2018-01-02] MEDS: SODIUM CHLORIDE 0.9% FLUSH 10 ML FLUSH IV FLUSH SCH ×2 (08:42→21:25)
[2018-01-02] MEDS: GABAPENTIN 300 MG CAP PO PRN (08:45)
[2018-01-02] MEDS: UMECLIDINIUM 62.5 MCG/VILANTEROL 25 MCG INHALER INH SCH (11:51)
--- NOTE | 2018-01-02 13:23 | HHI.PR ---
Subjective Remarks up in chair feeling better states voiding spontaneously with no feeling of retention good po patient has COPD- on NC as OP Objective Vitals Vital Signs Date Time Temp Pulse Resp B/P (MAP) Pulse Ox O2 Delivery O2 Flow Rate FiO2 01/02/18 12:00 97.1 72 17 99/59 (72) 98 01/02/18 08:00 97.4 89 17 113/73 (86) 95 01/02/18 04:32 98 40 01/02/18 04:00 68 01/02/18 04:00 97.4 81 22 111/55 (73) 99 01/02/18 04:00 Nasal Cannula 4.00 01/02/18 00:53 98 40 01/02/18 00:53 98 BiPAP 01/02/18 00:00 97.1 83 22 142/82 (102) 96 01/02/18 00:00 Nasal Cannula 4.00 01/02/18 00:00 79 01/01/18 20:22 Nasal Cannula 4.00 01/01/18 20:00 93 01/01/18 20:00 Nasal Cannula 4.00 01/01/18 20:00 97.9 87 20 108/64 (79) 97 01/01/18 16:00 76 01/01/18 16:00 97.6 76 18 113/56 (75) 94 I/O 01/01/18 01/01/18 01/01/18 01/02/18 01/02/18 01/02/18 07:00 15:00 23:00 07:00 15:00 23:00 Intake Total 480 ml 600 ml 240 ml Output Total 600 ml 550 ml 650 ml Balance -120 ml 50 ml -410 ml Intake Oral 480 ml 600 ml 240 ml Output Urine Total 600 ml 550 ml 650 ml # Bowel Movements 1 0 Result Diagram: 01/02/18 0630 01/02/18 0630 Imaging Last Impressions Renal Ultrasound 12/29/17 0000 Signed Impressions: Service Date/Time: Friday, December 29, 2017 22:37 - CONCLUSION: 1. Increased cortical echogenicity bilaterally characteristic of acute medical renal disease. 2. Benign-appearing cortical cyst in the upper pole of the left kidney. No hydronephrosis or nephrolithiasis, however. 3. Urinary retention with an estimated volume of 1854 cc. Mateus Tovar MD Chest X-Ray 12/28/17 0000 Signed Impressions: Service Date/Time: December 13:28 - CONCLUSION: 1. Chronic appearing interstitial changes. Exam is similar to previous dated 12/27/17. Derian Mukherjee MD Abdomen X-Ray 12/28/17 0000 Signed Impressions: Service Date/Time: December 13:46 - CONCLUSION: 1. Bowel gas pattern most consistent with adynamic ileus versus less likely developing partial small bowel obstruction. Alvaro Hidalgo MD Brain MRI 12/24/17 1624 Signed Impressions: Service Date/Time: Sunday, December 24, 2017 16:22 - CONCLUSION: 1. Moderate central and cortical atrophy and old right [employer] infarction. 2. 2 mm area of altered susceptibility in the right mid convexity parietal-occipital white matter, characteristic of an old punctate hemorrhage. 3. No evidence of acute infarction. No enhancing mass is seen. Riki Trent MD Carotid Artery Ultrasound 12/24/17 0000 Signed Impressions: Service Date/Time: Sunday, December 24, 2017 12:40 - CONCLUSION: 1. Minimal bilateral carotid plaque. 2. No evidence of hemodynamically significant stenosis. 3. Antegrade flow in both vertebral arteries. Joshua Garcia MD CT Angiography 12/24/17 0000 Signed Impressions: Service Date/Time: Sunday, December 24, 2017 03:00 - CONCLUSION: 1. No pulmonary embolus. 2. Mild bibasilar atelectasis. Possible early/mild pneumonia left lower lobe. 3. Small left pleural effusion. 4. 8mm nodular opacity laterally at the left lung base and a followup noncontrast chest CT is recommended in approximately 3 months. 5. Mild cardiac enlargement. Coronary artery calcification. Kristian Caceres MD Head CT 12/23/17 [id number] Signed Impressions: Service Date/Time: Sunday, December 24, 2017 00:03 - CONCLUSION: No acute intracranial abnormality. Kristian Caceres MD Objective Remarks awake and alert, no acute distress anicteric lungs- decreased breath sounds, no rales, or wheezes irregularly irregular rhythm abdomen soft, nontender extremities = trace edema neuro exam- non focal A/P Problem List: (1) Frequent falls ICD Code: R29.6 - Repeated falls Status: Chronic (2) Cataract ICD Code: H26.9 - Unspecified cataract (3) Hypoalbuminemia ICD Code: E88.09 - Other disorders of plasma-protein metabolism, not elsewhere classified (4) Hypokalemia ICD Code: E87.6 - Hypokalemia (5) Hypomagnesemia ICD Code: E83.42 - Hypomagnesemia (6) Elevated partial thromboplastin time (PTT) ICD Code: R79.1 - Abnormal coagulation profile (7) Elevated INR ICD Code: R79.1 - Abnormal coagulation profile (8) Gastroesophageal reflux disease ICD Code: K21.9 - Gastro-esophageal reflux disease without esophagitis (9) Pancreatic insufficiency ICD Code: K86.89 - Other specified diseases of pancreas (10) Peripheral neuropathy ICD Code: G62.9 - Polyneuropathy, unspecified (11) Chronic prescription benzodiazepine use ICD Code: Z79.899 - Other retirement (current) drug therapy (12) Chronic anticoagulation ICD Code: Z79.01 - [facility] (current) use of anticoagulants (13) COPD (chronic obstructive pulmonary disease) ICD Code: J44.9 - Chronic obstructive pulmonary disease, unspecified Status: Acute (14) CAD (coronary artery disease) ICD Code: I25.10 - Atherosclerotic heart disease of [place] coronary artery without angina pectoris Status: Acute (15) Pancytopenia ICD Code: D61.818 - Pancytopenia Status: Acute (16) Esophageal cancer ICD Code: C15.9 - Esophageal cancer Status: Acute (17) Pleural effusion, left ICD Code: J90 - Pleural effusion, not elsewhere classified Status: Acute (18) Pneumonia ICD Code: J18.9 - Pneumonia, unspecified organism Status: Acute (19) Chronic kidney disease, stage III (moderate) ICD Code: N18.3 - Chronic kidney disease, stage III (moderate) Status: Acute (20) Hypertension ICD Code: I10 - Hypertension Status: Chronic (21) Hypothyroidism ICD Code: E03.9 - Hypothyroidism Status: Chronic (22) Hypoxemia ICD Code: R09.02 - Hypoxemia Status: Acute (23) Severe sepsis ICD Code: A41.9 - Sepsis, unspecified organism; R65.20 - Severe sepsis without septic shock Assessment and Plan This is a 82-year-old male with chronic respiratory failure on 2 L oxygen at home and COPD who presented with shortness of breathing Acute on chronic respiratory failure- patient on chronic 02 -Most likely secondary to CHF exacerbation versus pneumonia or combination. Repeat chest x-ray on 12/27 shows chronic interstitial changes of mild cardiomegaly. Chest x-ray was repeated on 12/28 was stable. ABG reviewed with improvement. -Symptoms are improving. See treatment as below. wean oxygen as tolerated. baseline on 2L of oxygen. Acute on chronic diastolic CHF -Patient required BiPAP last night due to YUE but respiratory status has improved drastically. Patient at home is on CPAP. -Patient on Lasix 20 mg IV twice daily and albumin. Nuclear Medicine Specialist is managing. - change to po Lasix 20 bid (at home was on once a day) Renal insufficiency- creatinine stabilizing- non oliguric -Creatinine increased now stable at 2.28. ? cardiorenal. -Renal ultrasound just shows medically renal disease. He did have a lot of urinary retention without any hydronephrosis in which he had a straight cath done. This may be secondary to BPH on Flomax. -Continue management per oil heaterman. good urine output. Avoid nephrotoxins. Strict ins and out. Continue to monitor creatinine. Urinary retention - improved -Patient started on Flomax. - discuss with staff nurse to do a post voiding bladder scan to check for retention Questionable pneumonia- -Cefepime and azithromycin. Infectious disease consulted and patient's on oral Levaquin now. Clinically continue to improve. - S/O antiibotic course Chronic Benzodiazepine use/Peripheral Neuropathy/frequent falls, CT brain 12/24 revealed no acute intracranial findings -Continue lorazepam 1 mg nightly/home medication - Continue gabapentin 300 mg p.o. 3 times daily for peripheral neuropathy, as per Physical Therapy okay to go home with [facility] for PT and skilled nurse. - PT daily Atrial Fibrillation/rate control/Hypertension rate controlled -Continue home medication. Patient on Xarelto. Chronic respiratory failure/COPD -See treatment as above. Symptoms are improving. We will continue to wean off Solu-Medrol. - CT pulmonary revealed left lower lobe infiltrate versus atelectasis. 8 mm left upper lobe nodule follow-up CT scan in 6 months. Coronary calcifications left main/LAD Chronic pancreatic insufficiency -continue pancreatic enzymes, PPIs. 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 chronic rivaroxaban use. Hypomagnesia -Magnesium 1.9 . Hypokalemia- improved -Secondary to Lasix use. Will replenish as needed. YUE -on CPAP at home -on prednisone. -Pulm ff. Prophylaxis -GI -pantoprazole -DVT -SCD/rivaroxaban will provide pharmacological prophylaxis Discharge Planning once medically cleared will go home with home health. CM consult- arrangement for home PT, nursing Problem Qualifiers (1) Cataract: Qualified Codes: H26.9 - Unspecified cataract (2) Gastroesophageal reflux disease: Qualified Codes: K21.9 - Gastro-esophageal reflux disease without esophagitis (3) Peripheral neuropathy: Qualified Codes: G62.9 - Polyneuropathy, unspecified (4) COPD (chronic obstructive pulmonary disease): Qualified Codes: J44.0 - Chronic obstructive pulmonary disease with acute lower respiratory infection (5) CAD (coronary artery disease): (6) Esophageal cancer: Qualified Codes: C15.9 - Malignant neoplasm of esophagus, unspecified (7) Pneumonia: Qualified Codes: J18.1 - Lobar pneumonia, unspecified organism (8) Hypertension: Qualified Codes: I10 - Essential (primary) hypertension (9) Hypothyroidism: Qualified Codes: E03.9 - Hypothyroidism, unspecified Nancy Shen MD Jan 02, 2018 13:23
--- NOTE | 2018-01-02 13:31 | HHI.FF ---
Face to Face Verification Diagnosis: (1) Physical deconditioning (2) Respiratory failure (3) CHF (congestive heart failure) (4) HOLLIE (acute kidney injury) Physical Therapy Order: Evaluate and Treat, Improve ambulation, Strength and gait training Occupational Therapy Order: Evaluate and Treat, Improve ADL, Fine motor coordination Home Health Nursing Order: Medical education Signs/symptoms of disease process CHF education Oxygen administration education Nursing assessment with vital signs [place] Order: To Evaluate: Living conditions/environment, Support services I have seen patient Chilo Brownlee on 01/02/18. My clinical findings support the need for the requested home health care services because: Ltd mobility - disease progression Patient has SOB Deconditioned w/ increased weakness Limited ability to care for self Need for psychosocial assistance High risk of falls I certify that my clinical findings support that this patient is homebound because: Hx COPD- exertion dyspnea/weakness Need for psychosocial assistance Nancy Shen MD Jan 02, 2018 13:31
[2018-01-02] MEDS ORDERED: WALKER WHEELS/F1 MIS (13:33)
--- NOTE | 2018-01-02 15:22 | HHI.NPPN ---
Subjective General Problems: Anemia, Edema Renal Failure: Acute History of Present Illness This is an 82-year-old male with a past medical history of ischemic heart disease with diastolic dysfunction, history of hypertension, hypothyroidism, gastroesophageal reflux disease, chronic obstructive pulmonary disease, history of chronic pancreatitis, history of esophageal cancer, atrial fibrillation, who came to the hospital with complaint of worsening shortness of breath and swelling of the legs.Nephrology was consulted because of elevated BUN and creatinine. The patient has creatinine of 1.2-1.3 on admission and ithas gone up to 2.0. The potassium is on the lower side. The patient was diagnosed with pneumonia and has been getting antibiotics and also has COPD with exacerbation and getting methylprednisolone. Patient has edema of the legs. Cardiology is following and he has been getting furosemide, which was on hold yesterday because of increased creatinine. Potassium was low and the patient has been getting intermittent potassium. He denies any dysuria or hematuria, but he has some urinary incontinence, especially after he was given Lasix. He noticed that he has worsening swelling of his legs, which has been going on for some time. He denies any known previous history of renal disease. There is no nausea, vomiting. His appetite is normal. There is no history of diarrhea. He noticed that he has increased distention of his abdomen for the last few days. Additional Remarks Alert and oriented with at bedside. Denies any SOB. Lower extremity edema. (Adelaide Espino) Review of Systems Respiratory Respiratory Remarks Denies SOB (Adelaide Espino) Cardiovascular Cardiac: Edema Cardiac Remarks Denies CP (Adelaide Espino) Gastrointestinal GI Remarks Denies abdominal pain (Adelaide Espino) Objective Data Data 01/02/18 01/03/18 19:00 07:00 Bladder Scan Volume Amount 10 ml Vital Signs Date Time Temp Pulse Resp B/P (MAP) Pulse Ox O2 Delivery O2 Flow Rate FiO2 01/02/18 12:00 97.1 72 17 99/59 (72) 98 01/02/18 08:00 97.4 89 17 113/73 (86) 95 01/02/18 08:00 96 Nasal Cannula 4.00 40 01/02/18 08:00 83 01/02/18 04:32 98 40 01/02/18 04:00 68 01/02/18 04:00 97.4 81 22 111/55 (73) 99 01/02/18 04:00 Nasal Cannula 4.00 01/02/18 00:53 98 40 01/02/18 00:53 98 BiPAP 01/02/18 00:00 97.1 83 22 142/82 (102) 96 01/02/18 00:00 Nasal Cannula 4.00 01/02/18 00:00 79 01/01/18 20:22 Nasal Cannula 4.00 01/01/18 20:00 93 01/01/18 20:00 Nasal Cannula 4.00 01/01/18 20:00 97.9 87 20 108/64 (79) 97 01/01/18 16:00 76 01/01/18 16:00 97.6 76 18 113/56 (75) 94 (Adelaide Espino) -: 01/02/18 0630 01/02/18 0630 Physical Exam General Appearance: Well Developed, Well Nourished, No Acute Distress (Adelaide Espino) Eyes Eye Exam: Pupils Equal (Adelaide Espino) Throat Throat Exam: Oral Mucosa [place] & Moist (Adelaide Espino) Neck Neck Exam: Neck Supple (Adelaide Espino) Pulmonary Resp Exam: Diminished Breath Sounds (Adelaide Espino) Cardiology CV Exam: Regular, Normal Sinus Rhythm (Adelaide Espino) Gastrointestinal/Abdomen GI Exam: Soft, Non-Tender (Adelaide Espino) Genitourinary Exam: Flank Non-Tender (Adelaide Espino) Integumentary Skin Exam: Warm, Dry, Intact (Adelaide Espino) Extremeties Extremities Exam: Moderate Edema (Adelaide Espino) Neurologic Neuro Exam: Alert, Awake, Oriented (Adelaide Espino) Assessment/Plan Problem List: (1) HOLLIE (acute kidney injury) ICD Codes: N17.9 - Acute kidney failure, unspecified Status: Acute Plan: Creatinine 1.3 -> 1.7 -> 2.0 -> 2.2 -> 2.2 today creatinine has remained stable at 2.2 Possible cardio-renal component of HOLLIE, with urinary retention as well. Renal US: showed urinary retention with 1.8L urine in bladder. Voiding on his own now, continue to check bladder scans with every nursing shift. Plan Creatinine has stabilized at 2.2 Continue diuresis with lasix 20mg BID Continue flomax. Continue to monitor BMP and UOP Avoid nephrotoxins. (2) COPD (chronic obstructive pulmonary disease) ICD Codes: J44.9 - Chronic obstructive pulmonary disease, unspecified Status: Acute Plan: continues on prednisone, continue diuresis (3) CHF (congestive heart failure) ICD Codes: I50.9 - Heart failure, unspecified Plan: continue diuresis (4) Hypertension ICD Codes: I10 - Hypertension Status: Chronic Plan: BP stable. (Adelaide Espino) Problem List: (1) HOLLIE (acute kidney injury) ICD Codes: N17.9 - Acute kidney failure, unspecified Status: Acute Plan: Creatinine 1.3 -> 1.7 -> 2.0 -> 2.2 -> 2.2 today creatinine has remained stable at 2.2 Possible cardio-renal component of HOLLIE, with urinary retention as well. Renal US: showed urinary retention with 1.8L urine in bladder. Voiding on his own now, continue to check bladder scans with every nursing shift. Plan Creatinine has stabilized at 2.2 Continue diuresis with lasix 20mg BID Continue Flomax. Continue to monitor BMP and UOP Avoid nephrotoxins. Patient seen and examined, agree with above. Creatinine is stable at 2.2. Has chronic kidney disease and HOLLIE. Continue Lasix, if D/C, will need follow up. D/W the patient and the at bed side. (2) COPD (chronic obstructive pulmonary disease) ICD Codes: J44.9 - Chronic obstructive pulmonary disease, unspecified Status: Acute Plan: continues on prednisone, continue diuresis (3) CHF (congestive heart failure) ICD Codes: I50.9 - Heart failure, unspecified Plan: continue diuresis (4) Hypertension ICD Codes: I10 - Hypertension Status: Chronic Plan: BP stable. (Jocelin Zelaya MD) Problem Qualifiers (1) COPD (chronic obstructive pulmonary disease): Qualified Codes: J44.0 - Chronic obstructive pulmonary disease with acute lower respiratory infection (2) Hypertension: Qualified Codes: I10 - Essential (primary) hypertension Adelaide Espino Jan 02, 2018 15:22 Jocelin Zelaya MD Jan 02, 2018 18:22
--- NOTE | 2018-01-02 15:26 | PD.CARD.PN ---
Subjective Subjective Remarks Feels much better, no CP or SOB Objective Medications Current Medications Medications (Trade) Dose Ordered Sig/William Route Start Time Stop Time Status Last Admin (NS Flush) 2 ml UNSCH PRN IV FLUSH 12/24/17 07:45 (NS Flush) 2 ml BID IV FLUSH 12/24/17 09:00 01/02/18 08:42 (Tylenol) 650 mg Q6H PRN PO 12/24/17 07:45 ([place] 5-325 Mg) 1 tab Q4H PRN PO 12/24/17 07:45 12/28/17 21:51 (Morphine Inj) 2 mg Q2H PRN IV PUSH 12/24/17 07:45 (Protonix) 40 mg DAILY PO 12/24/17 09:00 01/02/18 08:36 (Tears Naturale Opth Soln) 1 drop TID EACH EYE 12/24/17 09:00 (Zofran Inj) 4 mg Q6H PRN IV PUSH 12/24/17 07:45 (Albuterol Neb) 2.5 mg Q2HR NEB PRN INH 12/24/17 07:45 Miscellaneous Information 1 Q361D XX 12/24/17 07:45 12/24/17 07:45 (Chlorhexidine 2% Cloth) Taper DAILY@04 TOP 12/25/17 04:00 12/21/18 03:59 12/26/17 04:00 (Chlorhexidine 2% Cloth) 3 pack UNSCH PRN TOP 12/24/17 07:45 (Annie-Colace) 1 tab BID PO 12/24/17 09:00 01/02/18 08:36 (Milk Of Magnesia Liq) 30 ml Q12H PRN PO 12/24/17 07:45 (Senokot) 17.2 mg Q12H PRN PO 12/24/17 07:45 (Dulcolax Supp) 10 mg DAILY PRN RECTAL 12/24/17 07:45 (Lactulose Liq) 30 ml DAILY PRN PO 12/24/17 07:45 (Mag-Ox) 800 mg UNSCH PRN PO 12/24/17 07:45 (K-Phos) 2,000 mg Q4H PRN PO 12/24/17 07:45 (K-Phos) 2,000 mg UNSCH PRN PO/TUBE 12/24/17 07:45 (D50w (Vial) Inj) 50 ml UNSCH PRN IV PUSH 12/24/17 07:45 (Glucagon Inj) 1 mg UNSCH PRN OTHER 12/24/17 07:45 (Vitamin D3) 2,000 units DAILY PO 12/24/17 09:00 01/02/18 08:36 (Neurontin) 300 mg TID PRN PO 12/24/17 08:00 01/02/18 08:45 (Depakene Liq) 200 mg DAILY PO 12/24/17 09:00 01/02/18 08:37 (Ativan) 1 mg HS PRN PO 12/24/17 08:00 (Creon 6-19-30) 1 cap DAILY PO 12/24/17 09:00 01/02/18 08:37 (Xarelto) 15 mg HS PO 12/24/17 21:00 01/01/18 20:39 (Theragran) 1 tab DAILY PO 12/24/17 09:00 01/02/18 08:36 (Brethine Inj) 1 mg UNSCH PRN SQ 12/24/17 08:00 (Vitamin B12) 1,000 mcg DAILY PO 12/24/17 09:00 01/02/18 08:36 (KCl) 20 meq DAILY PO 12/25/17 09:45 01/02/18 08:37 (Cardizem) 30 mg Q12HR PO 12/25/17 10:00 01/02/18 08:37 (Synthroid) 200 mcg DAILY@0600 PO 12/26/17 15:00 01/02/18 06:18 (Deltasone) 20 mg DAILY PO 12/31/17 09:00 01/02/18 08:36 (Flomax) 0.4 mg DAILY PO 12/30/17 16:30 01/02/18 08:36 (Lasix) 20 mg BID@09,18 PO 01/02/18 18:00 Vital Signs / I&O Vital Signs Date Time Temp Pulse Resp B/P (MAP) Pulse Ox O2 Delivery O2 Flow Rate FiO2 01/02/18 12:00 97.1 72 17 99/59 (72) 98 01/02/18 08:00 97.4 89 17 113/73 (86) 95 01/02/18 08:00 96 Nasal Cannula 4.00 40 01/02/18 08:00 83 01/02/18 04:32 98 40 01/02/18 04:00 68 01/02/18 04:00 97.4 81 22 111/55 (73) 99 01/02/18 04:00 Nasal Cannula 4.00 01/02/18 00:53 98 40 01/02/18 00:53 98 BiPAP 01/02/18 00:00 97.1 83 22 142/82 (102) 96 01/02/18 00:00 Nasal Cannula 4.00 01/02/18 00:00 79 01/01/18 20:22 Nasal Cannula 4.00 01/01/18 20:00 93 01/01/18 20:00 Nasal Cannula 4.00 01/01/18 20:00 97.9 87 20 108/64 (79) 97 01/01/18 16:00 76 01/01/18 16:00 97.6 76 18 113/56 (75) 94 I/O 01/01/18 01/01/18 01/01/18 01/02/18 01/02/18 01/02/18 07:00 15:00 23:00 07:00 15:00 23:00 Intake Total 480 ml 600 ml 240 ml Output Total 600 ml 550 ml 650 ml Balance -120 ml 50 ml -410 ml Intake Oral 480 ml 600 ml 240 ml Output Urine Total 600 ml 550 ml 650 ml Bladder Scan Volume Amount 10 ml # Bowel Movements 1 0 Physical Exam GENERAL: In NAD. SKIN: Warm and dry. HEAD: Normocephalic. EYES: No scleral icterus. No injection or drainage. NECK: Supple, trachea midline. No JVD or lymphadenopathy. CARDIOVASCULAR: Irregular rate and rhythm, without murmurs, gallops, or rubs. RESPIRATORY: Breath sounds equal bilaterally. No accessory muscle use. GASTROINTESTINAL: Abdomen soft, non-tender, nondistended. MUSCULOSKELETAL: No cyanosis, mild LE edema. Laboratory Laboratory Tests Test 01/02/18 06:30 White Blood Count 14.4 TH/MM3 Red Blood Count 3.10 MIL/MM3 Hemoglobin 9.4 GM/DL Hematocrit 28.4 % Mean Corpuscular Volume 91.6 FL Mean Corpuscular Hemoglobin 30.4 PG Mean Corpuscular Hemoglobin Concent 33.1 % Red Cell Distribution Width 19.7 % Platelet Count 106 TH/MM3 Mean Platelet Volume 8.0 FL Neutrophils (%) (Auto) 85.2 % Lymphocytes (%) (Auto) 6.4 % Monocytes (%) (Auto) 8.2 % Eosinophils (%) (Auto) 0.1 % Basophils (%) (Auto) 0.1 % Neutrophils # (Auto) 12.2 TH/MM3 Lymphocytes # (Auto) 0.9 TH/MM3 Monocytes # (Auto) 1.2 TH/MM3 Eosinophils # (Auto) 0.0 TH/MM3 Basophils # (Auto) 0.0 TH/MM3 CBC Comment AUTO DIFF Differential Total Cells Counted 100 Neutrophils % (Manual) 72 % Band Neutrophils % 6 % Lymphocytes % 9 % Monocytes % 4 % Neutrophils # (Manual) 12.5 TH/MM3 Metamyelocytes 4 % Myelocytes 5 % Nucleated Red Blood Cells 1 /100 WBC Differential Comment FINAL DIFF MANUAL Toxic Granulation 1+ Platelet Estimate LOW Platelet Morphology Comment NORMAL Tear Drop Cells 1+ Ovalocytes 1+ Helmet Cells OCC Acanthocytes Keratocytes OCC Blood Urea Nitrogen 93 MG/DL Creatinine 2.28 MG/DL Random Glucose 74 MG/DL Calcium Level 8.7 MG/DL Sodium Level 135 MEQ/L Potassium Level 3.5 MEQ/L Chloride Level 97 MEQ/L Carbon Dioxide Level 25.8 MEQ/L Anion Gap 12 MEQ/L Estimat Glomerular Filtration Rate 28 ML/MIN B-Type Natriuretic Peptide 200 PG/ML Assessment and Plan Problem List: (1) Frequent falls ICD Codes: R29.6 - Repeated falls Status: Chronic (2) Pneumonia ICD Codes: J18.9 - Pneumonia, unspecified organism Status: Acute (3) Severe sepsis ICD Codes: A41.9 - Sepsis, unspecified organism; R65.20 - Severe sepsis without septic shock (4) Hypertension ICD Codes: I10 - Hypertension Status: Chronic (5) Esophageal cancer ICD Codes: C15.9 - Esophageal cancer Status: Acute (6) CAD (coronary artery disease) ICD Codes: I25.10 - Atherosclerotic heart disease of [place] coronary artery without angina pectoris Status: Acute (7) Neutropenic ICD Codes: D70.9 - Neutropenia, unspecified Status: Chronic (8) COPD (chronic obstructive pulmonary disease) ICD Codes: J44.9 - Chronic obstructive pulmonary disease, unspecified Status: Acute (9) Atrial fibrillation ICD Codes: I48.91 - Unspecified atrial fibrillation Status: Chronic Assessment and Plan No new cardiac issues. No angina. AF rate well controlled, continue anticoagulation with Xarelto. Pulmonary and ID evaluation in progress. Continue tx for diastolic CHF including diuresis. Increase activity, PT. D/w pt and . Problem Qualifiers (1) Pneumonia: Qualified Codes: J18.1 - Lobar pneumonia, unspecified organism (2) Hypertension: Qualified Codes: I10 - Essential (primary) hypertension (3) Esophageal cancer: Qualified Codes: C15.9 - Malignant neoplasm of esophagus, unspecified (4) CAD (coronary artery disease): (5) COPD (chronic obstructive pulmonary disease): Qualified Codes: J44.0 - Chronic obstructive pulmonary disease with acute lower respiratory infection (6) Atrial fibrillation: Qualified Codes: I48.91 - Unspecified atrial fibrillation Jasmin Guo MD Jan 02, 2018 15:26
[2018-01-02] MEDS: ARTIFICIAL TEARS OPTH SOLN 15 ML BTL EACH EYE SCH (18:00)
[2018-01-02] MEDS: FUROSEMIDE 20 MG TAB PO SCH (18:06)
--- NOTE | 2018-01-02 19:47 | HHI.PR ---
Subjective Remarks ALERT SITTING IN BED NO SOB AT REST BROUGHT OWN PAP MACHINE FROM HOME Objective Vital Signs Date Time Temp Pulse Resp B/P (MAP) Pulse Ox O2 Delivery O2 Flow Rate FiO2 01/02/18 16:00 97.4 85 17 107/55 (72) 94 01/02/18 12:00 97.1 72 17 99/59 (72) 98 01/02/18 08:00 97.4 89 17 113/73 (86) 95 01/02/18 08:00 96 Nasal Cannula 4.00 40 01/02/18 08:00 83 01/02/18 04:32 98 40 01/02/18 04:00 68 01/02/18 04:00 97.4 81 22 111/55 (73) 99 01/02/18 04:00 Nasal Cannula 4.00 01/02/18 00:53 98 40 01/02/18 00:53 98 BiPAP 01/02/18 00:00 97.1 83 22 142/82 (102) 96 01/02/18 00:00 Nasal Cannula 4.00 01/02/18 00:00 79 01/01/18 20:22 Nasal Cannula 4.00 01/01/18 20:00 93 01/01/18 20:00 Nasal Cannula 4.00 01/01/18 20:00 97.9 87 20 108/64 (79) 97 I/O 01/01/18 01/01/18 01/01/18 01/02/18 01/02/18 01/02/18 07:00 15:00 23:00 07:00 15:00 23:00 Intake Total 480 ml 600 ml 240 ml Output Total 600 ml 550 ml 650 ml Balance -120 ml 50 ml -410 ml Intake Oral 480 ml 600 ml 240 ml Output Urine Total 600 ml 550 ml 650 ml Bladder Scan Volume Amount 10 ml # Bowel Movements 1 0 Result Diagram: 01/02/18 0630 01/02/18 06 Procedures None Objective Remarks GENERAL: SKIN: Warm and dry. HEAD: Atraumatic. Normocephalic. EYES: Pupils equal and round. No scleral icterus. No injection or drainage. ENT: No nasal bleeding or discharge. Mucous membranes pink and moist. NECK: Trachea midline. No JVD. CARDIOVASCULAR: Regular rate and rhythm. RESPIRATORY: No accessory muscle use. Clear to auscultation. Breath sounds equal bilaterally. GASTROINTESTINAL: Abdomen soft, non-tender, nondistended. Hepatic and splenic margins not palpable. MUSCULOSKELETAL: Extremities without clubbing, cyanosis, or edema. No obvious deformities. NEUROLOGICAL: Awake and alert. No obvious cranial nerve deficits. Motor grossly within normal limits. Five out of 5 muscle strength in the arms and legs. Normal speech. PSYCHIATRIC: Appropriate mood and affect; insight and judgment normal. Assessment and Plan Assessment and Plan IMPRESSION RESPIRATORY FAILURE PNA RESOLVING YUE O2 INCREASE ACTIVITY ANTIBX PULM. TOILET PAP WHEN SLEEPING Orestes Carlisle MD Jan 02, 2018 19:47
[2018-01-02] MEDS: RIVAROXABAN 15 MG TAB PO SCH (21:24)
[2018-01-03] VITALS: BP 125/58; PULSE 81; PULSE 85; RESP 18; TEMP 97.3; O2SAT 93
[2018-01-03 04:00] VITALS: BP 99/57; PULSE 77; PULSE 82; RESP 18; TEMP 97.2; O2SAT 100
[2018-01-03] MEDS: CHLORHEXIDINE GLUCONATE 2 % 1 PACK (2 CLOTHS) TOP SCH (04:00)
[2018-01-03] MEDS: LEVOTHYROXINE SODIUM 200 MCG TAB PO SCH (05:38)
[2018-01-03 06:28] LABS: BICARBONATE 27.4 MEQ/L (21.0-32.0); CALCIUM 8.9 MG/DL (8.5-10.1); CREATININE 2.1 MG/DL (0.60-1.30)
[2018-01-03 08:00] VITALS: BP 114/62; PULSE 71; PULSE 76; RESP 19; TEMP 95.2; O2SAT 99
[2018-01-03] MEDS: VALPROIC ACID SYRUP 250 MG/5 ML UDC PO SCH (08:55)
[2018-01-03] MEDS: DOCUSATE SODIUM 50 MG/SENNA 8.6 MG TAB PO SCH (08:55)
[2018-01-03] MEDS: CYANOCOBALAMIN 1,000 MCG TAB PO SCH (08:56)
[2018-01-03] MEDS: MULTIVITAMIN TAB PO SCH (08:56)
[2018-01-03] MEDS: DILTIAZEM HCL 30 MG TAB PO SCH (08:56)
[2018-01-03] MEDS: TAMSULOSIN HCL 0.4 MG CAP PO SCH (08:56)
[2018-01-03] MEDS: FUROSEMIDE 20 MG TAB PO SCH (08:56)
[2018-01-03] MEDS: POTASSIUM CHLORIDE 20 MEQ CONTROLLED RELEASE TAB PO SCH (08:56)
[2018-01-03] MEDS: LIPASE/PROTEASE/AMYLASE (6,000/19,000/30,000) CAP PO SCH (08:57)
[2018-01-03] MEDS: PANTOPRAZOLE SOD 40 MG DELAYED RELEASE TAB PO SCH (08:57)
[2018-01-03] MEDS: predniSONE 20 MG TAB PO SCH (08:57)
[2018-01-03] MEDS: CHOLECALCIFEROL (VIT D3) 1000 UNIT TAB PO SCH (08:57)
[2018-01-03] MEDS: ARTIFICIAL TEARS OPTH SOLN 15 ML BTL EACH EYE SCH ×2 (09:00→12:09)
[2018-01-03] MEDS: UMECLIDINIUM 62.5 MCG/VILANTEROL 25 MCG INHALER INH SCH (09:03)
[2018-01-03] MEDS: SODIUM CHLORIDE 0.9% FLUSH 10 ML FLUSH IV FLUSH SCH (09:04)
--- NOTE | 2018-01-03 11:17 | HHI.NPPN ---
Subjective General Problems: Anemia, Edema Renal Failure: Acute History of Present Illness This is an 82-year-old male with a past medical history of ischemic heart disease with diastolic dysfunction, history of hypertension, hypothyroidism, gastroesophageal reflux disease, chronic obstructive pulmonary disease, history of chronic pancreatitis, history of esophageal cancer, atrial fibrillation, who came to the hospital with complaint of worsening shortness of breath and swelling of the legs.Nephrology was consulted because of elevated BUN and creatinine. The patient has creatinine of 1.2-1.3 on admission and ithas gone up to 2.0. The potassium is on the lower side. The patient was diagnosed with pneumonia and has been getting antibiotics and also has COPD with exacerbation and getting methylprednisolone. Patient has edema of the legs. Cardiology is following and he has been getting furosemide, which was on hold yesterday because of increased creatinine. Potassium was low and the patient has been getting intermittent potassium. He denies any dysuria or hematuria, but he has some urinary incontinence, especially after he was given Lasix. He noticed that he has worsening swelling of his legs, which has been going on for some time. He denies any known previous history of renal disease. There is no nausea, vomiting. His appetite is normal. There is no history of diarrhea. He noticed that he has increased distention of his abdomen for the last few days. Additional Remarks Alert and oriented with at bedside. Denies any SOB. Lower extremity edema unchanged. Anticipate discharge today. (Adelaide Espino) Review of Systems Respiratory Respiratory Remarks Denies SOB (Adelaide Espino) Cardiovascular Cardiac: Edema Cardiac Remarks Denies CP (Adelaide Espino) Gastrointestinal GI Remarks Denies abdominal pain (Adelaide Espino) Objective Data Data 01/03/18 01/04/18 19:00 07:00 Output Total 800 ml Balance -800 ml Output Urine Total 800 ml Vital Signs Date Time Temp Pulse Resp B/P (MAP) Pulse Ox O2 Delivery O2 Flow Rate FiO2 01/03/18 08:00 Nasal Cannula 3.00 01/03/18 08:00 95.2 71 19 114/62 (79) 99 01/03/18 04:00 Nasal Cannula 3.00 01/03/18 04:00 97.2 82 18 99/57 (71) 100 01/03/18 04:00 77 01/03/18 00:00 81 01/03/18 00:00 Nasal Cannula 3.00 01/03/18 00:00 97.3 85 18 125/58 (80) 93 01/02/18 20:20 98.0 73 18 112/67 (82) 96 01/02/18 20:00 Nasal Cannula 3.00 01/02/18 20:00 77 01/02/18 16:20 98.1 82 18 111/61 (78) 89 01/02/18 16:00 97.4 85 17 107/55 (72) 94 01/02/18 12:00 97.1 72 17 99/59 (72) 98 (Adelaide Espino) -: 01/02/18 0630 01/03/18 0530 Physical Exam General Appearance: Well Developed, Well Nourished, No Acute Distress (Adelaide Espino) Eyes Eye Exam: Pupils Equal (Adelaide Espino) Throat Throat Exam: Oral Mucosa [place] & Moist (Adelaide Espino) Neck Neck Exam: Neck Supple (Adelaide Espino) Pulmonary Resp Exam: Diminished Breath Sounds (Adelaide Espino) Cardiology CV Exam: Regular, Normal Sinus Rhythm (Adelaide Espino) Gastrointestinal/Abdomen GI Exam: Soft, Non-Tender (Adelaide Espino) Genitourinary Exam: Flank Non-Tender (Adelaide Espino) Integumentary Skin Exam: Warm, Dry, Intact (Adelaide Espino) Extremeties Extremities Exam: Moderate Edema (Adelaide Espino) Neurologic Neuro Exam: Alert, Awake, Oriented (Adelaide Espino) Assessment/Plan Problem List: (1) HOLLIE (acute kidney injury) ICD Codes: N17.9 - Acute kidney failure, unspecified Status: Acute Plan: Creatinine continues to improve. Possible cardio-renal component of HOLLIE, with urinary retention as well. Renal US: showed urinary retention with 1.8L urine in bladder. Voiding on his own now, continue to check bladder scans with every nursing shift. Plan Creatinine has stabilized and has been improving. Continue diuresis with lasix 20mg BID Continue Flomax. Plan for discharge today will need to have follow up with Nephrology outpatient. (2) COPD (chronic obstructive pulmonary disease) ICD Codes: J44.9 - Chronic obstructive pulmonary disease, unspecified Status: Acute Plan: continues on prednisone, continue diuresis (3) CHF (congestive heart failure) ICD Codes: I50.9 - Heart failure, unspecified Plan: continue diuresis (4) Hypertension ICD Codes: I10 - Hypertension Status: Chronic Plan: BP stable. (Adelaide Espino) Problem List: (1) HOLLIE (acute kidney injury) ICD Codes: N17.9 - Acute kidney failure, unspecified Status: Acute Plan: Creatinine continues to improve. Possible cardio-renal component of HOLLIE, with urinary retention as well. Renal US: showed urinary retention with 1.8L urine in bladder. Voiding on his own now, continue to check bladder scans with every nursing shift. Plan Creatinine has stabilized and has been improving. Continue diuresis with lasix 20mg BID Continue Flomax. Plan for discharge today will need to have follow up with Nephrology outpatient. Patient seen and examined, agree with above. Out Patient follow up, continue Lasix. (2) COPD (chronic obstructive pulmonary disease) ICD Codes: J44.9 - Chronic obstructive pulmonary disease, unspecified Status: Acute Plan: continues on prednisone, continue diuresis (3) CHF (congestive heart failure) ICD Codes: I50.9 - Heart failure, unspecified Plan: continue diuresis (4) Hypertension ICD Codes: I10 - Hypertension Status: Chronic Plan: BP stable. (Jocelin Zelaya MD) Problem Qualifiers (1) COPD (chronic obstructive pulmonary disease): Qualified Codes: J44.0 - Chronic obstructive pulmonary disease with acute lower respiratory infection (2) CHF (congestive heart failure): Qualified Codes: I50.9 - Heart failure, unspecified (3) Hypertension: Qualified Codes: I10 - Essential (primary) hypertension Adelaide Espino Jan 03, 2018 11:17 Jocelin Zelaya MD Jan 03, 2018 22:57
[2018-01-03 12:00] VITALS: BP_SYST 90; BP_SYST 91; BP_DIAS 50; BP_DIAS 54; PULSE 80; RESP 19; TEMP 97.4; O2SAT 99
--- NOTE | 2018-01-03 12:29 | HHI.PR ---
Subjective Remarks up in chair no complains voiding no shortness of breath Objective Vitals Vital Signs Date Time Temp Pulse Resp B/P (MAP) Pulse Ox O2 Delivery O2 Flow Rate FiO2 01/03/18 08:00 Nasal Cannula 3.00 01/03/18 08:00 95.2 71 19 114/62 (79) 99 01/03/18 04:00 Nasal Cannula 3.00 01/03/18 04:00 97.2 82 18 99/57 (71) 100 01/03/18 04:00 77 01/03/18 00:00 81 01/03/18 00:00 Nasal Cannula 3.00 01/03/18 00:00 97.3 85 18 125/58 (80) 93 01/02/18 20:20 98.0 73 18 112/67 (82) 96 01/02/18 20:00 Nasal Cannula 3.00 01/02/18 20:00 77 01/02/18 16:20 98.1 82 18 111/61 (78) 89 01/02/18 16:00 97.4 85 17 107/55 (72) 94 I/O 01/02/18 01/02/18 01/02/18 01/03/18 01/03/18 01/03/18 07:00 15:00 23:00 07:00 15:00 23:00 Intake Total 240 ml Output Total 650 ml 800 ml Balance -410 ml -800 ml Intake Oral 240 ml Output Urine Total 650 ml 800 ml Bladder Scan Volume Amount 10 ml # Bowel Movements 0 Result Diagram: 01/02/18 0630 01/03/18 0530 Imaging Last Impressions Renal Ultrasound 12/29/17 0000 Signed Impressions: Service Date/Time: Friday, December 29, 2017 22:37 - CONCLUSION: 1. Increased cortical echogenicity bilaterally characteristic of acute medical renal disease. 2. Benign-appearing cortical cyst in the upper pole of the left kidney. No hydronephrosis or nephrolithiasis, however. 3. Urinary retention with an estimated volume of 1854 cc. Mateus Tovar MD Chest X-Ray 12/28/17 0000 Signed Impressions: Service Date/Time: December 13:28 - CONCLUSION: 1. Chronic appearing interstitial changes. Exam is similar to previous dated 12/27/17. Derian Mukherjee MD Abdomen X-Ray 12/28/17 0000 Signed Impressions: Service Date/Time: December 13:46 - CONCLUSION: 1. Bowel gas pattern most consistent with adynamic ileus versus less likely developing partial small bowel obstruction. Alvaro Hidalgo MD Brain MRI 12/24/17 1624 Signed Impressions: Service Date/Time: Sunday, December 24, 2017 16:22 - CONCLUSION: 1. Moderate central and cortical atrophy and old right SUSTAINABILITY COACH infarction. 2. 2 mm area of altered susceptibility in the right mid convexity parietal-occipital white matter, characteristic of an old punctate hemorrhage. 3. No evidence of acute infarction. No enhancing mass is seen. Riki Trent MD Carotid Artery Ultrasound 12/24/17 0000 Signed Impressions: Service Date/Time: Sunday, December 24, 2017 12:40 - CONCLUSION: 1. Minimal bilateral carotid plaque. 2. No evidence of hemodynamically significant stenosis. 3. Antegrade flow in both vertebral arteries. Joshua Garcia MD CT Angiography 12/24/17 0000 Signed Impressions: Service Date/Time: Sunday, December 24, 2017 03:00 - CONCLUSION: 1. No pulmonary embolus. 2. Mild bibasilar atelectasis. Possible early/mild pneumonia left lower lobe. 3. Small left pleural effusion. 4. 8mm nodular opacity laterally at the left lung base and a followup noncontrast chest CT is recommended in approximately 3 months. 5. Mild cardiac enlargement. Coronary artery calcification. Kristian Caceres MD Head CT 12/23/17 2349 Signed Impressions: Service Date/Time: Sunday, December 24, 2017 00:03 - CONCLUSION: No acute intracranial abnormality. Kristian Caceres MD Objective Remarks awake and alert, no acute distress anicteric lungs- decreased breath sounds, no rales, or wheezes irregularly irregular rhythm abdomen soft, nontender extremities- no edema neuro exam- non focal A/P Problem List: (1) Frequent falls ICD Code: R29.6 - Repeated falls Status: Chronic (2) Cataract ICD Code: H26.9 - Unspecified cataract (3) Hypoalbuminemia ICD Code: E88.09 - Other disorders of plasma-protein metabolism, not elsewhere classified (4) Hypokalemia ICD Code: E87.6 - Hypokalemia (5) Hypomagnesemia ICD Code: E83.42 - Hypomagnesemia (6) Elevated partial thromboplastin time (PTT) ICD Code: R79.1 - Abnormal coagulation profile (7) Elevated INR ICD Code: R79.1 - Abnormal coagulation profile (8) Gastroesophageal reflux disease ICD Code: K21.9 - Gastro-esophageal reflux disease without esophagitis (9) Pancreatic insufficiency ICD Code: K86.89 - Other specified diseases of pancreas (10) Peripheral neuropathy ICD Code: G62.9 - Polyneuropathy, unspecified (11) Chronic prescription benzodiazepine use ICD Code: Z79.899 - Other remote computer terminal operator (current) drug therapy (12) Chronic anticoagulation ICD Code: Z79.01 - MCC (current) use of anticoagulants (13) COPD (chronic obstructive pulmonary disease) ICD Code: J44.9 - Chronic obstructive pulmonary disease, unspecified Status: Acute (14) CAD (coronary artery disease) ICD Code: I25.10 - Atherosclerotic heart disease of [place] coronary artery without angina pectoris Status: Acute (15) Pancytopenia ICD Code: D61.818 - Pancytopenia Status: Acute (16) Esophageal cancer ICD Code: C15.9 - Esophageal cancer Status: Acute (17) Pleural effusion, left ICD Code: J90 - Pleural effusion, not elsewhere classified Status: Acute (18) Pneumonia ICD Code: J18.9 - Pneumonia, unspecified organism Status: Acute (19) Chronic kidney disease, stage III (moderate) ICD Code: N18.3 - Chronic kidney disease, stage III (moderate) Status: Acute (20) Hypertension ICD Code: I10 - Hypertension Status: Chronic (21) Hypothyroidism ICD Code: E03.9 - Hypothyroidism Status: Chronic (22) Hypoxemia ICD Code: R09.02 - Hypoxemia Status: Acute (23) Severe sepsis ICD Code: A41.9 - Sepsis, unspecified organism; R65.20 - Severe sepsis without septic shock Assessment and Plan This is a 82-year-old male with chronic respiratory failure on 2 L oxygen at home and COPD who presented with shortness of breathing Acute on chronic respiratory failure- patient on chronic 02 -Most likely secondary to CHF exacerbation versus pneumonia or combination. Repeat chest x-ray on 12/27 shows chronic interstitial changes of mild cardiomegaly. Chest x-ray was repeated on 12/28 was stable. ABG reviewed with improvement. -Symptoms improved. baseline on 2L of oxygen. Acute on chronic diastolic CHF -Patient required BiPAP last night due to YUE but respiratory status has improved drastically. Patient at home is on CPAP. -Patient on Lasix 20 mg IV twice daily - change to po Lasix 20 bid (at home was on once a day) - Cardiology ff Renal insufficiency- creatinine stabilizing- non oliguric -Creatinine increased now stable at 2.28. ? cardiorenal. -Renal ultrasound just shows medically renal disease. He did have a lot of urinary retention without any hydronephrosis in which he had a straight cath done. This may be secondary to BPH on Flomax. -Continue management per hospitality internship. good urine output. Avoid nephrotoxins. Strict ins and out. Continue to monitor creatinine. - OP ff up with dr Shannon Urinary retention - improved -Patient started on Flomax. - Questionable pneumonia- -Cefepime and azithromycin. Infectious disease consulted and patient's on oral Levaquin now. Clinically continue to improve. - S/P antiibotic course Chronic Benzodiazepine use/Peripheral Neuropathy/frequent falls, CT brain 12/24 revealed no acute intracranial findings -Continue lorazepam 1 mg nightly/home medication - Continue gabapentin 300 mg p.o. 3 times daily for peripheral neuropathy, - PT daily Atrial Fibrillation/rate control/Hypertension rate controlled -Continue home medication. Patient on Xarelto. Chronic respiratory failure/COPD- 02 dependent -See treatment as above. Symptoms are improving. We will continue to wean off Solu-Medrol. - CT pulmonary revealed left lower lobe infiltrate versus atelectasis. 8 mm left upper lobe nodule follow-up CT scan in 6 months. Coronary calcifications left main/LAD Chronic pancreatic insufficiency -continue pancreatic enzymes, PPIs. 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 chronic rivaroxaban use. - On dexamethasone prior to chemo days- as directed- knowledgeable Hypomagnesia -Magnesium 1.9 . Hypokalemia- improved -Secondary to Lasix use. Will replenish as needed. YUE -on CPAP at home -Pulm ff. Prophylaxis -GI -pantoprazole -DVT -SCD/rivaroxaban will provide pharmacological prophylaxis Discharge Planning once medically cleared will go home with home health. CM consult- arrangement for home PT, nursing Problem Qualifiers (1) Cataract: Qualified Codes: H26.9 - Unspecified cataract (2) Gastroesophageal reflux disease: Qualified Codes: K21.9 - Gastro-esophageal reflux disease without esophagitis (3) Peripheral neuropathy: Qualified Codes: G62.9 - Polyneuropathy, unspecified (4) COPD (chronic obstructive pulmonary disease): Qualified Codes: J44.0 - Chronic obstructive pulmonary disease with acute lower respiratory infection (5) CAD (coronary artery disease): (6) Esophageal cancer: Qualified Codes: C15.9 - Malignant neoplasm of esophagus, unspecified (7) Pneumonia: Qualified Codes: J18.1 - Lobar pneumonia, unspecified organism (8) Hypertension: Qualified Codes: I10 - Essential (primary) hypertension (9) Hypothyroidism: Qualified Codes: E03.9 - Hypothyroidism, unspecified Nancy Shen MD Jan 03, 2018 12:29
[2018-01-03] MEDS ORDERED: POTA20TA5 PO (12:33)
[2018-01-03] MEDS ORDERED: TAMS5CAP PO (12:33)
[2018-01-03] MEDS ORDERED: FURO20TA PO (12:33)
[2018-01-03] MEDS ORDERED: DILT31TA PO (12:33)
--- NOTE | 2018-01-03 12:38 | HHI.DS ---
Discharge Summary Admission Date Dec 24, 2017 at 04:13 Discharge Date: Jan 03, 2018 Admitting Diagnosis Pneumonia w/ hypoemia; copd pancytopenia; esophageal ca (1) Frequent falls ICD Code: R29.6 - Repeated falls Diagnosis: Principal Status: Chronic (2) Cataract ICD Code: H26.9 - Unspecified cataract Diagnosis: Secondary (3) Hypoalbuminemia ICD Code: E88.09 - Other disorders of plasma-protein metabolism, not elsewhere classified Diagnosis: Secondary (4) Hypokalemia ICD Code: E87.6 - Hypokalemia Diagnosis: Secondary (5) Hypomagnesemia ICD Code: E83.42 - Hypomagnesemia Diagnosis: Principal (6) Elevated partial thromboplastin time (PTT) ICD Code: R79.1 - Abnormal coagulation profile Diagnosis: Principal (7) Elevated INR ICD Code: R79.1 - Abnormal coagulation profile Diagnosis: Principal (8) Gastroesophageal reflux disease ICD Code: K21.9 - Gastro-esophageal reflux disease without esophagitis Diagnosis: Secondary (9) Pancreatic insufficiency ICD Code: K86.89 - Other specified diseases of pancreas Diagnosis: Principal (10) Peripheral neuropathy ICD Code: G62.9 - Polyneuropathy, unspecified Diagnosis: Secondary (11) Chronic prescription benzodiazepine use ICD Code: Z79.899 - Other house principal (current) drug therapy Diagnosis: Principal (12) Chronic anticoagulation ICD Code: Z79.01 - trainer (current) use of anticoagulants Diagnosis: Secondary (13) COPD (chronic obstructive pulmonary disease) ICD Code: J44.9 - Chronic obstructive pulmonary disease, unspecified Diagnosis: Principal Status: Acute (14) CAD (coronary artery disease) ICD Code: I25.10 - Atherosclerotic heart disease of [place] coronary artery without angina pectoris Diagnosis: Secondary Status: Acute (15) Pancytopenia ICD Code: D61.818 - Pancytopenia Diagnosis: Principal Status: Acute (16) Esophageal cancer ICD Code: C15.9 - Esophageal cancer Diagnosis: Secondary Status: Acute (17) Pleural effusion, left ICD Code: J90 - Pleural effusion, not elsewhere classified Diagnosis: Secondary Status: Acute (18) Pneumonia ICD Code: J18.9 - Pneumonia, unspecified organism Diagnosis: Secondary Status: Acute (19) Chronic kidney disease, stage III (moderate) ICD Code: N18.3 - Chronic kidney disease, stage III (moderate) Diagnosis: Principal Status: Acute (20) Hypertension ICD Code: I10 - Hypertension Diagnosis: Secondary Status: Chronic (21) Hypothyroidism ICD Code: E03.9 - Hypothyroidism Diagnosis: Secondary Status: Chronic (22) Hypoxemia ICD Code: R09.02 - Hypoxemia Diagnosis: Secondary Status: Acute (23) Severe sepsis ICD Code: A41.9 - Sepsis, unspecified organism; R65.20 - Severe sepsis without septic shock Diagnosis: Principal Brief History - From Admission This is an 82-year-old male. Date of admission 12/24/2017. Past medical history includes esophageal carcinoma T2 N2 M1 receiving chemotherapy in [place], COPD, atrial fibrillation on chronic anticoagulation, hypertension, hypothyroidism, coronary artery disease, diverticulosis. History of AML treated in 1992. Patient has a right-sided Eakdrl-k-Uohu. Patient is a history of tobaccoism quit 19-rllg-ylol history in 1977. Patient presents to [facility] with a recent history of frequent falls. Patient has fallen 4 times in the past 24 hours. Denies head trauma. Usually around "10 days" after chemotherapy that he receives in [place] patient becomes increasingly weak. Patient is normally on 2 L nasal cannula which is bumped to 3 L. Patient came desaturated with CO2 retention. Patient was eventually transferred to the [facility] currently satting 100%. CT brain revealed no acute intracranial findings. Chest x-ray revealed no acute cardiopulmonary findings. CT pulmonary revealed left lower lobe infiltrate/atelectasis, small pleural effusion with a coronary calcification of the left main/LAD area. Laboratories revealed pancytopenia, elevated INR PTT. Patient received 1 L normal saline, vancomycin, cefepime and methylprednisolone succinate 125 mg 1 in the ED. CBC/BMP: 01/02/18 0630 01/03/18 0530 Significant Findings Laboratory Tests Test 01/01/18 06:10 01/02/18 06:30 01/03/18 05:30 Blood Urea Nitrogen 96 MG/DL (7-18) 93 MG/DL (7-18) 90 MG/DL (7-18) Creatinine 2.28 MG/DL (0.60-1.30) 2.28 MG/DL (0.60-1.30) 2.10 MG/DL (0.60-1.30) Calcium Level 8.3 MG/DL (8.5-10.1) Estimat Glomerular Filtration Rate 28 ML/MIN (>89) 28 ML/MIN (>89) 30 ML/MIN (>89) White Blood Count 14.4 TH/MM3 (4.0-11.0) Red Blood Count 3.10 MIL/MM3 (4.50-5.90) Hemoglobin 9.4 GM/DL (13.0-17.0) Hematocrit 28.4 % (39.0-51.0) Red Cell Distribution Width 19.7 % (11.6-17.2) Platelet Count 106 TH/MM3 (150-450) Neutrophils (%) (Auto) 85.2 % (16.0-70.0) Lymphocytes (%) (Auto) 6.4 % (9.0-44.0) Monocytes (%) (Auto) 8.2 % (0.0-8.0) Neutrophils # (Auto) 12.2 TH/MM3 (1.8-7.7) Lymphocytes # (Auto) 0.9 TH/MM3 (1.0-4.8) Monocytes # (Auto) 1.2 TH/MM3 (0-0.9) Neutrophils % (Manual) 72 % (16-70) Neutrophils # (Manual) 12.5 TH/MM3 (1.8-7.7) Metamyelocytes 4 % (0-1) Myelocytes 5 % (0-0) Nucleated Red Blood Cells 1 /100 WBC (0-0) Toxic Granulation 1+ (NORMAL) Platelet Estimate LOW (NORMAL) Tear Drop Cells 1+ (NORMAL) Ovalocytes 1+ (NORMAL) Sodium Level 135 MEQ/L (136-145) Chloride Level 97 MEQ/L (98-107) B-Type Natriuretic Peptide 200 PG/ML (0-100) Imaging Last Impressions Renal Ultrasound 12/29/17 0000 Signed Impressions: Service Date/Time: Friday, December 29, 2017 22:37 - CONCLUSION: 1. Increased cortical echogenicity bilaterally characteristic of acute medical renal disease. 2. Benign-appearing cortical cyst in the upper pole of the left kidney. No hydronephrosis or nephrolithiasis, however. 3. Urinary retention with an estimated volume of 1854 cc. Mateus Tovar MD Chest X-Ray 12/28/17 0000 Signed Impressions: Service Date/Time: December 13:28 - CONCLUSION: 1. Chronic appearing interstitial changes. Exam is similar to previous dated 12/27/17. Derian Mukherjee MD Abdomen X-Ray 12/28/17 0000 Signed Impressions: Service Date/Time: December 13:46 - CONCLUSION: 1. Bowel gas pattern most consistent with adynamic ileus versus less likely developing partial small bowel obstruction. Alvaro Hidalgo MD Brain MRI 12/24/17 1624 Signed Impressions: Service Date/Time: Sunday, December 24, 2017 16:22 - CONCLUSION: 1. Moderate central and cortical atrophy and old right COMMODITY BROKER infarction. 2. 2 mm area of altered susceptibility in the right mid convexity parietal-occipital white matter, characteristic of an old punctate hemorrhage. 3. No evidence of acute infarction. No enhancing mass is seen. Riki Trent MD Carotid Artery Ultrasound 12/24/17 0000 Signed Impressions: Service Date/Time: Sunday, December 24, 2017 12:40 - CONCLUSION: 1. Minimal bilateral carotid plaque. 2. No evidence of hemodynamically significant stenosis. 3. Antegrade flow in both vertebral arteries. Joshua Garcia MD CT Angiography 12/24/17 0000 Signed Impressions: Service Date/Time: Sunday, December 24, 2017 03:00 - CONCLUSION: 1. No pulmonary embolus. 2. Mild bibasilar atelectasis. Possible early/mild pneumonia left lower lobe. 3. Small left pleural effusion. 4. 8mm nodular opacity laterally at the left lung base and a followup noncontrast chest CT is recommended in approximately 3 months. 5. Mild cardiac enlargement. Coronary artery calcification. Kristian Caceres MD Head CT 12/23/17 7430 Signed Impressions: Service Date/Time: Sunday, December 24, 2017 00:03 - CONCLUSION: No acute intracranial abnormality. Kristian Caceres MD PE at Discharge awake and alert, no acute distress anicteric lungs- decreased breath sounds, no rales, or wheezes irregularly irregular rhythm abdomen soft, nontender extremities- no edema neuro exam- non focal Pt update on day of discharge afebrile good sats at 2-3 LNC awake and interactive seen with very proactive with care vodiing well spontaenoulsy Hospital Course This is a 82-year-old male with chronic respiratory failure on 2 L oxygen at home and COPD who presented with shortness of breathing Acute on chronic respiratory failure- patient on chronic -Most likely secondary to CHF exacerbation versus pneumonia or combination. Repeat chest x-ray on 12/27 shows chronic interstitial changes of mild cardiomegaly. Chest x-ray was repeated on 12/28 was stable. ABG reviewed with improvement. -Symptoms improved. baseline on 2L of oxygen. Acute on chronic diastolic CHF -Patient required BiPAP last night due to YUE but respiratory status has improved drastically. Patient at home is on CPAP. -Patient on Lasix 20 mg IV twice daily - change to po Lasix 20 bid (at home was on once a day) - Cardiology ff Renal insufficiency- creatinine stabilizing- non oliguric -Creatinine increased now stable at 2.28. ? cardiorenal. -Renal ultrasound just shows medically renal disease. He did have a lot of urinary retention without any hydronephrosis in which he had a straight cath done. This may be secondary to BPH on Flomax. -Continue management per production control expert. good urine output. Avoid nephrotoxins. Strict ins and out. Continue to monitor creatinine. - OP ff up with dr Shannon Urinary retention - improved -Patient started on Flomax. - Questionable pneumonia- -Cefepime and azithromycin. Infectious disease consulted and patient's on oral Levaquin now. Clinically continue to improve. - S/P antiibotic course Chronic Benzodiazepine use/Peripheral Neuropathy/frequent falls, CT brain 12/24 revealed no acute intracranial findings -Continue lorazepam 1 mg nightly/home medication - Continue gabapentin 300 mg p.o. 3 times daily for peripheral neuropathy, - PT daily Atrial Fibrillation/rate control/Hypertension rate controlled -Continue home medication. Patient on Xarelto. Chronic respiratory failure/COPD- dependent -See treatment as above. Symptoms are improving. We will continue to wean off Solu-Medrol. - CT pulmonary revealed left lower lobe infiltrate versus atelectasis. 8 mm left upper lobe nodule follow-up CT scan in 6 months. Coronary calcifications left main/LAD Chronic pancreatic insufficiency -continue pancreatic enzymes, PPIs. 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 chronic rivaroxaban use. - On dexamethasone prior to chemo days- as directed- knowledgeable Hypomagnesia -Magnesium 1.9 . Hypokalemia- improved -Secondary to Lasix use. Will replenish as needed. YUE -on CPAP at home -Pulm ff. Prophylaxis -GI -pantoprazole -DVT -SCD/rivaroxaban will provide pharmacological prophylaxis Discharge Planning once medically cleared will go home with home health. CM consult- arrangement for home PT, nursing Pt Condition on Discharge: Stable Discharge Disposition: Disch w/ Home Health Serv Discharge Time: > 30 minutes Discharge Instructions DIET: Follow Instructions for: Heart Healthy Diet, Diabetic Diet Activities you can perform: Weight Bearing as Popeye Follow up Referrals: Cardiology - 1 Week with Jasmin Guo MD Nephrology - 1 Week with Odell PCP Follow-up - 3-5 Days with Fabien New Orders: BASIC METABOLIC PROF - 01/08/18 New Medications: Prednisone (Prednisone) 5 Mg Tab 5 MG PO DAILY for Resp for 7 Days, #10 TAB 0 Refills take 2 tabs po dialy starting 01/04 for 3 days then 1 tab po daily x 4 days then DC Walker with Front Wheels (Walker with Front Wheels) 1 Mis Mis EA .XX DIRECTED, #1 0 Refills Diltiazem (Cardizem) 30 Mg Tab 30 MG PO Q12HR for a fib for 30 Days, #60 TAB 3 Refills Furosemide (Furosemide) 20 Mg Tab 20 MG PO BID@,18 for FLMx for 30 Days, TAB Potassium Chloride Microencaps (Potassium Chloride Microencaps) 20 Meq Tab 20 MEQ PO DAILY for elec for 30 Days, #30 TAB Tamsulosin (Flomax) 0.4 Mg Cap 0.4 MG PO DAILY for URE reten for 30 Days, #30 CAP Continued Medications: Cholecalciferol (D3) 1,000 Unit Tab 2000 UNITS PO DAILY Cyanocobalamin (B12) 1,000 Mcg Tab 1000 MCG PO DAILY Dexamethasone (Dexamethasone) 4 Mg Tab 40 MG PO DIRECTED, TAB 0 Refills Fish Oil-Cholecalciferol (Fish Oil + D3) 1,200-1,000 Mg-Unit Cap 2 CAP PO HS for Nutritional Supplement, #30 CAP 0 Refills Gabapentin (Gabapentin) 300 Mg Cap 300 MG PO TID PRN for PAIN SCALE 1 TO 7, #90 CAP 0 Refills Levothyroxine (Levothyroxine) 200 Mcg Tab 200 MCG PO DAILY for Thyroid, #30 TAB 0 Refills Lorazepam (Lorazepam) 1 Mg Tab 1 MG PO HS PRN for RESTLESSNESS, TAB 0 Refills Multiple Vitamin (Multivitamins) 1 Cap Cap 1 CAP PO DAILY Pancrelipase (Creon) 6,000-19,000-30,000 Units Cap 1 CAP PO DAILY for Digestive Aid, #90 CAP 0 Refills Pantoprazole (Pantoprazole) 40 Mg Tab 40 MG PO DAILY for Reflux, #30 TAB 0 Refills Rivaroxaban (Xarelto) 15 Mg Tab 15 MG PO HS for Blood Clot Prevention, TAB 0 Refills Umeclidinium-Vilanterol Inh (Anoro Ellipta Inh) 62.5-25 Mcg/Act Aero 1 PUFF INH DAILY for COPD, #1 INHALER 0 Refills Nancy Shen MD Jan 03, 2018 12:38
[2018-01-03] MEDS ORDERED: PRED5TAB PO (12:47)
--- NOTE | 2018-01-03 17:31 | PD.CARD.PN ---
Subjective Subjective Remarks Feels well, no CP or SOB Objective Vital Signs / I&O Vital Signs Date Time Temp Pulse Resp B/P (MAP) Pulse Ox O2 Delivery O2 Flow Rate FiO2 01/03/18 12:00 97.4 80 19 91/54 (66) 99 90/50 (63) 01/03/18 08:00 76 01/03/18 08:00 Nasal Cannula 3.00 01/03/18 08:00 95.2 71 19 114/62 (79) 99 01/03/18 04:00 Nasal Cannula 3.00 01/03/18 04:00 97.2 82 18 99/57 (71) 100 01/03/18 04:00 77 01/03/18 00:00 81 01/03/18 00:00 Nasal Cannula 3.00 01/03/18 00:00 97.3 85 18 125/58 (80) 93 01/02/18 20:20 98.0 73 18 112/67 (82) 96 01/02/18 20:00 Nasal Cannula 3.00 01/02/18 20:00 77 I/O 01/02/18 01/02/18 01/02/18 01/03/18 01/03/18 01/03/18 07:00 15:00 23:00 07:00 15:00 23:00 Intake Total 240 ml Output Total 650 ml 800 ml Balance -410 ml -800 ml Intake Oral 240 ml Output Urine Total 650 ml 800 ml Bladder Scan Volume Amount 10 ml # Bowel Movements 0 Physical Exam GENERAL: In NAD. SKIN: Warm and dry. HEAD: Normocephalic. EYES: No scleral icterus. No injection or drainage. NECK: Supple, trachea midline. No JVD or lymphadenopathy. CARDIOVASCULAR: Irregular rate and rhythm, without murmurs, gallops, or rubs. RESPIRATORY: Breath sounds equal bilaterally. No accessory muscle use. GASTROINTESTINAL: Abdomen soft, non-tender, nondistended. MUSCULOSKELETAL: No cyanosis, mild LE edema. Laboratory Laboratory Tests Test 01/03/18 05:30 Blood Urea Nitrogen 90 MG/DL Creatinine 2.10 MG/DL Random Glucose 82 MG/DL Calcium Level 8.9 MG/DL Sodium Level 137 MEQ/L Potassium Level 3.6 MEQ/L Chloride Level 99 MEQ/L Carbon Dioxide Level 27.4 MEQ/L Anion Gap 11 MEQ/L Estimat Glomerular Filtration Rate 30 ML/MIN Assessment and Plan Problem List: (1) Frequent falls ICD Codes: R29.6 - Repeated falls Status: Chronic (2) Pneumonia ICD Codes: J18.9 - Pneumonia, unspecified organism Status: Acute (3) Severe sepsis ICD Codes: A41.9 - Sepsis, unspecified organism; R65.20 - Severe sepsis without septic shock (4) Hypertension ICD Codes: I10 - Hypertension Status: Chronic (5) Esophageal cancer ICD Codes: C15.9 - Esophageal cancer Status: Acute (6) CAD (coronary artery disease) ICD Codes: I25.10 - Atherosclerotic heart disease of [place] coronary artery without angina pectoris Status: Acute (7) Neutropenic ICD Codes: D70.9 - Neutropenia, unspecified Status: Chronic (8) COPD (chronic obstructive pulmonary disease) ICD Codes: J44.9 - Chronic obstructive pulmonary disease, unspecified Status: Acute (9) Atrial fibrillation ICD Codes: I48.91 - Unspecified atrial fibrillation Status: Chronic Assessment and Plan Stable from cardiac standpoint. No angina or CHF. AF rate well controlled, continue rate control and anticoagulation with Xarelto. Continue therapy for diastolic CHF including diuresis. DC home as planned. D/w pt and . Will schedule outpt f/u in our office. Problem Qualifiers (1) Pneumonia: Qualified Codes: J18.1 - Lobar pneumonia, unspecified organism (2) Hypertension: Qualified Codes: I10 - Essential (primary) hypertension (3) Esophageal cancer: Qualified Codes: C15.9 - Malignant neoplasm of esophagus, unspecified (4) CAD (coronary artery disease): (5) COPD (chronic obstructive pulmonary disease): Qualified Codes: J44.0 - Chronic obstructive pulmonary disease with acute lower respiratory infection (6) Atrial fibrillation: Qualified Codes: I48.91 - Unspecified atrial fibrillation Jasmin Guo MD Jan 03, 2018 17:31
== END 2018-01-03 14:29 | disposition home health service (06) | DRG 871 ==
LOC: PHED 21:49 → PHEDA 12-24 04:13 → HIME 12-24 08:45 → N04A 12-26 18:08
PROVIDERS: ADMIT Internal Medicine; ATTEND Internal Medicine
PROC: 5A09357 Assistance with Respiratory Ventilation, Less than 24 Consecutive Hours, Continuous Positive Airway Pressure (ICD-10-PCS; principal; 2017-12-24)
DX: A41.9 Sepsis, unspecified organism (principal); J18.9 Pneumonia, unspecified organism; J96.21 Acute and chronic respiratory failure with hypoxia; I50.33 Acute on chronic diastolic (congestive) heart failure; N17.9 Acute kidney failure, unspecified; C15.9 Malignant neoplasm of esophagus, unspecified; D61.810 Antineoplastic chemotherapy induced pancytopenia; Z94.81 Bone marrow transplant status; C78.00 Secondary malignant neoplasm of unspecified lung; E87.2 Acidosis; J44.0 Chronic obstructive pulmonary disease with (acute) lower respiratory infection; I13.0 Hypertensive heart and chronic kidney disease with heart failure and stage 1 through stage 4 chronic kidney disease, or unspecified chronic kidney disease; J44.1 Chronic obstructive pulmonary disease with (acute) exacerbation; J98.11 Atelectasis; C92.01 Acute myeloblastic leukemia, in remission; K21.9 Gastro-esophageal reflux disease without esophagitis; I48.2 Chronic atrial fibrillation; T45.1X5A Adverse effect of antineoplastic and immunosuppressive drugs, initial encounter; M19.90 Unspecified osteoarthritis, unspecified site; H91.90 Unspecified hearing loss, unspecified ear; G47.33 Obstructive sleep apnea (adult) (pediatric); E03.9 Hypothyroidism, unspecified; N18.3 Chronic kidney disease, stage 3 (moderate); M81.0 Age-related osteoporosis without current pathological fracture; I25.10 Atherosclerotic heart disease of native coronary artery without angina pectoris; E78.5 Hyperlipidemia, unspecified; E83.42 Hypomagnesemia; E88.09 Other disorders of plasma-protein metabolism, not elsewhere classified; E87.6 Hypokalemia; R79.1 Abnormal coagulation profile; G62.9 Polyneuropathy, unspecified; R29.6 Repeated falls; R91.1 Solitary pulmonary nodule; K57.30 Diverticulosis of large intestine without perforation or abscess without bleeding; D53.9 Nutritional anemia, unspecified; R33.9 Retention of urine, unspecified; R32 Unspecified urinary incontinence; R65.20 Severe sepsis without septic shock; R00.0 Tachycardia, unspecified; T50.1X5A Adverse effect of loop [high-ceiling] diuretics, initial encounter; Z91.81 History of falling; Z79.01 Long term (current) use of anticoagulants; Z99.81 Dependence on supplemental oxygen; Z87.891 Personal history of nicotine dependence; Z79.891 Long term (current) use of opiate analgesic; Z86.73 Personal history of transient ischemic attack (TIA), and cerebral infarction without residual deficits
CPT/HCPCS: 36600; 70450; 70553; 71045; 71275; 74018; 76775; 80048; 80053; 81001; 82140; 82550; 82784; 82785; 82805; 82948; 83605; 83690; 83735; 83880; 84100; 84132; 84443; 84484; 85007; 85027; 85610; 85730; 87040; 87449; 87641; 87804; 90471; 90714; 93005; 93308; 93880; 94002; 94003; 94150; 94640; 94664; 96365; 96367; A9579; J0456; J0692; J1940; J2920; J2930; J3370; J3475; J3480; J7030; J7040; J7050; J7512; P9047; Q9967

== ENCOUNTER 2018-01-03 18:53 | Emergency (ER) | payer MEDICARE ==
[2018-01-03 18:51] VITALS: O2SAT 96
[~2018-01-03 18:53] MED LIST changes: -CLIN150C14 PO; +DILT31TA PO; +FURO20TA PO; +POTA20TA5 PO; +PRED5TAB PO; +TAMS5CAP PO; +WALKER WHEELS/F1 MIS
[2018-01-03] MEDS ORDERED: NOREPINEPHRINE 4 MG/4 ML AMP IV ONE (18:54)
[2018-01-03] MEDS ORDERED: EPINEPHrine HCL (1:10,000) 1 MG/10 ML SYRINGE IV ONE (18:54)
[2018-01-03] MEDS ORDERED: MAGNESIUM SULFATE 40 MEQ/10 ML VIAL IV ONE (18:54)
[2018-01-03] MEDS ORDERED: CALCIUM CHLORIDE 10% SOLN 1 GRAM/10 ML SYR IV ONE (18:54)
[2018-01-03] MEDS ORDERED: ATROPINE SULFATE 1 MG/10 ML SYRINGE IV ONE (18:54)
[2018-01-03] MEDS ORDERED: SODIUM BICARBONATE 8.4% INJ 50 MEQ/50 ML SYR IV ONE (18:54)
[2018-01-03] MEDS ORDERED: EPINEPHrine (1:1000) INJ 2 MG in DEXTROSE 5% IN WATER INJ 250 ML IV PRN ×2 (19:15)
--- NOTE | 2018-01-03 19:59 | PD ---
HPI Chief Complaint: Code Blue Time Seen by Provider: 19:53 Travel History International Travel<30 days: No Contact w/Intl Traveler<30days: No History of Present Illness HPI Patient is an 82-year-old male brought in by EMS in cardiac arrest. Per EMS, he was last seen 30 minutes prior to their arrival. EMS states that they have been performing CPR for the past 30 minutes. Patient was discharged from the hospital today. He was here with COPD, electrolyte abnormalities. His states that she left to get his medications and left him in bed with a urinal. She says that he called his daughter and said he was going to crawl to the bathroom because he did not want to use the urinal. When she got home, she found him unconscious on the bathroom floor. Patient is intubated and unresponsive on arrival. 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, BONEMARROW TRANSPLANT, ESOPHAGEAL CX ) Cardiovascular Problems: Yes Chemotherapy: Yes (LAST DOSE: DEC 12, 2017) COPD: Yes Diabetes: No Diminished Hearing: Yes (HEARING AIDS) Diverticulitis: Yes Endocrine: No Genitourinary: No Hepatitis: No Hiatal Hernia: Yes Hypertension: Yes Immune Disorder: No Musculoskeletal: Yes (OSTEOPOROSIS) Neurologic: No Psychiatric: No Reproductive: No Respiratory: Yes (2L NC) Immunizations Current: Yes Pneumonia: Yes Thyroid Disease: Yes (HYPOTHYROIDISM) Past Surgical History Abdominal Surgery: Yes (INGUINAL HERNIA SURGERY X2) AICD: No Body Medical Devices: RIGHT CHEST PORT Cardiac Surgery: No Ear Surgery: No Eye Surgery: Yes (CATARACTS REMOVED BILATERALLY) Genitourinary Surgery: No Gynecologic Surgery: No Joint Replacement: No Oral Surgery: Yes (DENTAL IMPLANTS) Pacemaker: No Other Surgery: Yes (HERNIA REPAIR, GONSALEZ, PORT PLACEMENT) Social History Alcohol Use: Yes (RARELY) Tobacco Use: No (QUIT 1977) Substance Use: No Allergies-Medications (Allergen,Severity, Reaction): Coded Allergies: No Known Allergies (Unverified Adverse Reaction, Unknown, 01/03/18) VANCO ALLERGY WAS REMOVED PER DR. CHAMBERS ORDER, PT STATES, VANCO INFILTRATED, NO ALLERGIC REACTION. Reported Meds & Prescriptions Reported Meds & Active Scripts Active Prednisone 5 Mg Tab 5 Mg PO DAILY 7 Days take 2 tabs po dialy starting 01/04 for 3 days then 1 tab po daily x 4 days then DC Furosemide 20 Mg Tab 20 Mg PO BID@09,18 30 Days Potassium Chloride Microencaps 20 Meq Tab 20 Meq PO DAILY 30 Days Cardizem (Diltiazem HCl) 30 Mg Tab 30 Mg PO Q12HR 30 Days Flomax (Tamsulosin HCl) 0.4 Mg Cap 0.4 Mg PO DAILY 30 Days Walker with Front Wheels (Device) 1 Mis Mis Ea .XX DIRECTED Tylenol (Acetaminophen) 325 Mg Tab 325 Mg PO Q4H PRN Reported Lasix (Furosemide) 20 Mg Tab 20-40 Mg PO DAILY Anoro Ellipta Inh (Umeclidinium/Vilanterol) 62.5-25 Mcg/Act Aero 1 Puff INH DAILY Multivitamins (Multiple Vitamin) 1 Cap Cap 1 Cap PO DAILY Fish Oil + D3 (Fish Oil-Cholecalciferol) 1,200-1,000 Mg-Unit Cap 2 Cap PO HS Dexamethasone 4 Mg Tab 40 Mg PO DIRECTED Creon (Amylase/Lipase/Protease) 6,000-19,000-30,000 Units Cap 1 Cap PO DAILY Xarelto (Rivaroxaban) 15 Mg Tab 15 Mg PO HS Pantoprazole (Pantoprazole Sodium) 40 Mg Tab 40 Mg PO DAILY Lorazepam 1 Mg Tab 1 Mg PO HS PRN Levothyroxine (Levothyroxine Sodium) 200 Mcg Tab 200 Mcg PO DAILY B12 (Cyanocobalamin) 1,000 Mcg Tab 1,000 Mcg PO DAILY Gabapentin 300 Mg Cap 300 Mg PO TID PRN D3 (Cholecalciferol) 1,000 Unit Tab 2,000 Units PO DAILY Review of Systems ROS Limitations: Unresponsive Physical Exam Exam Limitations: Clinical Condition Narrative GENERAL: Intubated, unresponsive. SKIN: Focused skin assessment warm/dry. Bruising to the left chest. Fungal rash in the groin area. HEAD: Atraumatic. Normocephalic. EYES: Pupils fixed and dilated. ENT: No nasal bleeding or discharge. NECK: Trachea midline. No JVD. CARDIOVASCULAR: Absent pulse. RESPIRATORY: bilateral breath sounds with ventilation, clear to auscultation. GASTROINTESTINAL: Abdomen soft, non-tender, nondistended. MUSCULOSKELETAL: No obvious deformities. No clubbing. No cyanosis. 3+ pitting edema bilateral lower extremities. Data Data Last Documented VS Vital Signs Date Time Temp Pulse Resp B/P (MAP) Pulse Ox O2 Delivery O2 Flow Rate FiO2 01/03/18 18:51 96 Orders Orders Epinephrine (1:1000) Inj (Adrenalin (1:1 (01/03/18 19:15) MDM Medical Decision Making Medical Screen Exam Complete: Yes Emergency Medical Condition: Yes Medical Record Reviewed: Yes Differential Diagnosis STEMI versus PE versus intracranial hemorrhage versus electrolyte abnormality Narrative Course Patient is an 82-year-old male brought in by EMS in cardiac arrest. Patient was intubated by EMS prior to arrival. He was given 100 mEq of bicarb as well as epinephrine 3 by EMS. EMS reports he was in asystole and then PEA while they were with him. They report performing CPR for 30 minutes. On arrival, ET tube is in place, pulse is still absent. ACLS protocol followed. Patient was given several rounds of epinephrine, given calcium. He was also given a dose of magnesium and 2 Amps of bicarb. After receiving epinephrine, patient would regain a pulse that would last for minutes and then fade. He continued to do this for an hour. He was on an epinephrine drip as well as a Levophed drip. He was given 2 L of fluid. However, patient was never able to maintain a pulse. After an hour, it was decided that further resuscitation was futile. Patient already had pupils that were fixed and dilated and did not have a perfusing pulse in over an hour and a half. I discussed this with the family. Decision made to hold resuscitative efforts. Cardiac standstill seen on ultrasound, time of 1951. Critical Care Narrative Aggregate critical care time was 45 minutes. Time to perform other separately billable procedures was not included in the critical care time. My time did not include minutes spent treating any other patients simultaneously or on activities that did not directly contribute to the patient's treatment. The services I provided to this patient were to treat and/or prevent clinically significant deterioration that could result in: Serious illness or I provided critical care services requiring my management, as noted below: Chart data review, documentation time, medication orders and management, vital sign assessments/reviewing monitor data, ordering and reviewing lab tests, ordering and interpreting/reviewing x-rays and diagnostic studies, care of the patient and discussion of the patient with the admitting physicians. Diagnosis Primary Impression: Cardiac arrest Condition: Paula Cox MD Jan 03, 2018 19:59
== END 2018-01-03 21:40 | disposition expired ==
LOC: NEPE 18:53 → NEPI 21:40
DX: I46.9 Cardiac arrest, cause unspecified (principal); M19.90 Unspecified osteoarthritis, unspecified site; I48.91 Unspecified atrial fibrillation; J44.9 Chronic obstructive pulmonary disease, unspecified; I10 Essential (primary) hypertension; E03.9 Hypothyroidism, unspecified; K57.92 Diverticulitis of intestine, part unspecified, without perforation or abscess without bleeding; Z79.01 Long term (current) use of anticoagulants; Z92.21 Personal history of antineoplastic chemotherapy; Z85.01 Personal history of malignant neoplasm of esophagus; Z87.891 Personal history of nicotine dependence
CPT/HCPCS: 92950; 99291; J0171; J0461; J3475